=== PATIENT | female | born 1975 | race African-American/Black ===

== ENCOUNTER 2018-12-22 09:44 | Inpatient (IN) | payer OTHER ==
[2018-12-22 11:31] VITALS: BMI 26.6
--- NOTE | 2018-12-22 14:05 | HP ---
COWS - Scale Resting Pulse: 0= [place] 80 or Below Sweatin= Chills/Flushing Restless Observation: 3= Extraneous Movement Pupil Size: 1= Pupils >than Normal Bone or Joint Aches: 2= Severe Diffuse Aches Runny Nose/ Eye Tearin= Nasal Congestion GI Upset > 30mins: 3= Vomiting/Diarrhea Tremor Observation: 2= Slight Tremor Visible Yawning Observation: 1= 1-2x During Session Anxiety or Irritability: 2=Irritable/Anxious Goose Flesh Skin: 0=Smooth Skin COWS Score: 16 CIWA Score - Admission Criteria OASAS Guidelines: Admission for Medically Managed Detox: Requires at least one of the followin. CIWA greater than 12 2. Seizures within the past 24 hours 3. Delirium tremens within the past 24 hours 4. Hallucinations within the past 24 hours 5. Acute intervention needed for co occurring medical disorder 6. Acute intervention needed for co occurring psychiatric disorder 7. Severe withdrawal that cannot be handled at a lower level of care (continued vomiting, continued diarrhea, abnormal vital signs) requiring intravenous medication and/or fluids 8. Admission ROS [facility] Chief Complaint: i nee help to stop using heroin,cocaine,marijuana Allergies/Adverse Reactions: Allergies Allergy/AdvReac Type Severity Reaction Status Date / Time sulfur dioxide Allergy Verified 12/22/18 11:16 History of Present Illness: this 43 years old female with heroin,cocaine,marijuana dependence seeking detox, withdrawal symptom, seen at [facility] yesterday,refer for detox multiple admissions in detox and rehab last [facility] but relapsing for 2 weeks hepatitis c irritable bowel syndrome and colitis nicotine dependence 3 cigarette schizoaffective disorder no significant period of sobriety Exam Limitations: No Limitations - Ebola screening Have you traveled outside of the country in the last 21 days: No (N) Have you had contact with anyone from an Ebola affected area: No Do you have a fever: No - Review of Systems Constitutional: Chills, Loss of Appetite, Malaise, Night Sweats, Changes in sleep, Weakness, Unintentional Wgt. Loss EENT: reports: Tearing, Nose Congestion Respiratory: reports: No Symptoms reported Cardiac: reports: No Symptoms Reported GI: reports: Diarrhea, Nausea, Vomiting, Abdominal cramping : reports: No Symptoms Reported Musculoskeletal: reports: Back Pain, Muscle Pain Integumentary: reports: Dryness Neuro: reports: Headache, Tremors Endocrine: reports: No Symptoms Reported Hematology: reports: No Symptoms Reported Psychiatric: reports: No Sypmtoms Reported, Judgement Intact, Mood/Affect Appropiate, Orientated x3, other (schizoaffective disorder) Other Systems: Reviewed and Negative Patient History - Patient Medical History Hx Asthma: Yes (ALBUTEROL INHALER) Hx Chronic Obstructive Pulmonary Disease (COPD): No Hx Cancer: No Hx Cardiac Disorders: No Hx Congestive Heart Failure: No Hx Hypertension: No Hx Hypercholesterolemia: No Hx Pacemaker: No HX Cerebrovascular Accident: No Hx Seizures: No Hx Dementia: No Hx Diabetes: No Hx Gastrointestinal Disorders: Yes (irritable bowel syndrome and colitis) Hx Liver Disease: Yes Hx Genitourinary Disorders: No Hx Sexually Transmitted Disorders: No Hx Renal Disease (ESRD): No Hx Thyroid Disease: No Hx Human Immunodeficiency Virus (HIV): No (last 11/12 negative) Hx Hepatitis C: Yes (no treatment) Hx Depression: Yes Hx Suicide Attempt: No Hx Schizophrenia: Yes (SCHIZOAFFECTIVE) Other Medical History: no sucidal,no homicidal - Patient Surgical History Past Surgical History: No Hx Neurologic Surgery: No Hx Cataract Extraction: No Hx Cardiac Surgery: No Hx Lung Surgery: No Hx Breast Surgery: No Hx Breast Biopsy: No Hx Abdominal Surgery: No Hx Appendectomy: No Hx Cholecystectomy: No Hx Genitourinary Surgery: No Hx Section: No Hx Orthopedic Surgery: No Anesthesia Reaction: No - PPD History Previous Implant?: Yes Documented Results: Negative w/o proof Implanted On Prior [facility] Admission?: No PPD to be Administered?: Yes - Reproductive History Patient is a Female of Child Bearing Age (11 -55 yrs old): Yes Last Menstrual Period: 10/25/14 Patient : No - Smoking Cessation Smoking history: Current every day smoker Have you smoked in the past 12 months: Yes Aproximately how many cigarettes per day: 3 Hx Chewing Tobacco Use: No Initiated information on smoking cessation: Yes 'Breaking Loose' booklet given: 12/22/18 - Substance & Tx. History Hx Alcohol Use: No Hx Substance Use: Yes Substance Use Type: Cocaine, Heroin, Marijuana Hx Substance Use Treatment: Yes ([facility] 07/[facility]) - Substances abused Heroin Substance route: Injection Frequency: Daily Amount used: 5 BAGS Age of first use: 40 Date of last use: 12/21/18 Cocaine Substance route: Injection Frequency: 1-2 times per week Amount used: 20$ Age of first use: 25 Date of last use: 12/20/18 Marijuana/Hashish Substance route: Smoking Frequency: 1-3 times last 30 days Amount used: 10$ Age of first use: 14 Date of last use: 12/05/18 Family Disease History - Family Disease History Family History: Denies Admission Physical Exam [facility] - Vital Signs Vital Signs: Vital Signs - 24 hr 12/22/18 12/22/18 11:27 11:42 Temperature 97.3 F L 97.3 F L Pulse Rate 54 L 54 L Respiratory 20 20 Rate Blood Pressure 108/68 108/68 - Physical General Appearance: Yes: Moderate Distress, Tremorous, Irritable, Sweating, Anxious HEENTM: Yes: Normal ENT Inspection, TANI, Pharynx Normal Respiratory: Yes: Within Normal Limits, Lungs Clear, Normal Breath Sounds Neck: Yes: Within Normal Limits, Supple, Trachea in good position Breast: Yes: Breast Exam Deferred Cardiology: Yes: Within Normal Limits, Regular Rhythm, Regular Rate, S1, S2 Abdominal: Yes: Within Normal Limits, Normal Bowel Sounds, Non Tender, Flat, Soft Genitourinary: Yes: Within Normal Limits Back: Yes: Muscle Spasm Musculoskeletal: Yes: full range of Motion, Back pain, Muscle Pain Extremities: Yes: Tremors, Swelling (abscess of left leg spontaneous drainage yesterday) Neurological: Yes: Alert, Motor Strength 5/5, Normal Mood/Affect Integumentary: Yes: Dry Lymphatic: Yes: Within Normal Limits - Diagnostic (1) Opioid dependence with withdrawal Current Visit: Yes Status: Acute (2) Cocaine dependence Current Visit: Yes Status: Acute (3) Marijuana dependence Current Visit: Yes Status: Acute (4) Weight loss Current Visit: Yes Status: Acute (5) Nicotine dependence Current Visit: Yes Status: Acute (6) Schizoaffective disorder Current Visit: Yes Status: Acute (7) Abscess of left leg Current Visit: Yes Status: Acute (8) Irritable bowel syndrome Current Visit: Yes Status: Acute (9) Colitis Current Visit: Yes Status: Acute Cleared for Admission [facility] - Detox or Rehab [facility] Level of Care: Medically Managed Detox Regimen/Protocol: Methadone Breathalyzer - Breathalyzer Breathalyzer: 0 POC Urine test - Test device test lot number: [id number] Expiration date: 05/26/20 - Control test control: Yes - Result Urine Test Results: Negative - NO line present Urine Drug Screen - Test Device Lot number: [id number] Expiration date: 07/26/20 - Control Is test valid?: Yes - Results Drug screen NEGATIVE: No Urine drug screen results: THC-Marijuana, COLT-Cocaine, FEN-Fentanyl, MOP-Opiates , MTD-Methadone, BZO-Benzodiazepines, BUP-Suboxone Inpatient Rehab Admission - Rehab Decision to Admit Inpatient rehab admission?: No
[2018-12-22] MEDS ORDERED: MAGNESIUM CITRATE 300 ML BOTTLE PO PRN (14:22)
[2018-12-22] MEDS ORDERED: MAG HYDROX/AL HYDROX/SIMETH 30 ML UNIT-DOSE CUP PO PRN (14:22)
[2018-12-22] MEDS ORDERED: MAGNESIUM HYDROX 2400MG/30ML ORAL SUSPENSION 30 ML CUP PO PRN (14:22)
[2018-12-22] MEDS ORDERED: chlordiazePOXIDE HCL 25 MG CAPSULE PO PRN (14:22)
[2018-12-22] MEDS ORDERED: IBUPROFEN 400 MG TABLET (FP) PO PRN (14:22)
[2018-12-22] MEDS ORDERED: BISMUTH SUBSALICYLATE 524 MG/30 ML UD PO PRN (14:22)
[2018-12-22] MEDS ORDERED: MENTHOL/PHENOL 1 EACH UD MM PRN (14:22)
[2018-12-22] MEDS ORDERED: ACETAMINOPHEN 325 MG TABLET (FP) PO PRN ×2 (14:22)
--- NOTE | 2018-12-22 14:22 | HP ---
COWS - Scale Resting Pulse: 0= [place] 80 or Below Sweatin= Chills/Flushing Restless Observation: 3= Extraneous Movement Pupil Size: 1= Pupils >than Normal Bone or Joint Aches: 2= Severe Diffuse Aches Runny Nose/ Eye Tearin= Nasal Congestion GI Upset > 30mins: 3= Vomiting/Diarrhea Tremor Observation: 2= Slight Tremor Visible Yawning Observation: 1= 1-2x During Session Anxiety or Irritability: 2=Irritable/Anxious Goose Flesh Skin: 0=Smooth Skin COWS Score: 16 CIWA Score - Admission Criteria OASAS Guidelines: Admission for Medically Managed Detox: Requires at least one of the followin. CIWA greater than 12 2. Seizures within the past 24 hours 3. Delirium tremens within the past 24 hours 4. Hallucinations within the past 24 hours 5. Acute intervention needed for co occurring medical disorder 6. Acute intervention needed for co occurring psychiatric disorder 7. Severe withdrawal that cannot be handled at a lower level of care (continued vomiting, continued diarrhea, abnormal vital signs) requiring intravenous medication and/or fluids 8. Admission ROS [facility] Allergies/Adverse Reactions: Allergies Allergy/AdvReac Type Severity Reaction Status Date / Time sulfur dioxide Allergy Verified 12/22/18 11:16 - Ebola screening Have you traveled outside of the country in the last 21 days: No (N) Have you had contact with anyone from an Ebola affected area: No Do you have a fever: No Patient History - Patient Medical History Hx Asthma: Yes (ALBUTEROL INHALER) Hx Chronic Obstructive Pulmonary Disease (COPD): No Hx Cancer: No Hx Cardiac Disorders: No Hx Congestive Heart Failure: No Hx Hypertension: No Hx Hypercholesterolemia: No Hx Pacemaker: No HX Cerebrovascular Accident: No Hx Seizures: No Hx Dementia: No Hx Diabetes: No Hx Gastrointestinal Disorders: Yes (irritable bowel syndrome and colitis) Hx Liver Disease: Yes Hx Genitourinary Disorders: No Hx Sexually Transmitted Disorders: No Hx Renal Disease (ESRD): No Hx Thyroid Disease: No Hx Human Immunodeficiency Virus (HIV): No (last 11/12 negative) Hx Hepatitis C: Yes (no treatment) Hx Depression: Yes Hx Suicide Attempt: No Hx Schizophrenia: Yes (SCHIZOAFFECTIVE) Other Medical History: no sucidal,no homicidal - Patient Surgical History Past Surgical History: No Hx Neurologic Surgery: No Hx Cataract Extraction: No Hx Cardiac Surgery: No Hx Lung Surgery: No Hx Breast Surgery: No Hx Breast Biopsy: No Hx Abdominal Surgery: No Hx Appendectomy: No Hx Cholecystectomy: No Hx Genitourinary Surgery: No Hx Section: No Hx Orthopedic Surgery: No Anesthesia Reaction: No - PPD History Previous Implant?: Yes Documented Results: Negative w/o proof Implanted On Prior [facility] Admission?: No - Reproductive History Last Menstrual Period: 10/25/14 Patient : No - Smoking Cessation Smoking history: Current every day smoker Have you smoked in the past 12 months: Yes Aproximately how many cigarettes per day: 3 Hx Chewing Tobacco Use: No Initiated information on smoking cessation: Yes - Substance & Tx. History Hx Alcohol Use: No Hx Substance Use: Yes Substance Use Type: Cocaine, Heroin, Marijuana Hx Substance Use Treatment: Yes ([facility] 07/14) - Substances abused Heroin Substance route: Injection Frequency: Daily Amount used: 5 BAGS Age of first use: 40 Date of last use: 12/21/18 Cocaine Substance route: Injection Frequency: 1-2 times per week Amount used: 20$ Age of first use: 25 Date of last use: 12/20/18 Marijuana/Hashish Substance route: Smoking Frequency: 1-3 times last 30 days Amount used: 10$ Age of first use: 14 Date of last use: 12/05/18 Family Disease History - Family Disease History Family History: Denies Admission Physical Exam S - Vital Signs Vital Signs: Vital Signs - 24 hr 12/22/18 12/22/18 11:27 11:42 Temperature 97.3 F L 97.3 F L Pulse Rate 54 L 54 L Respiratory 20 20 Rate Blood Pressure 108/68 108/68 - Physical General Appearance: Yes: Moderate Distress, Tremorous, Irritable, Sweating, Anxious HEENTM: Yes: Normal ENT Inspection, TANI, Pharynx Normal Respiratory: Yes: Lungs Clear, Normal Breath Sounds, No Respiratory Distress Neck: Yes: Within Normal Limits, Supple, Trachea in good position Breast: Yes: Breast Exam Deferred Cardiology: Yes: Within Normal Limits, Regular Rhythm, Regular Rate, S1, S2 Abdominal: Yes: Within Normal Limits, Normal Bowel Sounds, Flat, Soft, Increased Bowel Sounds Genitourinary: Yes: Within Normal Limits Back: Yes: Muscle Spasm Musculoskeletal: Yes: Back pain, Muscle Pain Extremities: Yes: Swelling (abscess of left leg), Inflammation Neurological: Yes: harp repairer II-XII NML intact, Fully Oriented, Alert, Motor Strength 5/5 Integumentary: Yes: Dry, Track Dawson Lymphatic: Yes: Within Normal Limits - Diagnostic (1) Opioid dependence with withdrawal Current Visit: Yes Status: Acute (2) Cocaine dependence Current Visit: Yes Status: Acute (3) Marijuana dependence Current Visit: Yes Status: Acute (4) Weight loss Current Visit: Yes Status: Acute (5) Nicotine dependence Current Visit: Yes Status: Acute (6) Schizoaffective disorder Current Visit: Yes Status: Acute (7) Abscess of left leg Current Visit: Yes Status: Acute (8) Irritable bowel syndrome Current Visit: Yes Status: Acute (9) Colitis Current Visit: Yes Status: Acute (10) Dehydration Current Visit: Yes Status: Acute (11) IVDU (intravenous drug user) Current Visit: Yes Status: Acute Cleared for Admission S - Detox or Rehab [facility] Level of Care: Medically Managed Detox Regimen/Protocol: Methadone Breathalyzer - Breathalyzer Breathalyzer: 0 POC Urine test - Test device test lot number: [id number] Expiration date: 05/26/20 - Control test control: Yes - Result Urine Test Results: Negative - NO line present Urine Drug Screen - Test Device Lot number: [id number] Expiration date: 07/26/20 - Control Is test valid?: Yes - Results Drug screen NEGATIVE: No Urine drug screen results: THC-Marijuana, COLT-Cocaine, FEN-Fentanyl, MOP-Opiates , MTD-Methadone, BZO-Benzodiazepines, BUP-Suboxone
[2018-12-22] MEDS ORDERED: METHADONE HCL 10 MG TABLET (FOR DETOX USE ONLY) PO ONE ×2 (14:30→23:00)
[2018-12-22] MEDS ORDERED: SENNOSIDES 8.6MG TABLET (FP) PO PRN (14:34)
[2018-12-22] MEDS: diazePAM 5 MG TABLET PO PRN ×2 (15:28→19:57)
[2018-12-22] MEDS: METHOCARBAMOL 500 MG TABLET PO PRN (15:29)
[2018-12-22] MEDS ORDERED: chlordiazePOXIDE HCL 25 MG CAPSULE PO SCH (17:00)
[2018-12-22] MEDS: cloNIDine HCL 0.1 MG TABLET PO PRN (17:23)
[2018-12-22] MEDS: CEPHALEXIN MONOHYDRATE 500 MG CAPSULE (UD) PO SCH ×2 (17:23→23:02)
[2018-12-22] MEDS ORDERED: DOCUSATE SODIUM 100 MG CAPSULE (FP) PO PRN (22:00)
[2018-12-22] MEDS: THIAMINE HCL 100 MG TABLET (FP) PO SCH (22:16)
[2018-12-22] MEDS: BACITRACIN 0.9 GM PACKET TP SCH (22:16)
[2018-12-22] MEDS: MELATONIN 5 MG TABLETS PO PRN (23:03)
[2018-12-23] MEDS: diazePAM 5 MG TABLET PO PRN ×3 (01:52→11:46)
[2018-12-23] MEDS: METHOCARBAMOL 500 MG TABLET PO PRN (01:53)
[2018-12-23] MEDS: cloNIDine HCL 0.1 MG TABLET PO PRN (05:10)
[2018-12-23] MEDS: CEPHALEXIN MONOHYDRATE 500 MG CAPSULE (UD) PO SCH ×4 (05:11→23:37)
[2018-12-23] MEDS: BACITRACIN 0.9 GM PACKET TP SCH ×3 (09:07→23:38)
[2018-12-23] MEDS: PRENATAL VITAMINS W/ FOLIC ACID TABLET (FP) PO SCH (09:07)
[2018-12-23] MEDS ORDERED: METHADONE HCL 10 MG TABLET (FOR DETOX USE ONLY) PO ONE (10:00)
[2018-12-23 10:10] LABS: ALBUMIN 3.2 g/dl (3.4-5.0); ALK PHOS 73 U/L (45-117); ANION GAP 7 MMOL/L (8-16); BILIRUBIN,TOTAL 0.6 mg/dL (0.2-1); BLOOD UREA NITROGEN 14 mg/dL (7-18); CALCIUM 8.9 mg/dL (8.5-10.1); CHLORIDE 100 mmol/L (98-107); CO2 31 mmol/L (21-32); CREATININE 0.7 mg/dL (0.55-1.3); GLUCOSE,RANDOM 117 mg/dL (74-106); POTASSIUM 3.4 mmol/L (3.5-5.1); SGOT/AST 26 U/L (15-37); SGPT/ALT 54 U/L (13-61); SODIUM 137 mmol/L (136-145); TOT PROT 6.9 g/dl (6.4-8.2)
[2018-12-23 10:21] LABS: HEMATOCRIT 38.9 % (32.4-45.2); HEMOGLOBIN 13.4 GM/dL (10.7-15.3); MCHC 34.3 g/dl (32.0-36.0); MEAN CELL VOLUME 90.2 fl (80-96); PLATELET COUNT 220 K/MM3 (134-434); RBC 4.31 M/mm3 (3.60-5.2); RDW 13.3 % (11.6-15.6); WHITE BLOOD COUNT 6.5 K/mm3 (4.0-10.0)
--- NOTE | 2018-12-23 11:02 | EKG ---
Test Reason : Blood Pressure : / mmHG Vent. Rate : 055 BPM Atrial Rate : 055 BPM P-R Int : 142 ms QRS Dur : 074 ms QT Int : 440 ms P-R-T Axes : 090 067 056 degrees QTc Int : [address] ELEVATION, CONSIDER EARLY REPOLARIZATION, PERICARDITIS, OR INJURY NONSPECIFIC ST AND T WAVE ABNORMALITY ABNORMAL ECG NO PREVIOUS ECGS AVAILABLE Confirmed by RAJINDER COONEY MD ([id number]) on 12/23/2018 11:01:42 AM Referred By: Confirmed By:RAJINDER COONEY MD
[2018-12-23] MEDS ORDERED: hydrOXYzine PAMOATE 50 MG CAPSULE (FP) PO ONE (12:15)
[2018-12-23] MEDS ORDERED: ONDANSETRON *ODT* 4 MG TABLET SL ONE (12:15)
--- NOTE | 2018-12-23 13:08 | PN ---
S COWS - Scale Resting Pulse: 0= [place] 80 or Below Sweatin= Chills/Flushing Restless Observation: 1= Difficult to Sit Still Pupil Size: 1= Pupils >than Normal Bone or Joint Aches: 1= Mild Discomfort Runny Nose/ Eye Tearin= Nasal Congestion GI Upset > 30mins: 2= Nausea/Diarrhea Tremor Observation of Outstretched Hands: 2= Slight Tremor Visible Yawning Observation: 0= None Anxiety or Irritability: 1=Feels Anxious/Irritable Goose Flesh Skin: 3=Piloerection COWS Score: 13 BHS Progress Note (SOAP) Subjective: body aches restlessness anxiousness long history of anxiety treated with wellbutrin and remoron Objective: 12/23/18 13:08 Vital Signs Temperature 97.1 F L 12/23/18 09:11 Pulse Rate 53 L 12/23/18 09:11 Respiratory Rate 18 12/23/18 09:11 Blood Pressure 84/61 L 12/23/18 09:11 O2 Sat by Pulse Oximetry (%) Laboratory Last Values WBC 6.5 K/mm3 (4.0-10.0) 12/23/18 07:00 RBC 4.31 M/mm3 (3.60-5.2) 12/23/18 07:00 Hgb 13.4 GM/dL (10.7-15.3) 12/23/18 07:00 Hct 38.9 % (32.4-45.2) 12/23/18 07:00 MCV 90.2 fl (80-96) 12/23/18 07:00 MCH 31.0 pg (25.7-33.7) 12/23/18 07:00 MCHC 34.3 g/dl (32.0-36.0) 12/23/18 07:00 RDW 13.3 % (11.6-15.6) 12/23/18 07:00 Plt Count 220 K/MM3 (134-434) 12/23/18 07:00 MPV 9.0 fl (7.5-11.1) 12/23/18 07:00 Sodium 137 mmol/L (136-145) 12/23/18 07:00 Potassium 3.4 mmol/L (3.5-5.1) L 12/23/18 07:00 Chloride 100 mmol/L (98-107) 12/23/18 07:00 Carbon Dioxide 31 mmol/L (21-32) 12/23/18 07:00 Anion Gap 7 MMOL/L (8-16) L 12/23/18 07:00 BUN 14 mg/dL (7-18) 12/23/18 07:00 Creatinine 0.7 mg/dL (0.55-1.3) 12/23/18 07:00 Creat Clearance w eGFR 91.33 (>60) 12/23/18 07:00 Random Glucose 117 mg/dL (74-106) H 12/23/18 07:00 Calcium 8.9 mg/dL (8.5-10.1) 12/23/18 07:00 Total Bilirubin 0.6 mg/dL (0.2-1) 12/23/18 07:00 AST 26 U/L (15-37) 12/23/18 07:00 ALT 54 U/L (13-61) 12/23/18 07:00 Alkaline Phosphatase 73 U/L (45-117) 12/23/18 07:00 Total Protein 6.9 g/dl (6.4-8.2) 12/23/18 07:00 Albumin 3.2 g/dl (3.4-5.0) L 12/23/18 07:00 RPR Titer Nonreactive (NONREACTIVE) 12/23/18 07:00 HIV 1&2 Antibody Screen Negative 12/23/18 07:00 HIV P24 Antigen Negative 12/23/18 07:00 lab noted K+ low K+ supplement Assessment: 12/23/18 13:11 opiate withdrawal sx abscess IV heroin treated with antibiotic and warm compress low K+ Plan: continue detox repeat K+
--- NOTE | 2018-12-23 14:13 | CONSULT ---
[facility] Psychiatric Consult - Data Date of interview: 12/23/18 Admission source: [facility] Identifying data: First admission to [facility] for this 43 y/o AA female self- referred for detoxification treatment (cannabis, cocaine, heroin). Examined at [address] [place] [address]. Patient is single, no children, homeless, unemployed and supported on [facility] benefits. Substance Abuse History: Confirmed by the patient in this interview. Details in current [facility] report : Smoking history: Current every day smoker. Have you smoked in the past 12 months: Yes. Aproximately how many cigarettes per day: 3. Hx Chewing Tobacco Use: No. Initiated information on smoking cessation: Yes. 'Breaking Loose' booklet given: 12/22/18. - Substance & Tx. History. Hx Alcohol Use: No. Hx Substance Use: Yes. Substance Use Type: Cocaine, Heroin, Marijuana. Hx Substance Use Treatment: Yes ([facility] 07/14). - Substances abused. Heroin. Substance route: Injection. Frequency: Daily. Amount used: 5 BAGS. Age of first use: 40. Date of last use: 12/21/18. Cocaine. Substance route: Injection. Frequency: 1-2 times per week. Amount used: 20$. Age of first use: 25. Date of last use: 12/20/18. Marijuana/ Hashish. Substance route: Smoking. Frequency: 1-3 times last 30 days. Amount used: 10$. Age of first use: 14. Date of last use: 12/05/18 Medical History: Remarkable for colitis, irritable bowel syndrome, hepatitis C and bronchial asthma. Psychiatric History: Patient denies history of psychiatric hospitalizations. She has been diagnosed with Schizoaffective Disorder. Ms Jackson is known to the [facility] [employer] program in the [place]. She sees a psychiatrist for medication management at the [facility] clinic in [facility]. Medicated with a combination of elavil + remeron + wellbutrin. Patient denies history of suicide attempts. Physical/Sexual Abuse/Trauma History: Patient denies. Additional Comment: Urine drug screen results: THC-Marijuana, COLT-Cocaine, FEN- Fentanyl, MOP-Opiates, MTD-Methadone, BZO-Benzodiazepines, BUP-Suboxone. Noted. Mental Status Exam - Mental Status Exam Alert and Oriented to: Time, Place, Person Cognitive Function: Good Patient Appearance: Well Groomed Mood: Nervous, Withdrawn, Anxious Affect: Mood Congruent Patient Behavior: Appropriate (well-mannered), Cooperative Speech Pattern: Clear, Appropriate (articulate) Voice Loudness: Normal Thought Process: Goal Oriented Thought Disorder: Not Present Hallucinations: Denies Suicidal Ideation: Denies Homicidal Ideation: Denies Insight/Judgement: Poor Sleep: Poorly, Difficulty falling asleep Appetite: Good Muscle strength/Tone: Normal Gait/Station: Normal Psychiatric Findings - Problem List ([place] 1, 2,3) (1) Opioid dependence with withdrawal Current Visit: Yes Status: Acute (2) Cocaine dependence Current Visit: Yes Status: Chronic (3) Marijuana dependence Current Visit: Yes Status: Chronic (4) Nicotine dependence Current Visit: Yes Status: Chronic (5) Substance induced mood disorder Current Visit: Yes Status: Chronic (6) Schizoaffective disorder Current Visit: Yes Status: Chronic (7) Insomnia Current Visit: Yes Status: Chronic - Initial Treatment Plan Initial Treatment Plan: Psychoeducation. Sleep hygiene. Support. Detoxification. NA meetings. Medications revisited. Contact made with pharmacist at [facility] ([phone]) : no mirtazapine or wellbutrin on file ; refills for risperdal 4 mg/hs + buspar 10 mg/bid were picked up on 11/08/17 ; most recent contact with that pharmacy was ONE YEAR ago. Will resume : wellbutrin XL 150 mg po daily + remeron 15 mg po hs (patient's specific request). Side effects/benefits of both drugs are discussed with the patient. Consent (verbal) granted to MD. Nieto.
[2018-12-23] MEDS: POTASSIUM CHLORIDE ORAL LIQUID 20 MEQ/15 ML PO SCH ×2 (15:16→20:16)
[2018-12-23] MEDS ORDERED: chlordiazePOXIDE HCL 25 MG CAPSULE PO SCH (17:00)
[2018-12-23] MEDS: LORazepam 0.5 MG TABLET PO PRN (19:07)
--- NOTE | 2018-12-23 19:12 | PN ---
B[facility] Progress Note Note: Met w/ patient to review current c/o withdrawal and anxiety. Abd: S/NT/BS Hyperactive. HR: RR @ 60 Pupils = 3 mm Lungs: CTA Skin: Increased facial moisture Vital Signs 12/23/18 12/23/18 12/23/18 13:12 15:02 17:53 Temperature 97.4 F L 97.8 F Pulse Rate 55 L 59 L Respiratory 18 17 Rate Blood Pressure 99/63 99/54 L 84/50 L 12/23/18 18:24 Temperature Pulse Rate 62 Respiratory 18 Rate Blood Pressure 85/56 L Plan: Encouraged increased water intake. Okay to give Ativan.
[2018-12-23] MEDS ORDERED: risperiDONE 0.5 MG TABLET (FP) PO SCH (22:00)
[2018-12-23] MEDS: AMITRIPTYLINE HCL 25 MG TABLET (FP) PO SCH (22:20)
[2018-12-23] MEDS: MIRTAZAPINE 15 MG TABLET (FP) PO SCH (22:20)
[2018-12-23] MEDS: THIAMINE HCL 100 MG TABLET (FP) PO SCH (22:21)
[2018-12-23] MEDS: MELATONIN 5 MG TABLETS PO PRN (22:27)
[2018-12-24] MEDS: CEPHALEXIN MONOHYDRATE 500 MG CAPSULE (UD) PO SCH ×4 (08:13→23:29)
[2018-12-24] MEDS: LORazepam 0.5 MG TABLET PO PRN ×3 (08:39→16:56)
[2018-12-24] MEDS ORDERED: METHADONE HCL 10 MG TABLET (FOR DETOX USE ONLY) PO ONE (10:00)
[2018-12-24] MEDS: BACITRACIN 0.9 GM PACKET TP SCH ×2 (10:45→23:27)
[2018-12-24] MEDS: hydrOXYzine PAMOATE 25 MG CAPSULE (FP) PO PRN ×2 (10:45→16:56)
[2018-12-24] MEDS: PRENATAL VITAMINS W/ FOLIC ACID TABLET (FP) PO SCH (10:45)
--- NOTE | 2018-12-24 16:17 | PN ---
[facility] COWS - Scale Resting Pulse: 1= NC 81-100 Sweatin= Chills/Flushing Restless Observation: 1= Difficult to Sit Still Pupil Size: 0= Normal to Room Light Bone or Joint Aches: 1= Mild Discomfort Runny Nose/ Eye Tearin= Nasal Congestion GI Upset > 30mins: 1= Stomach Cramp Tremor Observation of Outstretched Hands: 1= Tremor [place], Not Seen Yawning Observation: 1= 1-2x During Session Anxiety or Irritability: 1=Feels Anxious/Irritable Goose Flesh Skin: 0=Smooth Skin COWS Score: 9 BHS Progress Note (SOAP) Subjective: patient has withdrawal sx extend ativan prn to 12/25/18 Objective: 12/24/18 16:13 Vital Signs Temperature 98.1 F 12/24/18 13:23 Pulse Rate 84 12/24/18 13:23 Respiratory Rate 18 12/24/18 13:23 Blood Pressure 93/61 12/24/18 13:23 O2 Sat by Pulse Oximetry (%) Laboratory Last Values WBC 6.5 K/mm3 (4.0-10.0) 12/23/18 07:00 RBC 4.31 M/mm3 (3.60-5.2) 12/23/18 07:00 Hgb 13.4 GM/dL (10.7-15.3) 12/23/18 07:00 Hct 38.9 % (32.4-45.2) 12/23/18 07:00 MCV 90.2 fl (80-96) 12/23/18 07:00 MCH 31.0 pg (25.7-33.7) 12/23/18 07:00 MCHC 34.3 g/dl (32.0-36.0) 12/23/18 07:00 RDW 13.3 % (11.6-15.6) 12/23/18 07:00 Plt Count 220 K/MM3 (134-434) 12/23/18 07:00 MPV 9.0 fl (7.5-11.1) 12/23/18 07:00 Sodium 137 mmol/L (136-145) 12/23/18 07:00 Potassium 3.4 mmol/L (3.5-5.1) L 12/24/18 07:00 Chloride 100 mmol/L (98-107) 12/23/18 07:00 Carbon Dioxide 31 mmol/L (21-32) 12/23/18 07:00 Anion Gap 7 MMOL/L (8-16) L 12/23/18 07:00 BUN 14 mg/dL (7-18) 12/23/18 07:00 Creatinine 0.7 mg/dL (0.55-1.3) 12/23/18 07:00 Creat Clearance w eGFR 91.33 (>60) 12/23/18 07:00 Random Glucose 117 mg/dL (74-106) H 12/23/18 07:00 Calcium 8.9 mg/dL (8.5-10.1) 12/23/18 07:00 Total Bilirubin 0.6 mg/dL (0.2-1) 12/23/18 07:00 AST 26 U/L (15-37) 12/23/18 07:00 ALT 54 U/L (13-61) 12/23/18 07:00 Alkaline Phosphatase 73 U/L (45-117) 12/23/18 07:00 Total Protein 6.9 g/dl (6.4-8.2) 12/23/18 07:00 Albumin 3.2 g/dl (3.4-5.0) L 12/23/18 07:00 RPR Titer Nonreactive (NONREACTIVE) 12/23/18 07:00 HIV 1&2 Antibody Screen Negative 12/23/18 07:00 HIV P24 Antigen Negative 12/23/18 07:00 lab noted K+ low K+ supplement 12/24/18 16:27 Assessment: 12/24/18 16:27 Vital Signs Temperature 98.1 F 12/24/18 13:23 Pulse Rate 84 12/24/18 13:23 Respiratory Rate 18 12/24/18 13:23 Blood Pressure 93/61 12/24/18 13:23 O2 Sat by Pulse Oximetry (%) Laboratory Last Values WBC 6.5 K/mm3 (4.0-10.0) 12/23/18 07:00 RBC 4.31 M/mm3 (3.60-5.2) 12/23/18 07:00 Hgb 13.4 GM/dL (10.7-15.3) 12/23/18 07:00 Hct 38.9 % (32.4-45.2) 12/23/18 07:00 MCV 90.2 fl (80-96) 12/23/18 07:00 MCH 31.0 pg (25.7-33.7) 12/23/18 07:00 MCHC 34.3 g/dl (32.0-36.0) 12/23/18 07:00 RDW 13.3 % (11.6-15.6) 12/23/18 07:00 Plt Count 220 K/MM3 (134-434) 12/23/18 07:00 MPV 9.0 fl (7.5-11.1) 12/23/18 07:00 Sodium 137 mmol/L (136-145) 12/23/18 07:00 Potassium 3.4 mmol/L (3.5-5.1) L 12/24/18 07:00 Chloride 100 mmol/L (98-107) 12/23/18 07:00 Carbon Dioxide 31 mmol/L (21-32) 12/23/18 07:00 Anion Gap 7 MMOL/L (8-16) L 12/23/18 07:00 BUN 14 mg/dL (7-18) 12/23/18 07:00 Creatinine 0.7 mg/dL (0.55-1.3) 12/23/18 07:00 Creat Clearance w eGFR 91.33 (>60) 12/23/18 07:00 Random Glucose 117 mg/dL (74-106) H 12/23/18 07:00 Calcium 8.9 mg/dL (8.5-10.1) 12/23/18 07:00 Total Bilirubin 0.6 mg/dL (0.2-1) 12/23/18 07:00 AST 26 U/L (15-37) 12/23/18 07:00 ALT 54 U/L (13-61) 12/23/18 07:00 Alkaline Phosphatase 73 U/L (45-117) 12/23/18 07:00 Total Protein 6.9 g/dl (6.4-8.2) 12/23/18 07:00 Albumin 3.2 g/dl (3.4-5.0) L 12/23/18 07:00 RPR Titer Nonreactive (NONREACTIVE) 12/23/18 07:00 HIV 1&2 Antibody Screen Negative 12/23/18 07:00 HIV P24 Antigen Negative 12/23/18 07:00 alcohol withdrawal sx 12/24/18 16:27 Plan: continue detox
[2018-12-24] MEDS ORDERED: chlordiazePOXIDE HCL 10 MG CAPSULE PO SCH (17:00)
[2018-12-24] MEDS ORDERED: chlordiazePOXIDE HCL 10 MG CAPSULE PO PRN (17:00)
[2018-12-24] MEDS ORDERED: ONDANSETRON *ODT* 4 MG TABLET SL ONE (17:25)
--- NOTE | 2018-12-24 17:26 | PN ---
S Progress Note Note: Vital Signs Temperature 98.1 F 12/24/18 13:23 Pulse Rate 84 12/24/18 13:23 Respiratory Rate 18 12/24/18 13:23 Blood Pressure 93/61 12/24/18 13:23 O2 Sat by Pulse Oximetry (%) c/o of nausea and vomiting one time order zofran fluids as tolerated continue to monitor
[2018-12-24] MEDS: POTASSIUM CHLORIDE ORAL LIQUID 20 MEQ/15 ML PO SCH ×2 (17:33→23:27)
[2018-12-24 17:42] VITALS: BP 100/63; PULSE 88; TEMP 98.3
[2018-12-24] MEDS: METHOCARBAMOL 500 MG TABLET PO PRN (17:55)
--- NOTE | 2018-12-24 18:24 | PN ---
[facility] Progress Note Note: Patient c/o of abdominal pain on RLQ which makes it difficulty to stand erect, reports has been experiencing nausea and vomiting through the day and increase anxiety, reports hx of Colitis. Denies hematuria or melana. Aox3, no acute distress, restless, anxious EENT WNL s1 s2, no JVD lungs clear + abdominal pain, + RLQ tenderness on deep palpations Full ROM, ambulatory + lesion on upper extremities RLQ abdominal pain Patient sent to [facility] for further evaluation via [facility], endorse to Dr. Parish.
[2018-12-24] MEDS: AMITRIPTYLINE HCL 25 MG TABLET (FP) PO SCH (23:27)
[2018-12-24] MEDS: MIRTAZAPINE 15 MG TABLET (FP) PO SCH (23:28)
[2018-12-24] MEDS: THIAMINE HCL 100 MG TABLET (FP) PO SCH (23:28)
[2018-12-25] MEDS ORDERED: LORazepam 0.5 MG TABLET PO PRN (00:01)
[2018-12-25] MEDS ORDERED: METHADONE (DETOX) 10 MG, METHADONE (DETOX) 5 MG PO ONE (10:00)
[2018-12-25] MEDS ORDERED: METHADONE HCL 10 MG TABLET (FOR DETOX USE ONLY) PO ONE (10:00)
[2018-12-25] MEDS ORDERED: CLINDAMYCIN HCL 150 MG CAPSULE (FP) PO SCH (14:00)
[2018-12-25] MEDS ORDERED: chlordiazePOXIDE HCL 10 MG CAPSULE PO SCH (17:00)
[2018-12-26] MEDS ORDERED: METHADONE HCL 5 MG TABLET (FOR DETOX USE ONLY) PO ONE (06:00)
[2018-12-26] MEDS ORDERED: METHADONE HCL 10 MG TABLET (FOR DETOX USE ONLY) PO ONE (10:00)
[2018-12-27] MEDS ORDERED: METHADONE HCL 5 MG TABLET (FOR DETOX USE ONLY) PO ONE (06:00)
== END 2018-12-24 23:55 | disposition short-term general hospital (02) | DRG 897 ==
LOC: YASAS 09:44 → Y3N 13:57
PROVIDERS: ADMIT Surgery; ATTEND Surgery
PROC: HZ2ZZZZ Detoxification Services for Substance Abuse Treatment (ICD-10-PCS; principal; 2018-12-22)
DX: F11.23 Opioid dependence with withdrawal (principal); F14.20 Cocaine dependence, uncomplicated; L02.416 Cutaneous abscess of left lower limb; F12.20 Cannabis dependence, uncomplicated; F19.24 Other psychoactive substance dependence with psychoactive substance-induced mood disorder; F25.9 Schizoaffective disorder, unspecified; F41.9 Anxiety disorder, unspecified; G47.00 Insomnia, unspecified; N18.2 Chronic kidney disease, stage 2 (mild); K58.9 Irritable bowel syndrome, unspecified; J45.909 Unspecified asthma, uncomplicated; R10.31 Right lower quadrant pain; R11.2 Nausea with vomiting, unspecified; Z88.2 Allergy status to sulfonamides
CPT/HCPCS: 36415; 80053; 84132; 85027; 86593; 87389; 93005; 93010; J0735; Q0162

== ENCOUNTER 2018-12-24 19:32 | Inpatient (IN) | payer OTHER ==
[2018-12-24] MEDS ORDERED: ACETAMINOPHEN 1000 MG/100 ML VIAL (NON FORMULARY) IVPB ONE (20:21)
[2018-12-24] MEDS ORDERED: METOCLOPRAMIDE HCL INJECTION 10 MG/2 ML VIAL IVPB ONE (20:22)
[2018-12-24] MEDS ORDERED: METOCLOPRAMIDE HCL INJECTION 10 MG/2 ML VIAL ONE (20:44)
[2018-12-24] MEDS ORDERED: ACETAMINOPHEN INJECTION 100 ML IVPB ONE (20:44)
--- NOTE | 2018-12-24 20:56 | PDOC ---
History of Present Illness - General Chief Complaint: Pain, Acute Stated Complaint: ABDOMINAL PAIN Time Seen by Provider: 12/24/18 20:12 History Source: Patient Exam Limitations: No Limitations - History of Present Illness Initial Comments: 12/24/18 20:50 43F with a PMH of polysubstance abuse (heroine, cocaine, marijuana, hep C, colitis, who presents to the ER with complaints of diffuse abdominal pain that started today. The patient describes 06/05 diffuse, constant, nonradiating abdominal pain without dysuria, fever, chills. Pt has been passing gas but admits to nausea, vomiting, and constipation which she states "can happen for up to 6 weeks at a time". She denies any other complaints. Past History - Past Medical History Allergies/Adverse Reactions: Allergies Allergy/AdvReac Type Severity Reaction Status Date / Time sulfur dioxide Allergy Verified 12/24/18 20:10 risperidone AdvReac Severe Verified 12/24/18 20:10 Home Medications: Ambulatory Orders Amitriptyline HCl [Elavil -] 50 mg PO HS 12/22/18 Bupropion HCl [Wellbutrin Xl -] 150 mg PO BID 12/22/18 Docusate Sodium 200 mg PO HS PRN 12/22/18 Mirtazapine 45 mg PO HS 12/22/18 Sennosides [Senna -] 2 tab PO DAILY PRN 12/22/18 Wellbutrin - 150 mg PO BID 12/22/18 Asthma: Yes (ALBUTEROL INHALER) Cancer: No Cardiac Disorders: No CVA: No COPD: No CHF: No Dementia: No Diabetes: No GI Disorders: Yes (irritable bowel syndrome and colitis) Disorders: No HTN: No Hypercholesterolemia: No Kidney Stones: No Liver Disease: Yes Seizures: No Thyroid Disease: No - Surgical History Abdominal Surgery: No Appendectomy: No Cardiac Surgery: No Cholecystectomy: No Lung Surgery: No Neurologic Surgery: No Orthopedic Surgery: No - Reproductive History PID: No (LAST ONE 4YRS AGO) - Suicide/Smoking/Psychosocial Hx Smoking History: Current some day smoker Have you smoked in the past 12 months: No Number of Cigarettes Smoked Daily: 3 Information on smoking cessation initiated: No 'Breaking Loose' booklet given: 12/22/18 Hx Alcohol Use: Yes Drug/Substance Use Hx: Yes (Heroin) Substance Use Type: Cocaine, Heroin, Marijuana Hx Substance Use Treatment: Yes ([facility] 07/14) Review of Systems - Review of Systems Able to Perform ROS?: Yes Comments:: 12/24/18 21:50 GENERAL/CONSTITUTIONAL: No fever or chills. No weakness. HEAD, EYES, EARS, NOSE AND THROAT: No change in vision. No ear pain or discharge. No sore throat. CARDIOVASCULAR: No chest pain, palpitations, or lightheadedness. RESPIRATORY: No cough, wheezing, shortness of breath, or hemoptysis. GASTROINTESTINAL: + for nausea, vomiting, constipation, and abdominal pain. GENITOURINARY: No dysuria, frequency, hematuria, or change in urination. MUSCULOSKELETAL: No joint or muscle swelling or pain. No neck or back pain. SKIN: No rash or lesions. NEUROLOGIC: No headache, numbness, tingling, focal weakness, loss of consciousness, or change in strength/sensation. Is the patient limited [place] proficient: No *Physical Exam - Vital Signs Last Vital Signs Temp Pulse Resp BP Pulse Ox 98.1 F 84 20 130/74 100 12/24/18 19:32 12/24/18 19:32 12/24/18 19:32 12/24/18 19:32 12/24/18 19:32 - Physical Exam Comments: 12/24/18 21:50 GENERAL: Well developed, well nourished. Awake and alert. No acute distress. HEENT: Normocephalic, atraumatic. Hearing grossly normal. Moist mucous membranes. PERRLA, EOMI. No conjunctival pallor. Sclera are non-icteric. NECK: Supple. Full ROM. No JVD. CARDIOVASCULAR: Regular rate and rhythm. No murmurs, rubs, or gallops. PULMONARY: No evidence of respiratory distress. Lungs clear to auscultation bilaterally. No wheezing, rales or rhonchi. ABDOMINAL: Soft. Diffusely tender with voluntary guarding. Distended. MUSCULOSKELETAL: Normal range of motion at all joints. No bony deformities or tenderness. EXTREMITIES: No cyanosis. No clubbing. No edema. No calf tenderness or swelling. SKIN: Warm and dry. Normal capillary refill. No rashes. No jaundice. NEUROLOGICAL: Alert, awake, appropriate. Cranial nerves 2-12 grossly intact. Normal speech. Gait is normal without ataxia. PSYCHIATRIC: Cooperative. Good eye contact. Appropriate mood and affect. ED Treatment Course - LABORATORY CBC & Chemistry Diagram: 12/25/18 05:20 12/25/18 05:20 - RADIOLOGY Radiology Studies Ordered: Category Date Time Status ABDOMEN & PELVIS CT WITH CONTR [CT] Stat CT Scan 12/24/18 20:22 Ordered Medical Decision Making - Medical Decision Making 12/24/18 21:51 43F with hx of colitis and polysubstance abuse presents to the ED with complaints of diffuse abdominal pain. Treating pain and nausea with reglan and will CT abdomen to evaluate for pathology. 12/24/18 22:25 Pt signed out to Dr. Conroy for further care. *DC/Admit/Observation/Transfer Diagnosis at time of Disposition: Appendicitis Qualifiers: Appendicitis type: acute appendicitis Acute appendicitis type: with localized peritonitis Appendicitis gangrene presence: without gangrene Appendicitis perforation presence: without perforation Appendicitis abscess presence: without abscess Qualified Code(s): K35.30 - Acute appendicitis with localized peritonitis, without perforation or gangrene - Discharge Dispostion Condition at time of disposition: Fair - Referrals - Patient Instructions - Post Discharge Activity
[2018-12-24 21:03] LABS: BASO % 0.4 % (0-2.0); EOS % 1.8 % (0-4.5); HEMATOCRIT 39.5 % (32.4-45.2); HEMOGLOBIN 13.2 GM/dL (10.7-15.3); LYMPH % 25.2 % (8-40); MCH 30.1 pg (25.7-33.7); MCHC 33.4 g/dl (32.0-36.0); MEAN CELL VOLUME 90.2 fl (80-96); MEAN PLT VOLUME 8.8 fl (7.5-11.1); MONO % 5.2 % (3.8-10.2); NEUT % 67.4 % (42.8-82.8); PLATELET COUNT 216 K/MM3 (134-434); RBC 4.38 M/mm3 (3.60-5.2); RDW 13.5 % (11.6-15.6); WHITE BLOOD COUNT 11.3 K/mm3 (4.0-10.0)
[2018-12-24 21:17] LABS: INR 0.98 (0.83-1.09); PROTHROMBIN TIME (PATIENT) 11.6 SEC (9.7-13.0)
[2018-12-24 21:23] LABS: ALBUMIN 3.7 g/dl (3.4-5.0); ALK PHOS 81 U/L (45-117); ANION GAP 9 MMOL/L (8-16); BILIRUBIN,TOTAL 0.2 mg/dL (0.2-1); BLOOD UREA NITROGEN 15 mg/dL (7-18); CALCIUM 8.8 mg/dL (8.5-10.1); CHLORIDE 103 mmol/L (98-107); CO2 28 mmol/L (21-32); CREATININE 0.8 mg/dL (0.55-1.3); GLUCOSE,RANDOM 91 mg/dL (74-106); LIPASE 158 U/L (73-393); POTASSIUM 3.9 mmol/L (3.5-5.1); SGOT/AST 21 U/L (15-37); SGPT/ALT 48 U/L (13-61); SODIUM 140 mmol/L (136-145); TOT PROT 7.5 g/dl (6.4-8.2)
--- NOTE | 2018-12-24 22:23 | PDOC ---
History of Present Illness - General Chief Complaint: Pain, Acute Stated Complaint: ABDOMINAL PAIN Time Seen by Provider: 12/24/18 20:12 Past History - Past Medical History Allergies/Adverse Reactions: Allergies Allergy/AdvReac Type Severity Reaction Status Date / Time sulfur dioxide Allergy Verified 12/24/18 20:10 risperidone AdvReac Severe Verified 12/24/18 20:10 Home Medications: Ambulatory Orders Amitriptyline HCl [Elavil -] 50 mg PO HS 12/22/18 Bupropion HCl [Wellbutrin Xl -] 150 mg PO BID 12/22/18 Docusate Sodium 200 mg PO HS PRN 12/22/18 Mirtazapine 45 mg PO HS 12/22/18 Sennosides [Senna -] 2 tab PO DAILY PRN 12/22/18 Wellbutrin - 150 mg PO BID 12/22/18 Asthma: Yes (ALBUTEROL INHALER) Cancer: No Cardiac Disorders: No CVA: No COPD: No CHF: No Dementia: No Diabetes: No GI Disorders: Yes (irritable bowel syndrome and colitis) Disorders: No HTN: No Hypercholesterolemia: No Kidney Stones: No Liver Disease: Yes Seizures: No Thyroid Disease: No - Surgical History Abdominal Surgery: No Appendectomy: No Cardiac Surgery: No Cholecystectomy: No Lung Surgery: No Neurologic Surgery: No Orthopedic Surgery: No - Reproductive History PID: No (LAST ONE 4YRS AGO) - Suicide/Smoking/Psychosocial Hx Smoking History: Current some day smoker Have you smoked in the past 12 months: No Number of Cigarettes Smoked Daily: 3 Information on smoking cessation initiated: No 'Breaking Loose' booklet given: 12/22/18 Hx Alcohol Use: Yes Drug/Substance Use Hx: Yes (Heroin) Substance Use Type: Cocaine, Heroin, Marijuana Hx Substance Use Treatment: Yes ([facility] 07/14) Review of Systems - Review of Systems Is the patient limited [place] proficient: No *Physical Exam - Vital Signs Last Vital Signs Temp Pulse Resp BP Pulse Ox 98.1 F 84 20 130/74 100 12/24/18 19:32 12/24/18 19:32 12/24/18 19:32 12/24/18 19:32 12/24/18 19:32 ED Treatment Course - LABORATORY CBC & Chemistry Diagram: 12/24/18 20:40 12/24/18 20:40 - ADDITIONAL ORDERS Additional order review: Laboratory Results 12/24/18 12/24/18 20:40 20:40 PT with INR 11.60 INR 0.98 Sodium 140 Potassium 3.9 Chloride 103 Carbon Dioxide 28 Anion Gap 9 BUN 15 Creatinine 0.8 Creat Clearance w eGFR 78.29 Random Glucose 91 Calcium 8.8 Total Bilirubin 0.2 AST 21 ALT 48 Alkaline Phosphatase 81 Total Protein 7.5 Albumin 3.7 Lipase 158 12/24/18 20:40 RBC 4.38 MCV 90.2 MCHC 33.4 RDW 13.5 MPV 8.8 Neutrophils % 67.4 Lymphocytes % 25.2 Monocytes % 5.2 Eosinophils % 1.8 Basophils % 0.4 - Medications Given in the ED: ED Medications Discontinued Medications Generic Name Dose Route Start Last Admin Trade Name Jamq PRN Reason Stop Dose Admin Acetaminophen 1,000 mg 12/24/18 20:21 12/24/18 20:53 Ofirmev Injection - IVPB 12/24/18 20:22 1,000 mg ONCE ONE Administration Metoclopramide HCl 10 mg 12/24/18 20:22 12/24/18 20:53 Reglan Injection - IVPB 12/24/18 20:23 10 mg ONCE ONE Administration Medical Decision Making - Medical Decision Making 12/24/18 22:22 N/V Abdominal diffuse TTP CTAP -- Colitis 12/24/18 23:38 Patient wandering halls, c/o pain, requesting sleep medication to relieve her pain *DC/Admit/Observation/Transfer - Discharge Dispostion Condition at time of disposition: Fair - Referrals - Patient Instructions - Post Discharge Activity
--- NOTE | 2018-12-25 00:03 | PDOC ---
*Physical Exam - Vital Signs Last Vital Signs Temp Pulse Resp BP Pulse Ox 98.1 F 84 20 130/74 100 12/24/18 19:32 12/24/18 19:32 12/24/18 19:32 12/24/18 19:32 12/24/18 19:32 - Physical Exam General Appearance: Yes: Disheveled HEENT: positive: Normal Voice, Hearing Grossly Normal ED Treatment Course - LABORATORY CBC & Chemistry Diagram: 12/25/18 05:20 12/25/18 05:20 - ADDITIONAL ORDERS Additional order review: Laboratory Results 12/24/18 12/24/18 12/24/18 20:40 20:40 20:40 PT with INR 11.60 INR 0.98 Sodium 140 Potassium 3.9 Chloride 103 Carbon Dioxide 28 Anion Gap 9 BUN 15 Creatinine 0.8 Creat Clearance w eGFR 78.29 Random Glucose 91 Calcium 8.8 Total Bilirubin 0.2 AST 21 ALT 48 Alkaline Phosphatase 81 Total Protein 7.5 Albumin 3.7 Lipase 158 Blood Type A POSITIVE Antibody Screen Negative 12/24/18 20:40 RBC 4.38 MCV 90.2 MCHC 33.4 RDW 13.5 MPV 8.8 Neutrophils % 67.4 Lymphocytes % 25.2 Monocytes % 5.2 Eosinophils % 1.8 Basophils % 0.4 - RADIOLOGY Radiology Studies Ordered: Category Date Time Status ABDOMEN & PELVIS CT W/O CONTR [CT] Stat CT Scan 12/24/18 22:30 Completed - Medications Given in the ED: ED Medications Discontinued Medications Generic Name Dose Route Start Last Admin Trade Name Freq PRN Reason Stop Dose Admin Acetaminophen 1,000 mg 12/24/18 20:21 12/24/18 20:53 Ofirmev Injection - IVPB 12/24/18 20:22 1,000 mg ONCE ONE Administration Metoclopramide HCl 10 mg 12/24/18 20:22 12/24/18 20:53 Reglan Injection - IVPB 12/24/18 20:23 10 mg ONCE ONE Administration Medical Decision Making - Medical Decision Making 12/24/18 22:22 Patient signed out by Dr. José (Resident) 43 year old female with a PMH of heroin abuse presents from detoxification/ rehab for acute onset of nausea/vomiting. Diffuse TTP w/o peritoneal signs on PE. CTAP pending to r/o colitis, acute abdomen (including cholecystitis, appendicitis, SBO, perforation) 12/24/18 23:38 Patient half dressed, ambulatory around ED, yelling @ staff, c/o pain, requesting sleep medication to relieve her pain 12/25/18 00:06 CT equivocal for appendicitis 12/25/18 00:09 Leukocytosis 11.3, Case d/w Dr. Graf - will take patient to OR in the a.m. Patient admitted to inpatient medicine service. *DC/Admit/Observation/Transfer Diagnosis at time of Disposition: Appendicitis - Discharge Dispostion Condition at time of disposition: Fair Decision to Admit order: Yes - Referrals - Patient Instructions - Post Discharge Activity
[2018-12-25] MEDS ORDERED: SODIUM CHLORIDE 0.9% 500 ML INFUS.BAG IV ONE (00:04)
--- NOTE | 2018-12-25 00:11 | PN ---
Teaching Attending Note Name of Resident: Thanh José ATTENDING PHYSICIAN STATEMENT I saw and evaluated the patient. I reviewed the resident's note and discussed the case with the resident. I agree with the resident's findings and plan as documented. SUBJECTIVE: Seen and examined; please refer to resident note for further historical details. Briefly, patient presents for abdominal pain, nausea, and vomiting form [facility]. She has a history of polysubstance abuse, Hep C, and colitis. Abdominal pain has been present for several days, nothing makes it better or worse. She is afebrile and hemodynamically stable. No recent surgeries. Mild leukocytosis. Vomiting is NBNB. Recent abx for greenberg abscess. 10 sys ROS done and negative aside from HPI PMH, PSH, FH, SH reviewed Home Medications Medication Instructions Recorded Amitriptyline HCl [Elavil -] 50 mg PO HS 12/22/18 Bupropion HCl [Wellbutrin Xl -] 150 mg PO BID 12/22/18 Docusate Sodium 200 mg PO HS PRN 12/22/18 Mirtazapine 45 mg PO HS 12/22/18 Sennosides [Senna -] 2 tab PO DAILY PRN 12/22/18 Wellbutrin - 150 mg PO BID 12/22/18 OBJECTIVE: VS, labs, imaging reviewed NAD, AAO, resting comfortably in bed NC AT EOMI PERRLA RRR s1/2 no mgr Lungs CTAB, w/ sym exp Tender R-abdomen with ND +BS CN2-12 wnl, no fnd Normal mood, appropriate behavior CT shows tip of appendix with slight prominence which could be normal varient vs. subtle tip appendicitis. There is somewhat increased fluid in the ascending colon which could represent diarrheal illness. Nonspecific R-hepatic lobe hyposdense lesion possible hemangioma vs. other pathology. Recommended nonurgent sonography unless chronic liver disease or extrahepatic malignancy ASSESSMENT AND PLAN: Patient presents with abdominal pain, nausea, vomiting and is found to have possible appendicitis. Placing on the medicine service with surgical consult. 1) Possible Appendicitis -Place NPO on med surg, 100cc LR/hr. Zofran for nausea control. -Given cefoxitin in the ER; will continue. Discussed with sgy. Can give conservative pain and nausea control. Avoid bowel regimine given fluid in ascending colon. -Further diagnostics and treatment per sgy; appreciate expert opinion. 2) Polysubstance Abuse -Was at [facility] for detox from heroin; monitor for s/s WD here. PRN clonidine at low doses should be offered provided she doesn't appear septic. 3) Fluid in ascending colon -No indication to treat; consider s/s heroin withdrawal. 4) Hepatic hypodense lesion -5.3x5cm in the R-hepatic lobe. ?hemangioma vs. other pathology. Noted history of polysubstance abuse. -Checking U/S. Will try to obtain other studies for comparison. Given history of hep C will check CEA 5) Hx Hep C -Checking CEA given #4 6) Depression/Psych -Medication list reviwed; per psych note: "Refills for risperdal 4 mg/hs + buspar 10 mg/bid were picked up on 11/08/17 ; most recent contact with that pharmacy was ONE YEAR ago. Will resume : wellbutrin XL 150 mg po daily + remeron 15 mg po hs (patient's specific request). Side effects/benefits of both drugs are discussed with the patient." -Continue the wellbutrin and remeron when clinically appropriate 7) Greenberg abscess -Covered by empiric abx Full Code
[2018-12-25] MEDS ORDERED: morphine SULFATE 4 MG/ML VIAL ONE ×4 (00:39→13:31)
--- NOTE | 2018-12-25 00:39 | PDOC ---
Documentation entered by Cristy Razo SCRIBE, acting as scribe for Idalia Lemon DO. Idalia Lemon DO: This documentation has been prepared by the Danni clemons Daisy, SCRIBE, under my direction and personally reviewed by me in its entirety. I confirm that the documentation accurately reflects all work , treatment, procedures, and medical decision making performed by me. Attending Attestation - Resident Resident Name: Justin José - ED Attending Attestation I have performed the following: I have examined & evaluated the patient, The case was reviewed & discussed with the resident, I agree w/resident's findings & plan - HPI HPI: 12/24/18 20:26 The patient is a 43 YOF with a PMH of heroine abuse currently at [facility] for heroine detox who presents for evaluation of multiple episodes of NB, NB vomit. Patient also admits to constipation. Allergies: sulfur dioxide, risperidone Social Hx: No reported cigarette or alcohol use. Surgeries: None reported. - Physicial Exam PE: 12/24/18 20:26 Agree with resident's exam. - Medical Decision Making 12/25/18 00:38 43-year-old female with abdominal pain, history of opiate abuse and colitis CT scan shows possible early appendicitis Surgery recommending medical admission with clearance for OR in the morning
[2018-12-25] MEDS ORDERED: morphine SULFATE 4 MG/ML VIAL IVPUSH ONE (01:23)
[2018-12-25] MEDS ORDERED: ACETAMINOPHEN 325 MG TABLET (FP) PO PRN (01:48)
--- NOTE | 2018-12-25 01:53 | HP ---
<Thanh José - Last Filed: 12/25/18 20:06> CHIEF COMPLAINT: Abdominal pain PCP: [facility] HISTORY OF PRESENT ILLNESS: Pt is a 43 y/o F significant past medical history of polysubstance abuse, schizoaffective d/o, Hepatitis C (diagnosed 1 month ago-untreated), colitis, and asthma who presented to [facility] from [facility] due to severe abdominal pain. Pain is described as a 10/10 in severity, nonradiating, located in lower abdomen , and associated with nausea and vomiting. Pt endorses she vomited 15 times since yesterday am. Pt is a unreliable historian. Pt endorses that her current symptoms are very similar to her symptoms when she had a colitis flare. Presently writhing in pain during interview, further history difficult to obtain as pt noncompliant. ER course was notable for: (1) CTAP--> Possible equivocal subtle tip appendicitis. Hepatic lobe hypodense lesion. Multi-phase contrast mri recommended in light of hep c history. Please see report for further details. (2) WBC 11.3 (3) Morphine 4 mg x2 Family History: Allergies sulfur dioxide Allergy (Verified 12/24/18 20:10) risperidone Adverse Reaction (Severe, Verified 12/24/18 20:10) Locked jaw HOME MEDICATIONS: Medications as per nurse from [facility]: Keflex 500 mg PO q6h for 5 days starting 12/23 Methadone taper: 15 mg PO on 12/25, 10 mg PO on 12/26, 5 mg PO on 12/27 Ativan 0.5 mg PO q4h prn anxiety until 12/25 0:00 vitamin PO once daily Bacitracin applied daily to LLE wound Wellbutrin 150 mg PO once daily Elavil 50 mg PO qhs Remeron 15 mg PO qhs Thiamine 100 mg PO qhs throat lozenge PO q4h prn sore throat citroma q48h PO prn constipation colace 200 mg PO qhs prn constipation milk of magnesia 30 mL PO q24h prn constipation senna 2 tabs PO once daily prn constipation myl[place] 30 mL PO q6H prn pepto bismol 30 mL PO q1h prn diarrhea robaxin 500 mg PO q6h prn muscle spasms vistaril 25 mg PO q6h prn itching motrin 400 mg PO q6h prn pain tylenol 650 mg q6h prn pain level 4-6 Home Medications Medication Instructions Recorded Amitriptyline HCl [Elavil -] 50 mg PO HS 12/22/18 Bupropion HCl [Wellbutrin Xl -] 150 mg PO BID 12/22/18 Docusate Sodium 200 mg PO HS PRN 12/22/18 Mirtazapine 45 mg PO HS 12/22/18 Sennosides [Senna -] 2 tab PO DAILY PRN 12/22/18 Wellbutrin - 150 mg PO BID 12/22/18 REVIEW OF SYSTEMS ROS limited due to pt uncooperative GASTROINTESTINAL: PRESENT abdominal pain, nausea, vomiting, diarrhea PHYSICAL EXAMINATION Vital Signs - 24 hr 12/24/18 19:32 Temperature 98.1 F Pulse Rate 84 Respiratory 20 Rate Blood Pressure 130/74 O2 Sat by Pulse 100 Oximetry (%) GENERAL: Acute distress. HEAD: Normal with no signs of trauma. EYES: EOMI Sclera Clear EARS, NOSE, THROAT: MMM NECK: Normal range of motion, supple without lymphadenopathy, JVD, or masses. LUNGS: CTAB HEART: RRR Nl S1S2. No murmurs appreciated upon ausculation ABDOMEN:No guarding or rigidity. Diffuse tenderness to light touch. McBurney's sign negative, Rovsing's negative. LOWER EXTREMITIES: Left lower greenberg wound, nonoozing. NEUROLOGICAL: Pressured speech Normal gait. PSYCHIATRIC: Anxious SKIN: Wound left greenberg. Track hernandez b/l arms Laboratory Results - last 24 hr 12/24/18 12/24/18 12/24/18 20:23 20:40 20:40 WBC 11.3 H RBC 4.38 Hgb 13.2 Hct 39.5 MCV 90.2 MCH 30.1 MCHC 33.4 RDW 13.5 Plt Count 216 MPV 8.8 Absolute Neuts (auto) 7.6 Neutrophils % 67.4 Lymphocytes % 25.2 Monocytes % 5.2 Eosinophils % 1.8 Basophils % 0.4 Nucleated RBC % 0 PT with INR 11.60 INR 0.98 Sodium Potassium Chloride Carbon Dioxide Anion Gap BUN Creatinine Creat Clearance w eGFR Random Glucose Calcium Total Bilirubin AST ALT Alkaline Phosphatase Total Protein Albumin Lipase Serum , Qual Negative Blood Type Antibody Screen 12/24/18 12/24/18 20:40 20:40 WBC RBC Hgb Hct MCV MCH MCHC RDW Plt Count MPV Absolute Neuts (auto) Neutrophils % Lymphocytes % Monocytes % Eosinophils % Basophils % Nucleated RBC % PT with INR INR Sodium 140 Potassium 3.9 Chloride 103 Carbon Dioxide 28 Anion Gap 9 BUN 15 Creatinine 0.8 Creat Clearance w eGFR 78.29 Random Glucose 91 Calcium 8.8 Total Bilirubin 0.2 AST 21 ALT 48 Alkaline Phosphatase 81 Total Protein 7.5 Albumin 3.7 Lipase 158 Serum , Qual Blood Type A POSITIVE Antibody Screen Negative ASSESSMENT/PLAN: Pt is a 43 y/o F significant past medical history of polysubstance abuse, hepatitis c, colitis, and asthma who presented to [facility] from [facility] due to severe abdominal pain. #Abdominal pain 2/2 possible appendicitis. CTAP--> Possible equivocal subtle tip appendicitis. Hepatic lobe hypodense lesion. Multi-phase contrast mri recommended in light of hep c history. Please see report for further details. -Dr Graf on board. Pt for O.R in am. NPO, PT/INR, PTT, type and screen. -Morphine 4 Q6H PRN for pain 7-10. I.V Tylenol pain 6-10. -Tigan For Nausea -Cefoxatin 2 gm Daily. -Blood Cultures -LR@100cc/hr #Liver Lesion -Checking [place]. -Will try to obtain other studies for comparison. -History of hep C--> will check CEA #Polysubstance abuse -Resume methadone taper in am as pt was currently on in [facility] -Thiamine, vitamin #Schizoaffective disorder -Resume medications from [facility]; Mirtazapine 15 hs, Wellbutrin 150 po daily. -Will hold Amytriptyline as known effect of QT prolongation and pt already on Methadone and Zofran PRN. -[id number] #FEN LR@100cc/hr Monitor electrolytes NPO #DVT ppx: SCDs #Dispo: Med-Surg Visit type - Emergency Visit Emergency Visit: Yes ED Registration Date: 12/25/18 Care time: The patient presented to the Emergency Department on the above date and was hospitalized for further evaluation of their emergent condition. - New Patient This patient is new to me today: Yes Date on this admission: 12/25/18 - Critical Care Critical Care patient: No <Wesley Camara - Last Filed: 01/24/19 12:05> Seen and examined; agree with above aside from as documented in my own note. Present for all essential parts of exam and verified all historical info.
[2018-12-25] MEDS ORDERED: CEFOXITIN SODIUM 2 GM in DEXTROSE 5%-WATER - 100 ML IVPB SCH (02:00)
[2018-12-25] MEDS ORDERED: TRIMETHOBENZAMIDE HCL 200MG/2ML INJ IM PRN (02:02)
[2018-12-25] MEDS: CEFOXITIN SODIUM 2 GM in DEXTROSE 5%-WATER 100 ML IVPB SCH ×2 (02:03→11:14)
[2018-12-25] MEDS ORDERED: cloNIDine HCL 0.1 MG TABLET PO PRN (02:03)
[2018-12-25] MEDS ORDERED: LACTATED RINGERS SOLUTION 1,000 ML/1,000 ML INFUS.BAG IV SCH (02:15)
[2018-12-25] MEDS ORDERED: ACETAMINOPHEN 1000 MG/100 ML VIAL (NON FORMULARY) IVPB PRN (06:00)
[2018-12-25] MEDS ORDERED: morphine SULFATE 4 MG/ML VIAL IVPUSH PRN (07:00)
[2018-12-25 07:01] LABS: ALBUMIN 3.9 g/dl (3.4-5.0); ALK PHOS 92 U/L (45-117); ANION GAP 7 MMOL/L (8-16); BILIRUBIN,TOTAL 0.4 mg/dL (0.2-1); BLOOD UREA NITROGEN 8 mg/dL (7-18); CALCIUM 9.2 mg/dL (8.5-10.1); CHLORIDE 98 mmol/L (98-107); CO2 27 mmol/L (21-32); CREATININE 0.7 mg/dL (0.55-1.3); GLUCOSE,RANDOM 102 mg/dL (74-106); INR 1.03 (0.83-1.09); MAGNESIUM 1.8 mg/dL (1.8-2.4); PHOSPHOROUS 2.2 mg/dL (2.5-4.9); POTASSIUM 3.9 mmol/L (3.5-5.1); PROTHROMBIN TIME (PATIENT) 12.2 SEC (9.7-13.0); SGOT/AST 20 U/L (15-37); SGPT/ALT 49 U/L (13-61); SODIUM 132 mmol/L (136-145); TOT PROT 8.3 g/dl (6.4-8.2)
[2018-12-25 07:02] LABS: ACTIVATED PTT 36.4 SECONDS (25.2-36.5)
[2018-12-25 08:41] LABS: BASO % 0.3 % (0-2.0); EOS % 0.4 % (0-4.5); HEMATOCRIT 44.2 % (32.4-45.2); HEMOGLOBIN 14.6 GM/dL (10.7-15.3); LYMPH % 17.8 % (8-40); MCH 29.9 pg (25.7-33.7); MCHC 33.2 g/dl (32.0-36.0); MEAN CELL VOLUME 90.1 fl (80-96); MEAN PLT VOLUME 9.8 fl (7.5-11.1); MONO % 2.6 % (3.8-10.2); NEUT % 78.9 % (42.8-82.8); PLATELET COUNT 156 K/MM3 (134-434); RDW 13.3 % (11.6-15.6); WHITE BLOOD COUNT 11.6 K/mm3 (4.0-10.0)
[2018-12-25] MEDS ORDERED: BACITRACIN 15 GM TUBE TOPICAL OINTMENT TP SCH (10:00)
[2018-12-25] MEDS ORDERED: PRENATAL VITAMINS W/ FOLIC ACID TABLET (FP) PO SCH (10:00)
[2018-12-25] MEDS ORDERED: METHADONE (DETOX) 10 MG, METHADONE (DETOX) 5 MG PO ONE ×2 (10:00)
--- NOTE | 2018-12-25 10:32 | EKG ---
Test Reason : Blood Pressure : / mmHG Vent. Rate : 084 BPM Atrial Rate : 084 BPM P-R Int : 134 ms QRS Dur : 082 ms QT Int : 366 ms P-R-T Axes : 078 075 066 degrees QTc Int : 432 ms NORMAL SINUS RHYTHM WITH SINUS ARRHYTHMIA POSSIBLE LEFT ATRIAL ENLARGEMENT BORDERLINE ECG WHEN COMPARED WITH ECG OF 22-DEC-2018 14:01, VENT. RATE HAS INCREASED BY [address] NO LONGER ELEVATED IN INFERIOR LEADS ST NO LONGER ELEVATED IN LATERAL LEADS Confirmed by MARKUS RODRIGUEZ, DELROY ([id number]) on 12/25/2018 10:32:10 AM Referred By: Confirmed By:DELROY APARICIO MD
[2018-12-25] MEDS ORDERED: ACETAMINOPHEN INJECTION 100 ML IVPB ONE (13:56)
--- NOTE | 2018-12-25 14:05 | PN ---
Physical Exam: SUBJECTIVE: Patient seen and examined this AM. Explains she had Nausea + Vomiting after eating steak at [facility]. Describes her RLQ pain as 10/10 throbbing that is similar to her colitis. No longer experiecing vomiting or diarrhea but complains of pain and nausea. OBJECTIVE: Vital Signs Period Temp Pulse Resp BP Sys/Delgado Pulse Ox Last 24 Hr 98.1 F-99.0 F 77-91 17-20 112-135/56-74 96-100 GENERAL: A&Ox3 HEAD: NCAT EYES: PERRL, EOMI ENT: moist mucous membranes. NECK: Supple LUNGS: Diminished breath sounds at the bases, No wheezes, no crackles HEART: Regular rate and rhythm, S1, S2 without murmur ABDOMEN: Soft, Mild diffuse tenderness over the right abdomen, nondistended, + bowel sounds, Involuntary guarding, negative rovsings and mcburneys EXTREMITIES: Track hernandez over the b/l upper extremities. LLE Anterior greenberg wound without active drainage or surrounding erythema, Nontender to palpation. No edema. NEUROLOGICAL: Cranial nerves II through XII grossly intact. SKIN: Warm, dry Laboratory Results - last 24 hr 12/24/18 12/24/18 12/24/18 08:35 20:23 20:40 WBC 11.3 H RBC 4.38 Hgb 13.2 Hct 39.5 MCV 90.2 MCH 30.1 MCHC 33.4 RDW 13.5 Plt Count 216 MPV 8.8 Absolute Neuts (auto) 7.6 Neutrophils % 67.4 Lymphocytes % 25.2 Monocytes % 5.2 Eosinophils % 1.8 Basophils % 0.4 Nucleated RBC % 0 PT with INR INR PTT (Actin FS) Sodium Potassium Chloride Carbon Dioxide Anion Gap BUN Creatinine Creat Clearance w eGFR Random Glucose Calcium Phosphorus Magnesium Total Bilirubin AST ALT Alkaline Phosphatase Total Protein Albumin Lipase Serum , Qual Negative Blood Type Cancelled Antibody Screen 12/24/18 12/24/18 12/24/18 20:40 20:40 20:40 WBC RBC Hgb Hct MCV MCH MCHC RDW Plt Count MPV Absolute Neuts (auto) Neutrophils % Lymphocytes % Monocytes % Eosinophils % Basophils % Nucleated RBC % PT with INR 11.60 INR 0.98 PTT (Actin FS) Sodium 140 Potassium 3.9 Chloride 103 Carbon Dioxide 28 Anion Gap 9 BUN 15 Creatinine 0.8 Creat Clearance w eGFR 78.29 Random Glucose 91 Calcium 8.8 Phosphorus Magnesium Total Bilirubin 0.2 AST 21 ALT 48 Alkaline Phosphatase 81 Total Protein 7.5 Albumin 3.7 Lipase 158 Serum , Qual Blood Type A POSITIVE Antibody Screen Negative 12/25/18 12/25/18 12/25/18 05:20 05:20 05:20 WBC 11.6 H RBC 4.90 Hgb 14.6 Hct 44.2 MCV 90.1 MCH 29.9 MCHC 33.2 RDW 13.3 Plt Count 156 D MPV 9.8 D Absolute Neuts (auto) 9.1 H Neutrophils % 78.9 Lymphocytes % 17.8 D Monocytes % 2.6 L Eosinophils % 0.4 Basophils % 0.3 Nucleated RBC % 0 PT with INR 12.20 INR 1.03 PTT (Actin FS) 36.4 Sodium 132 L Potassium 3.9 Chloride 98 Carbon Dioxide 27 Anion Gap 7 L BUN 8 Creatinine 0.7 Creat Clearance w eGFR 91.33 Random Glucose 102 Calcium 9.2 Phosphorus 2.2 L Magnesium 1.8 Total Bilirubin 0.4 AST 20 ALT 49 Alkaline Phosphatase 92 Total Protein 8.3 H Albumin 3.9 Lipase Serum , Qual Blood Type Antibody Screen 12/25/18 08:35 WBC RBC Hgb Hct MCV MCH MCHC RDW Plt Count MPV Absolute Neuts (auto) Neutrophils % Lymphocytes % Monocytes % Eosinophils % Basophils % Nucleated RBC % PT with INR INR PTT (Actin FS) Sodium Potassium Chloride Carbon Dioxide Anion Gap BUN Creatinine Creat Clearance w eGFR Random Glucose Calcium Phosphorus Magnesium Total Bilirubin AST ALT Alkaline Phosphatase Total Protein Albumin Lipase Serum , Qual Blood Type A POSITIVE Antibody Screen Negative Active Medications Acetaminophen (Ofirmev Injection -) 1,000 mg IVPB Q6H PRN PRN Reason: PAIN LEVEL 6-10 Bacitracin (Bacitracin -) 1 applic TP DAILY [facility] Last Admin: 12/25/18 11:15 Dose: Not Given Bupropion HCl (Wellbutrin Xl -) 150 mg PO DAILY [facility] Last Admin: 12/25/18 11:15 Dose: Not Given Clonidine (Catapres -) 0.1 mg PO Q6H PRN PRN Reason: Withdrawal Symptoms Stop: 12/27/18 23:59 Dexamethasone Sodium Phosphate (Decadron Injection -) 4 mg IVPUSH ONCE PRN PRN Reason: NAUSEA AND/OR VOMITING Diphenhydramine HCl (Benadryl Injection -) 12.5 mg IVPUSH ONCE PRN PRN Reason: FOR ITCHING Fentanyl (Sublimaze Injection -) 50 mcg IVPUSH [id number] PRN PRN Reason: PAIN-PACU ORDER X 4 DOSES ONLY Hydromorphone HCl (Dilaudid Pharm Tech -) 0 mg DANDY OPERATOR DANDY OPERATOR DONNELL; Protocol Stop: 01/01/19 15:32 Piperacillin Sod/Tazobactam (Sod 3.375 gm/ Dextrose) 50 mls @ 100 mls/hr IVPB Q8H-IV DONNELL; Protocol Lactated Ringer's (Lactated Ringers Solution) 1,000 mls @ 125 mls/hr IV ASDIR DONNELL Vancomycin HCl 1,250 mg/ (Dextrose) 250 mls @ 250 mls/2 hr IVPB Q24H DONNELL; Protocol Methadone HCl (Dolophine -) 10 mg PO ONCE ONE Stop: 12/26/18 10:01 Methadone HCl (Dolophine -) 5 mg PO ONCE ONE Stop: 12/27/18 10:01 Mirtazapine (Remeron -) 15 mg PO HS [facility] Ondansetron HCl (Zofran Injection) 4 mg IVPUSH Q6H PRN PRN Reason: NAUSEA AND/OR VOMITING Ondansetron HCl (Zofran Injection) 4 mg IVPUSH Q4H PRN PRN Reason: NAUSEA AND/OR VOMITING Multivit/Folic Acid/Iron ( Vitamins (Sjr) -) 1 tab PO DAILY [facility] Last Admin: 12/25/18 11:15 Dose: Not Given Promethazine HCl (Phenergan Injection -) 12.5 mg IVPB Q6H PRN PRN Reason: NAUSEA-FOR RESCUE AFTER 15 MIN Promethazine HCl (Phenergan Injection -) 12.5 mg IVPB Q6H PRN PRN Reason: NAUSEA AND/OR VOMITING Thiamine HCl (Vitamin B1 -) 100 mg PO HS [facility] Trimethobenzamide HCl (Tigan Injection -) 200 mg IM Q12H PRN PRN Reason: NAUSEA IMAGING: -CT A/P w/o contrast: The tip of the appendix appears to demonstrate slight prominence in comparison to the remainder of the appendix - ? normal variant versus equivocal subtle tip appendicitis. Correlate with symptomatology. Additional evaluation utilizing contrast enhanced CT may be considered. There appears to be somewhat increased fluid within the ascending colon - ? current diarrheal illness. A nonspecific approximately 5.3 x 5 cm right hepatic lobe hypodense lesion is seen - ? possible hemangioma (versus other pathology). Comparison with previous imaging studies would be quite helpful if available from a different facility. If prior studies are not available evaluation utilizing nonemergent sonography is suggested (unless there is a history of chronic liver disease or extrahepatic malignancy in which case correlation with multiphase contrast-enhanced MRI or CT is suggested). -Abdominal US: Slightly hyperechoic lesion in the right hepatic lobe measuring 5.4 cm in maximum dimension that statistically may represent a cavernous hemangioma. It was seen on prior noncontrast CT scan of the abdomen dated 2018. Correlation with contrast-enhanced CT scan or MRI of the liver utilizing hemangioma protocol would be the study of choice for further evaluation and to serve as a baseline for future follow-up. -EKG: NSR with sinus arrhythmia, Possible LAE, VR 84, QTc 432 ASSESSMENT/PLAN: 43 y/o F with PMHx polysubstance abuse (Heroin last used 3 days ago, EtOh), Untreated Hep c, Colitis, Asthma who presented from [facility] due to abdominal pain #Abdominal pain -Possibly due to appendicitis vs Heroin withdrawal -General surgery (Dr. Graf) Consulted, Appreciate rec's, For OR Today -Continue IV LR @ 100 mls/hr -Pain control via IV Acetaminophen Q6H PRN -Trimethobenzamide 200mg IM Q12H PRN -NPO -Start IV Piperacillin/Tazobactam 3.375gm Q8H, Vancomycin 1g Q12H (ABx course started on 12/24) -Follow cultures and Sensitivities #LLE Abscess -Patient says she previously had an abscess there after injecting at the site; Staff at [facility] unable to provide more information on ABx tx at the facility -Given Risk of MRSA, IV ABx changed (noted above) -ID (Dr. Carrizales) Consulted -Simple I&D to be done as per surgery; Likely daily wound care to follow #Liver Lesion -In the setting of Hep C--Possible HCC? -Abdominal US Noted above; CEA pending -Will give her Outpatient GI follow up information to further manage -MRI to r/o abscess #Polysubstance abuse -Completed Librium protocol at [facility] -Methadone taper 15 mg PO on 12/25, 10 mg PO on 12/26, 5 mg PO on 12/27 -Clonidine 0.1mg PO Q6H PRN -Thiamine, vitamin -Detox consulted #Schizoaffective disorder -Bupropion 150mg PO Daily, Mirtazapine 15mg PO HS #FEN -LR @ 100 mls/hr -Lytes WNL -NPO pending surgical eval #PPx -DVT: SCDs Visit type - Emergency Visit Emergency Visit: Yes ED Registration Date: 12/25/18 Care time: The patient presented to the Emergency Department on the above date and was hospitalized for further evaluation of their emergent condition. - New Patient This patient is new to me today: Yes Date on this admission: 12/25/18 - Critical Care Critical Care patient: No - Discharge Referral Referred to [facility] No
--- NOTE | 2018-12-25 14:34 | CON.ID ---
Consult Consult Specialty:: infectious diseases Referred by:: hospitalist Reason for Consultation:: ac appendicitis,abd pain,wound - History of Present Illness Chief Complaint: abd pain History of Present Illness: 43 y/o F significant past medical history of polysubstance abuse, schizoaffective d/o, Hepatitis C (diagnosed 1 month ago-untreated), colitis, and asthma who presented to [facility] from [facility] due to severe abdominal pain. Pain is described as a 10/10 in severity, nonradiating, located in lower abdomen , and associated with nausea and vomiting. Pt endorses she vomited 15 times since yesterday am. Pt is a unreliable historian. Pt endorses that her current symptoms are very similar to her symptoms when she had a colitis flare. - History Source History Provided By: Patient Limitations to Obtaining History: Poor Historian - Past Medical History ...LMP: 10/25/14 - Alcohol/Substance Use Hx Alcohol Use: Yes - Smoking History Smoking history: Current some day smoker Have you smoked in the past 12 months: No Aproximately how many cigarettes per day: 3 Home Medications - Allergies Allergies/Adverse Reactions: Allergies Allergy/AdvReac Type Severity Reaction Status Date / Time sulfur dioxide Allergy Verified 12/31/18 09:04 risperidone AdvReac Severe Verified 12/31/18 09:04 - Home Medications Home Medications: Ambulatory Orders Amitriptyline HCl [Elavil -] 50 mg PO HS 12/22/18 Bupropion HCl [Wellbutrin Xl -] 150 mg PO BID 12/22/18 Docusate Sodium 200 mg PO HS PRN 12/22/18 Mirtazapine 45 mg PO HS 12/22/18 Sennosides [Senna -] 2 tab PO DAILY PRN 12/22/18 Review of Systems - Review of Systems Constitutional: reports: No Symptoms Eyes: reports: No Symptoms HENT: reports: No Symptoms Neck: reports: No Symptoms Cardiovascular: reports: No Symptoms Respiratory: reports: No Symptoms Gastrointestinal: reports: Abdominal Pain Genitourinary: reports: No Symptoms Musculoskeletal: reports: No Symptoms Physical Exam Vital Signs: Vital Signs Temperature 99.0 F 12/25/18 12:00 Pulse Rate 84 12/25/18 12:00 Respiratory Rate 17 12/25/18 08:05 Blood Pressure 122/69 12/25/18 12:00 O2 Sat by Pulse Oximetry (%) 97 12/25/18 08:05 Constitutional: Yes: Calm, Mild Distress Cardiovascular: Yes: Regular Rate and Rhythm Respiratory: Yes: Regular, CTA Bilaterally Gastrointestinal: Yes: Normal Bowel Sounds, Soft Musculoskeletal: Yes: WNL Extremities: Yes: Other (abscess of the lef leg) Neurological: Yes: Alert, Oriented Psychiatric: Yes: Alert, Oriented Labs: CBC, BMP 12/25/18 05:20 12/25/18 05:20 Imaging - Results Chest X-ray: Report Reviewed, Image Reviewed Cat Scan: Report Reviewed, Image Reviewed Assessment/Plan Problem List - Problems (1) Appendicitis Code(s): K37 - UNSPECIFIED APPENDICITIS Qualifiers: Appendicitis type: acute appendicitis Acute appendicitis type: with localized peritonitis Appendicitis gangrene presence: without gangrene Appendicitis perforation presence: without perforation Appendicitis abscess presence: without abscess Qualified Code(s): K35.30 - Acute appendicitis with localized peritonitis, without perforation or gangrene (2) Umbilical hernia without mention of obstruction or gangrene Code(s): K42.9 - UMBILICAL HERNIA WITHOUT OBSTRUCTION OR GANGRENE Qualifiers: Obstruction and gangrene presence: without obstruction or gangrene Qualified Code(s): K42.9 - Umbilical hernia without obstruction or gangrene (3) Abscess of left leg Code(s): L02.416 - CUTANEOUS ABSCESS OF LEFT LOWER LIMB (4) Irritable bowel syndrome Code(s): K58.9 - IRRITABLE BOWEL SYNDROME WITHOUT DIARRHEA Qualifiers: Irritable bowel syndrome type: with constipation Qualified Code(s): K58.1 - Irritable bowel syndrome with constipation (5) Cocaine dependence Code(s): F14.20 - COCAINE DEPENDENCE, UNCOMPLICATED Qualifiers: Substance use status: uncomplicated Qualified Code(s): F14.20 - Cocaine dependence, uncomplicated (6) Marijuana dependence Code(s): F12.20 - CANNABIS DEPENDENCE, UNCOMPLICATED (7) Nicotine dependence Code(s): F17.200 - NICOTINE DEPENDENCE, UNSPECIFIED, UNCOMPLICATED Qualifiers: Nicotine product type: cigarettes Substance use status: uncomplicated Qualified Code(s): F17.210 - Nicotine dependence, cigarettes, uncomplicated (8) Opioid dependence, uncomplicated Code(s): F11.20 - OPIOID DEPENDENCE, UNCOMPLICATED (9) Schizoaffective disorder Code(s): F25.9 - SCHIZOAFFECTIVE DISORDER, UNSPECIFIED Qualifiers: Schizoaffective disorder type: unspecified Qualified Code(s): F25.9 - Schizoaffective disorder, unspecified (10) IVDU (intravenous drug user) Code(s): F19.90 - OTHER PSYCHOACTIVE SUBSTANCE USE, UNSPECIFIED, UNCOMPLICATED patient seen by surgery plan is for appendectomy also d/w surgery to drain the superficial abscess will start on broad spectrum abx as this could also be mrsa
[2018-12-25] MEDS ORDERED: DEXAMETHASONE SOD PHOSPHATE 4 MG/1 ML VIAL ONE (14:37)
[2018-12-25] MEDS ORDERED: LIDOCAINE HCL/PF 2% SDV 5ML VIAL ONE (14:37)
[2018-12-25] MEDS ORDERED: KETOROLAC TROMETHAMINE 30 MG/1 ML VIAL ONE (14:37)
[2018-12-25] MEDS ORDERED: PROPOFOL 20 ML ONE (14:39)
[2018-12-25] MEDS ORDERED: MIDAZOLAM HCL 2 MG/2 ML SINGLE DOSE VIAL ONE (14:39)
[2018-12-25] MEDS ORDERED: ROCURONIUM BROMIDE 50 MG/5 ML VIAL ONE (14:39)
[2018-12-25] MEDS ORDERED: PROMETHAZINE HCL 25 MG/1 ML VIAL IVPB PRN ×2 (14:40→15:31)
[2018-12-25] MEDS ORDERED: ONDANSETRON 4 MG/2 ML VIAL IVPUSH PRN ×3 (14:40→18:57)
[2018-12-25] MEDS ORDERED: DESFLURANE GAS 240 ML BOTTLE IH ONE (14:43)
[2018-12-25] MEDS ORDERED: DEXMEDETOMIDINE HCL 200 MCG/2 ML IVPB ONE (14:43)
[2018-12-25] MEDS ORDERED: BUPIVACAINE HCL/PF 0.5% (5MG/ML) 10 ML VIAL ONE (14:44)
[2018-12-25] MEDS ORDERED: BENZOIN TINCTURE SWABSTICK TP ONE (14:44)
[2018-12-25] MEDS ORDERED: PIPERACILLIN/TAZOB 3.375 GM 3.375 GM in DEXTROSE 5%-WATER - 50 ML IVPB SCH (14:45)
[2018-12-25] MEDS ORDERED: LACTATED RINGERS SOLUTION 1,000 ML IV SCH ×3 (14:45→18:57)
[2018-12-25] MEDS ORDERED: VANCOMYCIN HCL 1,250 MG in DEXTROSE 5%-WATER - 250 ML IVPB SCH ×2 (14:45→15:30)
--- NOTE | 2018-12-25 14:50 | CONSULT ---
Consult Consult Specialty:: General Surgery Referred by:: Bhumika Camara Reason for Consultation:: possible tip appendicitis - History of Present Illness Chief Complaint: RLQ pain, n/v, diarrhea History of Present Illness: 43yo F polysubstance abuser, IVDU, with schizoaffective disorder and "colitis" with intermittent bloody stools, was in rehab at [facility] until about 3 weeks ago. She did use substances after leaving, had trouble finding a methadone program she was eligible for, and presented 12/22 to [facility] for detox. Yesterday, she began having bad RLQ pain, associated with uncontrollable diarrhea (nonbloody), n/v, and chills, and was sent to ER for evaluation. Her wbc day before had been 6.5, yesterday was 11.3. CT showed possible tip appendicitis and she was reportedly in a lot of pain and also tender. She was admitted observation status to medicine late last night and started on IVF and antibiotics and kept NPO. Surgery was asked to assess. This morning, she was out at US for liver US when I first attempted to see her. She is seen and examined in ER holding, awaiting a bed. She reports feeling a little better, with no pain but still some tenderness. No further vomiting or diarrhea since last night. She gave the above history, reports she never had chills before with similar symptoms. She has had intermittent crampy RLQ pain for years, but yesterday it got bad and was associated with the other symptoms noted. She ate lunch yesterday, and sx started shortly after. Usually, she just doesn't eat much if the pain comes, but at first she thought it was her colitis. Last colonoscopy was about 4 years ago, she thinks she's due when out of rehab for another. Her only IV access is a small one in her right foot, which is painful with IV tylenol infusion now. Also noted incidentally is a small abscess at a week-old injection site on her anterior left greenberg, which she states had drained some previously. She is seen and discussed with Dr. Carrizales. Discussed earlier today with Dr. Cotton and team. - History Source History Provided By: Patient Limitations to Obtaining History: No Limitations - Past Medical History Pulmonary: Yes: Bronchitis (several years ago) Gastrointestinal: Yes: Constipation, Irritable Bowel Disease (w/constipation?), Other ("colitis" - takes laxatives and stool softeners) ...: No Psych: Yes: Addictions (cocaine, heroin), Other (schizoaffective disorder) Musculoskeletal: Yes: Osteoarthritis - Past Surgical History Additional Surgical History: breast implants, liposuction - Alcohol/Substance Use Hx Alcohol Use: Yes (rarely - stopped in 2009) History of Substance Use: reports: Cocaine (injection use), Heroin (injection use), Marijuana (smokes sometimes) Date of Last Use: 12/21/18 - Smoking History Smoking history: Current every day smoker Have you smoked in the past 12 months: Yes Aproximately how many cigarettes per day: 3 - Social History Usual Living Arrangement: Other (had been in [facility] till , checked into [facility] for detox 12/22) ADL: Independent Occupation: on disability Home Medications - Allergies Allergies/Adverse Reactions: Allergies Allergy/AdvReac Type Severity Reaction Status Date / Time sulfur dioxide Allergy Verified 12/24/18 20:10 risperidone AdvReac Severe Verified 12/24/18 20:10 - Home Medications Home Medications: Ambulatory Orders Amitriptyline HCl [Elavil -] 50 mg PO HS 12/22/18 Bupropion HCl [Wellbutrin Xl -] 150 mg PO BID 12/22/18 Docusate Sodium 200 mg PO HS PRN 12/22/18 Mirtazapine 45 mg PO HS 12/22/18 Sennosides [Senna -] 2 tab PO DAILY PRN 12/22/18 Wellbutrin - 150 mg PO BID 12/22/18 Family Disease History - Family Disease History Family History: Denies (pt adopted, does not know full family hx) Review of Systems - Review of Systems Constitutional: reports: Chills. denies: Fever Eyes: denies: Blurred Vision, Recent Change in Vision HENT: denies: Difficult Swallowing, Nasal Congestion, Throat Pain Neck: denies: Swollen Glands, Tenderness Cardiovascular: denies: Chest Pain, Palpitations Respiratory: denies: Cough, SOB Gastrointestinal: reports: Abdominal Pain (with hpi), Constipation (chronic), Diarrhea (nonbloody since yesterday, stopped now), Nausea (with hpi), Rectal Bleeding (intermittently with her colitis - not recently), Vomiting (with hpi) Genitourinary: denies: Burning, Dysuria Breasts: reports: Breast Implants Musculoskeletal: reports: Back Pain, Joint Pain (left knee "bone on bone") Integumentary: reports: Wound (left anterior greenberg - infected injection site from a week ago, was draining previously). denies: Change in Color, Rash Neurological: denies: Dizziness, Headache Psychiatric: denies: Anxiety, Depression Physical Exam Vital Signs: Vital Signs Temperature 99.0 F 12/25/18 12:00 Pulse Rate 84 12/25/18 12:00 Respiratory Rate 17 12/25/18 08:05 Blood Pressure 122/69 12/25/18 12:00 O2 Sat by Pulse Oximetry (%) 97 12/25/18 08:05 Vital Signs Period Temp Pulse Resp BP Sys/Delgado Pulse Ox Last 24 Hr 98.1 F-99.0 F 77-91 17-20 112-135/56-74 96-100 Constitutional: Yes: Well Nourished, No Distress, Calm Eyes: Yes: Conjunctiva Clear, EOM Intact HENT: Yes: Atraumatic, Normocephalic Neck: Yes: Supple, Trachea Midline Cardiovascular: Yes: Regular Rate and Rhythm Respiratory: Yes: Regular, CTA Bilaterally Gastrointestinal: Yes: Normal Bowel Sounds, Soft, Hernia (small reducible umbilical), Tenderness (RLQ focal, minimal elsewhere, but she reports more pain with removal of palpation than on palpation directly in most quadrants). No: Distention, Vomiting (yesterday in ER, not now) ...Rectal Exam: Yes: Deferred Renal/: No: CVA Tenderness - Left, CVA Tenderness - Right Breast(s): Yes: Breast Implants Musculoskeletal: No: Joint Stiffness, Joint Swelling Extremities: Yes: Other (right foot peripheral IV). No: Cool, Cyanosis Edema: No Peripheral Pulses WNL: Yes Integumentary: Yes: Erythema (at left anterior greenberg), Tattoos. No: Jaundice, Rash Wound/Incision: Yes: Open to air, Reddened (left anterior greenberg - warm, reddened , tender area, slightly raised/full, with central necrotic skin spots). No: Draining Neurological: Yes: Alert, Oriented Psychiatric: Yes: Alert, Oriented Labs: CBC, BMP 12/25/18 05:20 12/25/18 05:20 CMP Sodium 132 mmol/L (136-145) L 12/25/18 05:20 Potassium 3.9 mmol/L (3.5-5.1) 12/25/18 05:20 Chloride 98 mmol/L (98-107) 12/25/18 05:20 Carbon Dioxide 27 mmol/L (21-32) 12/25/18 05:20 Anion Gap 7 MMOL/L (8-16) L 12/25/18 05:20 BUN 8 mg/dL (7-18) 12/25/18 05:20 Creatinine 0.7 mg/dL (0.55-1.3) 12/25/18 05:20 Creat Clearance w eGFR 91.33 (>60) 12/25/18 05:20 Random Glucose 102 mg/dL (74-106) 12/25/18 05:20 Calcium 9.2 mg/dL (8.5-10.1) 12/25/18 05:20 Phosphorus 2.2 mg/dL (2.5-4.9) L 12/25/18 05:20 Magnesium 1.8 mg/dL (1.8-2.4) 12/25/18 05:20 Total Bilirubin 0.4 mg/dL (0.2-1) 12/25/18 05:20 AST 20 U/L (15-37) 12/25/18 05:20 ALT 49 U/L (13-61) 12/25/18 05:20 Alkaline Phosphatase 92 U/L (45-117) 12/25/18 05:20 Total Protein 8.3 g/dl (6.4-8.2) H 12/25/18 05:20 Albumin 3.9 g/dl (3.4-5.0) 12/25/18 05:20 Lipase 158 U/L (73-393) 12/24/18 20:40 Serum , Qual Negative 12/24/18 20:23 INR, PTT INR 1.03 (0.83-1.09) 12/25/18 05:20 wbc was 6.5 on 12/23 at [facility] - 11.3 yesterday in ER Imaging - Results Cat Scan: Report Reviewed, Image Reviewed (images reviewed - appendix with mildly prominent tip, possible subtly inflamed at tip, no free fluid or obstruction) Ultrasound: Report Reviewed (liver US shows possible cavernous hemangioma) Problem List - Problems (1) Appendicitis Assessment/Plan: admitted observation to medicine last night started Cefoxitin last night NPO/IVF pain meds prn Discussed with patient risks, benefits and alternatives of laparoscopic possible open appendectomy with possible umbilical hernia repair, possible incision and drainage of left lower leg abscess, including but not limited to bleeding, infection, injury to adjacent structures, intestinal leak or injury, intraabdominal abscess, incisional or recurrent hernia, need for further procedures, ; alternatives include antibiotics, delayed or no surgery - risks of this include failure of nonoperative therapy, perforation, sepsis, recurrence, . Patient desires to proceed with operation - will take to OR for above. Informed consent signed for same. anticipate resumption of po postop discussed with ID - change abx to Vanco, Zosyn given LLE abscess at injection site in drug user Code(s): K37 - UNSPECIFIED APPENDICITIS Qualifiers: Appendicitis type: acute appendicitis Acute appendicitis type: with localized peritonitis Appendicitis gangrene presence: without gangrene Appendicitis perforation presence: without perforation Appendicitis abscess presence: without abscess Qualified Code(s): K35.30 - Acute appendicitis with localized peritonitis, without perforation or gangrene (2) Umbilical hernia without mention of obstruction or gangrene Assessment/Plan: likely use for camera port and repair with suture on way out Code(s): K42.9 - UMBILICAL HERNIA WITHOUT OBSTRUCTION OR GANGRENE Qualifiers: Obstruction and gangrene presence: without obstruction or gangrene Qualified Code(s): K42.9 - Umbilical hernia without obstruction or gangrene (3) Abscess of left leg Assessment/Plan: will do simple I&D at time of OR anticipate will need daily wound care with packing changes, dressings on discharge Code(s): L02.416 - CUTANEOUS ABSCESS OF LEFT LOWER LIMB (4) Irritable bowel syndrome Code(s): K58.9 - IRRITABLE BOWEL SYNDROME WITHOUT DIARRHEA Qualifiers: Irritable bowel syndrome type: with constipation Qualified Code(s): K58.1 - Irritable bowel syndrome with constipation (5) Cocaine dependence Code(s): F14.20 - COCAINE DEPENDENCE, UNCOMPLICATED Qualifiers: Substance use status: uncomplicated Qualified Code(s): F14.20 - Cocaine dependence, uncomplicated (6) Marijuana dependence Code(s): F12.20 - CANNABIS DEPENDENCE, UNCOMPLICATED (7) Nicotine dependence Code(s): F17.200 - NICOTINE DEPENDENCE, UNSPECIFIED, UNCOMPLICATED Qualifiers: Nicotine product type: cigarettes Substance use status: uncomplicated Qualified Code(s): F17.210 - Nicotine dependence, cigarettes, uncomplicated (8) Opioid dependence, uncomplicated Code(s): F11.20 - OPIOID DEPENDENCE, UNCOMPLICATED (9) Schizoaffective disorder Code(s): F25.9 - SCHIZOAFFECTIVE DISORDER, UNSPECIFIED Qualifiers: Schizoaffective disorder type: unspecified Qualified Code(s): F25.9 - Schizoaffective disorder, unspecified (10) IVDU (intravenous drug user) Code(s): F19.90 - OTHER PSYCHOACTIVE SUBSTANCE USE, UNSPECIFIED, UNCOMPLICATED Assessment/Plan Pt notes she has a court date on December 30. May need SW to see to help her address outside concerns.
--- NOTE | 2018-12-25 15:23 | PN ---
Teaching Attending Note Name of Resident: Nayla Valdez ATTENDING PHYSICIAN STATEMENT I saw and evaluated the patient. I reviewed the resident's note and discussed the case with the resident. I agree with the resident's findings and plan as documented. SUBJECTIVE: no fever or chills. No IRVIN, no edema. has abd pain. reports vomiting many times yesterday, and reports watery diarrhea. has nausea today. reports injecting in her anterior greenberg. reported being treated with Abx at [facility]( this was not confirmed) ,. denies alcohol use. OBJECTIVE: NAD. MMM CV: RRR, no MRG Lungs: CTAB Abd: soft, TTP in RLQ, and RUYQ. no rebound tendernes. neg rofsing, Neg Psoas and Obterator signs. nl BS. Ext : L greenberg erythema , increased warmth, and tenderness with a raised area with few openings. no discharge . no edema or erythema on R leg ASSESSMENT AND PLAN: 43 y/o lady with Heroin and other substance abuse, colitis, IBS , Hep C ( recently diagnosed, not treated ) , asthma, schizoaffective Do, who was in [facility] fro detox when she developed N/V/D and was sent here. 1- N/V/d : CT scan with thickening of top of appnedix. not clear of etiology. leukocytosis might be due to the L leg abscess. also N/V . sx could be due to withdrawal from heroin - d/w ID. vanco and zosyn - appendectomy by sx today - drainage of L greenberg abscess - NPO . IVF - dc morphine and add IV tylenol for pain - if diarrhea , will obtain stool cx 2- L greenberg abscess at injection site. risk fro MRSa - vanco and zosyn - send blood cx - for drainage in OR today 3- Heroin abuse: per [facility] records, she received 20, 30, 20 mg of methadone. - cont taper with 15 mg today - detox consult - received librium x 3 days . 50, 25, 10 . finished yesterday 4- Hepatic lesion: US to identify. coencer for HCC given HEp C. also could be hemangioma. - check AFP - US reviewed. - will get MRI to further identify given drug use. r/o abscess. 5- Hep C: refer for treatment as out pt. dispo : [facility]
[2018-12-25] MEDS ORDERED: DEXAMETHASONE SOD PHOSPHATE 4 MG/1 ML VIAL IVPUSH PRN (15:31)
[2018-12-25] MEDS ORDERED: KETAMINE HCL 200 MG/20 ML VIAL ONE (15:36)
[2018-12-25] MEDS ORDERED: PIPERACILLIN/TAZOBACTAM 3.375 GM VIAL IVPB ONE (15:45)
[2018-12-25] MEDS ORDERED: HYDROmorphone *PCA* 10MG/50ML DISP.SYRIN PCA SCH (15:45)
[2018-12-25] MEDS ORDERED: VANCOMYCIN HCL IVPB ONE (16:05)
[2018-12-25] MEDS ORDERED: BUPIVACAINE HCL/PF (5 MG/ML) 30 ML VIAL IJ ONE (16:28)
[2018-12-25] MEDS ORDERED: NEOSTIGMINE METHYLSULFATE 0.5 MG/ML - 10 ML MDV ONE (17:23)
[2018-12-25] MEDS ORDERED: GLYCOPYRROLATE 0.2 MG/1 ML VIAL ONE (17:23)
--- NOTE | 2018-12-25 17:47 | OP ---
Operative Note - Note: Operative Date: 12/25/18 Pre-Operative Diagnosis: acute appendicitis, umbilical hernia, left lower leg abscess Operation: laparoscopic appendectomy, primary umbilical hernia repair, incision and drainage of left lower leg abscess Findings: subtly enlarged/inflamed appendiceal tip, long appendix; umbilical hernia with some fatty content - amputated and sent as sac, used for Jose port, closed on way out; left anterior greenberg abscess - separate betadine prep, local infiltrated , necrotic patch of skin excised with no purulence encountered inside, culture swab taken, cauterized for hemostasis, packed with 1/4" iodoform - measures 1.6 x 0.7 x 1.2 cm deep final wound Post-Operative Diagnosis: Same as Pre-op Surgeon: Americo Graf Anesthesiologist/PASTORAL WORKER: aMnuel Fishman (w/Laine + Kristi) Anesthesia: General, Local (25ml 0.5% marcaine) Specimens Removed: umbilical hernia sac and appendix to pathology; LLE wound culture to micro Estimated Blood Loss (mls): 10 Drains & Tubes with Location: López out at case end Drains, Volume Out (mls): 200 (UOP) Fluid Volume Replaced (mls): 850 (crystalloid) Operative Report Dictated: Yes
[2018-12-25] MEDS ORDERED: IBUPROFEN 800 MG/8 ML IJ IVPB ONE (17:48)
[2018-12-25] MEDS ORDERED: oxyCODONE HCL 5 MG TABLET PO PRN (17:51)
[2018-12-25] MEDS ORDERED: DOCUSATE SODIUM 100 MG CAPSULE (FP) PO PRN ×2 (17:53→18:57)
[2018-12-25] MEDS ORDERED: SENNOSIDES 8.6MG TABLET (FP) PO PRN ×2 (17:53→18:57)
[2018-12-25] MEDS ORDERED: PROMETHAZINE HCL 25 MG/1 ML VIAL ONE (17:58)
[2018-12-25] MEDS ORDERED: CEFOXITIN SODIUM 2 GM in DEXTROSE 5%-WATER 100 ML IVPB SCH (18:00)
[2018-12-25] MEDS ORDERED: HYDROmorphone HCl 2 MG/ML VIAL ONE (18:05)
[2018-12-25] MEDS ORDERED: HYDROmorphone HCL CARPU-JECT 2 MG/1 ML DISP.SYRIN IVPB PRN (18:11)
[2018-12-25] MEDS: HYDROmorphone HCl 2 MG/ML VIAL IVPUSH PRN ×2 (18:15→18:45)
[2018-12-25] MEDS: ACETAMINOPHEN 325 MG TABLET (FP) PO SCH (20:50)
[2018-12-25] MEDS: oxyCODONE HCL 5 MG TABLET PO PRN (20:51)
[2018-12-25] MEDS ORDERED: ACETAMINOPHEN 325 MG TABLET (FP) PO SCH (21:00)
[2018-12-25] MEDS: AMITRIPTYLINE HCL 25 MG TABLET (FP) PO SCH (21:56)
[2018-12-25] MEDS: THIAMINE HCL 100 MG TABLET (FP) PO SCH (21:57)
[2018-12-25] MEDS: MIRTAZAPINE 15 MG TABLET (FP) PO SCH (21:57)
[2018-12-25] MEDS ORDERED: MIRTAZAPINE 15 MG TABLET (FP) PO SCH ×2 (22:00)
[2018-12-25] MEDS ORDERED: THIAMINE HCL 100 MG TABLET (FP) PO SCH (22:00)
[2018-12-25] MEDS ORDERED: AMITRIPTYLINE HCL 50 MG TABLET PO SCH ×2 (22:00)
[2018-12-26] MEDS ORDERED: IBUPROFEN 600 MG TABLET (FP) PO SCH
[2018-12-26 00:06] VITALS: BMI 26.9
[2018-12-26] MEDS: IBUPROFEN 600 MG TABLET (FP) PO SCH ×6 (00:14→23:36)
[2018-12-26] MEDS ORDERED: DEXTROSE 5%-WATER - 50 ML IVPB ONE ×3 (02:30→18:55)
[2018-12-26] MEDS ORDERED: PIPERACILLIN/TAZOBACTAM 3.375 GM VIAL IVPB ONE ×3 (02:30→18:55)
[2018-12-26] MEDS: PIPERACILLIN/TAZOB 3.375 GM 3.375 GM in DEXTROSE 5%-WATER - 50 ML IVPB SCH ×3 (02:37→19:02)
[2018-12-26] MEDS: ACETAMINOPHEN 325 MG TABLET (FP) PO SCH ×4 (03:00→20:10)
[2018-12-26] MEDS: oxyCODONE HCL 5 MG TABLET PO PRN ×3 (06:21→19:02)
[2018-12-26 07:18] LABS: BASO % 0.1 % (0-2.0); MCH 29.8 pg (25.7-33.7); MCHC 33.4 g/dl (32.0-36.0); MEAN CELL VOLUME 89.2 fl (80-96); MEAN PLT VOLUME 8.7 fl (7.5-11.1); MONO % 4.1 % (3.8-10.2); NEUT % 81.8 % (42.8-82.8); PLATELET COUNT 248 K/MM3 (134-434); RBC 4.37 M/mm3 (3.60-5.2); RDW 13.8 % (11.6-15.6); WHITE BLOOD COUNT 10.6 K/mm3 (4.0-10.0)
[2018-12-26 07:52] LABS: ALBUMIN 3.4 g/dl (3.4-5.0); ALK PHOS 76 U/L (45-117); ANION GAP 6 MMOL/L (8-16); BILIRUBIN,TOTAL 0.5 mg/dL (0.2-1); BLOOD UREA NITROGEN 11 mg/dL (7-18); CALCIUM 9.5 mg/dL (8.5-10.1); CHLORIDE 104 mmol/L (98-107); CO2 28 mmol/L (21-32); CREATININE 0.8 mg/dL (0.55-1.3); GLUCOSE,RANDOM 121 mg/dL (74-106); MAGNESIUM 2.5 mg/dL (1.8-2.4); PHOSPHOROUS 3.1 mg/dL (2.5-4.9); POTASSIUM 4.6 mmol/L (3.5-5.1); SGOT/AST 21 U/L (15-37); SGPT/ALT 38 U/L (13-61); SODIUM 138 mmol/L (136-145); TOT PROT 7.2 g/dl (6.4-8.2)
[2018-12-26] MEDS: PRENATAL VITAMINS W/ FOLIC ACID TABLET (FP) PO SCH (09:21)
[2018-12-26] MEDS ORDERED: METHADONE HCL 10 MG TABLET (FOR DETOX USE ONLY) PO ONE (10:00)
[2018-12-26] MEDS ORDERED: METHADONE HCL 10 MG TABLET PO ONE (10:00)
--- NOTE | 2018-12-26 13:06 | PN ---
Progress Note, Physician History of Present Illness: post op c/o of pain - Current Medication List Current Medications: Active Medications Acetaminophen (Tylenol -) 650 mg PO Q6H [facility] Last Admin: 12/26/18 09:18 Dose: Not Given Amitriptyline HCl (Elavil -) 50 mg PO HS [facility] Last Admin: 12/25/18 21:56 Dose: 50 mg Bupropion HCl (Wellbutrin Xl -) 150 mg PO BID [facility] Last Admin: 12/26/18 09:18 Dose: 150 mg Clonidine (Catapres -) 0.1 mg PO Q6H PRN PRN Reason: Withdrawal Symptoms Stop: 12/27/18 23:59 Docusate Sodium (Colace -) 200 mg PO HS PRN PRN Reason: CONSTIPATION Hydromorphone HCl (Dilaudid Vial -) 2 mg IVPB Q6H PRN PRN Reason: Pain Level 8 - 10 BRKTHRU ONLY Lactated Ringer's (Lactated Ringers Solution) 1,000 mls @ 100 mls/hr IV ASDIR DONNELL Vancomycin HCl 1,250 mg/ (Dextrose) 250 mls @ 250 mls/2 hr IVPB Q24H DONNELL; Protocol Piperacillin Sod/Tazobactam (Sod 3.375 gm/ Dextrose) 50 mls @ 100 mls/hr IVPB Q8H-IV DONNELL; Protocol Last Admin: 12/26/18 09:21 Dose: 100 mls/hr Ibuprofen (Motrin -) 600 mg PO Q6H DON[facility] Last Admin: 12/26/18 12:07 Dose: Not Given Methadone HCl (Dolophine -) 5 mg PO ONCE ONE Stop: 12/27/18 10:01 Mirtazapine (Remeron -) 45 mg PO HS [facility] Last Admin: 12/25/18 21:57 Dose: 45 mg Ondansetron HCl (Zofran Injection) 4 mg IVPUSH Q4H PRN PRN Reason: NAUSEA AND/OR VOMITING Oxycodone HCl (Roxicodone -) 10 mg PO Q6H PRN PRN Reason: Pain Level 7 - 10 BREAKTHROUGH Last Admin: 12/26/18 12:09 Dose: 10 mg Multivit/Folic Acid/Iron ( Vitamins (Sjr) -) 1 tab PO DAILY [facility] Last Admin: 12/26/18 09:21 Dose: Not Given Senna (Senna -) 2 tab PO DAILY PRN PRN Reason: CONSTIPATION Thiamine HCl (Vitamin B1 -) 100 mg PO HS [facility] Last Admin: 12/25/18 21:57 Dose: 100 mg - Objective Vital Signs: Vital Signs Temperature 98.6 F 12/26/18 09:00 Pulse Rate 72 12/26/18 09:00 Respiratory Rate 20 12/26/18 09:00 Blood Pressure 115/54 L 12/26/18 09:00 O2 Sat by Pulse Oximetry (%) 98 12/26/18 09:00 Constitutional: Yes: Mild Distress Cardiovascular: Yes: Regular Rate and Rhythm Respiratory: Yes: Regular, CTA Bilaterally Gastrointestinal: Yes: Soft, Tenderness Musculoskeletal: Yes: WNL Extremities: Yes: Other (dressing present) Wound/Incision: Yes: Dressing Dry and Intact Neurological: Yes: Alert, Oriented Psychiatric: Yes: Alert, Oriented Labs: CBC, BMP 12/26/18 06:00 12/26/18 06:00 INR, PTT INR 1.03 (0.83-1.09) 12/25/18 05:20 Assessment/Plan Problem List - Problems (1) Appendicitis Code(s): K37 - UNSPECIFIED APPENDICITIS Qualifiers: Appendicitis type: acute appendicitis Acute appendicitis type: with localized peritonitis Appendicitis gangrene presence: without gangrene Appendicitis perforation presence: without perforation Appendicitis abscess presence: without abscess Qualified Code(s): K35.30 - Acute appendicitis with localized peritonitis, without perforation or gangrene (2) Umbilical hernia without mention of obstruction or gangrene Code(s): K42.9 - UMBILICAL HERNIA WITHOUT OBSTRUCTION OR GANGRENE Qualifiers: Obstruction and gangrene presence: without obstruction or gangrene Qualified Code(s): K42.9 - Umbilical hernia without obstruction or gangrene (3) Abscess of left leg Code(s): L02.416 - CUTANEOUS ABSCESS OF LEFT LOWER LIMB (4) Irritable bowel syndrome Code(s): K58.9 - IRRITABLE BOWEL SYNDROME WITHOUT DIARRHEA Qualifiers: Irritable bowel syndrome type: with constipation Qualified Code(s): K58.1 - Irritable bowel syndrome with constipation (5) Cocaine dependence Code(s): F14.20 - COCAINE DEPENDENCE, UNCOMPLICATED Qualifiers: Substance use status: uncomplicated Qualified Code(s): F14.20 - Cocaine dependence, uncomplicated (6) Marijuana dependence Code(s): F12.20 - CANNABIS DEPENDENCE, UNCOMPLICATED (7) Nicotine dependence Code(s): F17.200 - NICOTINE DEPENDENCE, UNSPECIFIED, UNCOMPLICATED Qualifiers: Nicotine product type: cigarettes Substance use status: uncomplicated Qualified Code(s): F17.210 - Nicotine dependence, cigarettes, uncomplicated (8) Opioid dependence, uncomplicated Code(s): F11.20 - OPIOID DEPENDENCE, UNCOMPLICATED (9) Schizoaffective disorder Code(s): F25.9 - SCHIZOAFFECTIVE DISORDER, UNSPECIFIED Qualifiers: Schizoaffective disorder type: unspecified Qualified Code(s): F25.9 - Schizoaffective disorder, unspecified (10) IVDU (intravenous drug user) Code(s): F19.90 - OTHER PSYCHOACTIVE SUBSTANCE USE, UNSPECIFIED, UNCOMPLICATED continue current mgmt continue abx await for cx reports rest as per the team
[2018-12-26] MEDS ORDERED: PT OWN MED DRAWER 7, Y5N ONE (16:00)
[2018-12-26] MEDS: VANCOMYCIN HCL 1,250 MG in DEXTROSE 5%-WATER - 250 ML IVPB SCH (16:05)
--- NOTE | 2018-12-26 16:20 | PN ---
Physical Exam: SUBJECTIVE: Patient seen and examined this AM. Continues to request Pain medications however seen ambulating in the hallway. No acute overnight events. OBJECTIVE: Vital Signs Period Temp Pulse Resp BP Sys/Delgado Pulse Ox Last 24 Hr 97.9 F-99 F 62-86 11-20 101-153/54-94 98-100 GENERAL: A&Ox3 HEAD: NCAT EYES: PERRL, EOMI ENT: moist mucous membranes NECK: Supple LUNGS: Diminished breath sounds at the bases, No wheezes, no crackles HEART: Regular rate and rhythm, S1, S2 without murmur ABDOMEN: Soft, 2 midline wounds--No blood on overlying dressing, Mild tenderness to palpation, nondistended, + bowel sounds EXTREMITIES: Track hernandez over the b/l upper extremities. LLE Anterior greenberg wound --Bandage without overlying blood, no surrounding erythema, No edema NEUROLOGICAL: Cranial nerves II through XII grossly intact. SKIN: Warm, dry Laboratory Results - last 24 hr 12/25/18 12/25/18 12/26/18 08:35 08:35 06:00 WBC 10.6 H RBC 4.37 Hgb 13.0 Hct 39.0 MCV 89.2 MCH 29.8 MCHC 33.4 RDW 13.8 Plt Count 248 D MPV 8.7 D Absolute Neuts (auto) 8.7 H Neutrophils % 81.8 Lymphocytes % 14.0 D Monocytes % 4.1 Eosinophils % 0.0 D Basophils % 0.1 Nucleated RBC % 0 Sodium Potassium Chloride Carbon Dioxide Anion Gap BUN Creatinine Creat Clearance w eGFR Random Glucose Calcium Phosphorus Magnesium Total Bilirubin AST ALT Alkaline Phosphatase Total Protein Albumin Tumor Marker AFP 4.1 Carcinoembryonic Ag 0.9 12/26/18 06:00 WBC RBC Hgb Hct MCV MCH MCHC RDW Plt Count MPV Absolute Neuts (auto) Neutrophils % Lymphocytes % Monocytes % Eosinophils % Basophils % Nucleated RBC % Sodium 138 Potassium 4.6 Chloride 104 Carbon Dioxide 28 Anion Gap 6 L BUN 11 Creatinine 0.8 Creat Clearance w eGFR 78.29 Random Glucose 121 H Calcium 9.5 Phosphorus 3.1 Magnesium 2.5 H Total Bilirubin 0.5 AST 21 ALT 38 Alkaline Phosphatase 76 Total Protein 7.2 Albumin 3.4 Tumor Marker AFP Carcinoembryonic Ag Active Medications Acetaminophen (Tylenol -) 650 mg PO Q6H [facility] Last Admin: 12/26/18 09:18 Dose: Not Given Amitriptyline HCl (Elavil -) 50 mg PO HS [facility] Last Admin: 12/25/18 21:56 Dose: 50 mg Bupropion HCl (Wellbutrin Xl -) 150 mg PO BID [facility] Last Admin: 12/26/18 09:18 Dose: 150 mg Clonidine (Catapres -) 0.1 mg PO Q6H PRN PRN Reason: Withdrawal Symptoms Stop: 12/27/18 23:59 Docusate Sodium (Colace -) 200 mg PO HS PRN PRN Reason: CONSTIPATION Hydromorphone HCl (Dilaudid Vial -) 2 mg IVPB Q6H PRN PRN Reason: Pain Level 8 - 10 BRKTHRU ONLY Lactated Ringer's (Lactated Ringers Solution) 1,000 mls @ 100 mls/hr IV ASDIR DONNELL Vancomycin HCl 1,250 mg/ (Dextrose) 250 mls @ 250 mls/2 hr IVPB Q24H [facility]; Protocol Piperacillin Sod/Tazobactam (Sod 3.375 gm/ Dextrose) 50 mls @ 100 mls/hr IVPB Q8H-IV [facility]; Protocol Last Admin: 12/26/18 09:21 Dose: 100 mls/hr Ibuprofen (Motrin -) 600 mg PO Q6H [facility] Last Admin: 12/26/18 12:07 Dose: Not Given Methadone HCl (Dolophine -) 5 mg PO ONCE ONE Stop: 12/27/18 10:01 Mirtazapine (Remeron -) 45 mg PO [facility] Last Admin: 12/25/18 21:57 Dose: 45 mg Ondansetron HCl (Zofran Injection) 4 mg IVPUSH Q4H PRN PRN Reason: NAUSEA AND/OR VOMITING Oxycodone HCl (Roxicodone -) 10 mg PO Q6H PRN PRN Reason: Pain Level 7 - 10 BREAKTHROUGH Last Admin: 12/26/18 12:09 Dose: 10 mg Multivit/Folic Acid/Iron ( Vitamins (Sjr) -) 1 tab PO DAILY [facility] Last Admin: 12/26/18 09:21 Dose: Not Given Senna (Senna -) 2 tab PO DAILY PRN PRN Reason: CONSTIPATION Thiamine HCl (Vitamin B1 -) 100 mg PO [facility] Last Admin: 12/25/18 21:57 Dose: 100 mg IMAGING: -CT A/P w/o contrast: The tip of the appendix appears to demonstrate slight prominence in comparison to the remainder of the appendix - ? normal variant versus equivocal subtle tip appendicitis. Correlate with symptomatology. Additional evaluation utilizing contrast enhanced CT may be considered. There appears to be somewhat increased fluid within the ascending colon - ? current diarrheal illness. A nonspecific approximately 5.3 x 5 cm right hepatic lobe hypodense lesion is seen - ? possible hemangioma (versus other pathology). Comparison with previous imaging studies would be quite helpful if available from a different facility. If prior studies are not available evaluation utilizing nonemergent sonography is suggested (unless there is a history of chronic liver disease or extrahepatic malignancy in which case correlation with multiphase contrast-enhanced MRI or CT is suggested). -Abdominal US: Slightly hyperechoic lesion in the right hepatic lobe measuring 5.4 cm in maximum dimension that statistically may represent a cavernous hemangioma. It was seen on prior noncontrast CT scan of the abdomen dated 2018. Correlation with contrast-enhanced CT scan or MRI of the liver utilizing hemangioma protocol would be the study of choice for further evaluation and to serve as a baseline for future follow-up. -EKG: NSR with sinus arrhythmia, Possible LAE, VR 84, QTc 432 ASSESSMENT/PLAN: 43 y/o F with PMHx polysubstance abuse (Heroin last used 3 days ago, EtOh), Untreated Hep c, Colitis, Asthma who presented from [facility] due to abdominal pain #Abdominal pain -Possibly due to appendicitis vs Heroin withdrawal--Now S/P Appendectomy POD#1 -General surgery (Dr. Graf) Consulted, Appreciate rec's -Continue IV LR @ 100 mls/hr -Pain control as per surgery rec's--Acetaminophen, Ibuprofen, Hydromorphone -Ondansetron -IV Piperacillin/Tazobactam 3.375gm Q8H, Vancomycin 1g Q12H (ABx course started on 12/24) -Follow cultures and Sensitivities -ID (Dr. Carrizales) Consulted #LLE Abscess s/p I&D POD#1 -IV ABx (noted above) -Daily wound care as per surgery rec's #Liver Lesion -In the setting of Hep C--Possible HCC? -Abdominal US and CEA Noted; MRI to r/o abscess pending -Will give her Outpatient GI follow up information to further manage #Polysubstance abuse -Completed Librium protocol; Continue Methadone taper -Clonidine 0.1mg PO Q6H PRN -Thiamine, vitamin -Detox consulted, multiple attempts made, will try to reach her again #Schizoaffective disorder -Bupropion 150mg PO Daily, Mirtazapine 15mg PO HS #FEN -LR @ 100 mls/hr -Lytes WNL -NPO pending surgical eval #PPx -DVT: SCDs Visit type - Emergency Visit Emergency Visit: Yes ED Registration Date: 12/25/18 Care time: The patient presented to the Emergency Department on the above date and was hospitalized for further evaluation of their emergent condition. - New Patient This patient is new to me today: No - Critical Care Critical Care patient: No - Discharge Referral Referred to [facility] Med P.C.: No
[2018-12-26] MEDS: HYDROmorphone HCl 2 MG/ML VIAL IVPB PRN ×2 (17:24→23:36)
--- NOTE | 2018-12-26 17:37 | PN ---
Progress Note, Physician History of Present Illness: Patient s/p lap appy with umbilical hernia repair yesterday, along with I&D of LLE abscess. Culture is pending, but there was no pus, suspicious for MRSA. She is on antibiotics per ID. She has refused multiple doses of tylenol and ibuprofen today, but did take ibuprofen early this morning, and had oxycodone this morning and again at noon. She will get dilaudid now in anticipation of leg dressing change. She has tolerated diet, ambulating, voiding, states she still has pain, but is most anxious about getting back to [facility] for rehab to avoid a court date on Sunday and penitentiary time. She is seen and discussed with Dr. Bernstein of medicine. - Current Medication List Current Medications: Active Medications Acetaminophen (Tylenol -) 650 mg PO Q6H [facility] Last Admin: 12/26/18 16:05 Dose: Not Given Amitriptyline HCl (Elavil -) 50 mg PO HS [facility] Last Admin: 12/25/18 21:56 Dose: 50 mg Bupropion HCl (Wellbutrin Xl -) 150 mg PO BID [facility] Last Admin: 12/26/18 09:18 Dose: 150 mg Clonidine (Catapres -) 0.1 mg PO Q6H PRN PRN Reason: Withdrawal Symptoms Stop: 12/27/18 23:59 Docusate Sodium (Colace -) 200 mg PO HS PRN PRN Reason: CONSTIPATION Hydromorphone HCl (Dilaudid Vial -) 2 mg IVPB Q6H PRN PRN Reason: Pain Level 8 - 10 BRKTHRU ONLY Last Admin: 12/26/18 17:24 Dose: 2 mg Lactated Ringer's (Lactated Ringers Solution) 1,000 mls @ 100 mls/hr IV ASDIR DONNELL Vancomycin HCl 1,250 mg/ (Dextrose) 250 mls @ 250 mls/2 hr IVPB Q24H [facility]; Protocol Last Admin: 12/26/18 16:05 Dose: 250 mls/2 hr Piperacillin Sod/Tazobactam (Sod 3.375 gm/ Dextrose) 50 mls @ 100 mls/hr IVPB Q8H-IV [facility]; Protocol Last Admin: 12/26/18 09:21 Dose: 100 mls/hr Ibuprofen (Motrin -) 600 mg PO Q6H [facility] Last Admin: 12/26/18 17:23 Dose: 600 mg Methadone HCl (Dolophine -) 5 mg PO ONCE ONE Stop: 12/27/18 10:01 Mirtazapine (Remeron -) 45 mg PO [facility] Last Admin: 12/25/18 21:57 Dose: 45 mg Ondansetron HCl (Zofran Injection) 4 mg IVPUSH Q4H PRN PRN Reason: NAUSEA AND/OR VOMITING Oxycodone HCl (Roxicodone -) 10 mg PO Q6H PRN PRN Reason: Pain Level 7 - 10 BREAKTHROUGH Last Admin: 12/26/18 12:09 Dose: 10 mg Multivit/Folic Acid/Iron ( Vitamins (Sjr) -) 1 tab PO DAILY [facility] Last Admin: 12/26/18 09:21 Dose: Not Given Senna (Senna -) 2 tab PO DAILY PRN PRN Reason: CONSTIPATION Thiamine HCl (Vitamin B1 -) 100 mg PO [facility] Last Admin: 12/25/18 21:57 Dose: 100 mg - Objective Vital Signs: Vital Signs Temperature 98.6 F 12/26/18 09:00 Pulse Rate 72 12/26/18 09:00 Respiratory Rate 20 12/26/18 09:00 Blood Pressure 115/54 L 12/26/18 09:00 O2 Sat by Pulse Oximetry (%) 98 12/26/18 09:00 Constitutional: Yes: Well Nourished, No Distress, Anxious Eyes: Yes: Conjunctiva Clear, EOM Intact HENT: Yes: Atraumatic, Normocephalic Gastrointestinal: Yes: Soft, Tenderness (mild RLQ and umbilical incisional). No : Distention Extremities: Yes: Other (LLE wound). No: Cool, Cyanosis Integumentary: Yes: Incision (abd x3 dressed; LLE partly dressed). No: Jaundice , Rash Wound/Incision: Yes: Dressing Removed (on LLE only - saline-dampened corner of 2x2 gauze tucked into wound, rest piled on top, covered with folded 2x2 and taped in place), Unapproximated (small blood clot in wound, but looks clean - no pus, small wound). No: Dressing Dry and Intact (abdomen yes; LLE with serosang drainage, had been opened by pt and packing removed), Reddened ( surrounding erythema essentially resolved) Neurological: Yes: Alert, Oriented. No: Unsteady Gait Labs: CBC, BMP 12/26/18 06:00 12/26/18 06:00 Microbiology 12/25/18 18:00 Gram Stain - Final Leg - Left Lower few GPC, mod PMNs Problem List - Problems (1) Appendicitis Assessment/Plan: POD1 s/p laparoscopic possible open appendectomy with umbilical hernia repair, and incision and drainage of left lower leg abscess doing well pain actually appears fairly well controlled pt also got 10mg methadone this morning wound dressing done easily with almost no pain - pt had already removed packing abd incisions with dressings c/d/i - need to remove outer dressings tomorrow appropriate postop incisional tenderness to f/u with surgery in 2 wks postop instructions in d/c plan Code(s): K37 - UNSPECIFIED APPENDICITIS Qualifiers: Appendicitis type: acute appendicitis Acute appendicitis type: with localized peritonitis Appendicitis gangrene presence: without gangrene Appendicitis perforation presence: without perforation Appendicitis abscess presence: without abscess Qualified Code(s): K35.30 - Acute appendicitis with localized peritonitis, without perforation or gangrene (2) Umbilical hernia without mention of obstruction or gangrene Code(s): K42.9 - UMBILICAL HERNIA WITHOUT OBSTRUCTION OR GANGRENE Qualifiers: Obstruction and gangrene presence: without obstruction or gangrene Qualified Code(s): K42.9 - Umbilical hernia without obstruction or gangrene (3) Abscess of left leg Assessment/Plan: ok for d/c back to [facility], as long as they can continue to do simple packing of the wound on daily basis as it heals antibiotics per ID, suspect PO would be ok at this point, with MRSA and GP/GN coverage (doxycycline? clinda + other?) pt to f/u with me in 2 wks instructions in d/c plan spoke to NICOLE/FABY Butcher Code(s): L02.416 - CUTANEOUS ABSCESS OF LEFT LOWER LIMB (4) Irritable bowel syndrome Code(s): K58.9 - IRRITABLE BOWEL SYNDROME WITHOUT DIARRHEA Qualifiers: Irritable bowel syndrome type: with constipation Qualified Code(s): K58.1 - Irritable bowel syndrome with constipation (5) Cocaine dependence Code(s): F14.20 - COCAINE DEPENDENCE, UNCOMPLICATED Qualifiers: Substance use status: uncomplicated Qualified Code(s): F14.20 - Cocaine dependence, uncomplicated (6) Marijuana dependence Code(s): F12.20 - CANNABIS DEPENDENCE, UNCOMPLICATED (7) Nicotine dependence Code(s): F17.200 - NICOTINE DEPENDENCE, UNSPECIFIED, UNCOMPLICATED Qualifiers: Nicotine product type: cigarettes Substance use status: uncomplicated Qualified Code(s): F17.210 - Nicotine dependence, cigarettes, uncomplicated (8) Opioid dependence, uncomplicated Code(s): F11.20 - OPIOID DEPENDENCE, UNCOMPLICATED (9) Schizoaffective disorder Code(s): F25.9 - SCHIZOAFFECTIVE DISORDER, UNSPECIFIED Qualifiers: Schizoaffective disorder type: unspecified Qualified Code(s): F25.9 - Schizoaffective disorder, unspecified (10) IVDU (intravenous drug user) Code(s): F19.90 - OTHER PSYCHOACTIVE SUBSTANCE USE, UNSPECIFIED, UNCOMPLICATED
--- NOTE | 2018-12-26 19:57 | PN ---
Teaching Attending Note Name of Resident: Nayla Valdez ATTENDING PHYSICIAN STATEMENT I saw and evaluated the patient. I reviewed the resident's note and discussed the case with the resident. I agree with the resident's findings and plan as documented. SUBJECTIVE: Seen and examined at bedside earlier this morning. patient is threatening to leave AMA, upset that the surgeon has not seen her in the AM and she wants more pain medications. Patient states that her pain is everywhere. OBJECTIVE: Vital Signs Period Temp Pulse Resp BP Sys/Delgado Pulse Ox Last 24 Hr 97.9 F-98.6 F 62-86 20-20 101-117/54-67 98-98 Current Medications Generic Name Dose Route Start Last Admin Trade Name Freq PRN Reason Stop Dose Admin Acetaminophen 650 mg 12/25/18 21:00 12/26/18 16:05 Tylenol - PO Not Given Q6H [facility] Amitriptyline HCl 50 mg 12/25/18 22:00 12/25/18 21:56 Elavil - PO 50 mg HS [facility] Administration Bupropion HCl 150 mg 12/25/18 22:00 12/26/18 09:18 Wellbutrin Xl - PO 150 mg BID [facility] Administration Clonidine 0.1 mg 12/25/18 18:57 Catapres - PO 12/27/18 23:59 Q6H PRN Withdrawal Symptoms Docusate Sodium 200 mg 12/25/18 18:57 Colace - PO HS PRN CONSTIPATION Hydromorphone HCl 2 mg 12/25/18 18:57 12/26/18 17:24 Dilaudid Vial - IVPB 2 mg Q6H PRN Administration Pain Level 8 - 10 BRKTHRU ONLY Lactated Ringer's 1,000 mls @ 100 mls/hr 12/25/18 18:57 Lactated Ringers Solution IV ASDIR DONNELL Vancomycin HCl 1,250 mg/ 250 mls @ 250 mls/2 hr 12/26/18 15:30 12/26/18 16:05 Dextrose IVPB 250 mls/2 hr Q24H [facility] Administration Protocol Piperacillin Sod/Tazobactam 50 mls @ 100 mls/hr 12/26/18 02:00 12/26/18 19:02 Sod 3.375 gm/ Dextrose IVPB 100 mls/hr Q8H-IV [facility] Administration Protocol Ibuprofen 600 mg 12/26/18 00:00 12/26/18 17:23 Motrin - PO 600 mg Q6H [facility] Administration Methadone HCl 5 mg 12/27/18 10:00 Dolophine - PO 12/27/18 10:01 ONCE ONE Mirtazapine 45 mg 12/25/18 22:00 12/25/18 21:57 Remeron - PO 45 mg HS [facility] Administration Ondansetron HCl 4 mg 12/25/18 18:57 Zofran Injection IVPUSH Q4H PRN NAUSEA AND/OR VOMITING Oxycodone HCl 10 mg 12/25/18 18:57 12/26/18 19:02 Roxicodone - PO 10 mg Q6H PRN Administration Pain Level 7 - 10 BREAKTHROUGH Multivit/Folic Acid/Iron 1 tab 12/26/18 10:00 12/26/18 09:21 Vitamins (Sjr) - PO Not Given DAILY [facility] Senna 2 tab 12/25/18 18:57 Senna - PO DAILY PRN CONSTIPATION Thiamine HCl 100 mg 12/25/18 22:00 12/25/18 21:57 Vitamin B1 - PO 100 mg HS [facility] Administration Microbiology 12/25/18 18:00 Gram Stain - Final Leg - Left Lower Laboratory Last Values WBC 10.6 K/mm3 (4.0-10.0) H 12/26/18 06:00 RBC 4.37 M/mm3 (3.60-5.2) 12/26/18 06:00 Hgb 13.0 GM/dL (10.7-15.3) 12/26/18 06:00 Hct 39.0 % (32.4-45.2) 12/26/18 06:00 MCV 89.2 fl (80-96) 12/26/18 06:00 MCH 29.8 pg (25.7-33.7) 12/26/18 06:00 MCHC 33.4 g/dl (32.0-36.0) 12/26/18 06:00 RDW 13.8 % (11.6-15.6) 12/26/18 06:00 Plt Count 248 K/MM3 (134-434) D 12/26/18 06:00 MPV 8.7 fl (7.5-11.1) D 12/26/18 06:00 Absolute Neuts (auto) 8.7 K/mm3 (1.5-8.0) H 12/26/18 06:00 Neutrophils % 81.8 % (42.8-82.8) 12/26/18 06:00 Lymphocytes % 14.0 % (8-40) D 12/26/18 06:00 Monocytes % 4.1 % (3.8-10.2) 12/26/18 06:00 Eosinophils % 0.0 % (0-4.5) D 12/26/18 06:00 Basophils % 0.1 % (0-2.0) 12/26/18 06:00 Nucleated RBC % 0 % (0-0) 12/26/18 06:00 PT with INR 12.20 SEC (9.7-13.0) 12/25/18 05:20 INR 1.03 (0.83-1.09) 12/25/18 05:20 PTT (Actin FS) 36.4 SECONDS (25.2-36.5) 12/25/18 05:20 Sodium 138 mmol/L (136-145) 12/26/18 06:00 Potassium 4.6 mmol/L (3.5-5.1) 12/26/18 06:00 Chloride 104 mmol/L (98-107) 12/26/18 06:00 Carbon Dioxide 28 mmol/L (21-32) 12/26/18 06:00 Anion Gap 6 MMOL/L (8-16) L 12/26/18 06:00 BUN 11 mg/dL (7-18) 12/26/18 06:00 Creatinine 0.8 mg/dL (0.55-1.3) 12/26/18 06:00 Creat Clearance w eGFR 78.29 (>60) 12/26/18 06:00 Random Glucose 121 mg/dL (74-106) H 12/26/18 06:00 Calcium 9.5 mg/dL (8.5-10.1) 12/26/18 06:00 Phosphorus 3.1 mg/dL (2.5-4.9) 12/26/18 06:00 Magnesium 2.5 mg/dL (1.8-2.4) H 12/26/18 06:00 Total Bilirubin 0.5 mg/dL (0.2-1) 12/26/18 06:00 AST 21 U/L (15-37) 12/26/18 06:00 ALT 38 U/L (13-61) 12/26/18 06:00 Alkaline Phosphatase 76 U/L (45-117) 12/26/18 06:00 Total Protein 7.2 g/dl (6.4-8.2) 12/26/18 06:00 Albumin 3.4 g/dl (3.4-5.0) 12/26/18 06:00 Lipase 158 U/L (73-393) 12/24/18 20:40 Tumor Marker AFP 4.1 ng/ml (0.0-8.3) 12/25/18 08:35 Carcinoembryonic Ag 0.9 ng/mL (0.0-4.7) 12/25/18 08:35 Serum , Qual Negative 12/24/18 20:23 Blood Type A POSITIVE 12/25/18 08:35 Antibody Screen Negative 12/25/18 08:35 ALL IMAGING REPORTS REVIEWED PHYSICAL EXAM: GENERAL: NAD, WALKING AROUND ROOM CVS: S1S2, RRR, NO M/R/G LUNGS: CTA BL, UNLABORED, NO W/R/R ABDOMEN: SOFT, INCISION SITE TENDER TO DEEP PALPATION, ND, NABS EXT: LLE DRESSING C/D/I ASSESSMENT AND PLAN: 43 F with PMHx IVDA, IBS, Hep C untreated presents with n/v/d. -post op day #1 lap appendectomy, umbilical hernia repair and left leg wound I & D -patient is threatening to leave AMA, wants more pain meds -explained to patient in detail, she will need to be transferred to [facility] and we are awaiting a bed. It would not be advised to leave AMA, she understands -c/w current abx and transition to doxy in AM -wound care instructions, see Dr. Graf note -needs surgery followup -pain meds ordered, avoid overuse of opioids -detox consult is STILL pending, multiple calls made with no return -received librium x 3 days -hepatic lesion-MRI report reviewed needs repeat contrast study can be done outpatient -check AFP -hep C: refer for treatment as out pt.
[2018-12-26] MEDS: THIAMINE HCL 100 MG TABLET (FP) PO SCH (21:06)
[2018-12-26] MEDS: AMITRIPTYLINE HCL 25 MG TABLET (FP) PO SCH (21:06)
[2018-12-26] MEDS: MIRTAZAPINE 15 MG TABLET (FP) PO SCH (22:16)
[2018-12-26] MEDS: cloNIDine HCL 0.1 MG TABLET PO PRN (23:35)
[2018-12-27] MEDS ORDERED: DEXTROSE 5%-WATER - 50 ML IVPB ONE ×2 (01:14→10:30)
[2018-12-27] MEDS ORDERED: PIPERACILLIN/TAZOBACTAM 3.375 GM VIAL IVPB ONE ×2 (01:14→10:30)
[2018-12-27] MEDS: oxyCODONE HCL 5 MG TABLET PO PRN ×3 (01:20→16:16)
[2018-12-27] MEDS: PIPERACILLIN/TAZOB 3.375 GM 3.375 GM in DEXTROSE 5%-WATER - 50 ML IVPB SCH ×2 (01:21→10:15)
[2018-12-27] MEDS: ACETAMINOPHEN 325 MG TABLET (FP) PO SCH ×3 (03:00→15:32)
[2018-12-27] MEDS: IBUPROFEN 600 MG TABLET (FP) PO SCH ×2 (06:45→13:24)
[2018-12-27] MEDS ORDERED: METHADONE HCL 5 MG TABLET PO ONE (10:00)
[2018-12-27] MEDS ORDERED: METHADONE HCL 5 MG TABLET (FOR DETOX USE ONLY) PO ONE (10:00)
--- NOTE | 2018-12-27 10:18 | PN ---
Progress Note, Physician History of Present Illness: patient c/o of severe pain at the operated site no other events post op - Current Medication List Current Medications: Active Medications Acetaminophen (Tylenol -) 650 mg PO Q6H [facility] Last Admin: 12/27/18 03:00 Dose: Not Given Amitriptyline HCl (Elavil -) 50 mg PO HS [facility] Last Admin: 12/26/18 21:06 Dose: 50 mg Bupropion HCl (Wellbutrin Xl -) 150 mg PO BID [facility] Last Admin: 12/26/18 21:06 Dose: 150 mg Clonidine (Catapres -) 0.1 mg PO Q6H PRN PRN Reason: Withdrawal Symptoms Stop: 12/27/18 23:59 Last Admin: 12/26/18 23:35 Dose: 0.1 mg Docusate Sodium (Colace -) 200 mg PO HS PRN PRN Reason: CONSTIPATION Hydromorphone HCl (Dilaudid Vial -) 2 mg IVPB Q6H PRN PRN Reason: Pain Level 8 - 10 BRKTHRU ONLY Last Admin: 12/26/18 23:36 Dose: 2 mg Lactated Ringer's (Lactated Ringers Solution) 1,000 mls @ 100 mls/hr IV ASDIR DONNELL Vancomycin HCl 1,250 mg/ (Dextrose) 250 mls @ 250 mls/2 hr IVPB Q24H [facility]; Protocol Last Admin: 12/26/18 16:05 Dose: 250 mls/2 hr Piperacillin Sod/Tazobactam (Sod 3.375 gm/ Dextrose) 50 mls @ 100 mls/hr IVPB Q8H-IV [facility]; Protocol Last Admin: 12/27/18 01:21 Dose: 100 mls/hr Ibuprofen (Motrin -) 600 mg PO Q6H [facility] Last Admin: 12/27/18 06:45 Dose: Not Given Mirtazapine (Remeron -) 45 mg PO HS [facility] Last Admin: 12/26/18 22:16 Dose: 45 mg Ondansetron HCl (Zofran Injection) 4 mg IVPUSH Q4H PRN PRN Reason: NAUSEA AND/OR VOMITING Oxycodone HCl (Roxicodone -) 10 mg PO Q6H PRN PRN Reason: Pain Level 7 - 10 BREAKTHROUGH Last Admin: 12/27/18 08:53 Dose: 10 mg Multivit/Folic Acid/Iron ( Vitamins (Sjr) -) 1 tab PO DAILY [facility] Last Admin: 12/26/18 09:21 Dose: Not Given Senna (Senna -) 2 tab PO DAILY PRN PRN Reason: CONSTIPATION Thiamine HCl (Vitamin B1 -) 100 mg PO [facility] Last Admin: 12/26/18 21:06 Dose: 100 mg - Objective Vital Signs: Vital Signs Temperature -97 F L 12/27/18 06:13 Pulse Rate 65 12/27/18 06:13 Respiratory Rate 20 12/27/18 06:13 Blood Pressure 118/76 12/27/18 06:13 O2 Sat by Pulse Oximetry (%) 98 12/26/18 21:00 Constitutional: Yes: Calm, Mild Distress Cardiovascular: Yes: Regular Rate and Rhythm Respiratory: Yes: Regular, CTA Bilaterally Gastrointestinal: Yes: Normal Bowel Sounds, Soft Musculoskeletal: Yes: WNL Extremities: Yes: WNL Wound/Incision: Yes: Dressing Dry and Intact Neurological: Yes: Alert, Oriented Psychiatric: Yes: Alert, Oriented Labs: CBC, BMP 12/26/18 06:00 12/26/18 06:00 INR, PTT INR 1.03 (0.83-1.09) 12/25/18 05:20 Assessment/Plan Problem List - Problems (1) Appendicitis Code(s): K37 - UNSPECIFIED APPENDICITIS Qualifiers: Appendicitis type: acute appendicitis Acute appendicitis type: with localized peritonitis Appendicitis gangrene presence: without gangrene Appendicitis perforation presence: without perforation Appendicitis abscess presence: without abscess Qualified Code(s): K35.30 - Acute appendicitis with localized peritonitis, without perforation or gangrene (2) Umbilical hernia without mention of obstruction or gangrene Code(s): K42.9 - UMBILICAL HERNIA WITHOUT OBSTRUCTION OR GANGRENE Qualifiers: Obstruction and gangrene presence: without obstruction or gangrene Qualified Code(s): K42.9 - Umbilical hernia without obstruction or gangrene (3) Abscess of left leg Code(s): L02.416 - CUTANEOUS ABSCESS OF LEFT LOWER LIMB (4) Irritable bowel syndrome Code(s): K58.9 - IRRITABLE BOWEL SYNDROME WITHOUT DIARRHEA Qualifiers: Irritable bowel syndrome type: with constipation Qualified Code(s): K58.1 - Irritable bowel syndrome with constipation (5) Cocaine dependence Code(s): F14.20 - COCAINE DEPENDENCE, UNCOMPLICATED Qualifiers: Substance use status: uncomplicated Qualified Code(s): F14.20 - Cocaine dependence, uncomplicated (6) Marijuana dependence Code(s): F12.20 - CANNABIS DEPENDENCE, UNCOMPLICATED (7) Nicotine dependence Code(s): F17.200 - NICOTINE DEPENDENCE, UNSPECIFIED, UNCOMPLICATED Qualifiers: Nicotine product type: cigarettes Substance use status: uncomplicated Qualified Code(s): F17.210 - Nicotine dependence, cigarettes, uncomplicated (8) Opioid dependence, uncomplicated Code(s): F11.20 - OPIOID DEPENDENCE, UNCOMPLICATED (9) Schizoaffective disorder Code(s): F25.9 - SCHIZOAFFECTIVE DISORDER, UNSPECIFIED Qualifiers: Schizoaffective disorder type: unspecified Qualified Code(s): F25.9 - Schizoaffective disorder, unspecified (10) IVDU (intravenous drug user) Code(s): F19.90 - OTHER PSYCHOACTIVE SUBSTANCE USE, UNSPECIFIED, UNCOMPLICATED plan awaiting for identification of the organism wound care rest as per the team
[2018-12-27] MEDS ORDERED: PT OWN MED DRAWER 7, Y5N ONE ×2 (10:30→16:05)
[2018-12-27] MEDS: PRENATAL VITAMINS W/ FOLIC ACID TABLET (FP) PO SCH (10:46)
[2018-12-27] MEDS: cloNIDine HCL 0.1 MG TABLET PO PRN (10:46)
[2018-12-27] MEDS ORDERED: oxyCODONE HCL 5 MG TABLET PO ONE (11:49)
--- NOTE | 2018-12-27 12:53 | PN ---
Progress Note, Physician History of Present Illness: Patient s/p lap appy with umbilical hernia repair, along with I&D of LLE abscess. Culture is growing presumptive MSSA. She is on antibiotics per ID. She has tolerated diet, ambulating, voiding, still with abdominal pain, but is most anxious about getting back to [facility] for rehab to avoid a court date on Sunday and fci time. LLE wound dressing being changed with small gauze packing daily. Not as painful. Passing gas but no BM yet. Anticipate will take a few days for bowel function to normalize. - Current Medication List Current Medications: Active Medications Acetaminophen (Tylenol -) 650 mg PO Q6H DONNELL Last Admin: 12/27/18 10:47 Dose: 650 mg Amitriptyline HCl (Elavil -) 50 mg PO HS DONNELL Last Admin: 12/26/18 21:06 Dose: 50 mg Bupropion HCl (Wellbutrin Xl -) 150 mg PO BID DONNELL Last Admin: 12/27/18 10:46 Dose: 150 mg Clonidine (Catapres -) 0.1 mg PO Q6H PRN PRN Reason: Withdrawal Symptoms Stop: 12/27/18 23:59 Last Admin: 12/27/18 10:46 Dose: 0.1 mg Docusate Sodium (Colace -) 200 mg PO HS PRN PRN Reason: CONSTIPATION Hydromorphone HCl (Dilaudid Vial -) 2 mg IVPB Q6H PRN PRN Reason: Pain Level 8 - 10 BRKTHRU ONLY Last Admin: 12/26/18 23:36 Dose: 2 mg Lactated Ringer's (Lactated Ringers Solution) 1,000 mls @ 100 mls/hr IV ASDIR DONNELL Vancomycin HCl 1,250 mg/ (Dextrose) 250 mls @ 250 mls/2 hr IVPB Q24H DONNELL; Protocol Last Admin: 12/26/18 16:05 Dose: 250 mls/2 hr Piperacillin Sod/Tazobactam (Sod 3.375 gm/ Dextrose) 50 mls @ 100 mls/hr IVPB Q8H-IV DONNELL; Protocol Last Admin: 12/27/18 01:21 Dose: 100 mls/hr Ibuprofen (Motrin -) 600 mg PO Q6H DONNELL Last Admin: 12/27/18 06:45 Dose: Not Given Mirtazapine (Remeron -) 45 mg PO HS [facility] Last Admin: 12/26/18 22:16 Dose: 45 mg Ondansetron HCl (Zofran Injection) 4 mg IVPUSH Q4H PRN PRN Reason: NAUSEA AND/OR VOMITING Oxycodone HCl (Roxicodone -) 10 mg PO Q6H PRN PRN Reason: Pain Level 7 - 10 BREAKTHROUGH Last Admin: 12/27/18 08:53 Dose: 10 mg Multivit/Folic Acid/Iron ( Vitamins (Sjr) -) 1 tab PO DAILY [facility] Last Admin: 12/27/18 10:46 Dose: 1 tab Senna (Senna -) 2 tab PO DAILY PRN PRN Reason: CONSTIPATION Thiamine HCl (Vitamin B1 -) 100 mg PO [facility] Last Admin: 12/26/18 21:06 Dose: 100 mg - Objective Vital Signs: Vital Signs Temperature -97 F L 12/27/18 06:13 Pulse Rate 65 12/27/18 06:13 Respiratory Rate 20 12/27/18 06:13 Blood Pressure 118/76 12/27/18 06:13 O2 Sat by Pulse Oximetry (%) 98 12/26/18 21:00 Constitutional: Yes: Well Nourished, No Distress, Anxious Eyes: Yes: Conjunctiva Clear, EOM Intact HENT: Yes: Atraumatic, Normocephalic Gastrointestinal: Yes: Soft, Distention (mild), Tenderness (RLQ > RUQ, also incisional, not so much on left side, no mary kate/guard) Extremities: Yes: Other (foot IV). No: Cool, Cyanosis Integumentary: Yes: Incision (abd x3 dressed; LLE anterior greenberg, dressed). No: Jaundice, Rash Wound/Incision: Yes: Steri Strips (under abd dressings), Dressing Dry and Intact (abd x 3; LLE intact without strikethrough), Dressing Removed (abdominal dressings removed; LLE dressing changed - saline-dampened corner of 2x2 gauze tucked into wound, rest on top, covered w/folded 2x2 gauze and tape to hold). No: Reddened Neurological: Yes: Alert, Oriented Labs: Microbiology 12/25/18 18:00 Gram Stain - Final Leg - Left Lower Wound Culture - Preliminary Presumptive Mssa (Pbp2a Neg) Problem List - Problems (1) Appendicitis Assessment/Plan: POD2 s/p laparoscopic possible open appendectomy with umbilical hernia repair, and incision and drainage of left lower leg abscess doing well pain meds - tyl/ibu alternating po, oxycodone po then dilaudid iv for breakthrough pt also got 5mg methadone this morning tolerated wound dressing well abd incisions c/d/i - steristrips will fall off by themselves appropriate postop incisional tenderness ok for d/c [facility] f/u with surgery in 2 wks postop instructions in d/c plan discussed with Dr. Cotton Code(s): K37 - UNSPECIFIED APPENDICITIS Qualifiers: Appendicitis type: acute appendicitis Acute appendicitis type: with localized peritonitis Appendicitis gangrene presence: without gangrene Appendicitis perforation presence: without perforation Appendicitis abscess presence: without abscess Qualified Code(s): K35.30 - Acute appendicitis with localized peritonitis, without perforation or gangrene (2) Umbilical hernia without mention of obstruction or gangrene Assessment/Plan: repaired primarily during surgery Code(s): K42.9 - UMBILICAL HERNIA WITHOUT OBSTRUCTION OR GANGRENE Qualifiers: Obstruction and gangrene presence: without obstruction or gangrene Qualified Code(s): K42.9 - Umbilical hernia without obstruction or gangrene (3) Abscess of left leg Assessment/Plan: cx with MSSA presumptive ok for d/c back to [facility], with simple packing of the wound on daily basis as it heals doxycycline ok per ID for po antibiotics pt to f/u with me in 2 wks instructions in d/c plan Code(s): L02.416 - CUTANEOUS ABSCESS OF LEFT LOWER LIMB (4) Irritable bowel syndrome Code(s): K58.9 - IRRITABLE BOWEL SYNDROME WITHOUT DIARRHEA Qualifiers: Irritable bowel syndrome type: with constipation Qualified Code(s): K58.1 - Irritable bowel syndrome with constipation (5) Cocaine dependence Code(s): F14.20 - COCAINE DEPENDENCE, UNCOMPLICATED Qualifiers: Substance use status: uncomplicated Qualified Code(s): F14.20 - Cocaine dependence, uncomplicated (6) Marijuana dependence Code(s): F12.20 - CANNABIS DEPENDENCE, UNCOMPLICATED (7) Nicotine dependence Code(s): F17.200 - NICOTINE DEPENDENCE, UNSPECIFIED, UNCOMPLICATED Qualifiers: Nicotine product type: cigarettes Substance use status: uncomplicated Qualified Code(s): F17.210 - Nicotine dependence, cigarettes, uncomplicated (8) Opioid dependence, uncomplicated Code(s): F11.20 - OPIOID DEPENDENCE, UNCOMPLICATED (9) Schizoaffective disorder Code(s): F25.9 - SCHIZOAFFECTIVE DISORDER, UNSPECIFIED Qualifiers: Schizoaffective disorder type: unspecified Qualified Code(s): F25.9 - Schizoaffective disorder, unspecified (10) IVDU (intravenous drug user) Code(s): F19.90 - OTHER PSYCHOACTIVE SUBSTANCE USE, UNSPECIFIED, UNCOMPLICATED
[2018-12-27] MEDS: HYDROmorphone HCl 2 MG/ML VIAL IVPB PRN (13:06)
--- NOTE | 2018-12-27 15:42 | PN ---
Teaching Attending Note Name of Resident: Nayla Valdez ATTENDING PHYSICIAN STATEMENT I saw and evaluated the patient. I reviewed the resident's note and discussed the case with the resident. I agree with the resident's findings and plan as documented. SUBJECTIVE: no fever or chills. pain in abd is better compared to admission. No N/V. tolerated diet . no diarrhea OBJECTIVE: NAD. MMM CV: RRR, no MRG Lungs: CTAB Abd: soft, TTP in RLQ, nl BS. celan dressings over wounds Ext : L greenberg hyperpigmentation and packed wound. minimal tenderness to palpation ASSESSMENT AND PLAN: 43 y/o lady with Heroin and other substance abuse, colitis, IBS , Hep C ( recently diagnosed, not treated ) , asthma, schizoaffective Do, who was in [facility] for detox when she developed N/V/D and was sent here. 1- RLQ pain, s/p appendectomy. path is still pending improved . cont with oxy. dc dilaudid . pain is better and has drug abus ehx Unable to reach [facility] MD for advise on her narcotics 2- L leg abscess, s/p I&D. cx with MSSA d/w Id , will switch to augmentin at dc daily packing sx f/u 3- liver lesion ( 5 cm ) , refused blood c x. she interrupted MRI during exam. unable to determine etiology. doubt abscess as pt will be much sicker. this was d/w Dr. Carrizales, and nick and they both agree. Cant' perform CT with contrast as IV access in foot is not sufficient and can't pplace a bigger one. many people tried. 4- Heroin abuse: last day of methadone 5- Hep C: refer for treatment as out pt. dispo : Pt can be discharged to [facility]. packing can be done at [facility]. Unable to reach any MD at [facility] to accept patient
--- NOTE | 2018-12-27 16:12 | DS ---
Physical Exam: SUBJECTIVE: Patient seen and examined this AM. Abdominal pain improving, Tolerating diet, passing flatus, urinating without difficulty. No acute overnight events. No new complaints. OBJECTIVE: Vital Signs Period Temp Pulse Resp BP Sys/Delgado Pulse Ox Last 24 Hr -97 F-98.5 F 59-82 20-20 113-126/69-80 98 PHYSICAL EXAM GENERAL: A&Ox3 HEAD: NCAT EYES: PERRL, EOMI ENT: moist mucous membranes NECK: Supple LUNGS: Diminished breath sounds at the bases, No wheezes, no crackles HEART: Regular rate and rhythm, S1, S2 without murmur ABDOMEN: Soft, 2 midline wounds--No blood on overlying dressing, Mild tenderness to palpation, nondistended, + bowel sounds EXTREMITIES: Track hernandez over the b/l upper extremities. LLE Anterior greenberg wound --Bandage without overlying blood, no surrounding erythema, No edema, Mild tenderness to palpation NEUROLOGICAL: Cranial nerves II through XII grossly intact. SKIN: Warm, dry LABS Laboratory Last Values WBC 10.6 K/mm3 (4.0-10.0) H 12/26/18 06:00 RBC 4.37 M/mm3 (3.60-5.2) 12/26/18 06:00 Hgb 13.0 GM/dL (10.7-15.3) 12/26/18 06:00 Hct 39.0 % (32.4-45.2) 12/26/18 06:00 MCV 89.2 fl (80-96) 12/26/18 06:00 MCH 29.8 pg (25.7-33.7) 12/26/18 06:00 MCHC 33.4 g/dl (32.0-36.0) 12/26/18 06:00 RDW 13.8 % (11.6-15.6) 12/26/18 06:00 Plt Count 248 K/MM3 (134-434) D 12/26/18 06:00 MPV 8.7 fl (7.5-11.1) D 12/26/18 06:00 Absolute Neuts (auto) 8.7 K/mm3 (1.5-8.0) H 12/26/18 06:00 Neutrophils % 81.8 % (42.8-82.8) 12/26/18 06:00 Lymphocytes % 14.0 % (8-40) D 12/26/18 06:00 Monocytes % 4.1 % (3.8-10.2) 12/26/18 06:00 Eosinophils % 0.0 % (0-4.5) D 12/26/18 06:00 Basophils % 0.1 % (0-2.0) 12/26/18 06:00 Nucleated RBC % 0 % (0-0) 12/26/18 06:00 PT with INR 12.20 SEC (9.7-13.0) 12/25/18 05:20 INR 1.03 (0.83-1.09) 12/25/18 05:20 PTT (Actin FS) 36.4 SECONDS (25.2-36.5) 12/25/18 05:20 Sodium 138 mmol/L (136-145) 12/26/18 06:00 Potassium 4.6 mmol/L (3.5-5.1) 12/26/18 06:00 Chloride 104 mmol/L (98-107) 12/26/18 06:00 Carbon Dioxide 28 mmol/L (21-32) 12/26/18 06:00 Anion Gap 6 MMOL/L (8-16) L 12/26/18 06:00 BUN 11 mg/dL (7-18) 12/26/18 06:00 Creatinine 0.8 mg/dL (0.55-1.3) 12/26/18 06:00 Creat Clearance w eGFR 78.29 (>60) 12/26/18 06:00 Random Glucose 121 mg/dL (74-106) H 12/26/18 06:00 Calcium 9.5 mg/dL (8.5-10.1) 12/26/18 06:00 Phosphorus 3.1 mg/dL (2.5-4.9) 12/26/18 06:00 Magnesium 2.5 mg/dL (1.8-2.4) H 12/26/18 06:00 Total Bilirubin 0.5 mg/dL (0.2-1) 12/26/18 06:00 AST 21 U/L (15-37) 12/26/18 06:00 ALT 38 U/L (13-61) 12/26/18 06:00 Alkaline Phosphatase 76 U/L (45-117) 12/26/18 06:00 Total Protein 7.2 g/dl (6.4-8.2) 12/26/18 06:00 Albumin 3.4 g/dl (3.4-5.0) 12/26/18 06:00 Lipase 158 U/L (73-393) 12/24/18 20:40 Tumor Marker AFP 4.1 ng/ml (0.0-8.3) 12/25/18 08:35 Carcinoembryonic Ag 0.9 ng/mL (0.0-4.7) 12/25/18 08:35 Serum , Qual Negative 12/24/18 20:23 Blood Type A POSITIVE 12/25/18 08:35 Antibody Screen Negative 12/25/18 08:35 Microbiology 12/25/18 18:00 Leg - Left Lower Gram Stain - Final 12/25/18 18:00 Leg - Left Lower Wound Culture - Preliminary Presumptive Mssa (Pbp2a Neg) IMAGING: -CT A/P w/o contrast: The tip of the appendix appears to demonstrate slight prominence in comparison to the remainder of the appendix - ? normal variant versus equivocal subtle tip appendicitis. Correlate with symptomatology. Additional evaluation utilizing contrast enhanced CT may be considered. There appears to be somewhat increased fluid within the ascending colon - ? current diarrheal illness. A nonspecific approximately 5.3 x 5 cm right hepatic lobe hypodense lesion is seen - ? possible hemangioma (versus other pathology). Comparison with previous imaging studies would be quite helpful if available from a different facility. If prior studies are not available evaluation utilizing nonemergent sonography is suggested (unless there is a history of chronic liver disease or extrahepatic malignancy in which case correlation with multiphase contrast-enhanced MRI or CT is suggested). -Abdominal US: Slightly hyperechoic lesion in the right hepatic lobe measuring 5.4 cm in maximum dimension that statistically may represent a cavernous hemangioma. It was seen on prior noncontrast CT scan of the abdomen dated 2018. Correlation with contrast-enhanced CT scan or MRI of the liver utilizing hemangioma protocol would be the study of choice for further evaluation and to serve as a baseline for future follow-up. -EKG: NSR with sinus arrhythmia, Possible LAE, VR 84, QTc 432 HOSPITAL COURSE: Date of Admission:12/25/18 Date of Discharge: 12/27/18 43 y/o F with PMHx polysubstance abuse (Heroin last used 3 days ago prior to admission, EtOh), Untreated Hep c, Colitis, Asthma who presented from [facility] due to abdominal pain and was admitted for Appendicitis. Recent labwork, Micro and Imaging noted above. General surgery, Infectious disease and Addiction medication were consulted. Patient underwent a laparoscopic appendectomy, umbilical hernia repair and I&D of left lower leg abscess. Following surgery, patients pain remained controlled. Her diet was advanced and she was able to tolerate without nausea or vomiting. She was able to ambulate, pass flatus and urinate without difficulty. Patient was given instructions for wound care. She completed a course of IV ABx and was transitioned to PO Augmentin to complete a 14 day course total. Imaging (Noted Above) was suggestive of a possible hemangioma--Patient refused blood cx and did not tolerate MRI; Unable to perform CT with IV Contrast given multiple attempts for IV Access were unsuccessful. She completed her methadone taper during her hospital course. Patient was discharged back to [facility] with strict instructions for wound care , medication compliance, physician follow up and illicit drug cessation. She was given GI Referral for to further manage the hemangioma and her untreated Hep C. Minutes to complete discharge: 36 Discharge Summary Reason For Visit: ABDOMINAL PAIN Current Active Problems Abscess of left leg (Acute) Appendicitis (Acute) Umbilical hernia without mention of obstruction or gangrene (Acute) IVDU (intravenous drug user) (Chronic) Opioid dependence, uncomplicated (Chronic) Condition: Improved - Instructions Diet, Activity, Other Instructions: Postoperative instructions: You had a laparoscopic appendectomy with umbilical hernia repair and incision and drainage of left lower leg abscess on 12/25/[address] Americo Graf of [facility]. Activity: Resume your usual activities gradually, but no heavy exertion or lifting more than 10-15 pounds for at least 4 weeks. Remove dressings 48 hours after surgery; sticky tapes underneath will fall off by themselves. You may shower daily starting then, just pat the incision areas dry. No bath or swimming until skin incisions have healed. Eat lightly at first, but advance to your usual diet as tolerated. Wound care: Your left lower leg wound will need daily dressing changes until it heals from the inside out. Tuck a corner of a 2x2 gauze moistened with saline solution (moisten the corner only, not the whole gauze) into the wound to fit inside and touch all the tissue, pile the rest of the gauze on top. This should be covered with a small/folded gauze and tape to hold in place. You may shower when the dressing is OFF and packing OUT - you can remove the dressing IN the shower if you want, and soap and water are OK to use on the wound, as long as it is repacked shortly after. Do NOT use alcohol, peroxide or anything but soap and water on the wound. Pain: For pain, you may use and alternate Tylenol (acetaminophen) 1-2 pills and/ or ibuprofen 200 mg (1-3 pills) every 6 hours each as needed; this means that you can take one OR the other at 3-hour intervals. Do not take more than 4000mg of acetaminophen in a day. Take medications as prescribed or indicated on the labeling. Follow-up: Call Dr. Graf's office at [phone] to make your postop appointment (Sunday in approximately 2 weeks after surgery). Clinic is held in the Diagnostic Center on the first floor of [facility]. Call the office if you have: * increasing pain not responsive to pain medication * fever of 101F or higher * vomiting * unusual or increasing bleeding or drainage from wounds * increasing redness or swelling at wound sites Also, see your primary medical doctor within 1-2 weeks. Please continue Augmentin 875 Twice a day for 11 more days. Your liver showed a mass that is concerning. Please follow up with your PCP and you need to have further imaging of the mass--THIS MASS MAY BE CANCEROUS we will also refer you to GI ( dr. Small) , for that liver lesion and to get treatment for hepatitis C Continue to avoid using Heroin and other drugs. Referrals: Americo Graf MD [Staff Physician] - 2 Weeks (need to CALL for appointment) Yamile Small DO [Staff Physician] - 2 Weeks Disposition: TRANSFER ACUTE CARE/OTHER HOSP - Home Medications Comprehensive Discharge Medication List: Ambulatory Orders Amitriptyline HCl [Elavil -] 50 mg PO HS 12/22/18 Bupropion HCl [Wellbutrin Xl -] 150 mg PO BID 12/22/18 Docusate Sodium 200 mg PO HS PRN 12/22/18 Mirtazapine 45 mg PO HS 12/22/18 Sennosides [Senna -] 2 tab PO DAILY PRN 12/22/18 Acetaminophen [Tylenol] 650 mg PO Q6H PRN #30 tablet 12/27/18 Amox-Tr/K Cl [Augmentin - 875Mg Tablet] 1 tab PO BID #22 tablet 12/27/18 Ibuprofen [Ibu] 400 mg PO Q6H PRN #30 tablet 12/27/18 This patient is new to me today: No Emergency Visit: Yes ED Registration Date: 12/25/18 Care time: The patient presented to the Emergency Department on the above date and was hospitalized for further evaluation of their emergent condition. Critical Care patient: No - Discharge Referral Referred to [facility] Med P.C.: No
[2018-12-27] MEDS: VANCOMYCIN HCL 1,250 MG in DEXTROSE 5%-WATER - 250 ML IVPB SCH (16:13)
--- NOTE | 2018-12-27 17:10 | PATH ---
Surgical Pathology Report Patient Name: SATNAM HUSTON [facility]. Rec. #: [id number] /Age/Gender: 1975 (Age: 43) / F Account: [id number] Location: [address] [place] [address] Taken: 12/25/2018 Received: 12/26/2018 Reported: 12/27/2018 Physicians: Americo Graf M.D. PHYSICIAN EMERGENCY DEPT Specimen(s) Received A: UMBILICAL HERNIA SAC B: APPENDIX Clinical History Acute appendicitis, left lower extremity abscess, nonobstructed umbilical hernia Final Diagnosis A. UMBILICAL HERNIA SAC, EXCISION: FIBROADIPOSE TISSUE CONSISTENT WITH HERNIA SAC. B. APPENDIX, APPENDECTOMY: APPENDIX WITH ACUTE APPENDICITIS. Electronically Signed Pamela Regan M.D. Gross Description A. Received in formalin labeled "umbilical hernia sac," is a 2.5 x 1.5 x 1.2 cm bustos-yellow portion of yellow, lobulated adipose tissue surrounded by bustos-pink fibromembranous tissue. No discrete areas of hemorrhage or necrosis are identified. Licensed Practical Vocational Nurse sections are submitted in one cassette. B. Received in formalin, labeled "appendix," is a 9 cm. in length vermiform appendix with a stapled margin of resection and moderate attached fat. The serosa is bustos-hercules and smooth. Sectioning reveals a dilated lumen containing yellow-brown pus. The wall of the appendix averages 0.1 cm. in thickness. Licensed Practical Vocational Nurse sections are submitted in one cassette. /12/26/2018 saudi/12/26/2018
[2018-12-27 20:45] VITALS: BP 120/76; PULSE 69; TEMP 98.8
--- NOTE | 2019-02-03 17:24 | OP ---
DATE OF OPERATION: 12/25/2018 PREOPERATIVE DIAGNOSES: Acute appendicitis, umbilical hernia, and left lower leg abscess. POSTOPERATIVE DIAGNOSES: Acute appendicitis, umbilical hernia, and left lower leg abscess. PROCEDURES: Laparoscopic appendectomy, primary umbilical hernia repair, and incision and drainage of left lower leg abscess. SURGEON: Americo Graf MD ANESTHESIA: General endotracheal and local 25 mL of 0.5% Marcaine. ESTIMATED BLOOD LOSS: 10 mL. FLUIDS: 850 mL of crystalloid. URINE OUTPUT: 200 mL. DRAINS: López was taken out at the end of the case. SPECIMEN: Umbilical hernia sac and appendix to pathology, left lower extremity wound culture to microbiology. FINDINGS: Subtly enlarged, inflamed appendiceal tip, long appendix. Umbilical hernia with some fatty content, which was amputated and sent as hernia sac for pathology, using the Jose port, and closed on the way out. Left anterior greenberg abscess was prepped separately with Betadine. A necrotic patch of skin excised, with no purulence encountered inside. Culture swab was taken. It was packed with 1/4- inch iodoform, with final wound measurements of 1.6 x 0.7 x 1.2 cm deep. DISPOSITION: Stable and extubated to PACU. INDICATIONS FOR PROCEDURE: The patient is a 43-year-old female, polysubstance abuser with schizoaffective disorder and a history of some type of colitis with intermittent bloody stools, who had been in rehab until about 3 weeks prior. She did use some substances after leaving, and presented to [facility] for detox a couple of days prior to presentation at the emergency room. Yesterday she began having bad right lower quadrant pain associated with nonbloody uncontrollable diarrhea, nausea, vomiting, and chills, and was sent to the emergency room from [facility] for evaluation. Her white count 2 days ago had been 6.5, and yesterday was 11.3. CT showed possible appendicitis of the tip of the appendix, and she was initially admitted to observation status on Medicine, started on IV fluids and antibiotics and kept n.p.o. When she was examined by Surgery first this morning, she had less pain but still some tenderness, and was indeed tender focally in the right lower quadrant. She also now was noted to have a small reducible umbilical hernia, and a small abscess at a week-old injection site on her anterior left greenberg, which had apparently previously drained a small amount of fluid but was not currently draining. A discussion was had with the patient regarding risks, benefits, and alternatives of laparoscopic, possible open appendectomy with possible umbilical hernia repair as well as possible incision and drainage of the left lower leg abscess, including but not limited to bleeding, infection, injury to adjacent structures, intestinal leak or injury, intraabdominal abscess, incisional or recurrent hernia, need for further procedures, and . Alternatives include antibiotics and delayed or no surgery, with risks of failure of nonoperative therapy, perforation of the appendix, sepsis, recurrence , and . The patient was agreeable to proceed with the operation and signed informed consent for the same, and is now brought to the OR for this procedure. OPERATIVE TECHNIQUE: The patient was brought to the operating room and laid supine in the operating table. Sequential compression devices were not used because we were going to be operating on the left leg, and the case was expected to be quite short. After induction and intubation by Anesthesia, a López catheter was placed in the patient's bladder, which was removed at the end of the case, and her lower abdomen from just above the umbilicus to the pubis was prepped and draped in sterile fashion. As the patient had a known reducible umbilical hernia, a small incision was made in the midline directly over the umbilicus with a scalpel and carried into the subcutaneous tissues with electrocautery, until the hernia sac was identified. It was carefully dissected from the surrounding tissue and the dermal layers, both bluntly and with electrocautery, until the sac itself and the fat it contained was identified entirely. The sac was opened, and fat content only was identified inside it. This was amputated at the level of the fascia circumferentially, so that the hernia sac with some fat content was sent to Pathology. Kochers were placed on the edges of the fascia, and a fingertip used to bluntly sweep the underside of the fascia, to ensure there were no immediately underlying adhesions that would be a problem for insertion of the Jose trocar, and indeed complete entry into the abdominal cavity was confirmed. Hemostasis was achieved with electrocautery where necessary, and a stay suture in the fascia, of 0 Vicryl in [id number] fashion, was placed for closure of the hernia on the way out. The Jose trocar was then introduced directly into the abdominal cavity and secured in place with the balloon. The abdomen was insufflated with carbon dioxide. The patient was placed in Trendelenburg position, and the laparoscope inserted to inspect the abdominal cavity. Two additional 5-mm ports were placed in the suprapubic and left lower quadrant areas under direct vision , and the camera was switched to the left lower quadrant port. Two graspers were used to gently manipulate the small bowel away from the right lower quadrant and out of the pelvis. There was no purulence or fluid noted in the pelvis, but the appendix was identified at the base of the cecum and was noted to be quite elongated. As it was lifted up and grasped, the tip was noted to be possibly enlarged and subtly inflamed. The appendix was grasped toward the base and elevated, and a [place] dissector used to create a window in the mesentery at the cecal junction, such that a 45 purple load of the Endo MADHAV stapler could be used to transect the appendix where it joined the cecum. The remainder of the appendix was then held up, and white load of the Endo MADHAV stapler used to transect the mesoappendix until it was completely . The appendix was set down momentarily, and the operative site inspected for hemostasis. The staple lines were noted to be dry and not bleeding. The appendix was then placed in an EndoCatch bag and drawn up into the Jose port at the umbilicus. The suprapubic port was then removed under direct vision, and the Jose with appendix in the bag also removed en bloc under direct vision, at which point the left lower quadrant port with the camera was also withdrawn. The abdomen was exsufflated of carbon dioxide. The patient was returned to neutral position. The appendix was passed off for a pathology specimen, and the fascia at the umbilical hernia was closed by tying the stay suture that had been placed there. No additional sutures were necessary to complete the hernia repair. Hemostasis was achieved in the port sites with electrocautery where needed. Local anesthetic was infiltrated into all 3 sites, and skin was closed with 4-0 Vicryl subcuticular sutures, including a running at the umbilicus. Benzoin and Steri-Strips were applied over each incision, and dressings of gauze and Tegaderm placed over these. Prior to removing the López catheter, drapes for the initial procedure were removed and attention was then turned to the left lower extremity abscess site on the anterior left lower leg. Gloves were changed. This area was re-prepped with Betadine, squared off with sterile towels, and some local anesthetic infiltrated around the wound itself. There was a very small patch of necrotic skin on the surface, and that skin and subcutaneous tissue were excised with a scalpel, with no purulence encountered immediately underneath. There was a culture swab taken for microbiology, although some bloody drainage was all that was encountered deep in the wound. Electrocautery was used for hemostasis of the entire wound. Measurements were noted above and, once it was cleaned, it was packed with 1/4-inch iodoform, and covered with gauze and tape for a dressing. The López catheter was then removed from the patient's bladder. Counts were correct at the end of the procedures. She was then awakened and extubated by Anesthesia , moved back to a stretcher and taken to the recovery room in stable condition, having tolerated both procedures well. Americo Garf M.D. [id number] MTDD
== END 2018-12-27 20:46 | disposition short-term general hospital (02) | DRG 342 ==
LOC: JER 19:32 → JERBED 12-25 00:42 → OBSVTOIN 12-25 01:19 → J6S 12-25 20:16
PROVIDERS: ADMIT Internal Medicine; ATTEND Internal Medicine
PROC: 0JBP0ZZ Excision of Left Lower Leg Subcutaneous Tissue and Fascia, Open Approach (ICD-10-PCS; 2018-12-25)
PROC: 0DTJ4ZZ Resection of Appendix, Percutaneous Endoscopic Approach (ICD-10-PCS; principal; 2018-12-25 15:00)
PROC: 0WQF4ZZ Repair Abdominal Wall, Percutaneous Endoscopic Approach (ICD-10-PCS; 2018-12-25 15:00)
DX: K35.80 Unspecified acute appendicitis (principal); L02.416 Cutaneous abscess of left lower limb; F14.20 Cocaine dependence, uncomplicated; F11.20 Opioid dependence, uncomplicated; B19.20 Unspecified viral hepatitis C without hepatic coma; F32.9 Major depressive disorder, single episode, unspecified; F25.9 Schizoaffective disorder, unspecified; K76.9 Liver disease, unspecified; J45.909 Unspecified asthma, uncomplicated; K42.9 Umbilical hernia without obstruction or gangrene; F12.20 Cannabis dependence, uncomplicated; F17.200 Nicotine dependence, unspecified, uncomplicated; K58.9 Irritable bowel syndrome, unspecified
CPT/HCPCS: 36415; 74176-TC; 74181-TC; 76700-TC; 80053; 82105; 82378; 83690; 83735; 84100; 84703; 85025; 85610; 85730; 86850; 86900; 86901; 87070; 87077; 87186; 87205; 88302-TC; 88304-TC; 93005; 93010; 94760; 99283-25; G0378; J0131; J0735

== ENCOUNTER 2018-12-27 22:09 | Inpatient (IN) | payer OTHER ==
--- NOTE | 2018-12-27 22:06 | HP ---
COWS - Scale Resting Pulse: 1= AR 81-100 Sweatin=Flushed/Facial Moisture Restless Observation: 1= Difficult to Sit Still Pupil Size: 2= Moderately Dilated Bone or Joint Aches: 1= Mild Discomfort Runny Nose/ Eye Tearin= Nasal Congestion GI Upset > 30mins: 0= None Tremor Observation: 2= Slight Tremor Visible Yawning Observation: 0= None Anxiety or Irritability: 1=Feels Anxious/Irritable Goose Flesh Skin: 0=Smooth Skin COWS Score: 11 CIWA Score - Admission Criteria OASAS Guidelines: Admission for Medically Managed Detox: Requires at least one of the followin. CIWA greater than 12 2. Seizures within the past 24 hours 3. Delirium tremens within the past 24 hours 4. Hallucinations within the past 24 hours 5. Acute intervention needed for co occurring medical disorder 6. Acute intervention needed for co occurring psychiatric disorder 7. Severe withdrawal that cannot be handled at a lower level of care (continued vomiting, continued diarrhea, abnormal vital signs) requiring intravenous medication and/or fluids 8. Admission ROS [facility] Chief Complaint: Opioid withdrawal. Allergies/Adverse Reactions: Allergies Allergy/AdvReac Type Severity Reaction Status Date / Time sulfur dioxide Allergy Verified 12/27/18 22:27 risperidone AdvReac Severe Verified 12/27/18 22:27 History of Present Illness: Patient returns from [facility] after undergoing an appendectomy. Was given opioid pain medications and returns to detox for next 3 days to complete new opioid detox regimine. Was admitted to detox on 12/22/18 hx of heroin,cocaine,marijuana dependence. Was on detox for 2 days before being transferred to [facility]. See H & P from [facility]. Exam Limitations: No Limitations - Ebola screening Have you traveled outside of the country in the last 21 days: No Patient History - Patient Medical History Hx Asthma: Yes (ALBUTEROL INHALER) Hx Chronic Obstructive Pulmonary Disease (COPD): No Hx Cancer: No Hx Cardiac Disorders: No Hx Congestive Heart Failure: No Hx Hypertension: No Hx Hypercholesterolemia: No Hx Pacemaker: No HX Cerebrovascular Accident: No Hx Seizures: No Hx Dementia: No Hx Diabetes: No Hx Gastrointestinal Disorders: Yes (irritable bowel syndrome and colitis) Hx Liver Disease: Yes Hx Genitourinary Disorders: No Hx Sexually Transmitted Disorders: No Hx Renal Disease (ESRD): No Hx Thyroid Disease: No Hx Human Immunodeficiency Virus (HIV): No (last 11/12 negative) Hx Hepatitis C: Yes (no treatment) Hx Depression: Yes Hx Suicide Attempt: No Hx Schizophrenia: Yes (SCHIZOAFFECTIVE) - Patient Surgical History Past Surgical History: No Hx Neurologic Surgery: No Hx Cataract Extraction: No Hx Cardiac Surgery: No Hx Lung Surgery: No Hx Breast Surgery: No Hx Breast Biopsy: No Hx Abdominal Surgery: No Hx Appendectomy: No Hx Cholecystectomy: No Hx Genitourinary Surgery: No Hx Section: No Hx Orthopedic Surgery: No Anesthesia Reaction: No - PPD History Date: 12/24/18 - Reproductive History Last Menstrual Period: 10/25/14 - Smoking Cessation Smoking history: Current some day smoker Have you smoked in the past 12 months: No Aproximately how many cigarettes per day: 3 Hx Chewing Tobacco Use: No - Substances abused Heroin Substance route: Injection Frequency: Daily Amount used: 5 BAGS Age of first use: 40 Date of last use: 12/21/18 Cocaine Substance route: Injection Frequency: 1-2 times per week Amount used: 20$ Age of first use: 25 Date of last use: 12/20/18 Marijuana/Hashish Substance route: Smoking Frequency: 1-3 times last 30 days Amount used: 10$ Age of first use: 14 Date of last use: 12/05/18 Admission Physical Exam [facility] - Physical General Appearance: Yes: Nourished, Moderate Distress, Sweating, Anxious HEENTM: Yes: EOMI, Hearing grossly Normal, TANI (PUPILS = 4 MM) Cleared for Admission [facility] - Detox or Rehab [facility] Level of Care: Medically Managed Detox Regimen/Protocol: Methadone Claeared for Rehab Admission: No Breathalyzer - Breathalyzer Breathalyzer: 0 POC Urine test - Test device test lot number: [id number] Expiration date: 05/26/20 - Control test control: Yes Urine Drug Screen - Test Device Lot number: [id number] Expiration date: 07/26/20 - Control Is test valid?: Yes - Results Drug screen NEGATIVE: No Urine drug screen results: THC-Marijuana, COLT-Cocaine, FEN-Fentanyl, MOP-Opiates , MTD-Methadone, BZO-Benzodiazepines, BUP-Suboxone Inpatient Rehab Admission - Rehab Decision to Admit Inpatient rehab admission?: No
[~2018-12-27 22:09] MED LIST: MELATONIN 5 MG TABLETS PO PRN
[2018-12-27] MEDS ORDERED: PROCHLORPERAZINE MALEATE 5 MG TABLET PO PRN (22:21)
[2018-12-27] MEDS ORDERED: IBUPROFEN 400 MG TABLET (FP) PO PRN ×2 (22:21→22:43)
[2018-12-27] MEDS ORDERED: MELATONIN 5 MG TABLETS PO PRN (22:21)
[2018-12-27] MEDS ORDERED: BISMUTH SUBSALICYLATE 524 MG/30 ML UD PO PRN (22:21)
[2018-12-27] MEDS ORDERED: MAG HYDROX/AL HYDROX/SIMETH 30 ML UNIT-DOSE CUP PO PRN (22:21)
[2018-12-27] MEDS ORDERED: MAGNESIUM HYDROX 2400MG/30ML ORAL SUSPENSION 30 ML CUP PO PRN (22:21)
[2018-12-27] MEDS ORDERED: MAGNESIUM CITRATE 300 ML BOTTLE PO PRN (22:21)
[2018-12-27] MEDS ORDERED: MENTHOL/PHENOL 1 EACH UD MM PRN ×2 (22:21→22:43)
[2018-12-27] MEDS ORDERED: METHOCARBAMOL 500 MG TABLET PO PRN (22:21)
[2018-12-27] MEDS ORDERED: ACETAMINOPHEN 325 MG TABLET (FP) PO PRN ×2 (22:21)
[2018-12-27 22:23] VITALS: BMI 26.6
--- NOTE | 2018-12-27 22:38 | HP ---
TANJA RODRIGUEZ Rehab Assess/Revision - Admission History Admitted to Rehab from: Medical/Surgical Date of Admission to Rehab: 12/27/2018 - Vital signs Vital Signs: Vital Signs Period Temp Pulse Resp BP Sys/Delgado Pulse Ox Last 24 Hr 98.5 F 89 18 118/78 - Findings Detox History & Physical reviewed: Yes (Reviewd detox and medical/surgical history. ) Concur with findings: Yes Comments/Additional Findings: Was admitted to detox on 12/22/18 hx of heroin, cocaine,marijuana dependence. Was on detox for 2 days before being transferred to [facility]. Transferred back to [facility] from [facility], post appendectomy and I& D of (L) leg abscess. Patient's methadone was tapered while in-patient. Patient w/ 3 laporsocopy incisions which are dry and intact. Abd tender to touch upon palpation. No guarding. BS+/Soft /Non-distended. (L) leg wound w/ gauze packing insitu. Sero-sanguinous fluid. Increased erythema and warmth around wound. Patient completed detox while inpatient. Inpatient Rehab Admission - Rehab Decision to Admit Inpatient rehab admission?: Yes - Initial Determination Are CD services needed?: Yes Free of communicable disease: Yes Not in need of hospitalization: Yes - Rehab Admission Criteria Previous failed treatment: Yes Poor recovery environment: Yes Comorbidities: Yes Lacks judgement: No Patient is meeting Inpatient Rehab admission criteria:: Yes
[2018-12-27] MEDS ORDERED: LOPERAMIDE HCL 2 MG CAPSULE PO PRN (22:43)
[2018-12-27] MEDS ORDERED: P-EPHED 60MG/TRIPROLIDI 2.5MG TABLET PO PRN (22:43)
[2018-12-27] MEDS ORDERED: NICOTINE POLACRILEX 2 MG GUM BUC PRN (22:43)
[2018-12-27] MEDS ORDERED: guaiFENesin 200 MG/10 ML 10 ML UNIT-DOSE CUPS PO PRN (22:43)
[2018-12-27] MEDS ORDERED: DOCUSATE SODIUM 100 MG CAPSULE (FP) PO PRN (22:45)
[2018-12-27] MEDS ORDERED: SENNOSIDES 8.6MG TABLET (FP) PO PRN (22:47)
[2018-12-27] MEDS ORDERED: AMITRIPTYLINE HCL 50 MG TABLET PO ONE (22:49)
[2018-12-27] MEDS ORDERED: METHADONE HCL 10 MG TABLET (FOR DETOX USE ONLY) PO ONE (23:00)
[2018-12-27] MEDS ORDERED: AMITRIPTYLINE HCL 25 MG TABLET (FP) PO ONE (23:15)
[2018-12-27] MEDS: AMOX TR/POT CLAV 875MG/125MG TABLETS (FP) PO SCH (23:25)
[2018-12-27] MEDS: hydrOXYzine PAMOATE 50 MG CAPSULE (FP) PO PRN (23:26)
[2018-12-27] MEDS: ACETAMINOPHEN 325 MG TABLET (FP) PO PRN (23:31)
[2018-12-28] MEDS ORDERED: PRENATAL VITAMINS W/ FOLIC ACID TABLET (FP) PO SCH (10:00)
[2018-12-28] MEDS ORDERED: METHADONE HCL 5 MG TABLET (FOR DETOX USE ONLY) PO ONE (10:00)
[2018-12-28] MEDS: PRENATAL VITAMINS W/ FOLIC ACID TABLET (FP) PO SCH (10:13)
[2018-12-28] MEDS: AMOX TR/POT CLAV 875MG/125MG TABLETS (FP) PO SCH ×2 (10:13→21:02)
[2018-12-28] MEDS: ACETAMINOPHEN 325 MG TABLET (FP) PO PRN ×2 (10:14→21:03)
--- NOTE | 2018-12-28 13:08 | CONSULT ---
[facility] Psychiatric Consult - Data Date of interview: 12/28/18 Admission source: Transfer from [facility]. Identifying data: Readmission to [facility] for this 43 y/o AA female, who started detoxification (cannabis, cocaine, heroin) at [address] [place] [address] (12/23/18), got transferred to [facility] on 12/24/18 for complaints of acute abdominal pain and underwent laparoscopic appendectomy + umbilical herniorraphy. Discharged from [facility] on 12/27/18 and sent directly to [address] for rehabilitative care. Patient is single, no children, homeless, unemployed and supported on [facility] benefits. Substance Abuse History: Discussed with patient. Ms Jackson confirms an extensive history of opioid, cocaine and cannabis abuse. See details in current [facility] report (drawn on admission) : Smoking history: Current every day smoker. Have you smoked in the past 12 months: Yes. Aproximately how many cigarettes per day : 3. Hx Chewing Tobacco Use: No. Initiated information on smoking cessation: Yes. 'Breaking Loose' booklet given: 12/22/18. - Substance & Tx. History. Hx Alcohol Use: No. Hx Substance Use: Yes. Substance Use Type: Cocaine, Heroin, Marijuana. Hx Substance Use Treatment: Yes ([facility] 07/14). - Substances abused. Heroin. Substance route: Injection. Frequency: Daily. Amount used: 5 BAGS. Age of first use: 40. Date of last use: 12/21/18. Cocaine. Substance route: Injection. Frequency: 1-2 times per week. Amount used: 20$. Age of first use: 25. Date of last use: 12/20/18. Marijuana/ Hashish. Substance route: Smoking. Frequency: 1-3 times last 30 days. Amount used: 10$. Age of first use: 14. Date of last use: 12/05/18 Medical History: Remarkable for s/p laparoscopic appendectomy, umbilical herniorraphy, hepatic mass (suspicion of hemangioma), colitis, irritable bowel syndrome, hepatitis C and bronchial asthma. Psychiatric History: Patient denies history of psychiatric hospitalizations. She has been diagnosed with Schizoaffective Disorder. Ms Jackson is known to the [facility] program in the [place]. She sees a psychiatrist for medication management at the [facility] in [facility]. Medicated with a combination of elavil + remeron + wellbutrin. Patient denies history of suicide attempts. Physical/Sexual Abuse/Trauma History: Patient denies. Additional Comment: Urine drug screen results: THC-Marijuana, COLT-Cocaine, FEN- Fentanyl, MOP-Opiates, MTD-Methadone, BZO-Benzodiazepines, BUP-Suboxone. Noted on admission (12/23/18). Mental Status Exam - Mental Status Exam Alert and Oriented to: Time, Place, Person Cognitive Function: Good Patient Appearance: Well Groomed Mood: Anxious, Apprehensive, Hopeful Affect: Mood Congruent, Constricted Patient Behavior: Fatigued, Appropriate, Cooperative Speech Pattern: Clear, Appropriate Voice Loudness: Normal Thought Process: Goal Oriented Thought Disorder: Not Present Hallucinations: Denies Suicidal Ideation: Denies Homicidal Ideation: Denies Insight/Judgement: Fair Sleep: Poorly, Difficulty falling asleep Appetite: Good Muscle strength/Tone: Normal Gait/Station: Normal Psychiatric Findings - Problem List ([place] 1, 2,3) (1) Opioid dependence, uncomplicated Current Visit: Yes Status: Chronic (2) Cocaine dependence Current Visit: Yes Status: Chronic Qualifiers: Substance use status: uncomplicated Qualified Code(s): F14.20 - Cocaine dependence, uncomplicated (3) Marijuana dependence Current Visit: Yes Status: Chronic (4) Nicotine dependence Current Visit: Yes Status: Chronic Qualifiers: Nicotine product type: cigarettes Substance use status: uncomplicated Qualified Code(s): F17.210 - Nicotine dependence, cigarettes, uncomplicated (5) Schizoaffective disorder Current Visit: Yes Status: Chronic Qualifiers: Schizoaffective disorder type: unspecified Qualified Code(s): F25.9 - Schizoaffective disorder, unspecified (6) Substance induced mood disorder Current Visit: Yes Status: Chronic (7) Insomnia Current Visit: Yes Status: Chronic - Initial Treatment Plan Initial Treatment Plan: Psychoeducation. Sleep hygiene. Support. Groups. NA meetings. Resumed : wellbutrin XL 150 mg po daily + remeron 15 mg po hs. Side effects/benefits discussed with patient. She declines to get back on risperdal. Alternate atypicals offered : patient declines. Made aware of potential of a psychiatric decompensation (rehana). Observation.
[2018-12-28] MEDS: hydrOXYzine PAMOATE 50 MG CAPSULE (FP) PO PRN (15:22)
[2018-12-28] MEDS ORDERED: THIAMINE HCL 100 MG TABLET (FP) PO SCH ×2 (22:00)
[2018-12-28] MEDS ORDERED: MIRTAZAPINE 15 MG TABLET (FP) PO SCH (22:00)
[2018-12-29 07:10] VITALS: BP 103/71; PULSE 78; TEMP 97.7
[2018-12-29] MEDS ORDERED: METHADONE HCL 10 MG TABLET (FOR DETOX USE ONLY) PO ONE (10:00)
[2018-12-29] MEDS: AMOX TR/POT CLAV 875MG/125MG TABLETS (FP) PO SCH (10:38)
[2018-12-29] MEDS: PRENATAL VITAMINS W/ FOLIC ACID TABLET (FP) PO SCH (10:38)
[2018-12-29] MEDS: ACETAMINOPHEN 325 MG TABLET (FP) PO PRN (10:39)
[2018-12-29] MEDS ORDERED: buPROPion HCL 100 MG TABLET PO ONE (14:37)
--- NOTE | 2018-12-29 14:48 | PN ---
[facility] Progress Note Note: Patient requesting to have Wellbutrin 150 mg twice daily instead on once daily as ordered yesterday by Dr Paniagua. She reports that prior to her current admission she was taking it twice a day. She claims that she has been hearing voices for a long time and Wellbutrin helps her with that. She said that theses voices talk mostly between themselves and ask her to leave this program. Told scenario writer that she will leave if her wellbutrin is not ordered the way she usually takes it. Wellbutrin order changed to 150 mg po BID
--- NOTE | 2018-12-29 15:07 | PN ---
S Progress Note Note: Pt complaining of pain due to appendectomy x a wk ago. She states tylenol is not helping the pain and motrin makes her nauseous. Explained to pt that in view of her opiate abuse hx, she will get Percocet x 1 dose and Tylenol Q4-6h x 3 days to help with break through pain. Pt verbalized understanding and agreement with plan, ANKIT Herrera made aware.
[2018-12-29] MEDS ORDERED: ACETAMINOPHEN 325 MG TABLET (FP) PO SCH ×2 (15:15→20:00)
[2018-12-29] MEDS ORDERED: oxyCODONE HCL 5 MG TABLET PO ONE (15:48)
[2018-12-29] MEDS ORDERED: buPROPion HCL 75 MG TABLET PO SCH (17:00)
[2018-12-29] MEDS ORDERED: traMADol HCL 50 MG TABLET PO ONE (17:09)
--- NOTE | 2018-12-29 17:11 | PN ---
[facility] Progress Note Note: Oxycodone changed to tramadol because oxycodone not available at this time.
--- NOTE | 2018-12-29 18:17 | DS ---
[facility] Detox Discharge Summary Admission Date: 12/27/18 Discharge Date: 12/29/18 - History Present History: Cocaine Dependence, Opioid Dependence Pertinent Past History: Labs noted. - Physical Exam Results Vital Signs: Vital Signs Temperature 97.7 F 12/29/18 07:09 Pulse Rate 78 12/29/18 07:09 Respiratory Rate 18 12/29/18 07:09 Blood Pressure 103/71 12/29/18 07:09 O2 Sat by Pulse Oximetry (%) - Medication Discharge Medications: Ambulatory Orders Amitriptyline HCl [Elavil -] 50 mg PO HS 12/22/18 Bupropion HCl [Wellbutrin Xl -] 150 mg PO BID 12/22/18 Docusate Sodium 200 mg PO HS PRN 12/22/18 Mirtazapine 45 mg PO HS 12/22/18 Sennosides [Senna -] 2 tab PO DAILY PRN 12/22/18 Acetaminophen [Tylenol] 650 mg PO Q6H PRN #30 tablet 12/27/18 Amox-Tr/K Cl [Augmentin - 875Mg Tablet] 1 tab PO BID #22 tablet 12/27/18 Ibuprofen [Ibu] 400 mg PO Q6H PRN #30 tablet 12/27/18 - Diagnosis (1) Cocaine dependence Current Visit: Yes Status: Chronic Qualifiers: Substance use status: uncomplicated Qualified Code(s): F14.20 - Cocaine dependence, uncomplicated (2) Marijuana dependence Current Visit: Yes Status: Chronic (3) Nicotine dependence Current Visit: Yes Status: Chronic Qualifiers: Nicotine product type: cigarettes Substance use status: uncomplicated Qualified Code(s): F17.210 - Nicotine dependence, cigarettes, uncomplicated (4) Opioid dependence, uncomplicated Current Visit: Yes Status: Chronic (5) Abscess of left leg Current Visit: No Status: Acute (6) Weight loss Current Visit: No Status: Acute (7) Irritable bowel syndrome Current Visit: No Status: Chronic Qualifiers: Irritable bowel syndrome type: with constipation Qualified Code(s): K58.1 - Irritable bowel syndrome with constipation - AMA Did Patient Leave Against Medical Advice: No (Pt. stated no med. refill needed. )
[2018-12-30] MEDS ORDERED: METHADONE HCL 5 MG TABLET (FOR DETOX USE ONLY) PO ONE (06:00)
[2018-12-30] MEDS ORDERED: buPROPion HCL 75 MG TABLET PO SCH (10:00)
== END 2018-12-29 16:55 | disposition left against medical advice (07) | DRG 894 ==
LOC: YASAS 22:09 → Y6N 22:11 → Y3E 22:37
PROVIDERS: ADMIT Neuromusculoskeletal Medicine & OMM; ATTEND Neuromusculoskeletal Medicine & OMM
PROC: HZ2ZZZZ Detoxification Services for Substance Abuse Treatment (ICD-10-PCS; principal; 2018-12-27)
DX: F11.20 Opioid dependence, uncomplicated (principal); F14.20 Cocaine dependence, uncomplicated; L03.116 Cellulitis of left lower limb; F12.20 Cannabis dependence, uncomplicated; F17.210 Nicotine dependence, cigarettes, uncomplicated; K58.1 Irritable bowel syndrome with constipation; R63.4 Abnormal weight loss; Z68.26 Body mass index [BMI] 26.0-26.9, adult

== ENCOUNTER 2018-12-31 03:44 | Inpatient (IN) | payer OTHER ==
--- NOTE | 2018-12-31 04:33 | HP ---
COWS - Scale Resting Pulse: 0= [place] 80 or Below Sweatin= No chills or Flushing Restless Observation: 0= Sits Still Pupil Size: 0= Normal to Room Light Bone or Joint Aches: 1= Mild Discomfort Runny Nose/ Eye Tearin= None GI Upset > 30mins: 0= None Tremor Observation: 0= None Yawning Observation: 0= None Anxiety or Irritability: 0= None Goose Flesh Skin: 0=Smooth Skin COWS Score: 1 CIWA Score - Admission Criteria OASAS Guidelines: Admission for Medically Managed Detox: Requires at least one of the followin. CIWA greater than 12 2. Seizures within the past 24 hours 3. Delirium tremens within the past 24 hours 4. Hallucinations within the past 24 hours 5. Acute intervention needed for co occurring medical disorder 6. Acute intervention needed for co occurring psychiatric disorder 7. Severe withdrawal that cannot be handled at a lower level of care (continued vomiting, continued diarrhea, abnormal vital signs) requiring intravenous medication and/or fluids 8. Admission ROS [facility] - HPI Allergies/Adverse Reactions: Allergies Allergy/AdvReac Type Severity Reaction Status Date / Time sulfur dioxide Allergy Verified 12/27/18 22:27 risperidone AdvReac Severe Verified 12/27/18 22:27 Exam Limitations: No Limitations - Ebola screening Have you traveled outside of the country in the last 21 days: No Have you had contact with anyone from an Ebola affected area: No Have you been sick,other than usual withdrawal symptoms: No Do you have a fever: No - Review of Systems Constitutional: No Symptoms Reported EENT: reports: No Symptoms Reported Respiratory: reports: No Symptoms reported Cardiac: reports: No Symptoms Reported GI: reports: No Symptoms Reported : reports: No Symptoms Reported Musculoskeletal: reports: No Symptoms Reported Integumentary: reports: No Symptoms Reported Neuro: reports: No Symptoms reported Endocrine: reports: No Symptoms Reported Hematology: reports: No Symptoms Reported Psychiatric: reports: Mood/Affect Appropiate, Orientated x3 Other Systems: Reviewed and Negative Patient History - Patient Medical History Hx Asthma: Yes (ALBUTEROL INHALER) Hx Chronic Obstructive Pulmonary Disease (COPD): No Hx Cancer: No Hx Cardiac Disorders: No Hx Congestive Heart Failure: No Hx Hypertension: No Hx Hypercholesterolemia: No Hx Pacemaker: No HX Cerebrovascular Accident: No Hx Seizures: No Hx Dementia: No Hx Diabetes: No Hx Gastrointestinal Disorders: Yes (irritable bowel syndrome and colitis) Hx Liver Disease: Yes Hx Genitourinary Disorders: No Hx Sexually Transmitted Disorders: No Hx Renal Disease (ESRD): No Hx Thyroid Disease: No Hx Human Immunodeficiency Virus (HIV): No (last 11/12 negative) Hx Hepatitis C: Yes (no treatment) Hx Depression: Yes Hx Suicide Attempt: No Hx Schizophrenia: Yes (SCHIZOAFFECTIVE) - Patient Surgical History Past Surgical History: No Hx Neurologic Surgery: No Hx Cataract Extraction: No Hx Cardiac Surgery: No Hx Lung Surgery: No Hx Breast Surgery: No Hx Breast Biopsy: No Hx Abdominal Surgery: No Hx Appendectomy: No Hx Cholecystectomy: No Hx Genitourinary Surgery: No Hx Section: No Hx Orthopedic Surgery: No Anesthesia Reaction: No - PPD History Date: 12/24/18 - Reproductive History Last Menstrual Period: 10/25/14 - Smoking Cessation Smoking history: Current some day smoker Have you smoked in the past 12 months: No Aproximately how many cigarettes per day: 3 Hx Chewing Tobacco Use: No - Substances abused Heroin Substance route: Injection Frequency: Daily Amount used: 5 BAGS Age of first use: 40 Date of last use: 12/21/18 Cocaine Substance route: Injection Frequency: 1-2 times per week Amount used: 20$ Age of first use: 25 Date of last use: 12/21/18 Marijuana/Hashish Substance route: Smoking Frequency: 1-3 times last 30 days Amount used: 10$ Age of first use: 14 Date of last use: 12/21/18 Screened but not Admitted - Documentation of Visit Screened but not Admitted: Yes Left Prior to Completion of Assessment: No Insurance Authorization Denied: No Patient Does Not Meet Criteria for Admission: Yes Alternative Treatment/Alf Info Provided: Yes Breathalyzer - Breathalyzer Breathalyzer: 0 Vital Signs - Vital Signs Vital signs refused: No Temperature: 97.8 F Pulse Rate: 92 Respiratory Rate: 16 Blood Pressure: 100/85 BP Location: Right Arm Blood Pressure position: Sitting - Height Height: 5 ft 7 in - Weight Weight: 170 lb - BMI Body Mass Index (BMI): 26.6 - Bowel Function Bowel Movement: Yes POC Urine test - Test device test lot number: [id number] Expiration date: 05/26/20 - Control test control: Yes - Result Urine Test Results: Negative - NO line present Urine Drug Screen - Test Device Lot number: [id number] Expiration date: 07/26/20 - Control Is test valid?: Yes - Results Drug screen NEGATIVE: No Urine drug screen results: THC-Marijuana, MOP-Opiates, OXY-Oxycodone, MTD- Methadone, BZO-Benzodiazepines, BUP-Suboxone
--- NOTE | 2018-12-31 04:58 | HP ---
COWS - Scale Resting Pulse: 0= [place] 80 or Below Sweatin= No chills or Flushing Restless Observation: 0= Sits Still Pupil Size: 0= Normal to Room Light Bone or Joint Aches: 1= Mild Discomfort Runny Nose/ Eye Tearin= None GI Upset > 30mins: 0= None Tremor Observation: 0= None Yawning Observation: 0= None Anxiety or Irritability: 0= None Goose Flesh Skin: 0=Smooth Skin COWS Score: 1 CIWA Score - Admission Criteria OASAS Guidelines: Admission for Medically Managed Detox: Requires at least one of the followin. CIWA greater than 12 2. Seizures within the past 24 hours 3. Delirium tremens within the past 24 hours 4. Hallucinations within the past 24 hours 5. Acute intervention needed for co occurring medical disorder 6. Acute intervention needed for co occurring psychiatric disorder 7. Severe withdrawal that cannot be handled at a lower level of care (continued vomiting, continued diarrhea, abnormal vital signs) requiring intravenous medication and/or fluids 8. Admission ROS [facility] Chief Complaint: Seeking admission to detox Allergies/Adverse Reactions: Allergies Allergy/AdvReac Type Severity Reaction Status Date / Time sulfur dioxide Allergy Verified 12/27/18 22:27 risperidone AdvReac Severe Verified 12/27/18 22:27 History of Present Illness: Patient is seeking admission to detox. She was in detox on from 2018 - 12/24/2018. She was transferred to [facility] on 12/24/18 for complaints of acute abdominal pain and underwent laparoscopic appendectomy and umbilical hernia repair. Patient was discharged from [facility] on 12/27/18 and admitted to [address] for rehabilitative care. As per patient, she signed out to go to court. Patient is alert and oriented to person, place and time, not actively withdrawing at this time and does not meet criteria to be admitted to detox. Exam Limitations: No Limitations - Ebola screening Have you traveled outside of the country in the last 21 days: No Have you had contact with anyone from an Ebola affected area: No Have you been sick,other than usual withdrawal symptoms: No Do you have a fever: No - Review of Systems Constitutional: No Symptoms Reported EENT: reports: No Symptoms Reported Respiratory: reports: No Symptoms reported Cardiac: reports: No Symptoms Reported GI: reports: No Symptoms Reported : reports: No Symptoms Reported Musculoskeletal: reports: No Symptoms Reported Integumentary: reports: No Symptoms Reported Neuro: reports: No Symptoms reported Endocrine: reports: No Symptoms Reported Hematology: reports: No Symptoms Reported Psychiatric: reports: Mood/Affect Appropiate, Orientated x3 Other Systems: Reviewed and Negative Patient History - Patient Medical History Hx Asthma: Yes (ALBUTEROL INHALER) Hx Chronic Obstructive Pulmonary Disease (COPD): No Hx Cancer: No Hx Cardiac Disorders: No Hx Congestive Heart Failure: No Hx Hypertension: No Hx Hypercholesterolemia: No Hx Pacemaker: No HX Cerebrovascular Accident: No Hx Seizures: No Hx Dementia: No Hx Diabetes: No Hx Gastrointestinal Disorders: Yes (irritable bowel syndrome and colitis) Hx Liver Disease: Yes Hx Genitourinary Disorders: No Hx Sexually Transmitted Disorders: No Hx Renal Disease (ESRD): No Hx Thyroid Disease: No Hx Human Immunodeficiency Virus (HIV): No (last 11/12 negative) Hx Hepatitis C: Yes (no treatment) Hx Depression: Yes Hx Suicide Attempt: No Hx Schizophrenia: Yes (SCHIZOAFFECTIVE) - Patient Surgical History Past Surgical History: No Hx Neurologic Surgery: No Hx Cataract Extraction: No Hx Cardiac Surgery: No Hx Lung Surgery: No Hx Breast Surgery: No Hx Breast Biopsy: No Hx Abdominal Surgery: No Hx Appendectomy: No Hx Cholecystectomy: No Hx Genitourinary Surgery: No Hx Section: No Hx Orthopedic Surgery: No Anesthesia Reaction: No - PPD History Date: 12/24/18 - Reproductive History Last Menstrual Period: 10/25/14 - Smoking Cessation Smoking history: Current some day smoker Have you smoked in the past 12 months: No Aproximately how many cigarettes per day: 3 Hx Chewing Tobacco Use: No Initiated information on smoking cessation: Yes 'Breaking Loose' booklet given: 12/31/18 - Substances abused Heroin Substance route: Injection Frequency: Daily Amount used: 5 BAGS Age of first use: 40 Date of last use: 12/21/18 Cocaine Substance route: Injection Frequency: 1-2 times per week Amount used: 20$ Age of first use: 25 Date of last use: 12/21/18 Marijuana/Hashish Substance route: Smoking Frequency: 1-3 times last 30 days Amount used: 10$ Age of first use: 14 Date of last use: 12/21/18 Admission Physical Exam [facility] - Vital Signs Vital Signs: Vital Signs - 24 hr 12/31/18 04:56 Temperature 97.8 F Pulse Rate 92 H Respiratory 16 Rate Blood Pressure 100/85 - Physical General Appearance: Yes: Within Normal Limits HEENTM: Yes: Within Normal Limits Respiratory: Yes: Lungs Clear, Normal Breath Sounds, No Respiratory Distress Neck: Yes: Supple Breast: Yes: Breast Exam Deferred Cardiology: Yes: Tachycardia Abdominal: Yes: Normal Bowel Sounds, Soft Genitourinary: Yes: Within Normal Limits Back: Yes: Normal Inspection Musculoskeletal: Yes: Within Normal Limits Extremities: Yes: Coldness Neurological: Yes: Alert, Normal Mood/Affect Integumentary: Yes: Warm Lymphatic: Yes: Within Normal Limits Screened but not Admitted - Documentation of Visit Screened but not Admitted: Yes Left Prior to Completion of Assessment: No Insurance Authorization Denied: No Patient Does Not Meet Criteria for Admission: Yes Level of Care Recommended at this Time: Other Alternative Treatment/Usp Info Provided: Yes Additional Information/Explanation: She was in detox from [address] from 2018 - 12/24/2018. She was transferred to [facility] on 12/24/18 for complaints of acute abdominal pain and underwent laparoscopic appendectomy and umbilical hernia repair. Patient was discharged from [facility] on 12/27/18 and admitted to [address] for rehabilitative care. As per patient, she signed out to go to court. Patient is alert and oriented to person, place and time and is not actively withdrawing at this time. She does not meet criteria to be admitted to detox. Breathalyzer - Breathalyzer Breathalyzer: 0 Vital Signs - Vital Signs Vital signs refused: No Temperature: 98.5 F Temperature source: Oral Pulse Rate: 96 Respiratory Rate: 16 Blood Pressure: 100/85 BP Location: Right Arm Blood Pressure position: Sitting - Height Height: 5 ft 7 in - Weight Weight: 170 lb Weight measurement method: Standing scale - BMI Body Mass Index (BMI): 26.6 - Bowel Function Bowel Movement: Yes POC Urine test - Test device test lot number: [id number] Expiration date: 05/26/20 - Control test control: Yes - Result Urine Test Results: Negative - NO line present Urine Drug Screen - Test Device Lot number: [id number] Expiration date: 07/26/20 - Control Is test valid?: Yes - Results Drug screen NEGATIVE: No Urine drug screen results: THC-Marijuana, MET-Methamphetamine, MTD-Methadone, BZO-Benzodiazepines, BUP-Suboxone Inpatient Rehab Admission - Rehab Decision to Admit Inpatient rehab admission?: No
[2018-12-31 09:19] VITALS: BMI 27.3
--- NOTE | 2018-12-31 09:53 | HP ---
"COWS - Scale Resting Pulse: 1= [place] 81-100 Sweatin=Flushed/Facial Moisture Restless Observation: 0= Sits Still Pupil Size: 0= Normal to Room Light Bone or Joint Aches: 2= Severe Diffuse Aches Runny Nose/ Eye Tearin= Runny Nose/Eyes GI Upset > 30mins: 1= Stomach Cramp Tremor Observation: 0= None Yawning Observation: 0= None Anxiety or Irritability: 2=Irritable/Anxious Goose Flesh Skin: 0=Smooth Skin COWS Score: 10 CIWA Score - Admission Criteria OASAS Guidelines: Admission for Medically Managed Detox: Requires at least one of the followin. CIWA greater than 12 2. Seizures within the past 24 hours 3. Delirium tremens within the past 24 hours 4. Hallucinations within the past 24 hours 5. Acute intervention needed for co occurring medical disorder 6. Acute intervention needed for co occurring psychiatric disorder 7. Severe withdrawal that cannot be handled at a lower level of care (continued vomiting, continued diarrhea, abnormal vital signs) requiring intravenous medication and/or fluids 8. Admission ROS [facility] Allergies/Adverse Reactions: Allergies Allergy/AdvReac Type Severity Reaction Status Date / Time sulfur dioxide Allergy Verified 12/31/18 09:04 risperidone AdvReac Severe Verified 12/31/18 09:04 History of Present Illness: pt here requesting detox from opiate use , reports 1 bag heroin yesterday after d/c from rehab on Sunday12/29/18 , went to court yesterday , told to return to rehab , has another court date pending . Current symptoms as above . Admits to SUboxone use prior to admission at this facility 12/20/18 @ [facility] PMHX : s/p lap appy & umbilical hernia repair 12/25/18 @ [facility] , d/c , came to rehab 12/27-12/29/18 , colitis lmp age 40 has 25 yr old son A & W Search Terms: hilda chang, 1975 Search Date: 12/31/2018 09:47:42 AM The Drug Utilization Report below displays all of the controlled substance prescriptions, if any, that your patient has filled in the last twelve months. The information displayed on this report is compiled from pharmacy submissions to the Department, and accurately reflects the information as submitted by the pharmacies. This report was requested by: Michelle Jones | Reference #: [id number] There are no results for the search terms that you entered Exam Limitations: No Limitations - Ebola screening Have you traveled outside of the country in the last 21 days: No Have you had contact with anyone from an Ebola affected area: No Have you been sick,other than usual withdrawal symptoms: No Do you have a fever: No - Review of Systems Constitutional: No Symptoms Reported EENT: reports: See HPI Respiratory: reports: No Symptoms reported Cardiac: reports: No Symptoms Reported GI: reports: See HPI : reports: No Symptoms Reported Musculoskeletal: reports: No Symptoms Reported Integumentary: reports: See HPI Neuro: reports: No Symptoms reported Endocrine: reports: No Symptoms Reported Psychiatric: reports: Orientated x3, Anxious, other (SAD) Patient History - Patient Medical History Hx Asthma: Yes (ALBUTEROL INHALER) Hx Chronic Obstructive Pulmonary Disease (COPD): No Hx Cancer: No Hx Cardiac Disorders: No Hx Congestive Heart Failure: No Hx Hypertension: No Hx Hypercholesterolemia: No Hx Pacemaker: No HX Cerebrovascular Accident: No Hx Seizures: No Hx Dementia: No Hx Diabetes: No Hx Gastrointestinal Disorders: Yes (irritable bowel syndrome and colitis) Hx Liver Disease: Yes Hx Genitourinary Disorders: No Hx Sexually Transmitted Disorders: No Hx Renal Disease (ESRD): No Hx Thyroid Disease: No Hx Human Immunodeficiency Virus (HIV): No (last 11/12 negative) Hx Hepatitis C: Yes (no treatment) Hx Depression: Yes Hx Suicide Attempt: No Hx Schizophrenia: Yes (SCHIZOAFFECTIVE) - Patient Surgical History Past Surgical History: No Hx Neurologic Surgery: No Hx Cataract Extraction: No Hx Cardiac Surgery: No Hx Lung Surgery: No Hx Breast Surgery: No Hx Breast Biopsy: No Hx Abdominal Surgery: No Hx Appendectomy: No Hx Cholecystectomy: No Hx Genitourinary Surgery: No Hx Section: No Hx Orthopedic Surgery: No Anesthesia Reaction: No - PPD History Date: 12/24/18 - Reproductive History Last Menstrual Period: 10/25/14 - Smoking Cessation Smoking history: Current some day smoker Have you smoked in the past 12 months: No Aproximately how many cigarettes per day: 3 Hx Chewing Tobacco Use: No Initiated information on smoking cessation: No - Substances abused Heroin Substance route: Injection Frequency: Daily Amount used: 5 BAGS Age of first use: 40 Date of last use: 12/21/18 Cocaine Substance route: Injection Frequency: 1-2 times per week Amount used: 20$ Age of first use: 25 Date of last use: 12/21/18 Marijuana/Hashish Substance route: Smoking Frequency: 1-3 times last 30 days Amount used: 10$ Age of first use: 14 Date of last use: 12/21/18 Family Disease History - Family Disease History Other Family History: adopted, states does not know about bio parents Admission Physical Exam S - Vital Signs Vital Signs: Vital Signs - 24 hr 12/31/18 12/31/18 05:19 09:03 Temperature 98.5 F 97.2 F L Pulse Rate 96 H 84 Respiratory 16 18 Rate Blood Pressure 100/85 110/70 - Physical General Appearance: Yes: Mild Distress, Anxious HEENTM: Yes: EOMI, Hearing grossly Normal, Normocephalic, Normal Voice Respiratory: Yes: Chest Non-Tender, Lungs Clear, Normal Breath Sounds Neck: Yes: No masses,lesions,Nodules, Trachea in good position Cardiology: Yes: Regular Rhythm, Regular Rate, S1, S2 Abdominal: Yes: Normal Bowel Sounds, Non Tender, Soft, Guarding, Surgical Scar ( umbilical w/ serosanguinolent fluid discharge, steri-strips 2 other surgical sites LLQ w/ mild d/c and midline infra - umbilical c/d/i) Musculoskeletal: Yes: full range of Motion, Gait Steady Extremities: Yes: Normal Range of Motion, Non-Tender Neurological: Yes: Fully Oriented, Alert, Motor Strength 5/5 Integumentary: Yes: Warm, Track [place], Other (extensive UE scarring from substance use) - Diagnostic (1) Opioid dependence with withdrawal Current Visit: Yes Status: Acute (2) Cocaine dependence Current Visit: Yes Status: Chronic Qualifiers: Substance use status: uncomplicated Qualified Code(s): F14.20 - Cocaine dependence, uncomplicated (3) IVDU (intravenous drug user) Current Visit: No Status: Chronic (4) Marijuana dependence Current Visit: Yes Status: Chronic (5) Nicotine dependence Current Visit: Yes Status: Chronic Qualifiers: Nicotine product type: cigarettes Substance use status: uncomplicated Qualified Code(s): F17.210 - Nicotine dependence, cigarettes, uncomplicated Breathalyzer - Breathalyzer Breathalyzer: 0 POC Urine test - Test device test lot number: [id number] Expiration date: 05/26/20 - Control test control: Yes - Result Urine Test Results: Negative - NO line present Urine Drug Screen - Test Device Lot number: [id number] Expiration date: 07/26/20 - Control Is test valid?: Yes - Results Drug screen NEGATIVE: No Urine drug screen results: THC-Marijuana, COLT-Cocaine, FEN-Fentanyl, MOP-Opiates , OXY-Oxycodone, MTD-Methadone, BZO-Benzodiazepines, BUP-Suboxone Inpatient Rehab Admission - Rehab Decision to Admit Inpatient rehab admission?: No"
[2018-12-31] MEDS ORDERED: MAG HYDROX/AL HYDROX/SIMETH 30 ML UNIT-DOSE CUP PO PRN (10:04)
[2018-12-31] MEDS ORDERED: ACETAMINOPHEN 325 MG TABLET (FP) PO PRN ×2 (10:04)
[2018-12-31] MEDS ORDERED: hydrOXYzine PAMOATE 25 MG CAPSULE (FP) PO PRN (10:04)
[2018-12-31] MEDS ORDERED: MELATONIN 5 MG TABLETS PO PRN (10:04)
[2018-12-31] MEDS ORDERED: IBUPROFEN 400 MG TABLET (FP) PO PRN (10:04)
[2018-12-31] MEDS ORDERED: MAGNESIUM HYDROX 2400MG/30ML ORAL SUSPENSION 30 ML CUP PO PRN (10:04)
[2018-12-31] MEDS ORDERED: MAGNESIUM CITRATE 300 ML BOTTLE PO PRN (10:04)
[2018-12-31] MEDS ORDERED: NICOTINE POLACRILEX 2 MG GUM BUC PRN (10:04)
[2018-12-31] MEDS ORDERED: SENNOSIDES 8.6MG TABLET (FP) PO PRN (10:10)
[2018-12-31] MEDS ORDERED: DOCUSATE SODIUM 100 MG CAPSULE (FP) PO PRN (10:10)
[2018-12-31] MEDS ORDERED: METHADONE HCL 5 MG TABLET (FOR DETOX USE ONLY) PO ONE (10:35)
[2018-12-31] MEDS: AMOX TR/POT CLAV 875MG/125MG TABLETS (FP) PO SCH ×2 (10:53→22:29)
[2018-12-31] MEDS: AMITRIPTYLINE HCL 25 MG TABLET (FP) PO SCH (22:29)
[2018-12-31] MEDS: THIAMINE HCL 100 MG TABLET (FP) PO SCH (22:29)
[2018-12-31] MEDS: MIRTAZAPINE 15 MG TABLET (FP) PO SCH (22:29)
[2019-01-01] MEDS ORDERED: METHADONE HCL 10 MG TABLET (FOR DETOX USE ONLY) PO ONE (10:00)
--- NOTE | 2019-01-01 10:47 | PN ---
BHS COWS - Scale Resting Pulse: 0= [place] 80 or Below Sweatin=Flushed/Facial Moisture Restless Observation: 1= Difficult to Sit Still Pupil Size: 0= Normal to Room Light Bone or Joint Aches: 2= Severe Diffuse Aches Runny Nose/ Eye Tearin= Nasal Congestion GI Upset > 30mins: 0= None Tremor Observation of Outstretched Hands: 2= Slight Tremor Visible Yawning Observation: 1= 1-2x During Session Anxiety or Irritability: 2=Irritable/Anxious Goose Flesh Skin: 0=Smooth Skin COWS Score: 11 BHS Progress Note (SOAP) Subjective: anxiety body aches chills sweats irritable Objective: 01/01/19 10:47 Vital Signs Temperature 98.2 F 01/01/19 10:22 Pulse Rate 80 01/01/19 10:22 Respiratory Rate 18 01/01/19 10:22 Blood Pressure 116/63 01/01/19 10:22 O2 Sat by Pulse Oximetry (%) recent labs were drawn at [facility] [place] [place] our main hospital; results verified and WNL. no further testing required aaox3 ambulating no acute distress Assessment: 01/01/19 10:50 withdrawal sx Plan: continue detox will increase methadone for 15mg today, 10mg tomorrow and 5mg for sunday.pt in agreement with revised dosage.
[2019-01-01] MEDS ORDERED: METHADONE HCL 5 MG TABLET (FOR DETOX USE ONLY) PO ONE (11:17)
[2019-01-01] MEDS: METHOCARBAMOL 500 MG TABLET PO PRN ×2 (11:24→18:15)
[2019-01-01] MEDS: PRENATAL VITAMINS W/ FOLIC ACID TABLET (FP) PO SCH (11:24)
[2019-01-01] MEDS: AMOX TR/POT CLAV 875MG/125MG TABLETS (FP) PO SCH ×2 (11:24→22:44)
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
[2019-01-01] MEDS: cloNIDine HCL 0.1 MG TABLET PO PRN (18:17)
[2019-01-01] MEDS: MIRTAZAPINE 15 MG TABLET (FP) PO SCH (22:45)
[2019-01-01] MEDS: AMITRIPTYLINE HCL 25 MG TABLET (FP) PO SCH (22:45)
[2019-01-01] MEDS: THIAMINE HCL 100 MG TABLET (FP) PO SCH (22:45)
[2019-01-02] MEDS ORDERED: METHADONE HCL 10 MG TABLET (FOR DETOX USE ONLY) PO ONE (10:00)
[2019-01-02] MEDS ORDERED: METHADONE HCL 5 MG TABLET (FOR DETOX USE ONLY) PO ONE (10:00)
[2019-01-02] MEDS: AMOX TR/POT CLAV 875MG/125MG TABLETS (FP) PO SCH ×2 (10:29→22:46)
[2019-01-02] MEDS: PRENATAL VITAMINS W/ FOLIC ACID TABLET (FP) PO SCH (10:29)
[2019-01-02] MEDS: cloNIDine HCL 0.1 MG TABLET PO PRN ×2 (10:32→19:31)
[2019-01-02] MEDS ORDERED: diazePAM 5 MG TABLET PO ONE (10:38)
[2019-01-02] MEDS ORDERED: diazePAM 5 MG TABLET PO PRN (10:38)
--- NOTE | 2019-01-02 12:18 | PN ---
BHS COWS - Scale Resting Pulse: 0= [place] 80 or Below Sweatin=Flushed/Facial Moisture Restless Observation: 1= Difficult to Sit Still Pupil Size: 0= Normal to Room Light Bone or Joint Aches: 1= Mild Discomfort Runny Nose/ Eye Tearin= Nasal Congestion GI Upset > 30mins: 0= None Tremor Observation of Outstretched Hands: 1= Tremor [place], Not Seen Yawning Observation: 1= 1-2x During Session Anxiety or Irritability: 2=Irritable/Anxious Goose Flesh Skin: 0=Smooth Skin COWS Score: 9 BHS Progress Note (SOAP) Subjective: sweats chills anxiety Objective: 01/02/19 12:16 Vital Signs Temperature 97.7 F 01/02/19 09:27 Pulse Rate 77 01/02/19 09:27 Respiratory Rate 18 01/02/19 09:27 Blood Pressure 114/61 01/02/19 09:27 O2 Sat by Pulse Oximetry (%) Laboratory Tests 12/31/18 09:45 POC Urine HCG, Qual Negative aaox3 ambulating no acute distress Assessment: 01/02/19 12:16 mild withdrawals steri strips to abdominal area assessed, intact no purulent drainage noted, no dehiscence of incision site noted. pt denies of any pain/discomfort to the area. Plan: continue detox valium prn ordered until tomorrow at discharge d/c in am
[2019-01-02] MEDS: METHOCARBAMOL 500 MG TABLET PO PRN (19:31)
[2019-01-02] MEDS: AMITRIPTYLINE HCL 25 MG TABLET (FP) PO SCH (22:46)
[2019-01-02] MEDS: MIRTAZAPINE 15 MG TABLET (FP) PO SCH (22:46)
[2019-01-02] MEDS: THIAMINE HCL 100 MG TABLET (FP) PO SCH (22:46)
[2019-01-02] MEDS: hydrOXYzine PAMOATE 50 MG CAPSULE (FP) PO PRN (22:50)
[2019-01-03] MEDS ORDERED: METHADONE HCL 5 MG TABLET (FOR DETOX USE ONLY) PO ONE (06:00)
--- NOTE | 2019-01-03 09:10 | DS ---
[facility] Detox Discharge Summary Admission Date: 12/31/18 Discharge Date: 01/03/19 - History Present History: Alcohol Dependence, Cannabis Dependence, Cocaine Dependence, Opioid Dependence - Physical Exam Results Vital Signs: Vital Signs Temperature 97.7 F 01/03/19 06:27 Pulse Rate 78 01/03/19 06:27 Respiratory Rate 18 01/03/19 06:27 Blood Pressure 92/64 01/03/19 06:27 O2 Sat by Pulse Oximetry (%) - Treatment Hospital Course: Detox Protocol Followed, Detoxed Safely, Responded well, Discharged Condition Good, Rehab Referral Accepted - Medication Discharge Medications: Ambulatory Orders Amitriptyline HCl [Elavil -] 50 mg PO HS 12/22/18 Bupropion HCl [Wellbutrin Xl -] 150 mg PO BID 12/22/18 Docusate Sodium 200 mg PO HS PRN 12/22/18 Mirtazapine 45 mg PO HS 12/22/18 Sennosides [Senna -] 2 tab PO DAILY PRN 12/22/18 Amox-Tr/K Cl [Augmentin - 875Mg Tablet] 1 tab PO BID #22 tablet 12/27/18 - Diagnosis (1) Cannabis dependence Current Visit: Yes Status: Chronic (2) Cocaine dependence Current Visit: Yes Status: Chronic Qualifiers: Substance use status: uncomplicated Qualified Code(s): F14.20 - Cocaine dependence, uncomplicated (3) Opioid dependence with withdrawal Current Visit: Yes Status: Chronic (4) Substance induced mood disorder Current Visit: Yes Status: Acute (5) Substance-induced sleep disorder Current Visit: Yes Status: Acute (6) Asthma Current Visit: Yes Status: Chronic Qualifiers: Asthma severity: mild Asthma persistence: unspecified Asthma complication type: unspecified Qualified Code(s): J45.909 - Unspecified asthma , uncomplicated (7) Hepatitis C Current Visit: Yes Status: Chronic Qualifiers: Viral hepatitis chronicity: chronic Hepatic coma status: without hepatic coma Qualified Code(s): B18.2 - Chronic viral hepatitis C (8) Marijuana dependence Current Visit: Yes Status: Chronic (9) Nicotine dependence Current Visit: Yes Status: Chronic Qualifiers: Nicotine product type: cigarettes Substance use status: uncomplicated Qualified Code(s): F17.210 - Nicotine dependence, cigarettes, uncomplicated (10) IVDU (intravenous drug user) Current Visit: No Status: Chronic (11) Insomnia Current Visit: No Status: Chronic (12) Irritable bowel syndrome Current Visit: Yes Status: Chronic Qualifiers: Irritable bowel syndrome type: with constipation Qualified Code(s): K58.1 - Irritable bowel syndrome with constipation (13) Opioid dependence, uncomplicated Current Visit: Yes Status: Chronic (14) Schizoaffective disorder Current Visit: No Status: Chronic Qualifiers: Schizoaffective disorder type: unspecified Qualified Code(s): F25.9 - Schizoaffective disorder, unspecified (15) Substance induced mood disorder Current Visit: No Status: Chronic (16) Appendicitis Current Visit: No Status: Resolved Qualifiers: Appendicitis type: acute appendicitis Acute appendicitis type: with localized peritonitis Appendicitis gangrene presence: without gangrene Appendicitis perforation presence: without perforation Appendicitis abscess presence: without abscess Qualified Code(s): K35.30 - Acute appendicitis with localized peritonitis, without perforation or gangrene - AMA Did Patient Leave Against Medical Advice: No ([facility])
[2019-01-03] MEDS ORDERED: SODIUM PHOSPHATE/NA BIPHOS 133 ML ENEMA PR ONE (09:20)
[2019-01-03] MEDS: PRENATAL VITAMINS W/ FOLIC ACID TABLET (FP) PO SCH (10:39)
[2019-01-03] MEDS: AMOX TR/POT CLAV 875MG/125MG TABLETS (FP) PO SCH ×2 (10:39→21:26)
--- NOTE | 2019-01-03 15:09 | PN ---
S Progress Note Note: NEW PT TO [facility] S/P LAPAROSCOPIC SX OF ABDOMEN- DRESSING OVER UMBILICAL AREA. DRESSING ON LEFT SHAW-REPORTS HX OF ABSCESS UMBILICAL SURGICAL SITE DRY, NO DRAINAGE LEFT SHAW DRY DARK LESION, NO DRAINAGE. PLAN:BACITRACIN OINTMENT TO LEFT LEG, COVER WITH DSD. CONTINUE UMBILICAL AREA DRESSING DIRECTED ON ADMISSION BY DR. TRIPP.
[2019-01-03] MEDS: AMITRIPTYLINE HCL 25 MG TABLET (FP) PO SCH (21:26)
[2019-01-03] MEDS: MIRTAZAPINE 15 MG TABLET (FP) PO SCH (21:27)
[2019-01-03] MEDS: THIAMINE HCL 100 MG TABLET (FP) PO SCH (21:27)
[2019-01-04] MEDS: AMOX TR/POT CLAV 875MG/125MG TABLETS (FP) PO SCH ×2 (10:41→21:02)
[2019-01-04] MEDS: BACITRACIN 0.9 GM PACKET TP SCH (10:41)
[2019-01-04] MEDS: PRENATAL VITAMINS W/ FOLIC ACID TABLET (FP) PO SCH (10:41)
[2019-01-04] MEDS ORDERED: TRIMETHOBENZAMIDE HCL 200MG/2ML INJ IM ONE (20:09)
--- NOTE | 2019-01-04 20:34 | PN ---
S Progress Note Note: Psychiatry Attending's note (coverage) : Called to enter orders for bupropion + remeron. Chart reviewed. Dr Sotelo's note of 12/31/18 : appreciated. Wellbutrin XL 150 mg po daily. Ordered.
[2019-01-04] MEDS: hydrOXYzine PAMOATE 50 MG CAPSULE (FP) PO PRN (21:02)
[2019-01-04] MEDS: MIRTAZAPINE 15 MG TABLET (FP) PO SCH (21:02)
[2019-01-04] MEDS: METHOCARBAMOL 500 MG TABLET PO PRN (21:02)
[2019-01-04] MEDS: THIAMINE HCL 100 MG TABLET (FP) PO SCH (21:02)
[2019-01-04] MEDS ORDERED: LIDOCAINE PATCH REMOVAL MC SCH ×2 (22:00→23:14)
--- NOTE | 2019-01-04 23:07 | PN ---
BHS Progress Note (SOAP) Subjective: c/o opiate withdrawal symptoms and requesting methadone. States vomiting x 24 hours. Objective: Alert and oriented. Abd soft. Tender upon palpation. BS(+). Pupils = 4 mm. Vital Signs 01/04/19 01/05/19 20:35 01:15 Temperature 98.5 F 97.4 F L Pulse Rate 96 H 108 H Respiratory 18 18 Rate Blood Pressure 149/95 110/73 Laboratory Last Values POC Urine HCG, Qual Negative 12/31/18 09:45 Assessment: S/p appendectomy 12/25/18. Vomiting. Possible protracted withdrawal symptoms. Abscess (L) leg. Plan: Tigan and zofran for vomiting. Continue evaluation. Encourage oral fluids.
[2019-01-04] MEDS ORDERED: LIDOCAINE 5% TOPICAL PATCH TP PRN ×2 (23:12→23:20)
[2019-01-04] MEDS ORDERED: diazePAM 5 MG TABLET PO ONE (23:30)
[2019-01-04] MEDS ORDERED: PT OWN MED DRAWER 7, Y5N ONE (23:33)
[2019-01-05] MEDS ORDERED: ONDANSETRON 4 MG TABLET PO ONE (01:15)
[2019-01-05] MEDS ORDERED: cloNIDine HCL 0.1 MG TABLET PO ONE (01:15)
[2019-01-05] MEDS ORDERED: TRIMETHOBENZAMIDE HCL 200MG/2ML INJ IM ONE (03:41)
[2019-01-05 03:47] VITALS: BP 110/73; PULSE 108; TEMP 97.4
--- NOTE | 2019-01-05 04:40 | PN ---
[facility]AN[facility] Progress Note Note: Patient continues to complain of vomiting despite antiemetic medications. Patient requesting to go to ER. Report given to Dr Conte @ [facility]. Patient being transported by ambulance.
[2019-01-05] MEDS ORDERED: DOCUSATE SODIUM 100 MG CAPSULE (FP) PO SCH (10:00)
[2019-01-05] MEDS: PRENATAL VITAMINS W/ FOLIC ACID TABLET (FP) PO SCH (11:00)
[2019-01-05] MEDS: BACITRACIN 0.9 GM PACKET TP SCH (11:00)
[2019-01-05] MEDS: AMOX TR/POT CLAV 875MG/125MG TABLETS (FP) PO SCH (11:00)
== END 2019-01-05 15:14 | disposition short-term general hospital (02) | DRG 895 ==
LOC: YASAS 03:44 → Y6N 10:30 → Y3E 01-03 12:07
PROVIDERS: ADMIT Surgery; ATTEND Neuromusculoskeletal Medicine & OMM
PROC: HZ2ZZZZ Detoxification Services for Substance Abuse Treatment (ICD-10-PCS; principal; 2018-12-31)
PROC: HZ42ZZZ Group Counseling for Substance Abuse Treatment, Cognitive-Behavioral (ICD-10-PCS; 2019-01-03)
DX: F10.230 Alcohol dependence with withdrawal, uncomplicated (principal); E11.10 Type 2 diabetes mellitus with ketoacidosis without coma; F14.20 Cocaine dependence, uncomplicated; F19.282 Other psychoactive substance dependence with psychoactive substance-induced sleep disorder; L02.416 Cutaneous abscess of left lower limb; F12.20 Cannabis dependence, uncomplicated; F17.210 Nicotine dependence, cigarettes, uncomplicated; F19.24 Other psychoactive substance dependence with psychoactive substance-induced mood disorder; F25.9 Schizoaffective disorder, unspecified; J45.909 Unspecified asthma, uncomplicated; B18.2 Chronic viral hepatitis C; G47.00 Insomnia, unspecified; K58.1 Irritable bowel syndrome with constipation; R11.10 Vomiting, unspecified; Z90.89 Acquired absence of other organs; Z88.2 Allergy status to sulfonamides
CPT/HCPCS: 81025; J0735

== ENCOUNTER 2019-01-05 04:53 | Inpatient (IN) | payer OTHER ==
--- NOTE | 2019-01-05 05:04 | PDOC ---
Attending Attestation - Resident Resident Name: Alex Salas - ED Attending Attestation I have performed the following: I have examined & evaluated the patient, The case was reviewed & discussed with the resident, I agree w/resident's findings & plan - HPI HPI: 01/05/19 05:20 Pt comes with vomiting all day. Abdominal tenderness and some blood in her stool. She has a hx of IBS and has had bloody stool in the past. She also had an appendectomy on 12/25/18. Today is her last day of augmentin. Pt has a low grade temp 100.4 rectal on arrival. She is asking repeatedly for pain meds. We will initially treat with ofirmev, as pt is curretly in detox for opiates. - Physicial Exam PE: 01/05/19 07:01 Pt has rectal temp od 100.4 Pt is staining her abd, but she is distractable and abd is soft. Diffusely tender, No flank pain No rebound, rectal exam normal; guaiac negative. Agree with resident exam - Medical Decision Making 01/05/19 07:03 Labs show high WBC and lactic acid. Chem normal. Elevated LFTs likely due to hep C hx. Utox positive fol cocaine, opiates, pot, etc. Pt will be sent for CT abd/pelvis with IV contrast, as her chem came back normal. Surgery will be called once CT scan results are back. 01/05/19 07:04 Pt signed out to the day team.
[2019-01-05] MEDS ORDERED: ACETAMINOPHEN 1000 MG/100 ML VIAL (NON FORMULARY) IVPB ONE (05:17)
[2019-01-05] MEDS ORDERED: SODIUM CHLORIDE 0.9% 500 ML INFUS.BAG IV ONE (05:18)
[2019-01-05] MEDS ORDERED: morphine CARPU-JECT 4 MG/1 ML DISP.SYRIN IVPUSH ONE ×3 (05:34→07:45)
[2019-01-05] MEDS ORDERED: ACETAMINOPHEN INJECTION 100 ML IVPB ONE (05:40)
[2019-01-05] MEDS ORDERED: morphine SULFATE 4 MG/ML VIAL ONE ×3 (05:40→07:50)
--- NOTE | 2019-01-05 05:42 | PDOC ---
History of Present Illness - General History Source: Patient - History of Present Illness Initial Comments: 01/05/19 05:42 Patient is a 43F with history of lap appendectomy and L greenberg abscess debridement on 12/25 (Dr Graf), heroin abuse, HCV, IBS and schizoaffective disorder here today complaining of abdominal pain, nausea, and vomiting. She was discharged to [facility] on 12/27. Patient states that her pain continued while in rehab. She was sent for evaluation of her pain and vomiting today. Patient endorses fevers, chills, nausea and nbnb vomiting. She is a limited historian, asking for pain meds repeatedly and stating that her pain worsens with movement. Patient reports a bloody bowel movement yesterday with bright red blood. <Alex Salas - Last Filed: 01/05/19 06:47> <Ann-Marie Oliver - Last Filed: 01/05/19 19:42> - General Chief Complaint: Nausea/Vomiting Stated Complaint: ABD PAIN Time Seen by Provider: 01/05/19 05:01 Past History - Past Medical History Asthma: Yes (ALBUTEROL INHALER) Cancer: No Cardiac Disorders: No CVA: No COPD: No CHF: No Dementia: No Diabetes: No GI Disorders: Yes (irritable bowel syndrome and colitis) Disorders: No HTN: No Hypercholesterolemia: No Kidney Stones: No Liver Disease: Yes Seizures: No Thyroid Disease: No - Surgical History Abdominal Surgery: No (hernia repair 12/26/2018) Appendectomy: Yes (12/26/2018) Cardiac Surgery: No Cholecystectomy: No Lung Surgery: No Neurologic Surgery: No Orthopedic Surgery: No - Reproductive History PID: No - Immunization History Td Vaccination: Yes TDAP Vaccination: Yes Immunization Up to Date: Yes - Suicide/Smoking/Psychosocial Hx Smoking History: Current every day smoker Have you smoked in the past 12 months: Yes Number of Cigarettes Smoked Daily: 3 Information on smoking cessation initiated: Yes 'Breaking Loose' booklet given: 12/31/18 Hx Alcohol Use: Yes Drug/Substance Use Hx: Yes (cocaine) Substance Use Type: Cocaine, Heroin, Marijuana Hx Substance Use Treatment: Yes <Alex Salas - Last Filed: 01/05/19 06:47> <Ann-Marie Oliver - Last Filed: 01/05/19 19:42> - Past Medical History Allergies/Adverse Reactions: Allergies Allergy/AdvReac Type Severity Reaction Status Date / Time sulfur dioxide Allergy Verified 12/31/18 09:04 risperidone AdvReac Severe Verified 12/31/18 09:04 Home Medications: Ambulatory Orders Amitriptyline HCl [Elavil -] 50 mg PO HS 12/22/18 Bupropion HCl [Wellbutrin Xl -] 150 mg PO BID 12/22/18 Docusate Sodium 200 mg PO HS PRN 12/22/18 Mirtazapine 45 mg PO HS 12/22/18 Sennosides [Senna -] 2 tab PO DAILY PRN 12/22/18 Review of Systems - Review of Systems Able to Perform ROS?: Yes Comments:: 01/05/19 06:03 GENERAL/CONSTITUTIONAL: +fever +chills. No weakness. HEAD, EYES, EARS, NOSE AND THROAT: No change in vision. No sore throat. CARDIOVASCULAR: No chest pain or shortness of breath RESPIRATORY: No cough, wheezing, or hemoptysis. GASTROINTESTINAL: +nausea, +vomiting, no diarrhea or constipation. GENITOURINARY: No dysuria, frequency, or change in urination. MUSCULOSKELETAL: No joint or muscle swelling or pain. No neck or back pain. SKIN: No rash NEUROLOGIC: No headache, vertigo, loss of consciousness, or change in strength/ sensation. HEMATOLOGIC/LYMPHATIC: No anemia, easy bleeding, or history of blood clots. ALLERGIC/IMMUNOLOGIC: No hives or skin allergy. <Alex Salas - Last Filed: 01/05/19 06:47> *Physical Exam - Vital Signs Last Vital Signs Temp Pulse Resp BP Pulse Ox 100.4 F H 114 H 18 125/81 97 01/05/19 05:18 01/05/19 05:18 01/05/19 05:18 01/05/19 05:18 01/05/19 05:18 - Physical Exam Comments: 01/05/19 06:04 GENERAL: Awake, alert, and fully oriented, diaphoretic HEAD: No signs of trauma, normocephalic, atraumatic EYES: PERRLA, EOMI, sclera anicteric, conjunctiva clear ENT: Auricles normal inspection, hearing grossly normal, nares patent, oropharynx clear without exudates. Moist mucosa NECK: Normal ROM, supple, no lymphadenopathy, JVD, or masses LUNGS: No distress, speaks full sentences, clear to auscultation bilaterally HEART: Tachycardic normal S1 and S2, no murmurs, rubs or gallops, peripheral pulses normal and equal bilaterally. ABDOMEN: Diffusely tender with guarding. EXTREMITIES: Normal inspection, Normal range of motion, no edema. No clubbing or cyanosis. NEUROLOGICAL: Cranial nerves II through XII grossly intact. Normal speech, no focal sensorimotor deficits SKIN: Warm, Dry, normal turgor, no rashes or lesions noted. <Alex Salas - Last Filed: 01/05/19 06:47> - Vital Signs Last Vital Signs Temp Pulse Resp BP Pulse Ox 98.4 F 101 H 20 108/71 100 01/05/19 17:05 01/05/19 17:05 01/05/19 17:05 01/05/19 17:05 01/05/19 11:08 <Ann-Marie Oliver - Last Filed: 01/05/19 19:42> ED Treatment Course - LABORATORY CBC & Chemistry Diagram: 01/05/19 05:30 01/05/19 05:30 - RADIOLOGY Radiology Studies Ordered: Category Date Time Status ABDOMEN & PELVIS CT WITH CONTR [CT] Stat CT Scan 01/05/19 05:36 Ordered <Alex Salas - Last Filed: 01/05/19 06:47> - LABORATORY CBC & Chemistry Diagram: 01/05/19 11:30 01/05/19 11:30 - ADDITIONAL ORDERS Additional order review: Laboratory Results 01/05/19 01/05/19 01/05/19 11:30 11:30 11:30 Sodium 137 Potassium 4.0 Chloride 103 Carbon Dioxide 25 Anion Gap 9 BUN 10 Creatinine 0.7 Est GFR (CKD-EPI)AfAm 122.99 Est GFR (CKD-EPI)NonAf 106.12 Random Glucose 96 Lactic Acid 2.6 H* Calcium 9.4 Total Bilirubin 0.3 AST 45 H ALT 75 H Alkaline Phosphatase 104 C-Reactive Protein 0.4 H Total Protein 8.5 H Albumin 4.0 Urine Color Urine Appearance Urine pH Ur Specific [place] Urine Protein Urine Glucose (UA) Urine Ketones Urine Blood Urine Nitrite Urine Bilirubin Urine Urobilinogen Ur Leukocyte Esterase Urine WBC (Auto) Urine RBC (Auto) Urine Casts (Auto) U Epithel Cells (Auto) Urine Bacteria (Auto) Blood Type A POSITIVE Antibody Screen Negative 01/05/19 05:37 Sodium Potassium Chloride Carbon Dioxide Anion Gap BUN Creatinine Est GFR (CKD-EPI)AfAm Est GFR (CKD-EPI)NonAf Random Glucose Lactic Acid Calcium Total Bilirubin AST ALT Alkaline Phosphatase C-Reactive Protein Total Protein Albumin Urine Color Yellow Urine Appearance Clear Urine pH >= 9.0 H Ur Specific [place] 1.028 Urine Protein 1+ H Urine Glucose (UA) Negative Urine Ketones Negative Urine Blood Negative Urine Nitrite Negative Urine Bilirubin Negative Urine Urobilinogen 1.0 Ur Leukocyte Esterase Trace Urine WBC (Auto) 2 Urine RBC (Auto) 17.8 Urine Casts (Auto) 6 U Epithel Cells (Auto) 5.3 Urine Bacteria (Auto) 6.1 Blood Type Antibody Screen 01/05/19 01/05/19 11:30 05:30 RBC 4.73 4.99 MCV 91.5 89.0 MCHC 32.5 33.5 RDW 13.8 13.5 MPV 8.7 8.2 Neutrophils % 75.8 88.3 H Lymphocytes % 20.1 D 9.6 D Monocytes % 3.8 D 1.7 L Eosinophils % 0.0 D 0.1 D Basophils % 0.3 0.3 - Medications Given in the ED: ED Medications Discontinued Medications Generic Name Dose Route Start Last Admin Trade Name Freq PRN Reason Stop Dose Admin Acetaminophen 1,000 mg 01/05/19 05:17 01/05/19 06:00 Ofirmev Injection - IVPB 01/05/19 05:18 1,000 mg ONCE ONE Administration Lactated Ringer's 1,000 mls @ 100 mls/hr 01/05/19 12:15 01/05/19 12:40 Lactated Ringers Solution IV 100 mls/hr ASDIR DONNELL Administration Piperacillin Sod/Tazobactam 100 mls @ 200 mls/hr 01/05/19 12:45 01/05/19 13: 05 Sod 4.5 gm/ Dextrose IVPB 200 mls/hr Q6H-IV DONNELL Administration Protocol Lactated Ringer's 1,000 ml in 1,000 mls @ 1,000 mls/hr 01/05/19 13:03 19:39 Lactated Ringers Solution IV 01/05/19 14:02 Not Given ONCE STA Lactated Ringer's 1,000 ml 01/05/19 07:08 05/12/19 07:48 Lactated Ringers Solution IV 01/05/19 07:09 1,000 ml ONCE ONE Administration Mineral Oil 133 ml 01/05/19 17:50 01/05/19 19:08 Fleet Mineral Oil Rectal Enema - MI 01/05/19 17:51 Not Given NOW ONE Morphine Sulfate 4 mg 01/05/19 05:34 01/05/19 06:00 Morphine Injection - IVPUSH 01/05/19 05:35 4 mg ONCE ONE Administration Morphine Sulfate 4 mg 01/05/19 06:00 01/05/19 06:10 Morphine Injection - IVPUSH 01/05/19 06:01 4 mg ONCE ONE Administration Morphine Sulfate 4 mg 01/05/19 07:45 01/05/19 07:54 Morphine Injection - IVPUSH 01/05/19 07:46 4 mg ONCE ONE Administration Ondansetron HCl 4 mg 01/05/19 08:09 01/05/19 08:18 Zofran Injection IVPUSH 01/05/19 08:10 4 mg ONCE ONE Administration Sodium Chloride 1,000 ml 01/05/19 05:18 01/05/19 06:00 Normal Saline - IV 01/05/19 05:19 1,000 ml ONCE ONE Administration <Ann-Marie Oliver - Last Filed: 01/05/19 19:42> Medical Decision Making - Medical Decision Making 01/05/19 06:04 Patient is a 43F with history of lap appendectomy and L greenberg abscess debridement on 5 (Dr Graf), heroin abuse, HCV, IBS and schizoaffective disorder here today with abdominal pain on POD 11. Vitals notable for fever, tachycardia. Exam has guarding with taunt abdominal muscles concerning for possible peritonitis, but also possible patient is drug-seeking. Considering diaphoresis, tachycardia and fever, have chosen to treat pain with morphine, given 4mg x2. Will also give tylenol and fluid resuscitate. DDx includes, but is not limited to: post op infection, abscess, drug-seeking, withdrawal. Septic workup initiated, will do CT a/p. Likely signout to day team. 01/05/19 06:[address] Ulrich <Alex Salas - Last Filed: 01/05/19 06:47> *DC/Admit/Observation/Transfer <Alex Salas - Last Filed: 01/05/19 06:47> <Ann-Marie Oliver - Last Filed: 01/05/19 19:42> Diagnosis at time of Disposition: Abdominal pain, Postoperative fever - Discharge Dispostion Condition at time of disposition: Stable
[2019-01-05 05:48] LABS: BASO % 0.3 % (0-2.0); EOS % 0.1 % (0-4.5); HEMATOCRIT 44.4 % (32.4-45.2); HEMOGLOBIN 14.9 GM/dL (10.7-15.3); LYMPH % 9.6 % (8-40); MCH 29.8 pg (25.7-33.7); MCHC 33.5 g/dl (32.0-36.0); MEAN PLT VOLUME 8.2 fl (7.5-11.1); MONO % 1.7 % (3.8-10.2); NEUT % 88.3 % (42.8-82.8); PLATELET COUNT 343 K/MM3 (134-434); RBC 4.99 M/mm3 (3.60-5.2); RDW 13.5 % (11.6-15.6); WHITE BLOOD COUNT 12.4 K/mm3 (4.0-10.0)
[2019-01-05 06:02] LABS: INR 1.01 (0.83-1.09); PROTHROMBIN TIME (PATIENT) 11.9 SEC (9.7-13.0)
[2019-01-05 06:48] LABS: ALBUMIN 4.2 g/dl (3.4-5.0); BILIRUBIN,TOTAL 0.2 mg/dL (0.2-1); CALCIUM 10.4 mg/dL (8.5-10.1); CREATININE 0.9 mg/dL (0.55-1.3); POTASSIUM 4.5 mmol/L (3.5-5.1); TOT PROT 9.1 g/dl (6.4-8.2)
[2019-01-05 06:49] LABS: METHADONE, UR NEGATIVE ng/ml (CUTOFF=300); PHENCYCLIDINE,URINE NEGATIVE ng/ml (CUTOFF=25); URINE AMPHETAMINES NEGATIVE ng/ml (CUTOFF=500); URINE BARBITURATES NEGATIVE ng/ml (CUTOFF=200)
[2019-01-05 06:53] LABS: COCAINE, UR POSITIVE ng/ml (CUTOFF=300); OPIATES, URI POSITIVE ng/ml (CUTOFF=300); URINE BENZODIAZEPINES POSITIVE ng/ml (CUTOFF=200)
--- NOTE | 2019-01-05 06:57 | PDOC ---
*Physical Exam - Vital Signs Last Vital Signs Temp Pulse Resp BP Pulse Ox 100.4 F H 114 H 18 125/81 97 01/05/19 05:18 01/05/19 05:18 01/05/19 05:18 01/05/19 05:18 01/05/19 05:18 ED Treatment Course - LABORATORY CBC & Chemistry Diagram: 01/05/19 05:30 01/05/19 05:30 - ADDITIONAL ORDERS Additional order review: Laboratory Results 01/05/19 01/05/19 01/05/19 05:37 05:30 05:30 PT with INR INR Sodium Potassium Chloride Carbon Dioxide Anion Gap BUN Creatinine Est GFR (CKD-EPI)AfAm Est GFR (CKD-EPI)NonAf Random Glucose Lactic Acid 2.7 H* Calcium Total Bilirubin AST ALT Alkaline Phosphatase Total Protein Albumin Lipase Serum , Qual Negative Stool Occult Blood Opiates Screen Positive A* Methadone Screen Negative Barbiturate Screen Negative Phencyclidine Screen Negative Ur Amphetamines Screen Negative MDMA (Ecstasy) Screen Negative Benzodiazepines Screen Positive A* Cocaine Screen Positive A* U Marijuana (THC) Screen Positive A* 01/05/19 01/05/19 01/05/19 05:30 05:30 05:30 PT with INR 11.90 INR 1.01 Sodium Potassium Chloride Carbon Dioxide Anion Gap BUN Creatinine Est GFR (CKD-EPI)AfAm Est GFR (CKD-EPI)NonAf Random Glucose Lactic Acid Calcium Total Bilirubin AST ALT Alkaline Phosphatase Total Protein Albumin Lipase Cancelled Serum , Qual Stool Occult Blood Negative Opiates Screen Methadone Screen Barbiturate Screen Phencyclidine Screen Ur Amphetamines Screen MDMA (Ecstasy) Screen Benzodiazepines Screen Cocaine Screen U Marijuana (THC) Screen 01/05/19 05:30 PT with INR INR Sodium 135 L Potassium 4.5 Chloride 100 Carbon Dioxide 30 Anion Gap 6 L BUN 15 Creatinine 0.9 Est GFR (CKD-EPI)AfAm 90.76 Est GFR (CKD-EPI)NonAf 78.31 Random Glucose 135 H Lactic Acid Calcium 10.4 H Total Bilirubin 0.2 AST 54 H ALT 89 H Alkaline Phosphatase 108 Total Protein 9.1 H Albumin 4.2 Lipase 69 L Serum , Qual Stool Occult Blood Opiates Screen Methadone Screen Barbiturate Screen Phencyclidine Screen Ur Amphetamines Screen MDMA (Ecstasy) Screen Benzodiazepines Screen Cocaine Screen U Marijuana (THC) Screen 01/05/19 05:30 RBC 4.99 MCV 89.0 MCHC 33.5 RDW 13.5 MPV 8.2 Neutrophils % 88.3 H Lymphocytes % 9.6 D Monocytes % 1.7 L Eosinophils % 0.1 D Basophils % 0.3 - Medications Given in the ED: ED Medications Discontinued Medications Generic Name Dose Route Start Last Admin Trade Name Randy PRN Reason Stop Dose Admin Acetaminophen 1,000 mg 01/05/19 05:17 01/05/19 06:00 Ofirmev Injection - IVPB 01/05/19 05:18 1,000 mg ONCE ONE Administration Morphine Sulfate 4 mg 01/05/19 05:34 01/05/19 06:00 Morphine Injection - IVPUSH 01/05/19 05:35 4 mg ONCE ONE Administration Morphine Sulfate 4 mg 01/05/19 06:00 01/05/19 06:10 Morphine Injection - IVPUSH 01/05/19 06:01 4 mg ONCE ONE Administration Sodium Chloride 1,000 ml 01/05/19 05:18 01/05/19 06:00 Normal Saline - IV 01/05/19 05: 1,000 ml ONCE ONE Administration Medical Decision Making - Medical Decision Making 01/05/19 06:57 Patient signed out by resident Dr. Salas. In short patient is a 43 year old woman [facility] with history of lap appendectomy and L greenberg abscess debridement on 12/25 (Dr Graf), heroin abuse, HCV , IBS and schizoaffective disorder here today complaining of abdominal pain, nausea, and vomiting. pending ct, cmp, blood cx. patient got morphine for pain control consider post op infection, abscess, withdrawal ED Course Abd CT with no acute pathology, however patient without relief of symptoms despite 12mg morphine utox: + cocaine, marijuana, benzos will order ua and repeat vitals 01/05/19 09:54 Dr. Graf surgery reached and discussed case. Based on workup and negative CT does not feel that surgical intervention is indicated at this time. Feels symptosm are more consistent with medical/drug use. Will evaluate the patient 01/05/19 09:58 Patient will require admission for post op fever and intractable abdomianl pain *DC/Admit/Observation/Transfer Diagnosis at time of Disposition: Abdominal pain, Postoperative fever - Discharge Dispostion Condition at time of disposition: Stable Decision to Admit order: Yes - Referrals - Patient Instructions - Post Discharge Activity
[2019-01-05] MEDS ORDERED: LACTATED RINGERS SOLUTION 1000 ML INFUS.BAG IV ONE (07:08)
[2019-01-05] MEDS ORDERED: ONDANSETRON 4 MG/2 ML VIAL IVPUSH ONE (08:09)
[2019-01-05] MEDS ORDERED: ONDANSETRON 4 MG/2 ML VIAL ONE (08:15)
[2019-01-05 09:01] LABS: EPI CELLS 5.3 /HPF (0-5/HPF); PH,URINE >= 9.0 (5.0-8.0); URINE APPEARANCE CLEAR; URINE BACTERIA 6.1 /hpf (NEGATIVE); URINE BILIRUBIN NEGATIVE (NEGATIVE); URINE CASTS 6 /lpf (0-8); URINE COLOR YELLOW; URINE GLUCOSE (UA) NEGATIVE (NEGATIVE); URINE KETONE NEGATIVE (NEGATIVE); URINE LEUK ESTERASE TRACE (NEGATIVE); URINE NITRITE NEGATIVE (NEGATIVE); URINE PROTEIN 1+ (NEGATIVE); URINE WBC 2 /hpf (0-5)
[2019-01-05 09:34] LABS: URINE RBC 17.8 /hpf (0-4)
--- NOTE | 2019-01-05 12:13 | HP ---
CHIEF COMPLAINT: Abdominal pain PCP: [facility] HISTORY OF PRESENT ILLNESS: 43F PMH lap appendectomy, umbilical hernia repair, and L greenberg abscess debridement on 12/25 (Dr Graf) s/p course of augmentin; heroin abuse, HCV, IBS and schizoaffective disorder here today complaining of abdominal pain, n/v. She was discharged to [facility] on 12/27 and has remained there except for a few days in the interim where she had to attend a court date and admits using cocaine via IV on 12/31/18. Patient states that her pain continued while in rehab. She was sent for evaluation of her pain and vomiting today. Patient endorses fevers , chills, nausea and nbnb vomiting. She is asking for pain meds repeatedly and stating that her pain worsens with movement. Patient reports a bloody bowel movement yesterday with bright red blood. ER course was notable for: (1) 2L IVF, 12mg morphine, tylenol, zofran (2)EKG qtc 448 (3)lactic 2.7, leukocytosis, febrile 100.4, FOBT neg, Utox positive for cocaine , opiates, marijuana, benzos, CTA/P no acute path Recent Travel: PAST MEDICAL HISTORY: per hpi follows at [facility] for her colitis care also has been to [facility] PAST SURGICAL HISTORY: per hpi Social History: Smoking: Alcohol: Drugs: Family History: Allergies sulfur dioxide Allergy (Verified 12/31/18 09:04) risperidone Adverse Reaction (Severe, Verified 12/31/18 09:04) Locked jaw HOME MEDICATIONS: Home Medications Medication Instructions Recorded Amitriptyline HCl [Elavil -] 50 mg PO HS 12/22/18 Bupropion HCl [Wellbutrin Xl -] 150 mg PO BID 12/22/18 Docusate Sodium 200 mg PO HS PRN 12/22/18 Mirtazapine 45 mg PO HS 12/22/18 Sennosides [Senna -] 2 tab PO DAILY PRN 12/22/18 REVIEW OF SYSTEMS per hpi PHYSICAL EXAMINATION Vital Signs - 24 hr 01/05/19 01/05/19 01/05/19 05:18 07:01 07:07 Temperature 100.4 F H 99.9 F H Pulse Rate 114 H Pulse Rate [ 116 H Apical] Respiratory 18 20 20 Rate Blood Pressure 125/81 Blood Pressure 140/98 [Left Arm] O2 Sat by Pulse 97 100 100 Oximetry (%) 01/05/19 01/05/19 11:08 12:00 Temperature 98.8 F Pulse Rate Pulse Rate [ 103 H Apical] Respiratory 19 Rate Blood Pressure Blood Pressure 130/59 L [Left Arm] O2 Sat by Pulse 100 Oximetry (%) GENERAL: Awake, alert, and fully oriented, in no acute distress. HEAD: Normal with no signs of trauma. EYES: extraocular movements intact, sclera anicteric, conjunctiva clear. No lid lag. EARS, NOSE, THROAT: nares patent, oropharynx clear without exudates. Moist mucous membranes. NECK: Normal range of motion, supple without lymphadenopathy, JVD, or masses. LUNGS: CTAB HEART: RRR, normal S1 and S2 without murmur, rub or gallop. ABDOMEN: Soft, NTND, normoactive bowel sounds, no guarding, no rebound, no masses. No hepatomegaly or splenomegaly. old surgical bandages, +surgical umbilical scar from lap appy MUSCULOSKELETAL: Normal range of motion at all joints. No bony deformities or tenderness. No CVA tenderness. UPPER EXTREMITIES: 2+ pulses, warm, well-perfused. No cyanosis. No clubbing. No peripheral edema. Track hernandez over the b/l upper extremities LOWER EXTREMITIES: 2+ pulses, warm, well-perfused. No calf tenderness. No peripheral edema. LLE Anterior greenberg wound w/ ulceration s/p old abscess I/D, wound is nontender, mildly warm, w/ some mild fluctuation, not indurated. no surrounding erythema NEUROLOGICAL: Cranial nerves II-XII intact. Normal speech. Normal gait. PSYCHIATRIC: Cooperative. Good eye contact. Appropriate mood and affect. SKIN: Warm, dry, normal turgor, no rashes, normal capillary refill. Laboratory Results - last 24 hr 01/05/19 01/05/19 01/05/19 05:30 05:30 05:30 WBC 12.4 H RBC 4.99 Hgb 14.9 Hct 44.4 MCV 89.0 MCH 29.8 MCHC 33.5 RDW 13.5 Plt Count 343 D MPV 8.2 Absolute Neuts (auto) 11.0 H Neutrophils % 88.3 H Lymphocytes % 9.6 D Monocytes % 1.7 L Eosinophils % 0.1 D Basophils % 0.3 Nucleated RBC % 0 PT with INR 11.90 INR 1.01 Sodium 135 L Potassium 4.5 Chloride 100 Carbon Dioxide 30 Anion Gap 6 L BUN 15 Creatinine 0.9 Est GFR (CKD-EPI)AfAm 90.76 Est GFR (CKD-EPI)NonAf 78.31 Random Glucose 135 H Lactic Acid Calcium 10.4 H Total Bilirubin 0.2 AST 54 H ALT 89 H Alkaline Phosphatase 108 Total Protein 9.1 H Albumin 4.2 Lipase 69 L Serum , Qual Urine Color Urine Appearance Urine pH Ur Specific [place] Urine Protein Urine Glucose (UA) Urine Ketones Urine Blood Urine Nitrite Urine Bilirubin Urine Urobilinogen Ur Leukocyte Esterase Urine WBC (Auto) Urine RBC (Auto) Urine Casts (Auto) U Epithel Cells (Auto) Urine Bacteria (Auto) Stool Occult Blood Opiates Screen Methadone Screen Barbiturate Screen Phencyclidine Screen Ur Amphetamines Screen MDMA (Ecstasy) Screen Benzodiazepines Screen Cocaine Screen U Marijuana (THC) Screen 01/05/19 01/05/19 01/05/19 05:30 05:30 05:30 WBC RBC Hgb Hct MCV MCH MCHC RDW Plt Count MPV Absolute Neuts (auto) Neutrophils % Lymphocytes % Monocytes % Eosinophils % Basophils % Nucleated RBC % PT with INR INR Sodium Potassium Chloride Carbon Dioxide Anion Gap BUN Creatinine Est GFR (CKD-EPI)AfAm Est GFR (CKD-EPI)NonAf Random Glucose Lactic Acid 2.7 H* Calcium Total Bilirubin AST ALT Alkaline Phosphatase Total Protein Albumin Lipase Cancelled Serum , Qual Urine Color Urine Appearance Urine pH Ur Specific [place] Urine Protein Urine Glucose (UA) Urine Ketones Urine Blood Urine Nitrite Urine Bilirubin Urine Urobilinogen Ur Leukocyte Esterase Urine WBC (Auto) Urine RBC (Auto) Urine Casts (Auto) U Epithel Cells (Auto) Urine Bacteria (Auto) Stool Occult Blood Negative Opiates Screen Methadone Screen Barbiturate Screen Phencyclidine Screen Ur Amphetamines Screen MDMA (Ecstasy) Screen Benzodiazepines Screen Cocaine Screen U Marijuana (THC) Screen 01/05/19 01/05/19 01/05/19 05:30 05:37 05:37 WBC RBC Hgb Hct MCV MCH MCHC RDW Plt Count MPV Absolute Neuts (auto) Neutrophils % Lymphocytes % Monocytes % Eosinophils % Basophils % Nucleated RBC % PT with INR INR Sodium Potassium Chloride Carbon Dioxide Anion Gap BUN Creatinine Est GFR (CKD-EPI)AfAm Est GFR (CKD-EPI)NonAf Random Glucose Lactic Acid Calcium Total Bilirubin AST ALT Alkaline Phosphatase Total Protein Albumin Lipase Serum , Qual Negative Urine Color Yellow Urine Appearance Clear Urine pH >= 9.0 H Ur Specific [place] 1.028 Urine Protein 1+ H Urine Glucose (UA) Negative Urine Ketones Negative Urine Blood Negative Urine Nitrite Negative Urine Bilirubin Negative Urine Urobilinogen 1.0 Ur Leukocyte Esterase Trace Urine WBC (Auto) 2 Urine RBC (Auto) 17.8 Urine Casts (Auto) 6 U Epithel Cells (Auto) 5.3 Urine Bacteria (Auto) 6.1 Stool Occult Blood Opiates Screen Positive A* Methadone Screen Negative Barbiturate Screen Negative Phencyclidine Screen Negative Ur Amphetamines Screen Negative MDMA (Ecstasy) Screen Negative Benzodiazepines Screen Positive A* Cocaine Screen Positive A* U Marijuana (THC) Screen Positive A* [id number] CT/ABDOMEN & PELVIS CT WITH CONTR HISTORY PROVIDED: Abdominal pain and vomiting. Sequential axial images were obtained from the domes of the diaphragms through the symphysis pubis following the administration of intravenous contrast material. The lung bases are clear. Bilateral breast prostheses are noted. The liver is normal in size and texture with no intrahepatic masses present. There is an enhancing right lobe mass measuring approximately 4.1 cm. The mass most likely represents a hemangioma. Clinical correlation is advised. No additional intrahepatic masses are present. The spleen, pancreas, adrenal glands and kidneys demonstrate no significant abnormalities. The gallbladder is clear. There is no evidence of intra-abdominal or retroperitoneal lymphadenopathy or fluid collections. There is no evidence of pneumoperitoneum, bowel obstruction or intra-abdominal abscess. The appendix is been removed. There is no CT evidence of acute diverticulitis. Examination of the pelvis demonstrates no evidence of pelvic masses, fluid collections or lymphadenopathy. There is a large amount retained fecal material throughout the colon. There is no evidence of acute bony pathology. IMPRESSION: 1. Suspected right hepatic hemangioma. 2. Fecal retention, no acute pathology within the abdomen or pelvis. Please see above discussion. ASSESSMENT/PLAN: 43 y/o F with PMHx polysubstance abuse (Heroin, EtOh, cocaine last used 5d ago) , Untreated Hep c, Colitis, Asthma, schizoaffective Do, recent lap appendectomy , umbilical hernia repair, and L greenberg abscess debridement on 12/25 (Dr Graf) s/p course of augmentin, presents from [facility] due to abdominal pain, n/v, fever and blood in stools. Sepsis w/ abd pain- unclear etiology, possibly 2/2 infected LLE foot wound/ cellulitis vs reoccurrence of abcess vs osteo vs substance abuse withdrawal - febrile 100.4, leukocytosis 12.4, lactic acidosis 2.7. -unlikely colitis or intrabdominal infx as CT is neg for acute pathology. FOBT neg, no active bleeding -ID consult, bobde -surgery consult, Lesia -f/u ucx, bcx -UA neg -CXR no acute pathology -ESR/CRP -trend lactic -u/s soft tissue LLE -echo, chk for endocarditis in pt w/ fevers and IV drug use -monitor H/H -LR bolus stat - IV LR @ 100 mls/hr -Pain control: toradol 30 q6h (no evidence of KILEY), will try to avoid if possible opioids and Tylenol given pmh of untreated Hep C and subst abuse -IV zosyn 4.5 Q6H, Vancomycin 1g Qd -prior wound cx from 12/25 grew clinda and erythromycin resistant staph A, strep Viridans -RPR, HIV neg on 12/23/18 #Liver Lesion - noted at prior admission, and on CT today, Suspected right hepatic hemangioma. -In the setting of Hep C--Possible HCC? #Transaminitis likely 2/2 Hep C #Polysubstance abuse - Utox positive for cocaine, opiates, marijuana, benzos #Schizoaffective disorder -resume home meds from [facility]: Bupropion 150mg PO Daily, Mirtazapine 45mg PO HS, elavil 50mg PO HS -detox consult, Stroilia #FEN -LR @ 100 mls/hr -replete prn -regular diet #PPx -DVT: lovenox 40mg sq qd Dispo m/s Visit type - Emergency Visit Emergency Visit: Yes ED Registration Date: 01/05/19 Care time: The patient presented to the Emergency Department on the above date and was hospitalized for further evaluation of their emergent condition. - New Patient This patient is new to me today: Yes Date on this admission: 01/05/19 - Critical Care Critical Care patient: No
[2019-01-05] MEDS ORDERED: KETOROLAC TROMETHAMINE 15 MG/ML VIAL IVPUSH PRN (12:14)
[2019-01-05] MEDS ORDERED: LACTATED RINGERS SOLUTION 1,000 ML IV SCH (12:15)
[2019-01-05] MEDS ORDERED: VANCOMYCIN 1 GRAM (PRE-DOCKED) 1,000 MG/250 ML BAG IVPB ONE (12:39)
[2019-01-05] MEDS ORDERED: PIPERACILLIN/TAZOB 4.5 GM 4.5 GM in DEXTROSE 5%-WATER 100 ML IVPB SCH (12:45)
[2019-01-05] MEDS ORDERED: PIPERACILLIN/TAZOBACTAM 4.5 GM VIAL IVPB ONE (12:56)
[2019-01-05] MEDS ORDERED: DEXTROSE 5%-WATER 100 ML IVPB ONE (12:56)
[2019-01-05] MEDS ORDERED: PT OWN MED DRAWER 7, Y5N ONE ×3 (12:56→21:40)
[2019-01-05] MEDS ORDERED: LACTATED RINGERS SOLUTION 1,000 ML/1,000 ML INFUS.BAG IV STA (13:03)
[2019-01-05] MEDS: ENOXAPARIN NA (PORCINE) 40 MG/0.4 ML DISP.SYRIN SQ SCH (13:08)
[2019-01-05] MEDS ORDERED: SENNOSIDES 8.6MG TABLET (FP) PO PRN (13:13)
[2019-01-05] MEDS ORDERED: DOCUSATE SODIUM 100 MG CAPSULE (FP) PO PRN (13:13)
[2019-01-05 13:16] LABS: BASO % 0.3 % (0-2.0); BILIRUBIN,TOTAL 0.3 mg/dL (0.2-1); CALCIUM 9.4 mg/dL (8.5-10.1); CREATININE 0.7 mg/dL (0.55-1.3); HEMATOCRIT 43.3 % (32.4-45.2); LYMPH % 20.1 % (8-40); MCH 29.7 pg (25.7-33.7); MCHC 32.5 g/dl (32.0-36.0); MEAN CELL VOLUME 91.5 fl (80-96); MEAN PLT VOLUME 8.7 fl (7.5-11.1); MONO % 3.8 % (3.8-10.2); NEUT % 75.8 % (42.8-82.8); PLATELET COUNT 300 K/MM3 (134-434); RBC 4.73 M/mm3 (3.60-5.2); RDW 13.8 % (11.6-15.6); TOT PROT 8.5 g/dl (6.4-8.2); WHITE BLOOD COUNT 12.5 K/mm3 (4.0-10.0)
--- NOTE | 2019-01-05 13:44 | PN ---
Teaching Attending Note Name of Resident: Julio Trimble ATTENDING PHYSICIAN STATEMENT I saw and evaluated the patient. I reviewed the resident's note and discussed the case with the resident. I agree with the resident's findings and plan as documented. SUBJECTIVE: Patient is a 43yoF with PMHx of lap appendectomy(12/25/2018 by ), umbilical hernia repair, and L greenberg abscess debridement on 12/25 (Dr Graf) was discharged on oral Antibiotic Augmentin , polysubstace abuse( heroin abuse, cocaine), HCV untreated, IBS and schizoaffective disorder, was send from [facility] for fever, pain and vomiting today. She is constantly asking for pain meds. OBJECTIVE: Vital Signs Temperature 98.8 F 01/05/19 11:08 Pulse Rate 103 H 01/05/19 11:08 Respiratory Rate 19 01/05/19 11:08 Blood Pressure 130/59 L 01/05/19 12:00 O2 Sat by Pulse Oximetry (%) 100 01/05/19 11:08 Initial Vital Signs Temp Pulse Resp BP Pulse Ox 100.4 F H 114 H 18 125/81 97 01/05/19 05:18 01/05/19 05:18 01/05/19 05:18 01/05/19 05:18 01/05/19 05:18 GENERAL: The patient is awake, alert, and fully oriented, in no acute distress. HEAD: Normal with no signs of trauma. EYES: PERRL, extraocular movements intact, sclera anicteric, conjunctiva clear. ENT: Ears normal, oropharynx clear without exudates, moist mucous membranes. NECK: Trachea midline, full range of motion, supple. LUNGS: Breath sounds equal, clear to auscultation bilaterally, no wheezes, no crackles, no accessory muscle use. HEART: Regular rate and rhythm, S1, S2 without murmur, rub or gallop. ABDOMEN: Soft, NT, ND, positive BS , no guarding, no rebound, no hepatosplenomegaly, no masses. lap appendectomy incision sites are clean(no discharge). EXTREMITIES: 2+ pulses, warm, well-perfused, no edema. Left greenberg positive for open dried up wound with mild swelling around it, mildly warm to touch. NEUROLOGICAL: Cranial nerves II through XII grossly intact. Normal speech, gait is stable . PSYCH: Normal mood, normal affect. SKIN: Warm, dry, normal turgor, no rashes or lesions noted CBCD WBC 12.5 K/mm3 (4.0-10.0) H 01/05/19 11:30 RBC 4.73 M/mm3 (3.60-5.2) 01/05/19 11:30 Hgb 14.0 GM/dL (10.7-15.3) 01/05/19 11:30 Hct 43.3 % (32.4-45.2) 01/05/19 11:30 MCV 91.5 fl (80-96) 01/05/19 11:30 MCHC 32.5 g/dl (32.0-36.0) 01/05/19 11:30 RDW 13.8 % (11.6-15.6) 01/05/19 11:30 Plt Count 300 K/MM3 (134-434) 01/05/19 11:30 MPV 8.7 fl (7.5-11.1) 01/05/19 11:30 CMP Sodium 137 mmol/L (136-145) 01/05/19 11:30 Potassium 4.0 mmol/L (3.5-5.1) 01/05/19 11:30 Chloride 103 mmol/L (98-107) 01/05/19 11:30 Carbon Dioxide 25 mmol/L (21-32) 01/05/19 11:30 Anion Gap 9 MMOL/L (8-16) 01/05/19 11:30 BUN 10 mg/dL (7-18) 01/05/19 11:30 Creatinine 0.7 mg/dL (0.55-1.3) 01/05/19 11:30 Random Glucose 96 mg/dL (74-106) 01/05/19 11:30 Calcium 9.4 mg/dL (8.5-10.1) 01/05/19 11:30 Total Bilirubin 0.3 mg/dL (0.2-1) 01/05/19 11:30 AST 45 U/L (15-37) H 01/05/19 11:30 ALT 75 U/L (13-61) H 01/05/19 11:30 Alkaline Phosphatase 104 U/L (45-117) 01/05/19 11:30 Total Protein 8.5 g/dl (6.4-8.2) H 01/05/19 11:30 Albumin 4.0 g/dl (3.4-5.0) 01/05/19 11:30 Current Medications Generic Name Dose Route Start Last Admin Trade Name Freq PRN Reason Stop Dose Admin Amitriptyline HCl 50 mg 01/05/19 22:00 Elavil - PO HS DONNELL Bupropion HCl 150 mg 01/05/19 22:00 Wellbutrin Xl - PO BID DONNELL Docusate Sodium 200 mg 01/05/19 13:13 Colace - PO HS PRN CONSTIPATION Enoxaparin Sodium 40 mg 01/05/19 12:30 01/05/19 13:08 Lovenox - SQ 40 mg DAILY DONNELL Administration Lactated Ringer's 1,000 mls @ 100 mls/hr 01/05/19 12:15 01/05/19 12:40 Lactated Ringers Solution IV 100 mls/hr ASDIR DONNELL Administration Vancomycin HCl 1,000 mg in 250 mls @ 166.667 mls/hr 01/05/19 12:39 Vancomycin (Pre-Docked) IVPB 01/05/19 14:08 ONCE ONE Protocol Piperacillin Sod/Tazobactam 100 mls @ 200 mls/hr 01/05/19 12:45 01/05/19 13: 05 Sod 4.5 gm/ Dextrose IVPB 200 mls/hr Q6H-IV DONNELL Administration Protocol Lactated Ringer's 1,000 ml in 1,000 mls @ 1,000 mls/hr 01/05/19 13:03 Lactated Ringers Solution IV 01/05/19 14:02 ONCE STA Ketorolac Tromethamine 30 mg 01/05/19 12:14 01/05/19 12:58 Toradol Injection - IVPUSH 01/10/19 12:13 30 mg Q6H PRN Administration PAIN LEVEL 6-10 Mirtazapine 45 mg 01/05/19 22:00 Remeron - PO HS DONNELL Senna 2 tab 01/05/19 13:13 Senna - PO DAILY PRN CONSTIPATION Home Medications Medication Instructions Recorded Amitriptyline HCl [Elavil -] 50 mg PO HS 12/22/18 Bupropion HCl [Wellbutrin Xl -] 150 mg PO BID 12/22/18 Docusate Sodium 200 mg PO HS PRN 12/22/18 Mirtazapine 45 mg PO HS 12/22/18 Sennosides [Senna -] 2 tab PO DAILY PRN 12/22/18 Microbiology 12/25/18 18:00 Leg - Left Lower Gram Stain - Final 12/25/18 18:00 Leg - Left Lower Wound Culture - Final Staphylococcus Aureus Streptococcus Viridans 01/05/2019; CT/ABDOMEN & PELVIS CT WITH CONTR: The lung bases are clear. Bilateral breast prostheses are noted. The liver is normal in size and texture with no intrahepatic masses present. There is an enhancing right lobe mass measuring approximately 4.1 cm. The mass most likely represents a hemangioma. Clinical correlation is advised. No additional intrahepatic masses are present. The spleen, pancreas, adrenal glands and kidneys demonstrate no significant abnormalities.The gallbladder is clear. There is no evidence of intra-abdominal or retroperitoneal lymphadenopathy or fluid collections.There is no evidence of pneumoperitoneum, bowel obstruction or intra-abdominal abscess. The appendix is been removed. There is no CT evidence of acute diverticulitis.Examination of the pelvis demonstrates no evidence of pelvic masses, fluid collections or lymphadenopathy. There is a large amount retained fecal material throughout the colon.There is no evidence of acute bony pathology. IMPRESSION: 1. Suspected right hepatic hemangioma. 2. Fecal retention, no acute pathology within the abdomen or pelvis. ASSESSMENT AND PLAN: Patient is a 43y/o F with PMHx polysubstance abuse (Heroin, EtOh, cocaine last used 5d ago), Untreated Hep c, Colitis, Asthma, schizoaffective Do, recent lap appendectomy (12/25/2018) with umbilical hernia repair, and L greenberg abscess debridement on 12/25 (Dr Graf) s/p course of augmentin, presents from [facility] for having abdominal pain, n/v, fever and blood in stools. # Sepsis : etiology is unclear. possibly due to infected LLE foot wound/ cellulitis vs reoccurrence of abcess vs osteo . Id consult Laxmi Delcid.zosyn IV ordered, no audible murmur, ECHo ordered , IVF LR at 150cc/hr. Pain control: toradol IV 30 q6h (no evidence of KILEY), avoid opioids and Tylenol given the pmhx of untreated Hep C and subst abuse # Possible substance abuse withdrawal with fever of 100.4, leukocytosis 12.4, lactic acidosis 2.7. # LLE with possible infected wound prior wound cx from 12/25 staph A, strep Viridans; sensitivity reviewed. RPR, HIV neg on 12/23/18 will get echo of the heart as well, since culture is positive to [facility] # Severe constipation: will place her on constipation regimen, Relistor can be given as per surgeon since patient has polysubstance hx will have severe withdrawel from the medication , at this time will avoid Relistor, SSE ENEMA , COLACE, MIRALX ORDERED. # Right hepatic hemangioma with untreated hep. C , will monitor with elevated transaminities will monitor #Polysubstance abuse - Utox positive for cocaine, opiates, marijuana, benzos, detox consult, discussed with dr merrill, clonidine prn 0.1mg q6h prn, Robaxin 750mg q6h prn as per #Schizoaffective disorder: resume home meds from [facility]: Bupropion 150mg PO Daily, Mirtazapine 45mg PO HS, elavil 50mg PO HS DVT PPx: lovenox 40mg sq qd Med surge admission
[2019-01-05 14:09] LABS: ERYTHROCYTE SEDIMENTATION RATE 23 mm/hr (0-20)
[2019-01-05 15:10] VITALS: BMI 27.1
--- NOTE | 2019-01-05 16:18 | CON.ID ---
Consult - History of Present Illness History of Present Illness: 43 y.o. female with PMH of IBS, schizoaffective d.o., hepatitis C, active IVDU/ cocaine (last injected heroin on 12/30/18), lap appendectomy and Lt greenberg abscess I +D on 12/25/18 presents with c/o abdominal pain (similar to contractions), nausea and multiple episodes of vomiting the night before presenting to the ER. Reports episodes of diarrhea/constipation with blood streaked BMs in general. In the ER pt states she vomited x 3, was noted to have fever 100.4F and mild leukocytosis. CT Scan without any acute findings. She denies SOB/cough, dysuria , IRVIN, rash or any other specific complaints. Currently she states she feels better, no abdominal pain. No recent episodes of vomiting. LLE wound site mild warmth but dry, without tenderness. HIV negative on 12/23/18. - History Source History Provided By: Patient, Medical Record - Past Medical History Pulmonary: Yes: Bronchitis (several years ago) Gastrointestinal: Yes: Constipation, Irritable Bowel Disease (w/constipation?), Other ("colitis" - takes laxatives and stool softeners) Hepatobiliary: Yes: Hepatitis C ...LMP: 10/25/14 Psych: Yes: Addictions (cocaine, heroin), Other (schizoaffective disorder) Musculoskeletal: Yes: Osteoarthritis - Past Surgical History Past Surgical History: Yes: Appendectomy - Alcohol/Substance Use Hx Alcohol Use: Yes History of Substance Use: reports: Cocaine (injection use), Heroin (injection use), Marijuana (smokes sometimes) Date of Last Use: 12/30/18 - Smoking History Smoking history: Current every day smoker Have you smoked in the past 12 months: Yes Aproximately how many cigarettes per day: 3 - Social History Usual Living Arrangement: Other (had been in [facility] rehab till , checked into [facility] for detox 12/22) ADL: Independent Occupation: on disability Home Medications - Allergies Allergies/Adverse Reactions: Allergies Allergy/AdvReac Type Severity Reaction Status Date / Time sulfur dioxide Allergy Verified 12/31/18 09:04 risperidone AdvReac Severe Verified 12/31/18 09:04 - Home Medications Home Medications: Ambulatory Orders Amitriptyline HCl [Elavil -] 50 mg PO HS 12/22/18 Bupropion HCl [Wellbutrin Xl -] 150 mg PO BID 12/22/18 Docusate Sodium 200 mg PO HS PRN 12/22/18 Mirtazapine 45 mg PO HS 12/22/18 Sennosides [Senna -] 2 tab PO DAILY PRN 12/22/18 Review of Systems - Review of Systems Constitutional: reports: No Symptoms Eyes: reports: No Symptoms HENT: reports: No Symptoms Neck: reports: No Symptoms Cardiovascular: reports: No Symptoms Respiratory: reports: No Symptoms Gastrointestinal: reports: Abdominal Pain (resolved), Vomiting (resolved) Genitourinary: reports: No Symptoms Musculoskeletal: reports: No Symptoms Integumentary: reports: Wound (LLE wound dry) Neurological: reports: No Symptoms Endocrine: reports: No Symptoms Hematology/Lymphatic: reports: No Symptoms Psychiatric: reports: No Symptoms Physical Exam Vital Signs: Vital Signs Temperature 98.8 F 01/05/19 14:57 Pulse Rate 95 H 01/05/19 14:57 Respiratory Rate 20 01/05/19 14:57 Blood Pressure 149/71 01/05/19 14:57 O2 Sat by Pulse Oximetry (%) 100 01/05/19 11:08 Constitutional: Yes: No Distress, Calm Eyes: Yes: Conjunctiva Clear Cardiovascular: Yes: Regular Rate and Rhythm Respiratory: Yes: CTA Bilaterally Gastrointestinal: Yes: Normal Bowel Sounds, Soft Musculoskeletal: Yes: WNL Extremities: Yes: WNL Integumentary: Yes: Other (RUE injection site without tenderness/erythema/warmth ) Wound/Incision: Yes: Clean/Dry, Other (LLE wound site dry , minimal warmth) Neurological: Yes: Alert, Oriented Labs: CBC, BMP 01/05/19 11:30 01/05/19 11:30 Imaging - Results Chest X-ray: Report Reviewed Cat Scan: Report Reviewed Problem List - Problems (1) Abdominal pain Code(s): R10.9 - UNSPECIFIED ABDOMINAL PAIN (2) Substance induced mood disorder Code(s): F19.94 - OTH PSYCHOACTIVE SUBSTANCE USE, UNSP W MOOD DISORDER (3) Cocaine dependence Code(s): F14.20 - COCAINE DEPENDENCE, UNCOMPLICATED Qualifiers: Substance use status: uncomplicated Qualified Code(s): F14.20 - Cocaine dependence, uncomplicated (4) IVDU (intravenous drug user) Code(s): F19.90 - OTHER PSYCHOACTIVE SUBSTANCE USE, UNSPECIFIED, UNCOMPLICATED (5) Irritable bowel syndrome Code(s): K58.9 - IRRITABLE BOWEL SYNDROME WITHOUT DIARRHEA Qualifiers: Irritable bowel syndrome type: with constipation Qualified Code(s): K58.1 - Irritable bowel syndrome with constipation (6) Nicotine dependence Code(s): F17.200 - NICOTINE DEPENDENCE, UNSPECIFIED, UNCOMPLICATED Qualifiers: Nicotine product type: cigarettes Substance use status: uncomplicated Qualified Code(s): F17.210 - Nicotine dependence, cigarettes, uncomplicated (7) Opioid dependence with withdrawal Code(s): F11.23 - OPIOID DEPENDENCE WITH WITHDRAWAL (8) Schizoaffective disorder Code(s): F25.9 - SCHIZOAFFECTIVE DISORDER, UNSPECIFIED Qualifiers: Schizoaffective disorder type: unspecified Qualified Code(s): F25.9 - Schizoaffective disorder, unspecified Assessment/Plan 43 y.o. female with PMH of IBS, schizoaffective d.o., hepatitis C, active IVDU/ cocaine (last injected heroin on 12/30/18), lap appendectomy and Lt greenberg abscess I +D on 12/25/18 presents with c/o abdominal pain (similar to contractions), nausea and multiple episodes of vomiting. Mild leukocytosis, temp of 100.4F in ER Fever Leukocytosis Abd pain Active IVDU Polysubstance abuse LLE abscess s/p drainage s/p Lap appendectomy Hep C IBS Constipation Schizoaffective d.o. -- CT scan reviewed, no acute findings , +fecal retention, no current abd pain/ vomiting -- started on Zosyn/ Vancomycin IV empirically -- f/u blood cultures, consider Echo -- u/a and CXR neg -- LLE wound site dry eschar, minimal surrounding warmth -- continue monitor wbc, temperature trend -- detox consult -- Hepatitis C viral load -- surgery evaluating case d/w Dr. Graf Will follow
[2019-01-05] MEDS: COLLAGENASE CLOSTRIDIUM HIST. 30 GRAMS TUBE TP SCH (16:45)
--- NOTE | 2019-01-05 16:50 | CONSULT ---
Consult Consult Specialty:: General Surgery Referred by:: Artem Ulrich Reason for Consultation:: s/p lap appy w/umbilical hernia repair and LLE abscess I&D with N/V, abd pain, hematochezia - History of Present Illness Chief Complaint: N/V, abd pain, hematochezia History of Present Illness: 43yo F polysubstance abuser with Hep C, schizoaffective disorder, known to me from previous admission, during which she had laparoscopic appendectomy with primary umbilical hernia repair, and I&D of left greenberg abscess (no pus encountered) from an injection site, of which culture grew MSSA and S. viridans , had been transferred back to [facility] for detox/rehab for cocain, heroin and marijuana abuse. She was out of [facility] for [address], during which time she used all three again, and then returned for detox and subsequent rehab this last week. She had 3 day methadone taper to 5mg on Sunday, and yesterday began having nausea and vomiting, crampy abdominal pain, and was transferred to ER for evaluation. She also had constipation-- had had some stool , then a little diarrhea but felt like she was still full, and reports having had an enema, after which she passed more "large pieces" of stool, with some blood on them. She has had this in the past, with IBS and what she calls "colitis," but does admit she may have experienced anal tearing with the large stool. She also experienced chills yesterday, and in the ER had low-grade temps. WBC was 12, lactate 2.7, UA concentrated but negative, mild transaminitis; CT abd/pelvis was done showing no acute process, s/p appy, known hepatic hemangioma , and lots of stool throughout colon. She received multiple doses of morphine in the ER, and was admitted to medicine. Surgery was asked to assess. She is seen and examined in bed, and appears relatively comfortable. She has lost IV access. Abdominal incisions are healing well, and are open to air. No dressings or packing had been continued to left leg wound, which is also open to air. She reports some continued nausea but no further vomiting, and intermittent crampy pain but not now. - History Source History Provided By: Patient, Medical Record ([facility] notes reviewed) Limitations to Obtaining History: No Limitations - Past Medical History Pulmonary: Yes: Bronchitis (several years ago) Gastrointestinal: Yes: Constipation, Irritable Bowel Disease (w/constipation), Other ("colitis" - takes laxatives and stool softeners) Hepatobiliary: Yes: Hepatitis C ...LMP: 10/25/14 Psych: Yes: Addictions (cocaine, heroin, also uses MJ), Other (schizoaffective disorder) Musculoskeletal: Yes: Osteoarthritis - Past Surgical History Past Surgical History: Yes: Appendectomy (laparoscopic with umbilical hernia repair 12/25/18), Hernia Repair (umbilical done with lap appy) Additional Surgical History: I&D LLE greenberg abscess 12/25/18 - Alcohol/Substance Use Hx Alcohol Use: Yes History of Substance Use: reports: Cocaine (injection use), Heroin (injection use), Marijuana (smokes sometimes) Date of Last Use: 12/30/18 - Smoking History Smoking history: Current every day smoker Have you smoked in the past 12 months: Yes Aproximately how many cigarettes per day: 3 - Social History Usual Living Arrangement: Other (had been in [facility] rehab till , [facility] for detox/rehab since 12/22 (out 12/29-)) ADL: Independent Occupation: on disability Home Medications - Allergies Allergies/Adverse Reactions: Allergies Allergy/AdvReac Type Severity Reaction Status Date / Time sulfur dioxide Allergy Verified 12/31/18 09:04 risperidone AdvReac Severe Verified 12/31/18 09:04 - Home Medications Home Medications: Ambulatory Orders Amitriptyline HCl [Elavil -] 50 mg PO HS 12/22/18 Bupropion HCl [Wellbutrin Xl -] 150 mg PO BID 12/22/18 Docusate Sodium 200 mg PO HS PRN 12/22/18 Mirtazapine 45 mg PO HS 12/22/18 Sennosides [Senna -] 2 tab PO DAILY PRN 12/22/18 Family Disease History - Family Disease History Family History: Unable to Obtain (pt adopted) Review of Systems - Review of Systems Constitutional: reports: Chills, Fever (low grade temps) Eyes: denies: Blurred Vision, Recent Change in Vision HENT: denies: Difficult Swallowing, Throat Pain Neck: denies: Swollen Glands, Tenderness Cardiovascular: denies: Chest Pain, Palpitations Respiratory: denies: Cough, SOB Gastrointestinal: reports: Abdominal Pain (with hpi), Constipation, Nausea ( with hpi), Rectal Bleeding (with hard stool yesterday after enema), Vomiting ( with hpi). denies: Diarrhea Genitourinary: denies: Burning, Dysuria Musculoskeletal: denies: Back Pain, Joint Pain, Muscle Pain Integumentary: reports: Wound (LLE wound from before). denies: Change in Color , Rash Neurological: denies: Dizziness, Headache Physical Exam Vital Signs: Vital Signs Temperature 98.8 F 01/05/19 14:57 Pulse Rate 95 H 01/05/19 14:57 Respiratory Rate 20 01/05/19 14:57 Blood Pressure 149/71 01/05/19 14:57 O2 Sat by Pulse Oximetry (%) 100 01/05/19 11:08 Constitutional: Yes: Well Nourished, No Distress, Calm Eyes: Yes: Conjunctiva Clear, EOM Intact HENT: Yes: Atraumatic, Normocephalic Neck: Yes: Supple, Trachea Midline Cardiovascular: Yes: Tachycardia (mild). No: Pulse Irregular Respiratory: Yes: Regular, CTA Bilaterally Gastrointestinal: Yes: Normal Bowel Sounds, Soft, Tenderness (minimal umbilical incisional only - neg x 4 quadrants). No: Distention, Hernia ...Rectal Exam: Yes: Deferred Renal/: No: CVA Tenderness - Left, CVA Tenderness - Right Breast(s): Yes: Breast Implants Musculoskeletal: No: Joint Stiffness, Joint Swelling Extremities: Yes: Other (L greenberg wound (see below)). No: Cool, Cyanosis Edema: No Peripheral Pulses WNL: Yes Integumentary: Yes: Tattoos, Other (small clean pink spot on upper right arm, injection site, no swelling/fluctuance/tenderness/induration). No: Jaundice, Rash Wound/Incision: Yes: Open to air, Unapproximated (1.8 x 1.2 x 0.4cm left greenberg wound with dried eschar coating pink base - had not been packed, so has not filled in). No: Draining, Reddened Neurological: Yes: Alert, Oriented Psychiatric: Yes: Alert, Oriented Labs: CBC, BMP 01/05/19 11:30 01/05/19 11:30 CMP Sodium 137 mmol/L (136-145) 01/05/19 11:30 Potassium 4.0 mmol/L (3.5-5.1) 01/05/19 11:30 Chloride 103 mmol/L (98-107) 01/05/19 11:30 Carbon Dioxide 25 mmol/L (21-32) 01/05/19 11:30 Anion Gap 9 MMOL/L (8-16) 01/05/19 11:30 BUN 10 mg/dL (7-18) 01/05/19 11:30 Creatinine 0.7 mg/dL (0.55-1.3) 01/05/19 11:30 Est GFR (CKD-EPI)AfAm 122.99 01/05/19 11:30 Est GFR (CKD-EPI)NonAf 106.12 01/05/19 11:30 Random Glucose 96 mg/dL (74-106) 01/05/19 11:30 Lactic Acid 2.6 mmol/L (0.4-2.0) H* 01/05/19 11:30 Calcium 9.4 mg/dL (8.5-10.1) 01/05/19 11:30 Total Bilirubin 0.3 mg/dL (0.2-1) 01/05/19 11:30 AST 45 U/L (15-37) H 01/05/19 11:30 ALT 75 U/L (13-61) H 01/05/19 11:30 Alkaline Phosphatase 104 U/L (45-117) 01/05/19 11:30 C-Reactive Protein 0.4 MG/DL (0.00-0.3) H 01/05/19 11:30 Total Protein 8.5 g/dl (6.4-8.2) H 01/05/19 11:30 Albumin 4.0 g/dl (3.4-5.0) 01/05/19 11:30 Lipase 69 U/L (73-393) L 01/05/19 05:30 Serum , Qual Negative 01/05/19 05:30 INR, PTT INR 1.01 (0.83-1.09) 01/05/19 05:30 Urine Test Results Urine Color Yellow 01/05/19 05:37 Urine Appearance Clear 01/05/19 05:37 Urine pH >= 9.0 (5.0-8.0) H 01/05/19 05:37 Ur Specific Premier 1.028 (1.010-1.035) 01/05/19 05:37 Urine Protein 1+ (NEGATIVE) H 01/05/19 05:37 Urine Glucose (UA) Negative (NEGATIVE) 01/05/19 05:37 Urine Ketones Negative (NEGATIVE) 01/05/19 05:37 Urine Blood Negative (NEGATIVE) 01/05/19 05:37 Urine Nitrite Negative (NEGATIVE) 01/05/19 05:37 Urine Bilirubin Negative (NEGATIVE) 01/05/19 05:37 Ur Leukocyte Esterase Trace (NEGATIVE) 01/05/19 05:37 Imaging - Results Cat Scan: Report Reviewed, Image Reviewed (images reviewed - abd/pelv CT - s/p appy, +++stool throughout colon, no obstruction, no free air or fluid, no colitis, no hernia, + hepatic hemangioma) Problem List - Problems (1) Opioid dependence with withdrawal Assessment/Plan: admitted to medicine abdominal pain, n/v symptoms most likely secondary to opiate withdrawal and constipation she got multiple doses of morphine in ER symptoms improved she would like to get on methadone maintenance to keep from using again detox consult ordered by primary team primary team checking echo given injection drug use antibiotics per ID - discussed with Dr. Hartley no wound infection Code(s): F11.23 - OPIOID DEPENDENCE WITH WITHDRAWAL (2) Generalized abdominal pain Assessment/Plan: intermittent - describes crampy pain not currently in pain Code(s): R10.84 - GENERALIZED ABDOMINAL PAIN (3) Nausea and vomiting Assessment/Plan: still with some nausea, but no further vomiting in hospital Code(s): R11.2 - NAUSEA WITH VOMITING, UNSPECIFIED Qualifiers: Vomiting type: unspecified Vomiting Intractability: non-intractable Qualified Code(s): R11.2 - Nausea with vomiting, unspecified (4) Drug-induced constipation Assessment/Plan: copious stool throughout colon may also be contributing to abdominal pain the blood in her stool with "large pieces" after an enema at [facility] may have been related to an anal tear or fissure senna may not be enough to help her empty out consider Relistor to counter opioid effect on bowels Code(s): K59.03 - DRUG INDUCED CONSTIPATION (5) S/P laparoscopic appendectomy Assessment/Plan: with umbilical hernia repair, POD11 incisions healing well no s/s infection no recurrent hernia minimal appropriate tenderness at umbilicus continue lifting restrictions another 2 weeks, then may gradually resume all usual activities no need for followup in surgical clinic will sign off - please re-call with questions Code(s): Z90.49 - ACQUIRED ABSENCE OF OTHER SPECIFIED PARTS OF DIGESTIVE TRACT (6) Unspecified open wound, left lower leg, subsequent encounter Assessment/Plan: left leg wound - healing stalled secondary to eschar no evidence of infection collagenase to wound daily with 2x2 gauze over nursing can do dressings daily local wound care should be continued daily on discharge to allow wound to fill in and heal fully Code(s): S81.802D - UNSPECIFIED OPEN WOUND, LEFT LOWER LEG, SUBSEQUENT ENCOUNTER (7) Cannabis dependence Code(s): F12.20 - CANNABIS DEPENDENCE, UNCOMPLICATED (8) Cocaine dependence Code(s): F14.20 - COCAINE DEPENDENCE, UNCOMPLICATED Qualifiers: Substance use status: uncomplicated Qualified Code(s): F14.20 - Cocaine dependence, uncomplicated (9) Hepatitis C Code(s): B19.20 - UNSPECIFIED VIRAL HEPATITIS C WITHOUT HEPATIC COMA Qualifiers: Viral hepatitis chronicity: chronic Hepatic coma status: without hepatic coma Qualified Code(s): B18.2 - Chronic viral hepatitis C (10) Marijuana dependence Code(s): F12.20 - CANNABIS DEPENDENCE, UNCOMPLICATED (11) Nicotine dependence Code(s): F17.200 - NICOTINE DEPENDENCE, UNSPECIFIED, UNCOMPLICATED Qualifiers: Nicotine product type: cigarettes Substance use status: uncomplicated Qualified Code(s): F17.210 - Nicotine dependence, cigarettes, uncomplicated (12) Schizoaffective disorder Code(s): F25.9 - SCHIZOAFFECTIVE DISORDER, UNSPECIFIED Qualifiers: Schizoaffective disorder type: unspecified Qualified Code(s): F25.9 - Schizoaffective disorder, unspecified
[2019-01-05] MEDS ORDERED: MINERAL OIL ENEMA 133 ML ENEMA PR ONE (17:50)
[2019-01-05] MEDS ORDERED: METHOCARBAMOL 500 MG TABLET PO PRN (18:33)
[2019-01-05] MEDS: GLYCERIN 1 RECTAL SUPPOSITORY, ADULT RC SCH (19:08)
[2019-01-05] MEDS: PIPERACILLIN/TAZOB 3.375 GM 3.375 GM in DEXTROSE 5%-WATER - 50 ML IVPB SCH (19:38)
[2019-01-05] MEDS: LACTATED RINGERS SOLUTION 1,000 ML IV SCH (19:38)
[2019-01-05] MEDS ORDERED: AMOX TR/POT CLAV 875MG/125MG TABLETS (FP) PO ONE (20:49)
[2019-01-05] MEDS: KETOROLAC TROMETHAMINE 30 MG/1 ML VIAL IM SCH (20:58)
[2019-01-05] MEDS: AMITRIPTYLINE HCL 25 MG TABLET (FP) PO SCH (21:42)
[2019-01-05] MEDS: MIRTAZAPINE 15 MG TABLET (FP) PO SCH (21:42)
[2019-01-05] MEDS: cloNIDine HCL 0.1 MG TABLET PO PRN (21:43)
[2019-01-05] MEDS: DOCUSATE SODIUM 100 MG CAPSULE (FP) PO SCH (21:44)
[2019-01-05] MEDS ORDERED: ONDANSETRON *ODT* 4 MG TABLET SL ONE ×2 (22:38→23:00)
[2019-01-06] MEDS: KETOROLAC TROMETHAMINE 30 MG/1 ML VIAL IM SCH ×3 (03:18→14:30)
[2019-01-06] MEDS: PIPERACILLIN/TAZOB 3.375 GM 3.375 GM in DEXTROSE 5%-WATER - 50 ML IVPB SCH ×3 (03:19→18:15)
[2019-01-06 08:08] LABS: BASO % 0.2 % (0-2.0); EOS % 0.2 % (0-4.5); HEMATOCRIT 39.9 % (32.4-45.2); HEMOGLOBIN 13.5 GM/dL (10.7-15.3); LYMPH % 23.4 % (8-40); MCH 29.9 pg (25.7-33.7); MCHC 33.9 g/dl (32.0-36.0); MEAN PLT VOLUME 8.1 fl (7.5-11.1); MONO % 5.6 % (3.8-10.2); NEUT % 70.6 % (42.8-82.8); PLATELET COUNT 294 K/MM3 (134-434); RBC 4.53 M/mm3 (3.60-5.2); RDW 13.7 % (11.6-15.6); WHITE BLOOD COUNT 9.3 K/mm3 (4.0-10.0)
[2019-01-06 08:26] LABS: ALBUMIN 3.8 g/dl (3.4-5.0); BILIRUBIN,TOTAL 0.5 mg/dL (0.2-1); CALCIUM 9.2 mg/dL (8.5-10.1); CREATININE 0.8 mg/dL (0.55-1.3); MAGNESIUM 2.1 mg/dL (1.8-2.4); PHOSPHOROUS 3.8 mg/dL (2.5-4.9)
[2019-01-06] MEDS: COLLAGENASE CLOSTRIDIUM HIST. 30 GRAMS TUBE TP SCH ×2 (08:39→12:03)
[2019-01-06] MEDS ORDERED: PT OWN MED DRAWER 7, Y5N ONE ×3 (09:21→12:58)
--- NOTE | 2019-01-06 09:43 | PN ---
Progress Note, Physician History of Present Illness: still not feeling well abd pain generalized issues - Current Medication List Current Medications: Active Medications Amitriptyline HCl (Elavil -) 50 mg PO [facility] Last Admin: 01/05/19 21:42 Dose: 50 mg Amoxicillin/Clavulanate Potassium (Augmentin - 875mg Tablet) 1 tab PO BID@0800, 1730 [facility] Bupropion HCl (Wellbutrin Xl -) 150 mg PO BID [facility] Last Admin: 01/05/19 21:43 Dose: Not Given Clonidine (Catapres -) 0.1 mg PO Q6H PRN PRN Reason: withdrawel Last Admin: 01/05/19 21:43 Dose: 0.1 mg Collagenase (Santyl -) 1 applic TP DAILY [facility]; Protocol Last Admin: 01/06/19 08:39 Dose: 1 applic Docusate Sodium (Colace -) 300 mg PO [facility] Last Admin: 01/05/19 21:44 Dose: 300 mg Enoxaparin Sodium (Lovenox -) 40 mg SQ DAILY [facility] Last Admin: 01/05/19 13:08 Dose: 40 mg Glycerin (Glycerin Suppository Adult -) 2 each RC DAILY [facility] Last Admin: 01/05/19 19:08 Dose: Not Given Lactated Ringer's (Lactated Ringers Solution) 1,000 mls @ 150 mls/hr IV ASDIR [facility] Last Admin: 01/05/19 19:38 Dose: Not Given Vancomycin HCl (Vancomycin (Pre-Docked)) 1,000 mg in 250 mls @ 166.667 mls/hr IVPB Q12H [facility]; Protocol Piperacillin Sod/Tazobactam (Sod 3.375 gm/ Dextrose) 50 mls @ 100 mls/hr IVPB Q8H-IV [facility]; Protocol Last Admin: 01/06/19 03:19 Dose: Not Given Ketorolac Tromethamine (Toradol Injection -) 30 mg IM Q6H [facility] Stop: 01/10/19 20:14 Last Admin: 01/06/19 08:33 Dose: 30 mg Methocarbamol (Robaxin -) 750 mg PO Q8H PRN PRN Reason: spasm Mirtazapine (Remeron -) 45 mg PO [facility] Last Admin: 01/05/19 21:42 Dose: 45 mg Polyethylene Glycol (Miralax (For Daily Use) -) 17 gm PO DAILY [facility] Senna (Senna -) 2 tab PO DAILY PRN PRN Reason: CONSTIPATION - Objective Vital Signs: Vital Signs Temperature 99 F 01/06/19 05:00 Pulse Rate 85 01/06/19 05:00 Respiratory Rate 20 01/06/19 05:00 Blood Pressure 138/87 01/06/19 05:00 O2 Sat by Pulse Oximetry (%) 99 01/05/19 21:00 Constitutional: Yes: Calm, Mild Distress Cardiovascular: Yes: Regular Rate and Rhythm Respiratory: Yes: Regular, CTA Bilaterally Gastrointestinal: Yes: Normal Bowel Sounds, Soft Musculoskeletal: Yes: WNL Extremities: Yes: WNL Neurological: Yes: Alert, Oriented Psychiatric: Yes: Alert, Oriented Labs: CBC, BMP 01/06/19 07:30 01/06/19 07:30 INR, PTT INR 1.01 (0.83-1.09) 01/05/19 05:30 Assessment/Plan Problem List - Problems (1) Abdominal pain Code(s): R10.9 - UNSPECIFIED ABDOMINAL PAIN (2) Substance induced mood disorder Code(s): F19.94 - OTH PSYCHOACTIVE SUBSTANCE USE, UNSP W MOOD DISORDER (3) Cocaine dependence Code(s): F14.20 - COCAINE DEPENDENCE, UNCOMPLICATED Qualifiers: Substance use status: uncomplicated Qualified Code(s): F14.20 - Cocaine dependence, uncomplicated (4) IVDU (intravenous drug user) Code(s): F19.90 - OTHER PSYCHOACTIVE SUBSTANCE USE, UNSPECIFIED, UNCOMPLICATED (5) Irritable bowel syndrome Code(s): K58.9 - IRRITABLE BOWEL SYNDROME WITHOUT DIARRHEA Qualifiers: Irritable bowel syndrome type: with constipation Qualified Code(s): K58.1 - Irritable bowel syndrome with constipation (6) Nicotine dependence Code(s): F17.200 - NICOTINE DEPENDENCE, UNSPECIFIED, UNCOMPLICATED Qualifiers: Nicotine product type: cigarettes Substance use status: uncomplicated Qualified Code(s): F17.210 - Nicotine dependence, cigarettes, uncomplicated (7) Opioid dependence with withdrawal Code(s): F11.23 - OPIOID DEPENDENCE WITH WITHDRAWAL (8) Schizoaffective disorder Code(s): F25.9 - SCHIZOAFFECTIVE DISORDER, UNSPECIFIED Qualifiers: Schizoaffective disorder type: unspecified Qualified Code(s): F25.9 - Schizoaffective disorder, unspecified Assessment/Plan 43 y.o. female with PMH of IBS, schizoaffective d.o., hepatitis C, active IVDU/ cocaine (last injected heroin on 12/30/18), lap appendectomy and Lt greenberg abscess I +D on 12/25/18 presents with c/o abdominal pain (similar to contractions), nausea and multiple episodes of vomiting. Mild leukocytosis, temp of 100.4F in ER Fever Leukocytosis Abd pain Active IVDU Polysubstance abuse LLE abscess s/p drainage s/p Lap appendectomy Hep C IBS Constipation Schizoaffective d.o. plan will stop vanco continue zosyn rest as per surgery and the team
--- NOTE | 2019-01-06 09:58 | EKG ---
Test Reason : Blood Pressure : / mmHG Vent. Rate : 103 BPM Atrial Rate : 103 BPM P-R Int : 136 ms QRS Dur : 072 ms QT Int : 342 ms P-R-T Axes : 081 079 057 degrees QTc Int : 448 ms SINUS TACHYCARDIA POSSIBLE LEFT ATRIAL ENLARGEMENT BORDERLINE ECG WHEN COMPARED WITH ECG OF 25-DEC-2018 02:22, NO SIGNIFICANT CHANGE WAS FOUND Confirmed by RAJINDER COONEY MD ([id number]) on 01/06/2019 9:58:15 AM Referred By: Confirmed By:RAJINDER COONEY MD
--- NOTE | 2019-01-06 10:31 | ECHO ---
Name: SATNAM HUSTON Exam:Adult Echocardiogram Study Date: 01/06/2019 07:41 AM Age: 43 yrs Reason For Study: sepsis Height: 67 in Weight: 170 lb BSA: 1.9 m2 MMode/2D Measurements & Calculations IVSd: 0.94 cm Ao root diam: 2.7 cm LVIDd: 4.0 cm LA dimension: 3.0 cm LVIDs: 2.7 cm LVPWd: 0.69 cm EDV(Teich): 71.9 ml LVOT diam: 2.0 cm ESV(Teich): 26.7 ml Doppler Measurements & Calculations MV E max luis: 59.2 cm/sec Ao V2 max: 126.2 cm/sec MV A max luis: 60.6 cm/sec Ao max P.4 mmHg MV E/A: 0.98 MV dec time: 0.12 sec SHAVONNE(V,D): 2.4 cm2 LV V1 max P.5 mmHg PA V2 max: 104.5 cm/sec LV V1 max: 93.1 cm/sec PA max P.4 mmHg Med Peak E' Luis: 10.1 cm/sec PI Vmax: 114.0 cm/sec Med E/e': 5.9 Lat Peak E' Luis: 11.7 cm/sec Lat E/e': 5.0 Tech Comments . PT. SAID STOP THE TEST. Procedure A complete two-dimensional transthoracic echocardiogram was performed (2D, M-mode, Doppler and color flow Doppler). Images were not obtained from all of the standard acoustic windows due to the limited scope of the study. Technically limited study. Left Ventricle The left ventricle is normal in size. Left ventricular systolic function is normal. Ejection Fraction = 60- 65%. No regional wall motion abnormalities noted. Right Ventricle The right ventricle is not well visualized. Atria The left atrial size is normal. Right atrium not well visualized. Mitral Valve The mitral valve is normal in structure and function. There is no mitral regurgitation noted. Tricuspid Valve The tricuspid valve is not well visualized. Aortic Valve The aortic valve is normal in structure and function. No aortic regurgitation is present. Pulmonic Valve The pulmonic valve is not well visualized. Trace pulmonic valvular regurgitation. Great Vessels The aortic root is normal size. Pericardium/Pleura Trivial pericardial effusion not hemodynamically significant. Interpretation Summary Technically limited study The left ventricle is normal in size. Left ventricular systolic function is normal. No regional wall motion abnormalities noted. Ejection Fraction = 60-65%. The right ventricle is not well visualized. Trace pulmonic valvular regurgitation. Trivial pericardial effusion not hemodynamically significant Naseem Bagley MD 01/06/2019 10:30 AM
[2019-01-06] MEDS: POLYETHYLENE GLYCOL 3350 119 GM BTL PO SCH (11:59)
[2019-01-06] MEDS: ENOXAPARIN NA (PORCINE) 40 MG/0.4 ML DISP.SYRIN SQ SCH (12:00)
[2019-01-06] MEDS: GLYCERIN 1 RECTAL SUPPOSITORY, ADULT RC SCH (12:34)
--- NOTE | 2019-01-06 14:33 | PN ---
Physical Exam: SUBJECTIVE: Patient seen and examined at bedside. multiple attempts by staff to get IV access but unsuccessful. pt c/o vomiting. abd pain improved but requesting more pain meds. denies blood in vomit or stool, fevers, chills, cp, sob. spoke w/ Dr Jones [phone] OBJECTIVE: Vital Signs Period Temp Pulse Resp BP Sys/Delgado Pulse Ox Last 24 Hr 98.3 F-99 F 85-101 18-20 108-149/64-87 99 GENERAL: Awake, alert, and fully oriented, in no acute distress. HEAD: Normal with no signs of trauma. EYES: extraocular movements intact, sclera anicteric, conjunctiva clear. No lid lag. EARS, NOSE, THROAT: nares patent, oropharynx clear without exudates. Moist mucous membranes. NECK: Normal range of motion, supple without lymphadenopathy, JVD, or masses. LUNGS: CTAB HEART: RRR, normal S1 and S2 without murmur, rub or gallop. ABDOMEN: Soft, NTND, normoactive bowel sounds, no guarding, no rebound, no masses. No hepatomegaly or splenomegaly. old surgical bandages, +surgical umbilical scar from lap appy MUSCULOSKELETAL: Normal range of motion at all joints. No bony deformities or tenderness. No CVA tenderness. UPPER EXTREMITIES: 2+ pulses, warm, well-perfused. No cyanosis. No clubbing. No peripheral edema. Track hernandez over the b/l upper extremities LOWER EXTREMITIES: 2+ pulses, warm, well-perfused. No calf tenderness. No peripheral edema. LLE Anterior greenberg wound w/ ulceration s/p old abscess I/D, wound is nontender, mildly warm, w/ some mild fluctuation, not indurated. no surrounding erythema NEUROLOGICAL: Cranial nerves II-XII intact. Normal speech. Normal gait. PSYCHIATRIC: Cooperative. Good eye contact. Appropriate mood and affect. SKIN: Warm, dry, normal turgor, no rashes, normal capillary refill. Laboratory Results - last 24 hr 01/05/19 01/05/19 01/06/19 11:30 17:15 07:30 WBC 9.3 RBC 4.53 Hgb 13.5 Hct 39.9 MCV 88.0 MCH 29.9 MCHC 33.9 RDW 13.7 Plt Count 294 MPV 8.1 Absolute Neuts (auto) 6.6 Neutrophils % 70.6 Lymphocytes % 23.4 Monocytes % 5.6 Eosinophils % 0.2 D Basophils % 0.2 Nucleated RBC % 0 ESR 23 H Sodium Potassium Chloride Carbon Dioxide Anion Gap BUN Creatinine Est GFR (CKD-EPI)AfAm Est GFR (CKD-EPI)NonAf Random Glucose Lactic Acid 1.1 Calcium Phosphorus Magnesium Total Bilirubin AST ALT Alkaline Phosphatase Total Protein Albumin 01/06/19 07:30 WBC RBC Hgb Hct MCV MCH MCHC RDW Plt Count MPV Absolute Neuts (auto) Neutrophils % Lymphocytes % Monocytes % Eosinophils % Basophils % Nucleated RBC % ESR Sodium 138 Potassium 4.0 Chloride 103 Carbon Dioxide 28 Anion Gap 6 L BUN 14 Creatinine 0.8 Est GFR (CKD-EPI)AfAm 104.65 Est GFR (CKD-EPI)NonAf 90.30 Random Glucose 111 H Lactic Acid Calcium 9.2 Phosphorus 3.8 Magnesium 2.1 Total Bilirubin 0.5 AST 52 H ALT 79 H Alkaline Phosphatase 94 Total Protein 8.0 Albumin 3.8 Active Medications Generic Name Dose Route Start Last Admin Trade Name Freq PRN Reason Stop Dose Admin Amitriptyline HCl 50 mg 01/05/19 22:00 01/05/19 21:42 Elavil - PO 50 mg HS DONNELL Administration Amoxicillin/Clavulanate Potassium 1 tab 01/06/19 17:30 Augmentin - 875mg Tablet PO BID@0800,1730 DONNELL Bupropion HCl 150 mg 01/05/19 22:00 01/06/19 11:59 Wellbutrin Xl - PO Not Given BID DONNELL Clonidine 0.1 mg 01/05/19 18:27 01/05/19 21:43 Catapres - PO 0.1 mg Q6H PRN Administration withdrawel Collagenase 1 applic 01/05/19 17:30 01/06/19 12:03 Santyl - TP Not Given DAILY [facility] Protocol Docusate Sodium 300 mg 01/05/19 22:00 01/05/19 21:44 Colace - PO 300 mg HS DONNELL Administration Enoxaparin Sodium 40 mg 01/05/19 12:30 01/06/19 12:00 Lovenox - SQ 40 mg DAILY DONNELL Administration Glycerin 2 each 01/05/19 18:00 01/06/19 12:34 Glycerin Suppository Adult - RC 2 each DAILY DONNELL Administration Lactated Ringer's 1,000 mls @ 150 mls/hr 01/05/19 15:07 01/05/19 19:38 Lactated Ringers Solution IV Not Given ASDIR DONNELL Piperacillin Sod/Tazobactam 50 mls @ 100 mls/hr 01/05/19 18:00 01/06/19 11:59 Sod 3.375 gm/ Dextrose IVPB Not Given Q8H-IV DONNELL Protocol Ketorolac Tromethamine 30 mg 01/05/19 20:15 01/06/19 08:33 Toradol Injection - IM 01/10/19 20:14 30 mg Q6H DONNELL Administration Methocarbamol 750 mg 01/05/19 18:33 Robaxin - PO Q8H PRN spasm Mirtazapine 45 mg 01/05/19 22:00 01/05/19 21:42 Remeron - PO 45 mg HS DONNELL Administration Polyethylene Glycol 17 gm 01/06/19 10:00 01/06/19 11:59 Miralax (For Daily Use) - PO Not Given DAILY DONNELL Senna 2 tab 01/05/19 13:13 Senna - PO DAILY PRN CONSTIPATION [id number] CT/ABDOMEN & PELVIS CT WITH CONTR HISTORY PROVIDED: Abdominal pain and vomiting. Sequential axial images were obtained from the domes of the diaphragms through the symphysis pubis following the administration of intravenous contrast material. The lung bases are clear. Bilateral breast prostheses are noted. The liver is normal in size and texture with no intrahepatic masses present. There is an enhancing right lobe mass measuring approximately 4.1 cm. The mass most likely represents a hemangioma. Clinical correlation is advised. No additional intrahepatic masses are present. The spleen, pancreas, adrenal glands and kidneys demonstrate no significant abnormalities. The gallbladder is clear. There is no evidence of intra-abdominal or retroperitoneal lymphadenopathy or fluid collections. There is no evidence of pneumoperitoneum, bowel obstruction or intra-abdominal abscess. The appendix is been removed. There is no CT evidence of acute diverticulitis. Examination of the pelvis demonstrates no evidence of pelvic masses, fluid collections or lymphadenopathy. There is a large amount retained fecal material throughout the colon. There is no evidence of acute bony pathology. IMPRESSION: 1. Suspected right hepatic hemangioma. 2. Fecal retention, no acute pathology within the abdomen or pelvis. Please see above discussion. ECHO Interpretation Summary Technically limited study The left ventricle is normal in size. Left ventricular systolic function is normal. No regional wall motion abnormalities noted. Ejection Fraction = 60-65%. The right ventricle is not well visualized. Trace pulmonic valvular regurgitation. Trivial pericardial effusion not hemodynamically significant Naseem Bagley MD 01/06/2019 10:30 AM ASSESSMENT/PLAN: 43 y/o F with PMHx polysubstance abuse (Heroin, EtOh, cocaine last used 5d ago) , Untreated Hep c, Colitis, Asthma, schizoaffective Do, recent lap appendectomy , umbilical hernia repair, and L greenberg abscess debridement on 12/25 (Dr Graf) s/p course of augmentin, presents from [facility] due to abdominal pain, n/v, fever and blood in stools. Sepsis w/ abd pain- unclear etiology, possibly 2/2 infected LLE foot wound/ cellulitis vs reoccurrence of abcess vs osteo. Appears to be resolving, remains afebrile, lactic acidosis and leukocytosis have resolved s/p IV abx and IVF -unlikely colitis or intrabdominal infx as CT is neg for acute pathology. FOBT neg, no active bleeding -ID consult, bobde -surgery consult, Lesia -bcx neg, UA neg -CXR no acute pathology -ESR/CRP mildly elevated but not impressive for infx source -u/s soft tissue LLE: pt refused -echo nl, reviewed above -monitor H/H -IV LR @ 100 mls/hr, no IV access despite multiple attempts, PO hydration for now -Pain control: toradol 30 IM q6h (no evidence of KILEY), will try to avoid if possible opioids and Tylenol given pmh of untreated Hep C and subst abuse -IV zosyn 4.5 Q6H, ID recs appreciated. no IV access despite multiple attempts, PO augmentin for now -prior wound cx from 12/25 grew clinda and erythromycin resistant staph A, strep Viridans -RPR, HIV neg on 12/23/18 #Liver Lesion - noted at prior admission, and on CT today, Suspected right hepatic hemangioma. -In the setting of Hep C--Possible HCC? #Transaminitis likely 2/2 Hep C #Polysubstance abuse - Utox positive for cocaine, opiates, marijuana, benzos #Schizoaffective disorder -resume home meds from [facility]: Bupropion 150mg PO Daily, Mirtazapine 45mg PO HS, elavil 50mg PO HS -detox consult, Karen -spoke w/ Dr Jones [phone], no need for any more methadone as pt completed detox and is not withdrawing. avoid IV opioids if possible, can give oxy PO if needed. #FEN -IV LR @ 100 mls/hr, no IV access despite multiple attempts, PO hydration for now -replete prn -regular diet #PPx -DVT: lovenox 40mg sq qd Dispo m/s Visit type - Emergency Visit Emergency Visit: Yes ED Registration Date: 01/05/19 Care time: The patient presented to the Emergency Department on the above date and was hospitalized for further evaluation of their emergent condition. - New Patient This patient is new to me today: Yes Date on this admission: 01/06/19 - Critical Care Critical Care patient: No
[2019-01-06] MEDS: LACTATED RINGERS SOLUTION 1,000 ML IV SCH (14:49)
[2019-01-06] MEDS ORDERED: METHOCARBAMOL 500 MG TABLET PO PRN (15:01)
--- NOTE | 2019-01-06 15:15 | PN ---
Teaching Attending Note Name of Resident: Julio Trimble ATTENDING PHYSICIAN STATEMENT I saw and evaluated the patient. I reviewed the resident's note and discussed the case with the resident. I agree with the resident's findings and plan as documented. SUBJECTIVE: Patient is c/o nausea and vomiting. and all she wants pain medication. Refusing all the constipation treatment so far. and any meds that are oral. No fever today. OBJECTIVE: Vital Signs Temperature 98.7 F 01/06/19 14:49 Pulse Rate 92 H 01/06/19 14:49 Respiratory Rate 18 01/06/19 14:49 Blood Pressure 119/76 01/06/19 14:49 O2 Sat by Pulse Oximetry (%) 99 01/05/19 21:00 GENERAL: The patient is awake, alert, and fully oriented, in no acute distress. HEAD: Normal with no signs of trauma. EYES: PERRL, extraocular movements intact, sclera anicteric, conjunctiva clear. ENT: Ears normal, oropharynx clear without exudates, moist mucous membranes. NECK: Trachea midline, full range of motion, supple. LUNGS: Breath sounds equal, clear to auscultation bilaterally, no wheezes, no crackles, no accessory muscle use. HEART: Regular rate and rhythm, S1, S2 without murmur, rub or gallop. ABDOMEN: Soft, NT, ND, positive BS , no guarding, no rebound, no hepatosplenomegaly, no masses. lap appendectomy incision sites are clean(no discharge). EXTREMITIES: 2+ pulses, warm, well-perfused, no edema. Left greenberg positive for open dried up wound with mild swelling around it, mildly warm to touch. NEUROLOGICAL: Cranial nerves II through XII grossly intact. Normal speech, gait is stable . PSYCH: Normal mood, normal affect. SKIN: Warm, dry, normal turgor, no rashes or lesions noted CBCD WBC 9.3 K/mm3 (4.0-10.0) 01/06/19 07:30 RBC 4.53 M/mm3 (3.60-5.2) 01/06/19 07:30 Hgb 13.5 GM/dL (10.7-15.3) 01/06/19 07:30 Hct 39.9 % (32.4-45.2) 01/06/19 07:30 MCV 88.0 fl (80-96) 01/06/19 07:30 MCHC 33.9 g/dl (32.0-36.0) 01/06/19 07:30 RDW 13.7 % (11.6-15.6) 01/06/19 07:30 Plt Count 294 K/MM3 (134-434) 01/06/19 07:30 MPV 8.1 fl (7.5-11.1) 01/06/19 07:30 CMP Sodium 138 mmol/L (136-145) 01/06/19 07:30 Potassium 4.0 mmol/L (3.5-5.1) 01/06/19 07:30 Chloride 103 mmol/L (98-107) 01/06/19 07:30 Carbon Dioxide 28 mmol/L (21-32) 01/06/19 07:30 Anion Gap 6 MMOL/L (8-16) L 01/06/19 07:30 BUN 14 mg/dL (7-18) 01/06/19 07:30 Creatinine 0.8 mg/dL (0.55-1.3) 01/06/19 07:30 Random Glucose 111 mg/dL (74-106) H 01/06/19 07:30 Calcium 9.2 mg/dL (8.5-10.1) 01/06/19 07:30 Total Bilirubin 0.5 mg/dL (0.2-1) 01/06/19 07:30 AST 52 U/L (15-37) H 01/06/19 07:30 ALT 79 U/L (13-61) H 01/06/19 07:30 Alkaline Phosphatase 94 U/L (45-117) 01/06/19 07:30 Total Protein 8.0 g/dl (6.4-8.2) 01/06/19 07:30 Albumin 3.8 g/dl (3.4-5.0) 01/06/19 07:30 Current Medications Generic Name Dose Route Start Last Admin Trade Name Freq PRN Reason Stop Dose Admin Amitriptyline HCl 50 mg 01/05/19 22:00 01/05/19 21:42 Elavil - PO 50 mg HS DONNELL Administration Amoxicillin/Clavulanate Potassium 1 tab 01/06/19 17:30 Augmentin - 875mg Tablet PO BID@0800,1730 DONNELL Bupropion HCl 150 mg 01/05/19 22:00 01/06/19 11:59 Wellbutrin Xl - PO Not Given BID DONNELL Clonidine 0.1 mg 01/05/19 18:27 01/05/19 21:43 Catapres - PO 0.1 mg Q6H PRN Administration withdrawel Collagenase 1 applic 01/05/19 17:30 01/06/19 12:03 Santyl - TP Not Given DAILY [facility] Protocol Docusate Sodium 300 mg 01/05/19 22:00 01/05/19 21:44 Colace - PO 300 mg HS DONNELL Administration Enoxaparin Sodium 40 mg 01/05/19 12:30 01/06/19 12:00 Lovenox - SQ 40 mg DAILY DONNELL Administration Glycerin 2 each 01/05/19 18:00 01/06/19 12:34 Glycerin Suppository Adult - RC 2 each DAILY DONNELL Administration Lactated Ringer's 1,000 mls @ 150 mls/hr 01/05/19 15:07 01/06/19 14:49 Lactated Ringers Solution IV 150 mls/hr ASDIR DONNELL Administration Piperacillin Sod/Tazobactam 50 mls @ 100 mls/hr 01/05/19 18:00 01/06/19 11:59 Sod 3.375 gm/ Dextrose IVPB Not Given Q8H-IV DONNELL Protocol Ketorolac Tromethamine 30 mg 01/05/19 20:15 01/06/19 14:30 Toradol Injection - IM 01/10/19 20:14 30 mg Q6H DONNELL Administration Methocarbamol 500 mg 01/06/19 15:01 Robaxin - PO Q8H PRN spasm Mirtazapine 45 mg 01/05/19 22:00 01/05/19 21:42 Remeron - PO 45 mg HS DONNELL Administration Ondansetron HCl 4 mg 01/06/19 15:00 Zofran Injection IVPB Q6H PRN NAUSEA AND/OR VOMITING Polyethylene Glycol 17 gm 01/06/19 10:00 01/06/19 11:59 Miralax (For Daily Use) - PO Not Given DAILY DONNELL Senna 2 tab 01/05/19 13:13 Senna - PO DAILY PRN CONSTIPATION Home Medications Medication Instructions Recorded Amitriptyline HCl [Elavil -] 50 mg PO HS 12/22/18 Bupropion HCl [Wellbutrin Xl -] 150 mg PO BID 12/22/18 Docusate Sodium 200 mg PO HS PRN 12/22/18 Mirtazapine 45 mg PO HS 12/22/18 Sennosides [Senna -] 2 tab PO DAILY PRN 12/22/18 01/05/2019; CT/ABDOMEN & PELVIS CT WITH CONTR: The lung bases are clear. Bilateral breast prostheses are noted. The liver is normal in size and texture with no intrahepatic masses present. There is an enhancing right lobe mass measuring approximately 4.1 cm. The mass most likely represents a hemangioma. Clinical correlation is advised. No additional intrahepatic masses are present. The spleen, pancreas, adrenal glands and kidneys demonstrate no significant abnormalities.The gallbladder is clear. There is no evidence of intra-abdominal or retroperitoneal lymphadenopathy or fluid collections.There is no evidence of pneumoperitoneum, bowel obstruction or intra-abdominal abscess. The appendix is been removed. There is no CT evidence of acute diverticulitis.Examination of the pelvis demonstrates no evidence of pelvic masses, fluid collections or lymphadenopathy. There is a large amount retained fecal material throughout the colon.There is no evidence of acute bony pathology. IMPRESSION: 1. Suspected right hepatic hemangioma. 2. Fecal retention, no acute pathology within the abdomen or pelvis. ASSESSMENT AND PLAN: Patient is a 43y/o F with PMHx polysubstance abuse (Heroin, EtOh, cocaine last used 5d ago), Untreated Hep c, Colitis, Asthma, schizoaffective Do, recent lap appendectomy (12/25/2018) with umbilical hernia repair, and L greenberg abscess debridement on 12/25 (Dr Graf) s/p course of augmentin, presents from [facility] for having abdominal pain, n/v, fever and blood in stools. # questionable sepsis : etiology is unclear. possibly due to infected LLE foot wound/cellulitis vs reoccurrence of abcess vs osteo . Id consult , s/p vancomycin, on zosyn IV ordered, no audible murmur, Echo no vegetation, IVF LR at 150cc/hr. Pain control: toradol IV 30 q6h (no evidence of KILEY), avoid opioids and Tylenol given the pmhx of untreated Hep C and subst abuse # Possible substance abuse withdrawal with fever of 100.4, no fever , leukocytosis 12.4-->improved, lactic acidosis 2.7 improved .No sign of fever, no fever or chills, no shortness of breath. on Robaxin, clonidine but patient is refusing the meds. # LLE with possible infected wound prior wound cx from 12/25 staph A, strep Viridans; sensitivity reviewed. RPR, HIV neg on 12/23/18 will get echo of the heart as well, since culture is positive to [facility] # Severe constipation: will place her on constipation regimen, Relistor can be given as per surgeon but since patient has polysubstance hx will have severe withdrawel from the medication , at this time will avoid Relistor, SSE ENEMA , COLACE, MIRALX ORDERED. # Right hepatic hemangioma with untreated hep. C , will monitor with elevated transaminities will monitor #Polysubstance abuse - Utox positive for cocaine, opiates, marijuana, benzos, detox consult, discussed with dr merrill, clonidine prn 0.1mg q6h prn, Robaxin 750mg q6h prn as per #Schizoaffective disorder: resume home meds from [facility]: Bupropion 150mg PO Daily, Mirtazapine 45mg PO HS, elavil 50mg PO HS DVT PPx: lovenox 40mg sq qd Med surge admission
[2019-01-06] MEDS ORDERED: VANCOMYCIN 1 GRAM (PRE-DOCKED) 1,000 MG/250 ML BAG IVPB SCH ×2 (16:00)
[2019-01-06] MEDS: ONDANSETRON 4 MG/2 ML VIAL IVPB PRN (16:42)
[2019-01-06] MEDS ORDERED: PIPERACILLIN/TAZOBACTAM 3.375 GM VIAL IVPB ONE ×2 (17:34→23:45)
[2019-01-06] MEDS ORDERED: DEXTROSE 5%-WATER - 50 ML IVPB ONE ×2 (17:35→23:45)
[2019-01-06] MEDS: AMOX TR/POT CLAV 875MG/125MG TABLETS (FP) PO SCH (18:08)
--- NOTE | 2019-01-06 19:54 | PN ---
S Progress Note (SOAP) Subjective: Active Medications 43 y.o. female patient referred for consultation , s/p transfer from rehab @ [facility] 2/2 abdominal pain , pt reports 7-8 /10 abdominal pain , minimal relief w current meds . Reports she is interested in outpt [facility] upon d/ c from hospital, would like to re-start rehab after being on Methadone maintenance . PMHX : s/p lap appy & umbilical hernia repair 12/25/18 @ [facility] Amitriptyline HCl (Elavil -) 50 mg PO HS [facility] Last Admin: 01/05/19 21:42 Dose: 50 mg Amoxicillin/Clavulanate Potassium (Augmentin - 875mg Tablet) 1 tab PO BID@0800, 1730 [facility] Last Admin: 01/06/19 18:08 Dose: Not Given Bupropion HCl (Wellbutrin Xl -) 150 mg PO BID [facility] Last Admin: 01/06/19 11:59 Dose: Not Given Clonidine (Catapres -) 0.1 mg PO Q6H PRN PRN Reason: withdrawel Last Admin: 01/05/19 21:43 Dose: 0.1 mg Collagenase (Santyl -) 1 applic TP DAILY [facility]; Protocol Last Admin: 01/06/19 12:03 Dose: Not Given Docusate Sodium (Colace -) 300 mg PO HS [facility] Last Admin: 01/05/19 21:44 Dose: 300 mg Enoxaparin Sodium (Lovenox -) 40 mg SQ DAILY [facility] Last Admin: 01/06/19 12:00 Dose: 40 mg Glycerin (Glycerin Suppository Adult -) 2 each RC DAILY [facility] Last Admin: 01/06/19 12:34 Dose: 2 each Lactated Ringer's (Lactated Ringers Solution) 1,000 mls @ 150 mls/hr IV ASDIR DONNELL Last Admin: 01/06/19 14:49 Dose: 150 mls/hr Piperacillin Sod/Tazobactam (Sod 3.375 gm/ Dextrose) 50 mls @ 100 mls/hr IVPB Q8H-IV DONNELL; Protocol Last Admin: 01/06/19 18:15 Dose: Not Given Ketorolac Tromethamine (Toradol Injection -) 30 mg IVPUSH Q6H DONNELL Stop: 01/11/19 19:59 Methocarbamol (Robaxin -) 500 mg PO Q8H PRN PRN Reason: spasm Mirtazapine (Remeron -) 45 mg PO HS [facility] Last Admin: 01/05/19 21:42 Dose: 45 mg Ondansetron HCl (Zofran Injection) 4 mg IVPB Q6H PRN PRN Reason: NAUSEA AND/OR VOMITING Last Admin: 01/06/19 16:42 Dose: 4 mg Polyethylene Glycol (Miralax (For Daily Use) -) 17 gm PO DAILY [facility] Last Admin: 01/06/19 11:59 Dose: Not Given Senna (Senna -) 2 tab PO DAILY PRN PRN Reason: CONSTIPATION Objective: wnwd , moderate distress , sitting at the edge of the bed resp : no distress noted ext :LE 2+ pulses, warm, well-perfused. No calf tenderness. No peripheral edema. LLE Anterior greenberg wound w/ ulceration s/p old abscess I/D, wound is nontender, mildly warm, w/ some mild fluctuation, not indurated. no surrounding erythema Neuro :AAO x 3 CBC, BMP 01/06/19 07:30 01/06/19 07:30 Vital Signs - 24 hr 01/05/19 01/06/19 01/06/19 21:00 01:00 05:00 Temperature 98.6 F 99 F 99 F Pulse Rate 90 93 H 85 Respiratory 20 20 20 Rate Blood Pressure 120/79 137/74 138/87 O2 Sat by Pulse 99 Oximetry (%) 01/06/19 01/06/19 08:25 14:49 Temperature 98.3 F 98.7 F Pulse Rate 95 H 92 H Respiratory 18 18 Rate Blood Pressure 134/64 119/76 O2 Sat by Pulse Oximetry (%) Assessment: opioid dependence acute abdominal pain Plan: may have Morphine IV 2 mg q 12 hrs prn for the management of acute pain x 24 hrs suggest Percocet 5/325 mg one tab p.o. q 4 hrs prn pain x 3 days d/w pt , agreeable w/ POC pt requesting referral to [facility] OT for Methadone maintenance prior to re -admission into rehab .
[2019-01-06] MEDS ORDERED: KETOROLAC TROMETHAMINE 30 MG/1 ML VIAL IVPUSH SCH (20:00)
--- NOTE | 2019-01-06 20:04 | HOSP ---
Subjective - Review of Symptoms Subjective: Spoke with Dr. Jones, changed pain medications to morphine 2mg q8h, and percocet per recommendations. After patients hospital course she can follow up with [facility] for continue treatment. Physical Examination Vital Signs: Vital Signs Temperature 98.7 F 01/06/19 14:49 Pulse Rate 92 H 01/06/19 14:49 Respiratory Rate 18 01/06/19 14:49 Blood Pressure 119/76 01/06/19 14:49 O2 Sat by Pulse Oximetry (%) 99 01/05/19 21:00 Labs: CBC, BMP 01/06/19 07:30 01/06/19 07:30 Visit type - Emergency Visit Emergency Visit: No - New Patient This patient is new to me today: No - Critical Care Critical Care patient: No
[2019-01-06] MEDS ORDERED: MORPHINE SULFATE 2 MG/ML VIAL ONE (20:05)
[2019-01-06] MEDS: morphine SULFATE 4 MG/ML VIAL IVPUSH PRN (20:10)
[2019-01-06] MEDS ORDERED: ACETAMINOPHEN 325 MG TABLET (FP) PO PRN (20:32)
[2019-01-06] MEDS ORDERED: oxyCODONE HCL 5 MG TABLET PO PRN (20:32)
[2019-01-06] MEDS ORDERED: METOCLOPRAMIDE HCL INJECTION 10 MG/2 ML VIAL IVPUSH ONE (21:41)
[2019-01-06] MEDS: MIRTAZAPINE 15 MG TABLET (FP) PO SCH (21:58)
[2019-01-06] MEDS: DOCUSATE SODIUM 100 MG CAPSULE (FP) PO SCH (21:58)
[2019-01-06] MEDS: AMITRIPTYLINE HCL 25 MG TABLET (FP) PO SCH (21:58)
[2019-01-07] MEDS: PIPERACILLIN/TAZOB 3.375 GM 3.375 GM in DEXTROSE 5%-WATER - 50 ML IVPB SCH (01:40)
[2019-01-07] MEDS: ONDANSETRON 4 MG/2 ML VIAL IVPB PRN ×2 (02:12→07:50)
[2019-01-07] MEDS: morphine SULFATE 4 MG/ML VIAL IVPUSH PRN (03:53)
[2019-01-07] MEDS ORDERED: MELATONIN 5 MG TABLETS PO ONE ×2 (04:38→22:37)
[2019-01-07 06:31] LABS: BASO % 0.4 % (0-2.0); HEMATOCRIT 40.1 % (32.4-45.2); HEMOGLOBIN 13.6 GM/dL (10.7-15.3); LYMPH % 24.8 % (8-40); MCH 30.2 pg (25.7-33.7); MEAN CELL VOLUME 88.9 fl (80-96); MEAN PLT VOLUME 8.2 fl (7.5-11.1); MONO % 6.5 % (3.8-10.2); NEUT % 68.3 % (42.8-82.8); PLATELET COUNT 274 K/MM3 (134-434); RBC 4.51 M/mm3 (3.60-5.2); RDW 13.6 % (11.6-15.6)
[2019-01-07 06:48] LABS: ALBUMIN 4.1 g/dl (3.4-5.0); BILIRUBIN,TOTAL 0.7 mg/dL (0.2-1); CALCIUM 8.9 mg/dL (8.5-10.1); CREATININE 0.9 mg/dL (0.55-1.3); MAGNESIUM 2.4 mg/dL (1.8-2.4); PHOSPHOROUS 3.4 mg/dL (2.5-4.9); POTASSIUM 3.7 mmol/L (3.5-5.1); TOT PROT 8.3 g/dl (6.4-8.2)
[2019-01-07] MEDS: cloNIDine HCL 0.1 MG TABLET PO PRN ×3 (08:52→20:37)
--- NOTE | 2019-01-07 08:55 | PN ---
Progress Note, Physician History of Present Illness: pain main complaints - Current Medication List Current Medications: Active Medications Acetaminophen (Tylenol -) 325 mg PO Q6H PRN PRN Reason: PAIN 1-6 Amitriptyline HCl (Elavil -) 50 mg PO [facility] Last Admin: 01/06/19 21:58 Dose: Not Given Amoxicillin/Clavulanate Potassium (Augmentin - 875mg Tablet) 1 tab PO BID@0800, 1730 [facility] Last Admin: 01/06/19 18:08 Dose: Not Given Bupropion HCl (Wellbutrin Xl -) 150 mg PO BID [facility] Last Admin: 01/06/19 21:59 Dose: Not Given Clonidine (Catapres -) 0.1 mg PO Q6H PRN PRN Reason: withdrawel Last Admin: 01/07/19 08:52 Dose: 0.1 mg Collagenase (Santyl -) 1 applic TP DAILY [facility]; Protocol Last Admin: 01/06/19 12:03 Dose: Not Given Docusate Sodium (Colace -) 300 mg PO [facility] Last Admin: 01/06/19 21:58 Dose: Not Given Enoxaparin Sodium (Lovenox -) 40 mg SQ DAILY [facility] Last Admin: 01/06/19 12:00 Dose: 40 mg Glycerin (Glycerin Suppository Adult -) 2 each RC DAILY [facility] Last Admin: 01/06/19 12:34 Dose: 2 each Lactated Ringer's (Lactated Ringers Solution) 1,000 mls @ 150 mls/hr IV ASDIR [facility] Last Admin: 01/06/19 14:49 Dose: 150 mls/hr Piperacillin Sod/Tazobactam (Sod 3.375 gm/ Dextrose) 50 mls @ 100 mls/hr IVPB Q8H-IV [facility]; Protocol Last Admin: 01/07/19 01:40 Dose: Not Given Methocarbamol (Robaxin -) 500 mg PO Q8H PRN PRN Reason: spasm Mirtazapine (Remeron -) 45 mg PO [facility] Last Admin: 01/06/19 21:58 Dose: Not Given Morphine Sulfate (Morphine Sulfate) 2 mg IVPUSH Q8H PRN PRN Reason: PAIN LEVEL 7 - 10 Last Admin: 01/07/19 03:53 Dose: 2 mg Ondansetron HCl (Zofran Injection) 4 mg IVPB Q6H PRN PRN Reason: NAUSEA AND/OR VOMITING Last Admin: 01/07/19 07:50 Dose: 4 mg Oxycodone HCl (Roxicodone -) 5 mg PO Q6H PRN PRN Reason: PAIN 1-6 Last Admin: 01/07/19 04:51 Dose: 5 mg Polyethylene Glycol (Miralax (For Daily Use) -) 17 gm PO DAILY [facility] Last Admin: 01/06/19 11:59 Dose: Not Given Senna (Senna -) 2 tab PO DAILY PRN PRN Reason: CONSTIPATION - Objective Vital Signs: Vital Signs Temperature 98.4 F 01/07/19 07:59 Pulse Rate 75 01/07/19 07:59 Respiratory Rate 18 01/07/19 07:59 Blood Pressure 141/91 01/07/19 07:59 O2 Sat by Pulse Oximetry (%) 99 01/06/19 21:00 Constitutional: Yes: Moderate Distress Cardiovascular: Yes: Regular Rate and Rhythm Respiratory: Yes: Regular, CTA Bilaterally Musculoskeletal: Yes: WNL Extremities: Yes: WNL Neurological: Yes: Alert, Oriented Psychiatric: Yes: Alert, Oriented Labs: CBC, BMP 01/07/19 05:20 01/07/19 05:20 INR, PTT INR 1.01 (0.83-1.09) 01/05/19 05:30 Assessment/Plan Problem List - Problems (1) Abdominal pain Code(s): R10.9 - UNSPECIFIED ABDOMINAL PAIN (2) Substance induced mood disorder Code(s): F19.94 - OTH PSYCHOACTIVE SUBSTANCE USE, UNSP W MOOD DISORDER (3) Cocaine dependence Code(s): F14.20 - COCAINE DEPENDENCE, UNCOMPLICATED Qualifiers: Substance use status: uncomplicated Qualified Code(s): F14.20 - Cocaine dependence, uncomplicated (4) IVDU (intravenous drug user) Code(s): F19.90 - OTHER PSYCHOACTIVE SUBSTANCE USE, UNSPECIFIED, UNCOMPLICATED (5) Irritable bowel syndrome Code(s): K58.9 - IRRITABLE BOWEL SYNDROME WITHOUT DIARRHEA Qualifiers: Irritable bowel syndrome type: with constipation Qualified Code(s): K58.1 - Irritable bowel syndrome with constipation (6) Nicotine dependence Code(s): F17.200 - NICOTINE DEPENDENCE, UNSPECIFIED, UNCOMPLICATED Qualifiers: Nicotine product type: cigarettes Substance use status: uncomplicated Qualified Code(s): F17.210 - Nicotine dependence, cigarettes, uncomplicated (7) Opioid dependence with withdrawal Code(s): F11.23 - OPIOID DEPENDENCE WITH WITHDRAWAL (8) Schizoaffective disorder Code(s): F25.9 - SCHIZOAFFECTIVE DISORDER, UNSPECIFIED Qualifiers: Schizoaffective disorder type: unspecified Qualified Code(s): F25.9 - Schizoaffective disorder, unspecified Assessment/Plan 43 y.o. female with PMH of IBS, schizoaffective d.o., hepatitis C, active IVDU/ cocaine (last injected heroin on 12/30/18), lap appendectomy and Lt greenberg abscess I +D on 12/25/18 presents with c/o abdominal pain (similar to contractions), nausea and multiple episodes of vomiting. Mild leukocytosis, temp of 100.4F in ER Fever Leukocytosis Abd pain Active IVDU Polysubstance abuse LLE abscess s/p drainage s/p Lap appendectomy Hep C IBS Constipation Schizoaffective d.o. plan continue current mgmt oral abx pain mgmt rest as per the team
[2019-01-07] MEDS: oxyCODONE HCL 5 MG TABLET PO PRN ×4 (09:33→21:30)
--- NOTE | 2019-01-07 11:39 | PN ---
Physical Exam: SUBJECTIVE: Patient seen and examined at bedside. staff was able to get IV access but pt pulled out IV overnight. pt refusing care by nursing staff and multiple meds including abx and constipation treatment. pt however accepting oxycodone and zofran as well as IV benadryl. pt having multiple episodes of vomiting and c/o pain and requesting more pain meds. denies blood in vomit or stool, fevers, chills, cp, sob. OBJECTIVE: Vital Signs Period Temp Pulse Resp BP Sys/Delgado Pulse Ox Last 24 Hr 98.4 F-99.5 F 75-92 18-21 119-148/76-95 99 GENERAL: AOX3 NAD HEAD: NCAT EYES: extraocular movements intact, sclera anicteric, conjunctiva clear. No lid lag. EARS, NOSE, THROAT: nares patent, oropharynx clear without exudates. Moist mucous membranes. NECK: Normal range of motion, supple without lymphadenopathy, JVD, or masses. LUNGS: CTAB HEART: RRR, normal S1 and S2 without murmur, rub or gallop. ABDOMEN: Soft, diffuse mild TTP, ND, normoactive bowel sounds, no guarding, no rebound, no masses. No hepatomegaly or splenomegaly. old surgical bandages, + surgical umbilical scar from lap appy MUSCULOSKELETAL: Normal range of motion at all joints. No bony deformities or tenderness. UPPER EXTREMITIES: 2+ pulses, warm, well-perfused. No cyanosis. No clubbing. No peripheral edema. Track hernandez over the b/l upper extremities LOWER EXTREMITIES: 2+ pulses, warm, well-perfused. No calf tenderness. No peripheral edema. LLE Anterior greenberg wound w/ ulceration s/p old abscess I/D, wound is nontender, mildly warm, w/ some mild fluctuation, not indurated. no surrounding erythema NEUROLOGICAL: Cranial nerves II-XII intact. Normal speech. Normal gait. PSYCHIATRIC: Cooperative. Good eye contact. Appropriate mood and affect. SKIN: Warm, dry, normal turgor, no rashes, normal capillary refill. Laboratory Results - last 24 hr 01/07/19 01/07/19 05:20 05:20 WBC 11.0 H RBC 4.51 Hgb 13.6 Hct 40.1 MCV 88.9 MCH 30.2 MCHC 34.0 RDW 13.6 Plt Count 274 MPV 8.2 Absolute Neuts (auto) 7.5 Neutrophils % 68.3 Lymphocytes % 24.8 Monocytes % 6.5 Eosinophils % 0.0 D Basophils % 0.4 Nucleated RBC % 0 Sodium 135 L Potassium 3.7 Chloride 100 Carbon Dioxide 27 Anion Gap 8 BUN 19 H Creatinine 0.9 Est GFR (CKD-EPI)AfAm 90.76 Est GFR (CKD-EPI)NonAf 78.31 Random Glucose 109 H Calcium 8.9 Phosphorus 3.4 Magnesium 2.4 Total Bilirubin 0.7 AST 45 H ALT 74 H Alkaline Phosphatase 92 Total Protein 8.3 H Albumin 4.1 Active Medications Generic Name Dose Route Start Last Admin Trade Name Freq PRN Reason Stop Dose Admin Acetaminophen 325 mg 01/06/19 20:32 Tylenol - PO Q6H PRN PAIN 1-6 Amitriptyline HCl 50 mg 01/05/19 22:00 01/06/19 21:58 Elavil - PO Not Given HS [facility] Amoxicillin/Clavulanate Potassium 1 tab 01/06/19 17:30 01/06/19 18:08 Augmentin - 875mg Tablet PO Not Given BID@0800,1730 [facility] Bupropion HCl 150 mg 01/05/19 22:00 01/06/19 21:59 Wellbutrin Xl - PO Not Given BID [facility] Clonidine 0.1 mg 01/05/19 18:27 01/07/19 08:52 Catapres - PO 0.1 mg Q6H PRN Administration withdrawel Collagenase 1 applic 01/05/19 17:30 01/06/19 12:03 Santyl - TP Not Given DAILY [facility] Protocol Docusate Sodium 300 mg 01/05/19 22:00 01/06/19 21:58 Colace - PO Not Given HS [facility] Enoxaparin Sodium 40 mg 01/05/19 12:30 01/06/19 12:00 Lovenox - SQ 40 mg DAILY [facility] Administration Glycerin 2 each 01/05/19 18:00 01/06/19 12:34 Glycerin Suppository Adult - RC 2 each DAILY [facility] Administration Lactated Ringer's 1,000 mls @ 150 mls/hr 01/05/19 15:07 01/06/19 14:49 Lactated Ringers Solution IV 150 mls/hr ASDIR [facility] Administration Methocarbamol 500 mg 01/06/19 15:01 Robaxin - PO Q8H PRN spasm Mirtazapine 45 mg 01/05/19 22:00 01/06/19 21:58 Remeron - PO Not Given HS [facility] Ondansetron HCl 4 mg 01/06/19 15:00 01/07/19 07:50 Zofran Injection IVPB 4 mg Q6H PRN Administration NAUSEA AND/OR VOMITING Oxycodone HCl 5 mg 01/07/19 09:30 01/07/19 09:33 Roxicodone - PO 5 mg Q4H PRN Administration PAIN 1-6 Polyethylene Glycol 17 gm 01/06/19 10:00 01/06/19 11:59 Miralax (For Daily Use) - PO Not Given DAILY [facility] Senna 2 tab 01/05/19 13:13 Senna - PO DAILY PRN [facility]STIPATION [id number] CT/ABDOMEN & PELVIS CT WITH CONTR HISTORY PROVIDED: Abdominal pain and vomiting. Sequential axial images were obtained from the domes of the diaphragms through the symphysis pubis following the administration of intravenous contrast material. The lung bases are clear. Bilateral breast prostheses are noted. The liver is normal in size and texture with no intrahepatic masses present. There is an enhancing right lobe mass measuring approximately 4.1 cm. The mass most likely represents a hemangioma. Clinical correlation is advised. No additional intrahepatic masses are present. The spleen, pancreas, adrenal glands and kidneys demonstrate no significant abnormalities. The gallbladder is clear. There is no evidence of intra-abdominal or retroperitoneal lymphadenopathy or fluid collections. There is no evidence of pneumoperitoneum, bowel obstruction or intra-abdominal abscess. The appendix is been removed. There is no CT evidence of acute diverticulitis. Examination of the pelvis demonstrates no evidence of pelvic masses, fluid collections or lymphadenopathy. There is a large amount retained fecal material throughout the colon. There is no evidence of acute bony pathology. IMPRESSION: 1. Suspected right hepatic hemangioma. 2. Fecal retention, no acute pathology within the abdomen or pelvis. Please see above discussion. ECHO Interpretation Summary Technically limited study The left ventricle is normal in size. Left ventricular systolic function is normal. No regional wall motion abnormalities noted. Ejection Fraction = 60-65%. The right ventricle is not well visualized. Trace pulmonic valvular regurgitation. Trivial pericardial effusion not hemodynamically significant Naseem Bagley MD 01/06/2019 10:30 AM ASSESSMENT/PLAN: 43 y/o F with PMHx polysubstance abuse (Heroin, EtOh, cocaine last used 5d ago) , Untreated Hep c, Colitis, Asthma, schizoaffective Do, recent lap appendectomy , umbilical hernia repair, and L greenberg abscess debridement on 12/25 (Dr Graf) s/p course of augmentin, presents from [facility] due to abdominal pain, n/v, fever and blood in stools. pt refusing care by nursing staff and multiple meds including abx and constipation treatment. pt however accepting oxycodone and zofran as well as IV benadryl. pt having multiple episodes of vomiting and c/o pain and requesting more pain meds. #Questionable Sepsis w/ abd pain- unclear etiology, possibly 2/2 infected LLE foot wound/cellulitis vs reoccurrence of abcess vs osteo. Appears to be resolving, remains afebrile, lactic acidosis and leukocytosis have resolved s/p IV abx and IVF -unlikely colitis or intrabdominal infx as CT is neg for acute pathology. FOBT neg, no active bleeding, H/H is stable -ID consult, isreal -surgery consult, Lesia -bcx neg, UA neg -CXR no acute pathology -ESR/CRP mildly elevated but not impressive for infx source -u/s soft tissue LLE: pt refused -echo nl, no vegetations, reviewed above -IV LR @ 150 mls/hr, if able to keep IV access -Pain control: oxy 5mg q4h w/ tylenol, pain management/detox consult appreciated -s/p vanc/zosyn, IV abx dcd and c/w PO augmentin, ID recs appreciated. -prior wound cx from 12/25 grew clinda and erythromycin resistant staph A, strep Viridans -RPR, HIV neg on 12/23/18 #Liver Lesion - noted at prior admission, and on CT today, Suspected right hepatic hemangioma. -In the setting of untreated Hep C--Possible HCC? #Transaminitis likely 2/2 Hep C #Polysubstance abuse w/ possible withdrawal/abd pain/vomit - Utox positive for cocaine, opiates, marijuana, benzos, w/ fever, leukocytosis, +lactic. all now resolved. abd pain improving but still vomiting. refusing all meds except pain meds and zofran #Schizoaffective disorder -resume home meds from [facility]: Bupropion 150mg PO Daily, Mirtazapine 45mg PO HS, elavil 50mg PO HS -detox consult, Karen -spoke w/ Dr Jones [phone], no need for any more methadone as pt completed detox and is not withdrawing. avoid IV opioids if possible, can give oxy 5mg q4h w/ tylenol -clonidine prn 0.1mg q6h prn, Robaxin 750mg q6h prn as per #Severe constipation: will place her on constipation regimen, Relistor can be given as per surgeon but since patient has polysubstance hx will have severe withdrawal from the medication , at this time will avoid Relistor, SSE ENEMA , COLACE, MIRALX ORDERED. #FEN -IV LR @ 150 mls/hr, if able to keep IV access, otherwise PO hydrations -replete prn -regular diet #PPx -DVT: lovenox 40mg sq qd Dispo m/s Visit type - Emergency Visit Emergency Visit: Yes ED Registration Date: 01/05/19 Care time: The patient presented to the Emergency Department on the above date and was hospitalized for further evaluation of their emergent condition. - New Patient This patient is new to me today: Yes Date on this admission: 01/07/19 - Critical Care Critical Care patient: No
[2019-01-07] MEDS: GLYCERIN 1 RECTAL SUPPOSITORY, ADULT RC SCH (11:47)
[2019-01-07] MEDS: ENOXAPARIN NA (PORCINE) 40 MG/0.4 ML DISP.SYRIN SQ SCH (12:45)
[2019-01-07] MEDS: POLYETHYLENE GLYCOL 3350 119 GM BTL PO SCH (12:46)
[2019-01-07] MEDS: COLLAGENASE CLOSTRIDIUM HIST. 30 GRAMS TUBE TP SCH (12:49)
--- NOTE | 2019-01-07 15:27 | PN ---
Teaching Attending Note Name of Resident: Julio Trimble ATTENDING PHYSICIAN STATEMENT I saw and evaluated the patient. I reviewed the resident's note and discussed the case with the resident. I agree with the resident's findings and plan as documented. SUBJECTIVE: Patient is more comfortable today. OBJECTIVE: Vital Signs Temperature 98.4 F 01/07/19 07:59 Pulse Rate 75 01/07/19 07:59 Respiratory Rate 18 01/07/19 07:59 Blood Pressure 141/91 01/07/19 07:59 O2 Sat by Pulse Oximetry (%) 99 01/06/19 21:00 GENERAL: The patient is awake, alert, and fully oriented, in no acute distress. HEAD: Normal with no signs of trauma. EYES: PERRL, extraocular movements intact, sclera anicteric, conjunctiva clear. ENT: Ears normal, oropharynx clear without exudates, moist mucous membranes. NECK: Trachea midline, full range of motion, supple. LUNGS: Breath sounds equal, clear to auscultation bilaterally, no wheezes, no crackles, no accessory muscle use. HEART: Regular rate and rhythm, S1, S2 without murmur, rub or gallop. ABDOMEN: Soft, NT, ND, positive BS , no guarding, no rebound, no hepatosplenomegaly, no masses. lap appendectomy incision sites are clean(no discharge). EXTREMITIES: 2+ pulses, warm, well-perfused, no edema. Left greenberg positive for open dried up wound with mild swelling around it, mildly warm to touch. NEUROLOGICAL: Cranial nerves II through XII grossly intact. Normal speech, gait is stable . PSYCH: Normal mood, normal affect. SKIN: Warm, dry, normal turgor, no rashes or lesions noted CBCD WBC 11.0 K/mm3 (4.0-10.0) H 01/07/19 05:20 RBC 4.51 M/mm3 (3.60-5.2) 01/07/19 05:20 Hgb 13.6 GM/dL (10.7-15.3) 01/07/19 05:20 Hct 40.1 % (32.4-45.2) 01/07/19 05:20 MCV 88.9 fl (80-96) 01/07/19 05:20 MCHC 34.0 g/dl (32.0-36.0) 01/07/19 05:20 RDW 13.6 % (11.6-15.6) 01/07/19 05:20 Plt Count 274 K/MM3 (134-434) 01/07/19 05:20 MPV 8.2 fl (7.5-11.1) 01/07/19 05:20 CMP Sodium 135 mmol/L (136-145) L 01/07/19 05:20 Potassium 3.7 mmol/L (3.5-5.1) 01/07/19 05:20 Chloride 100 mmol/L (98-107) 01/07/19 05:20 Carbon Dioxide 27 mmol/L (21-32) 01/07/19 05:20 Anion Gap 8 MMOL/L (8-16) 01/07/19 05:20 BUN 19 mg/dL (7-18) H 01/07/19 05:20 Creatinine 0.9 mg/dL (0.55-1.3) 01/07/19 05:20 Random Glucose 109 mg/dL (74-106) H 01/07/19 05:20 Calcium 8.9 mg/dL (8.5-10.1) 01/07/19 05:20 Total Bilirubin 0.7 mg/dL (0.2-1) 01/07/19 05:20 AST 45 U/L (15-37) H 01/07/19 05:20 ALT 74 U/L (13-61) H 01/07/19 05:20 Alkaline Phosphatase 92 U/L (45-117) 01/07/19 05:20 Total Protein 8.3 g/dl (6.4-8.2) H 01/07/19 05:20 Albumin 4.1 g/dl (3.4-5.0) 01/07/19 05:20 Current Medications Generic Name Dose Route Start Last Admin Trade Name Freq PRN Reason Stop Dose Admin Acetaminophen 325 mg 01/06/19 20:32 Tylenol - PO Q6H PRN PAIN 1-6 Amitriptyline HCl 50 mg 01/05/19 22:00 01/06/19 21:58 Elavil - PO Not Given HS [facility] Amoxicillin/Clavulanate Potassium 1 tab 01/06/19 17:30 01/06/19 18:08 Augmentin - 875mg Tablet PO Not Given BID@0800,1730 [facility] Bupropion HCl 150 mg 01/05/19 22:00 01/07/19 12:48 Wellbutrin Xl - PO 150 mg BID [facility] Administration Clonidine 0.1 mg 01/05/19 18:27 01/07/19 14:21 Catapres - PO 0.1 mg Q6H PRN Administration withdrawel Collagenase 1 applic 01/05/19 17:30 01/07/19 12:49 Santyl - TP 1 applic DAILY [facility] Administration Protocol Docusate Sodium 300 mg 01/05/19 22:00 01/06/19 21:58 Colace - PO Not Given HS [facility] Enoxaparin Sodium 40 mg 01/05/19 12:30 01/07/19 12:45 Lovenox - SQ 40 mg DAILY [facility] Administration Glycerin 2 each 01/05/19 18:00 01/07/19 11:47 Glycerin Suppository Adult - RC Not Given DAILY [facility] Lactated Ringer's 1,000 mls @ 150 mls/hr 01/05/19 15:07 01/06/19 14:49 Lactated Ringers Solution IV 150 mls/hr ASDIR [facility] Administration Methocarbamol 500 mg 01/06/19 15:01 Robaxin - PO Q8H PRN spasm Mirtazapine 45 mg 01/05/19 22:00 01/06/19 21:58 Remeron - PO Not Given HS [facility] Ondansetron HCl 4 mg 01/06/19 15:00 01/07/19 07:50 Zofran Injection IVPB 4 mg Q6H PRN Administration NAUSEA AND/OR VOMITING Oxycodone HCl 5 mg 01/07/19 09:30 01/07/19 13:30 Roxicodone - PO 5 mg Q4H PRN Administration PAIN 1-6 Polyethylene Glycol 17 gm 01/06/19 10:00 01/07/19 12:46 Miralax (For Daily Use) - PO Not Given DAILY [facility] Senna 2 tab 01/05/19 13:13 Senna - PO DAILY PRN CONSTIPATION Home Medications Medication Instructions Recorded Amitriptyline HCl [Elavil -] 50 mg PO HS 12/22/18 Bupropion HCl [Wellbutrin Xl -] 150 mg PO BID 12/22/18 Docusate Sodium 200 mg PO HS PRN 04/28/19 Mirtazapine 45 mg PO HS 12/22/18 Sennosides [Senna -] 2 tab PO DAILY PRN 12/22/18 01/05/2019; CT/ABDOMEN & PELVIS CT WITH CONTR: The lung bases are clear. Bilateral breast prostheses are noted. The liver is normal in size and texture with no intrahepatic masses present. There is an enhancing right lobe mass measuring approximately 4.1 cm. The mass most likely represents a hemangioma. Clinical correlation is advised. No additional intrahepatic masses are present. The spleen, pancreas, adrenal glands and kidneys demonstrate no significant abnormalities.The gallbladder is clear. There is no evidence of intra-abdominal or retroperitoneal lymphadenopathy or fluid collections.There is no evidence of pneumoperitoneum, bowel obstruction or intra-abdominal abscess. The appendix is been removed. There is no CT evidence of acute diverticulitis.Examination of the pelvis demonstrates no evidence of pelvic masses, fluid collections or lymphadenopathy. There is a large amount retained fecal material throughout the colon.There is no evidence of acute bony pathology. IMPRESSION: 1. Suspected right hepatic hemangioma. 2. Fecal retention, no acute pathology within the abdomen or pelvis. ASSESSMENT AND PLAN: Patient is a 43y/o F with PMHx polysubstance abuse (Heroin, EtOh, cocaine last used 5d ago), Untreated Hep c, Colitis, Asthma, schizoaffective Do, recent lap appendectomy (12/25/2018) with umbilical hernia repair, and L greenberg abscess debridement on 12/25 (Dr Graf) s/p course of augmentin, presents from [facility] for having abdominal pain, n/v, fever and blood in stools. #questionable sepsis : presented with sepsis like picture but no fever or chills at this time and patient has been refusing antibiotics IV zosyn, stopped IV zosyn at this time by ID, on Augmentin now po, but patient is only wanting to take pain medication. etiology is unclear. LLE leg open wound but doesn't look infected . Id consult , s/p vancomycin & zosyn . STOPPED NOW. Echo no vegetation, IVF LR at 150cc/hr. Pain control: on oxycodone as per suggestion of detox # Possible substance abuse withdrawal with fever of 100.4, no fever , leukocytosis 12.4-->11.0 improving , lactic acidosis 2.7 improved .No sign of fever, no fever or chills, no shortness of breath. on Robaxin, clonidine but patient is refusing the meds. # LLE open wound: prior wound cx from 12/25 staph A, strep Viridans; sensitivity reviewed. RPR, HIV neg on 12/23/18 # Severe constipation: will place her on constipation regimen, Relistor can be given as per surgeon but since patient has polysubstance hx abuse will have severe withdrawel from the medication , we will avoid Relistor, SSE ENEMA , COLACE, MIRALX ORDERED. # Right hepatic hemangioma with untreated hep. C , will monitor with elevated transaminities will monitor #Polysubstance abuse - Utox positive for cocaine, opiates, marijuana, benzos, detox MD dr merrill, clonidine prn 0.1mg q6h prn, Robaxin 500mg q6h prn and clonidine prn as per #Schizoaffective disorder: resume home meds from [facility]: Bupropion 150mg PO Daily, Mirtazapine 45mg PO HS, elavil 50mg PO HS DVT PPx: lovenox 40mg sq qd Med surge admission possible dc to short term detox in [place]
[2019-01-07] MEDS: AMOX TR/POT CLAV 875MG/125MG TABLETS (FP) PO SCH ×2 (15:29→17:40)
[2019-01-07] MEDS: LACTATED RINGERS SOLUTION 1,000 ML IV SCH (15:30)
[2019-01-07] MEDS: AMITRIPTYLINE HCL 25 MG TABLET (FP) PO SCH ×2 (21:30→22:58)
[2019-01-07] MEDS: MIRTAZAPINE 15 MG TABLET (FP) PO SCH ×2 (21:30→22:50)
[2019-01-07] MEDS: DOCUSATE SODIUM 100 MG CAPSULE (FP) PO SCH (21:30)
[2019-01-08] MEDS: oxyCODONE HCL 5 MG TABLET PO PRN ×3 (01:48→11:11)
[2019-01-08] MEDS: cloNIDine HCL 0.1 MG TABLET PO PRN ×2 (03:42→11:24)
[2019-01-08] MEDS ORDERED: MIRTAZAPINE 15 MG TABLET (FP) PO ONE (05:49)
[2019-01-08] MEDS: AMOX TR/POT CLAV 875MG/125MG TABLETS (FP) PO SCH (08:25)
[2019-01-08 08:50] LABS: POTASSIUM 3.8 mmol/L (3.5-5.1)
[2019-01-08] MEDS: ENOXAPARIN NA (PORCINE) 40 MG/0.4 ML DISP.SYRIN SQ SCH (11:04)
[2019-01-08] MEDS: POLYETHYLENE GLYCOL 3350 119 GM BTL PO SCH (11:04)
[2019-01-08] MEDS: GLYCERIN 1 RECTAL SUPPOSITORY, ADULT RC SCH (11:05)
[2019-01-08] MEDS: COLLAGENASE CLOSTRIDIUM HIST. 30 GRAMS TUBE TP SCH (11:18)
--- NOTE | 2019-01-08 11:27 | DS ---
Physical Exam: SUBJECTIVE: Patient seen and examined at bedside. pt pain improved w/ pain meds. denies blood in vomit or stool, fevers, chills, cp, sob. tolerating some PO OBJECTIVE: Vital Signs Period Temp Pulse Resp BP Sys/Delgado Pulse Ox Last 24 Hr 94.4 F-98 F 67-83 18-20 94-117/45-75 99 PHYSICAL EXAM GENERAL: AOX3 NAD HEAD: NCAT EYES: extraocular movements intact, sclera anicteric, conjunctiva clear. No lid lag. EARS, NOSE, THROAT: nares patent, oropharynx clear without exudates. Moist mucous membranes. NECK: Normal range of motion, supple without lymphadenopathy, JVD, or masses. LUNGS: CTAB HEART: RRR, normal S1 and S2 without murmur, rub or gallop. ABDOMEN: Soft, diffuse mild TTP, ND, normoactive bowel sounds, no guarding, no rebound, no masses. No hepatomegaly or splenomegaly. old surgical bandages, + surgical umbilical scar from lap appy MUSCULOSKELETAL: Normal range of motion at all joints. No bony deformities or tenderness. UPPER EXTREMITIES: 2+ pulses, warm, well-perfused. No cyanosis. No clubbing. No peripheral edema. Track hernandez over the b/l upper extremities LOWER EXTREMITIES: 2+ pulses, warm, well-perfused. No calf tenderness. No peripheral edema. LLE Anterior greenberg wound w/ ulceration s/p old abscess I/D, wound is nontender, mildly warm, w/ some mild fluctuation, not indurated. no surrounding erythema NEUROLOGICAL: Cranial nerves II-XII intact. Normal speech. Normal gait. PSYCHIATRIC: Cooperative. Good eye contact. Appropriate mood and affect. SKIN: Warm, dry, normal turgor, no rashes, normal capillary refill. LABS Laboratory Results - last 24 hr 01/08/19 07:20 Sodium 137 Potassium 3.8 Chloride 102 Carbon Dioxide 29 Anion Gap 7 L BUN 22 H Creatinine 1.0 Est GFR (CKD-EPI)AfAm 79.91 Est GFR (CKD-EPI)NonAf 68.95 Random Glucose 114 H Calcium 9.0 [id number] CT/ABDOMEN & PELVIS CT WITH CONTR HISTORY PROVIDED: Abdominal pain and vomiting. Sequential axial images were obtained from the domes of the diaphragms through the symphysis pubis following the administration of intravenous contrast material. The lung bases are clear. Bilateral breast prostheses are noted. The liver is normal in size and texture with no intrahepatic masses present. There is an enhancing right lobe mass measuring approximately 4.1 cm. The mass most likely represents a hemangioma. Clinical correlation is advised. No additional intrahepatic masses are present. The spleen, pancreas, adrenal glands and kidneys demonstrate no significant abnormalities. The gallbladder is clear. There is no evidence of intra-abdominal or retroperitoneal lymphadenopathy or fluid collections. There is no evidence of pneumoperitoneum, bowel obstruction or intra-abdominal abscess. The appendix is been removed. There is no CT evidence of acute diverticulitis. Examination of the pelvis demonstrates no evidence of pelvic masses, fluid collections or lymphadenopathy. There is a large amount retained fecal material throughout the colon. There is no evidence of acute bony pathology. IMPRESSION: 1. Suspected right hepatic hemangioma. 2. Fecal retention, no acute pathology within the abdomen or pelvis. Please see above discussion. ECHO Interpretation Summary Technically limited study The left ventricle is normal in size. Left ventricular systolic function is normal. No regional wall motion abnormalities noted. Ejection Fraction = 60-65%. The right ventricle is not well visualized. Trace pulmonic valvular regurgitation. Trivial pericardial effusion not hemodynamically significant Naseem Bagley MD 01/06/2019 10:30 AM [id number] US/SOFT TISSUE EXTREMITY US History provided: Left leg wound abscess. Real-time examination of the left calf demonstrates the following: Attention was directed to an area of palpable concern within the lower calf at the site of an open wound. There is a small subcutaneous fluid collection measuring 1.8 x 1.6 x 0.5 cm. This could represent a small abscess or possibly edematous fluid. Clinical correlation and follow-up is recommended. IMPRESSION: Small subcutaneous fluid collection. HOSPITAL COURSE: Date of Admission:01/05/19 Date of Discharge: 01/08/19 43 y/o F with PMHx polysubstance abuse (Heroin, EtOh, cocaine last used 5d ago) , Untreated Hep c, Colitis, Asthma, schizoaffective Do, recent lap appendectomy , umbilical hernia repair, and L greenberg abscess debridement on 12/25 (Dr Graf) s/p course of augmentin, presents from [facility] due to abdominal pain, n/v, fever and blood in stools. #Questionable Sepsis w/ abd pain- unclear etiology, possibly 2/2 infected LLE foot wound/cellulitis vs reoccurrence of abcess vs osteo. Resolving, remains afebrile, lactic acidosis and leukocytosis have resolved s/p IV abx and IVF -unlikely colitis or intrabdominal infx as CT is neg for acute pathology. FOBT neg, no active bleeding, H/H is stable -ID consult, isreal -surgery consult, Lesia -bcx neg, UA neg -CXR no acute pathology -ESR/CRP mildly elevated but not impressive for infx source -u/s soft tissue LLE: reviewed above -echo nl, no vegetations, reviewed above -Pain control: oxy 5mg q4h w/ tylenol, pain management/detox consult appreciated -s/p vanc/zosyn, IV abx dcd and c/w at discharge PO augmentin 875mg bid for 5 days, ID recs appreciated. -prior wound cx from 12/25 grew clinda and erythromycin resistant staph A, strep Viridans -RPR, HIV neg on 12/23/18 #Liver Lesion - noted at prior admission, and on CT today, Suspected right hepatic hemangioma. -In the setting of untreated Hep C--Possible HCC? -pt will f/u w/ PCP/outpt GI #Transaminitis likely 2/2 Hep C #Polysubstance abuse w/ possible withdrawal/abd pain/vomit - Utox positive for cocaine, opiates, marijuana, benzos, w/ fever, leukocytosis, +lactic. all now resolved. abd pain and vomiting improving. #Schizoaffective disorder -resume and cont at dc home meds from [facility]: Bupropion 150mg PO Daily, Mirtazapine 45mg PO HS, elavil 50mg PO HS -detox consult, Karen -spoke w/ Dr Jones [phone], can give oxy 5mg q4h w/ tylenol and pt will be accepted at [facility] rehab -clonidine prn 0.1mg q6h prn as per #Severe constipation: will place her on constipation regimen, Relistor can be given as per surgeon but since patient has polysubstance hx will have severe withdrawal from the medication , at this time will avoid Relistor, SSE ENEMA , COLACE, MIRALX ORDERED. will cont colace senna at me. pt stable and ready for dc to [facility] rehab w/ appropriate f/u Minutes to complete discharge: 38 Discharge Summary Reason For Visit: ABD PAIN, POSTOP FEVER Current Active Problems Nausea and vomiting (Acute) Unspecified open wound, left lower leg, subsequent encounter (Acute) Condition: Stable - Instructions Diet, Activity, Other Instructions: you came in for vomiting and nausea and were found to be constipated. You are being discharged to [facility] rehabilitation facility. Please resume your home meds You are also being sent home with Augmentin 875mg twice daily for 5 days You are being sent home with Clonidine 0.1mg every 6 hours as needed. this is to be tapered as per Dr. Jones Please follow up with your primary care physician within 1 week Please follow up with infectious disease Dr. Carrizales within 1 week Please follow up with Dr. Jones for admission to rehab Referrals: Abbie Carrizales MD [Staff Physician] - Michelle Jones DO [Staff Physician] - Disposition: TRANSFER ACUTE CARE/OTHER HOSP - Home Medications Comprehensive Discharge Medication List: Ambulatory Orders Amitriptyline HCl [Elavil -] 50 mg PO HS 12/22/18 Bupropion HCl [Wellbutrin Xl -] 150 mg PO BID 12/22/18 Docusate Sodium 200 mg PO HS PRN 12/22/18 Mirtazapine 45 mg PO HS 12/22/18 Sennosides [Senna -] 2 tab PO DAILY PRN 12/22/18 Amox-Tr/K Cl [Augmentin 875-125mg Tablet -] 1 tab PO BID@0800,1730 #10 tablet Collagenase Clostridium Hist. [Santyl -] 1 applic TP DAILY tube 01/08/19 Ondansetron HCl [Zofran] 4 mg PO Q8H #30 tablet 01/08/19 cloNIDine HCL [Catapres -] 0.1 mg PO Q6H PRN tablet 01/08/19 This patient is new to me today: Yes Date on this admission: 01/08/19 Emergency Visit: Yes ED Registration Date: 01/05/19 Care time: The patient presented to the Emergency Department on the above date and was hospitalized for further evaluation of their emergent condition. Critical Care patient: No - Discharge Referral Referred to [facility] Med P.C.: No
--- NOTE | 2019-01-08 11:32 | PN ---
Progress Note, Physician History of Present Illness: stable says she is feeling better - Current Medication List Current Medications: Active Medications Acetaminophen (Tylenol -) 325 mg PO Q6H PRN PRN Reason: PAIN 1-6 Amitriptyline HCl (Elavil -) 50 mg PO [facility] Last Admin: 01/07/19 22:58 Dose: Not Given Amoxicillin/Clavulanate Potassium (Augmentin - 875mg Tablet) 1 tab PO BID@0800, 1730 ON LICENSE OF [facility] Last Admin: 01/08/19 08:25 Dose: Not Given Bupropion HCl (Wellbutrin Xl -) 150 mg PO BID ON LICENSE OF [facility] Last Admin: 01/08/19 11:16 Dose: 150 mg Clonidine (Catapres -) 0.1 mg PO Q6H PRN PRN Reason: withdrawel Last Admin: 01/08/19 11:24 Dose: 0.1 mg Collagenase (Santyl -) 1 applic TP DAILY ON LICENSE OF [facility]; Protocol Last Admin: 01/08/19 11:18 Dose: 1 applic Docusate Sodium (Colace -) 300 mg PO [facility] Last Admin: 01/07/19 21:30 Dose: Not Given Enoxaparin Sodium (Lovenox -) 40 mg SQ DAILY ON LICENSE OF [facility] Last Admin: 01/08/19 11:04 Dose: Not Given Glycerin (Glycerin Suppository Adult -) 2 each RC DAILY ON LICENSE OF [facility] Last Admin: 01/08/19 11:05 Dose: Not Given Lactated Ringer's (Lactated Ringers Solution) 1,000 mls @ 150 mls/hr IV ASDIR ON LICENSE OF [facility] Last Admin: 01/07/19 15:30 Dose: Not Given Methocarbamol (Robaxin -) 500 mg PO Q8H PRN PRN Reason: spasm Mirtazapine (Remeron -) 45 mg PO [facility] Last Admin: 01/07/19 22:50 Dose: Not Given Ondansetron HCl (Zofran Injection) 4 mg IVPB Q6H PRN PRN Reason: NAUSEA AND/OR VOMITING Last Admin: 01/07/19 07:50 Dose: 4 mg Oxycodone HCl (Roxicodone -) 5 mg PO Q4H PRN PRN Reason: PAIN 1-6 Last Admin: 01/08/19 11:11 Dose: 5 mg Polyethylene Glycol (Miralax (For Daily Use) -) 17 gm PO DAILY ON LICENSE OF [facility] Last Admin: 01/08/19 11:04 Dose: Not Given Senna (Senna -) 2 tab PO DAILY PRN PRN Reason: CONSTIPATION - Objective Vital Signs: Vital Signs Temperature 94.4 F L 01/08/19 06:00 Pulse Rate 67 01/08/19 06:00 Respiratory Rate 20 01/08/19 06:00 Blood Pressure 94/45 L 01/08/19 06:00 O2 Sat by Pulse Oximetry (%) 99 01/07/19 21:00 Constitutional: Yes: No Distress, Calm Cardiovascular: Yes: Regular Rate and Rhythm Respiratory: Yes: Regular, CTA Bilaterally Gastrointestinal: Yes: Normal Bowel Sounds, Soft Musculoskeletal: Yes: WNL Extremities: Yes: WNL Neurological: Yes: Alert, Oriented Psychiatric: Yes: Alert, Oriented Labs: CBC, BMP 01/07/19 05:20 01/08/19 07:20 INR, PTT INR 1.01 (0.83-1.09) 01/05/19 05:30 Assessment/Plan Problem List - Problems (1) Abdominal pain Code(s): R10.9 - UNSPECIFIED ABDOMINAL PAIN (2) Substance induced mood disorder Code(s): F19.94 - OTH PSYCHOACTIVE SUBSTANCE USE, UNSP W MOOD DISORDER (3) Cocaine dependence Code(s): F14.20 - COCAINE DEPENDENCE, UNCOMPLICATED Qualifiers: Substance use status: uncomplicated Qualified Code(s): F14.20 - Cocaine dependence, uncomplicated (4) IVDU (intravenous drug user) Code(s): F19.90 - OTHER PSYCHOACTIVE SUBSTANCE USE, UNSPECIFIED, UNCOMPLICATED (5) Irritable bowel syndrome Code(s): K58.9 - IRRITABLE BOWEL SYNDROME WITHOUT DIARRHEA Qualifiers: Irritable bowel syndrome type: with constipation Qualified Code(s): K58.1 - Irritable bowel syndrome with constipation (6) Nicotine dependence Code(s): F17.200 - NICOTINE DEPENDENCE, UNSPECIFIED, UNCOMPLICATED Qualifiers: Nicotine product type: cigarettes Substance use status: uncomplicated Qualified Code(s): F17.210 - Nicotine dependence, cigarettes, uncomplicated (7) Opioid dependence with withdrawal Code(s): F11.23 - OPIOID DEPENDENCE WITH WITHDRAWAL (8) Schizoaffective disorder Code(s): F25.9 - SCHIZOAFFECTIVE DISORDER, UNSPECIFIED Qualifiers: Schizoaffective disorder type: unspecified Qualified Code(s): F25.9 - Schizoaffective disorder, unspecified Assessment/Plan 43 y.o. female with PMH of IBS, schizoaffective d.o., hepatitis C, active IVDU/ cocaine (last injected heroin on 12/30/18), lap appendectomy and Lt greenberg abscess I +D on 12/25/18 presents with c/o abdominal pain (similar to contractions), nausea and multiple episodes of vomiting. Mild leukocytosis, temp of 100.4F in ER Fever Leukocytosis Abd pain Active IVDU Polysubstance abuse LLE abscess s/p drainage s/p Lap appendectomy Hep C IBS Constipation Schizoaffective d.o. plan continue current mgmt oral abx for another 5 days pain mgmt rest as per the team
[2019-01-08 11:37] VITALS: BP 98/59; PULSE 65; TEMP 98.5
--- NOTE | 2019-01-08 19:22 | PN ---
Teaching Attending Note Name of Resident: Thanh Madrigal ATTENDING PHYSICIAN STATEMENT I saw and evaluated the patient. I reviewed the resident's note and discussed the case with the resident. I agree with the resident's findings and plan as documented. SUBJECTIVE: No fever or chills . when awakened from sleep she complained of severe abd pain. OBJECTIVE: NAD. comfortable MMM CV: RRR, no MRG Lungs: CTAB Abd: soft, TTP in RLQ, nl BS. Ext : L greenberg with 1.5 cm wound with no surrounding erythema . has slough. ASSESSMENT AND PLAN: 43 y/o lady with Heroin and other substance abuse, colitis, IBS , Hep C ( recently diagnosed, not treated ) , asthma, schizoaffective Do, recent diagnosisof possible liver hemangioma, and L leg abscess and recent appendicitis s/p appendectomy, who presented from [facility] with N/V/Abd pain 1- N/V/Abd pain: 2- Possible sepsis 3- L leg abscess s/p drainage last admisison 4- Polysubstance abuse 5- Untreated Hep C - liquid diet with advancing as tolerated - cont augmentin x 5 more days - f/u as out pt - cont rehab at [facility] to [facility]
== END 2019-01-08 12:51 | disposition other institution (70) | DRG 897 ==
LOC: JER 04:53 → JERBED 10:01 → OBSVTOIN 12:14 → J8W 12:48
PROVIDERS: ADMIT Internal Medicine; ATTEND Internal Medicine
DX: F11.23 Opioid dependence with withdrawal (principal); E87.2 Acidosis; F14.20 Cocaine dependence, uncomplicated; B19.20 Unspecified viral hepatitis C without hepatic coma; F25.9 Schizoaffective disorder, unspecified; R74.0 Nonspecific elevation of levels of transaminase and lactic acid dehydrogenase [LDH]; D18.09 Hemangioma of other sites; K59.03 Drug induced constipation; K58.9 Irritable bowel syndrome, unspecified
CPT/HCPCS: 36415; 71045-TC-FY; 74177-TC; 76882-TC-RT-FY; 80048; 80053; 80307; 81003; 82272; 83605; 83690; 83735; 84100; 84703; 85025; 85610; 85651; 86140; 86850; 86900; 86901; 87040; 93005; 93010; 93306-TC; 99285-25; G0378; J0131; J0735; Q0162

== ENCOUNTER 2019-01-08 12:55 | Inpatient (IN) | payer OTHER ==
[2019-01-08 13:34] VITALS: BMI 27.1
--- NOTE | 2019-01-08 14:58 | HP ---
CIWA Score - Admission Criteria OASAS Guidelines: Admission for Medically Managed Detox: Requires at least one of the followin. CIWA greater than 12 2. Seizures within the past 24 hours 3. Delirium tremens within the past 24 hours 4. Hallucinations within the past 24 hours 5. Acute intervention needed for co occurring medical disorder 6. Acute intervention needed for co occurring psychiatric disorder 7. Severe withdrawal that cannot be handled at a lower level of care (continued vomiting, continued diarrhea, abnormal vital signs) requiring intravenous medication and/or fluids 8. Admission ROS [facility] - HPI Chief Complaint: Pt transferred back to [facility] from [facility] for further management in Rehab Pt was initially here at [facility] in late November for detox- sent to [facility] for abdominal pain- after evaluation pt had an appendectomy. Pt was sent back here for rehab. Pt developed nausea/vomiting and so sent back to [facility] to r/o post- appendectomy complications. Only positive finding was constipation. Pt was given several doses of morphine and oxycodone for pain/withdrawal control. Pt was to have been discharged for f/u with methadone maintenance but instead pt was sent back here. Pt states she has been on methadone in the past- upto 190mg and did not like it. She says methadone causes nausea and vomiting- including the smaller detox doses of methadone. Pt states she would like to start suboxone as treatment for her opioid use disorder. d/w pt that she prefers to go to rehab as she does not like methadone b/c of side effects of n/v. d/w pt that she may not get suboxone for a couple of days until the morphine and oxycodone are eliminated from her body. Pt understands and states she will use clonidine and vistaril for sx treatment. Will also give antiemetics. Antibiotics were started empirically by ID at [facility]- CT scan negative and leg ulcer was not noted to be infected. No clear indication for antibiotics and pt states augmentin causes n/v. Utox: THC, opiates, oxycodone, MTD, BZO. Allergies/Adverse Reactions: Allergies Allergy/AdvReac Type Severity Reaction Status Date / Time sulfur dioxide Allergy Verified 01/08/19 13:15 risperidone AdvReac Severe Verified 01/08/19 13:15 - Ebola screening Have you traveled outside of the country in the last 21 days: No Have you had contact with anyone from an Ebola affected area: No Do you have a fever: No Patient History - Patient Medical History Hx Asthma: Yes (ALBUTEROL INHALER) Hx Chronic Obstructive Pulmonary Disease (COPD): No Hx Cancer: No Hx Cardiac Disorders: No Hx Congestive Heart Failure: No Hx Hypertension: No Hx Hypercholesterolemia: No Hx Pacemaker: No HX Cerebrovascular Accident: No Hx Seizures: No Hx Dementia: No Hx Diabetes: No Hx Gastrointestinal Disorders: Yes (irritable bowel syndrome and colitis) Hx Liver Disease: Yes Hx Genitourinary Disorders: No Hx Sexually Transmitted Disorders: No Hx Renal Disease (ESRD): No Hx Thyroid Disease: No Hx Human Immunodeficiency Virus (HIV): No (last 11/12 negative) Hx Hepatitis C: Yes (no treatment) Hx Depression: Yes Hx Suicide Attempt: No Hx Schizophrenia: Yes (SCHIZOAFFECTIVE) - Patient Surgical History Past Surgical History: No Hx Neurologic Surgery: No Hx Cataract Extraction: No Hx Cardiac Surgery: No Hx Lung Surgery: No Hx Breast Surgery: No Hx Breast Biopsy: No Hx Abdominal Surgery: No (hernia repair 12/26/2018) Hx Appendectomy: Yes (12/26/2018) Hx Cholecystectomy: No Hx Genitourinary Surgery: No Hx Section: No Hx Orthopedic Surgery: No Other Surgical History: leg left abcess I& D 12/26/2018, colitis Anesthesia Reaction: No - PPD History Date: 12/24/18 - Reproductive History Last Menstrual Period: 10/25/14 - Smoking Cessation Smoking history: Current every day smoker Have you smoked in the past 12 months: Yes Aproximately how many cigarettes per day: 3 Hx Chewing Tobacco Use: No Initiated information on smoking cessation: Yes 'Breaking Loose' booklet given: 01/08/19 - Substances abused Heroin Substance route: Injection Frequency: Daily Amount used: 5 BAGS Age of first use: 40 Date of last use: 12/21/18 Cocaine Substance route: Injection Frequency: 1-2 times per week Amount used: 20$ Age of first use: 25 Date of last use: 12/21/18 Marijuana/Hashish Substance route: Smoking Frequency: 1-3 times last 30 days Amount used: 10$ Age of first use: 14 Date of last use: 12/21/18 Admission Physical Exam [facility] - Vital Signs Vital Signs: Vital Signs - 24 hr 01/08/19 13:28 Temperature 98.3 F Pulse Rate 88 Respiratory 20 Rate Blood Pressure 106/80 - Physical General Appearance: Yes: Within Normal Limits, Mild Distress HEENTM: Yes: Within Normal Limits, EOMI, Hearing grossly Normal, Normal ENT Inspection, TANI Respiratory: Yes: Within Normal Limits, Chest Non-Tender, Lungs Clear Neck: Yes: Within Normal Limits, No masses,lesions,Nodules Breast: Yes: Other (breast implants- bilateral) Cardiology: Yes: Within Normal Limits, Regular Rhythm, Regular Rate Abdominal: Yes: Within Normal Limits, Normal Bowel Sounds, Surgical Scar, Other (healed surgical scar) Back: Yes: Within Normal Limits, Normal Inspection Musculoskeletal: Yes: Within Normal Limits Extremities: Yes: Within Normal Limits, Other Neurological: Yes: Within Normal Limits, braiding operator II-XII NML intact, Fully Oriented Integumentary: Yes: Within Normal Limits, Track Dawson, Other (left leg with becki sized ulcer mid greenberg- looks clear, serosanguinoius exudate) Lymphatic: Yes: Within Normal Limits Breathalyzer - Breathalyzer Breathalyzer: 0 POC Urine test - Test device test lot number: [id number] Expiration date: 05/26/20 - Control test control: Yes Urine Drug Screen - Test Device Lot number: [id number] Expiration date: 09/25/20 - Control Is test valid?: Yes - Results Drug screen NEGATIVE: No Urine drug screen results: THC-Marijuana, MET-Methamphetamine, MOP-Opiates, OXY- Oxycodone, MTD-Methadone, BZO-Benzodiazepines Inpatient Rehab Admission - Rehab Decision to Admit Inpatient rehab admission?: Yes - Initial Determination Are CD services needed?: Yes Free of communicable disease: Yes Not in need of hospitalization: Yes - Rehab Admission Criteria Previous failed treatment: Yes Poor recovery environment: Yes Comorbidities: Yes Lacks judgement: Yes Patient is meeting Inpatient Rehab admission criteria:: Yes
[2019-01-08] MEDS ORDERED: LOPERAMIDE HCL 2 MG CAPSULE PO PRN (15:10)
[2019-01-08] MEDS ORDERED: MAGNESIUM HYDROX 2400MG/30ML ORAL SUSPENSION 30 ML CUP PO PRN (15:10)
[2019-01-08] MEDS ORDERED: P-EPHED 60MG/TRIPROLIDI 2.5MG TABLET PO PRN (15:10)
[2019-01-08] MEDS ORDERED: MAGNESIUM CITRATE 300 ML BOTTLE PO PRN (15:10)
[2019-01-08] MEDS ORDERED: hydrOXYzine PAMOATE 50 MG CAPSULE (FP) PO PRN (15:10)
[2019-01-08] MEDS ORDERED: guaiFENesin 200 MG/10 ML 10 ML UNIT-DOSE CUPS PO PRN (15:10)
[2019-01-08] MEDS ORDERED: IBUPROFEN 400 MG TABLET (FP) PO PRN (15:10)
[2019-01-08] MEDS ORDERED: ACETAMINOPHEN 325 MG TABLET (FP) PO PRN (15:10)
[2019-01-08] MEDS ORDERED: MENTHOL/PHENOL 1 EACH UD MM PRN (15:10)
[2019-01-08] MEDS ORDERED: MAG HYDROX/AL HYDROX/SIMETH 30 ML UNIT-DOSE CUP PO PRN (15:10)
[2019-01-08] MEDS ORDERED: TRIMETHOBENZAMIDE HCL 200MG/2ML INJ IM PRN (15:29)
[2019-01-08] MEDS: ONDANSETRON *ODT* 4 MG TABLET SL PRN (19:39)
[2019-01-08] MEDS: cloNIDine HCL 0.1 MG TABLET PO PRN (19:45)
[2019-01-08] MEDS: COLLAGENASE CLOSTRIDIUM HIST. 30 GRAMS TUBE TP SCH (21:39)
[2019-01-08] MEDS: MELATONIN 5 MG TABLETS PO PRN (21:41)
[2019-01-08] MEDS: THIAMINE HCL 100 MG TABLET (FP) PO SCH (21:41)
[2019-01-08] MEDS ORDERED: PT OWN MED DRAWER 7, Y5N ONE (22:57)
[2019-01-09] MEDS: cloNIDine HCL 0.1 MG TABLET PO PRN (02:06)
[2019-01-09] MEDS ORDERED: PT OWN MED DRAWER 7, Y5N ONE (08:52)
[2019-01-09] MEDS: PRENATAL VITAMINS W/ FOLIC ACID TABLET (FP) PO SCH (10:13)
[2019-01-09] MEDS: COLLAGENASE CLOSTRIDIUM HIST. 30 GRAMS TUBE TP SCH (10:14)
--- NOTE | 2019-01-09 13:39 | PN ---
[facility] Progress Note Note: Patient is going through withdrawal. Feeling highly anxious, diaphoretic, c/o nausea, vomiting, general aches and malaise. UTOX was positive for methadone, oxycodone, benzo, marijuana. Her last doses of oxycodone and methadone was 2 days ago.Patient cannot tolerate clonidine because her BP is too low. Vital Signs (72 hours) 01/08/19 01/08/19 01/08/19 13:28 16:03 20:45 Temperature 98.3 F 97.1 F L Pulse Rate 88 76 84 Respiratory 20 18 Rate Blood Pressure 106/80 93/68 101/69 01/09/19 01/09/19 01/09/19 00:30 02:03 07:02 Temperature 97.7 F Pulse Rate 65 74 Respiratory 16 18 Rate Blood Pressure 101/67 93/61 01/09/19 09:04 Temperature 97.4 F L Pulse Rate 62 Respiratory 18 Rate Blood Pressure 96/70 Plan: This scenario writer consulted with the ASAM guidelines, which recommends starting suboxone 12 hours after the last dose of oxycodone and 24 hours after the last dose of methadone. Suboxone 2 mg daily started. Zofran prn ordered. Will continue to monitor.
[2019-01-09] MEDS: ONDANSETRON *ODT* 4 MG TABLET SL PRN (14:00)
[2019-01-09] MEDS: BUPRENORPHINE/NALOXONE 2 MG/0.5 MG FILM PACKET SL SCH (14:18)
[2019-01-09] MEDS: MELATONIN 5 MG TABLETS PO PRN (21:31)
[2019-01-09] MEDS: THIAMINE HCL 100 MG TABLET (FP) PO SCH (21:31)
[2019-01-10] MEDS: cloNIDine HCL 0.1 MG TABLET PO PRN (08:23)
[2019-01-10] MEDS ORDERED: PT OWN MED DRAWER 7, Y5N ONE (08:39)
[2019-01-10] MEDS: BUPRENORPHINE/NALOXONE 2 MG/0.5 MG FILM PACKET SL SCH (09:06)
[2019-01-10] MEDS: PRENATAL VITAMINS W/ FOLIC ACID TABLET (FP) PO SCH (09:07)
[2019-01-10] MEDS: COLLAGENASE CLOSTRIDIUM HIST. 30 GRAMS TUBE TP SCH (09:07)
[2019-01-10 10:41] VITALS: BP 126/65; PULSE 88; TEMP 98.2
--- NOTE | 2019-01-10 12:38 | PN ---
[facility] Progress Note Note: Notified by nursing staff, patient requested to sign out AMA. Patient informed staff she had withdrawal symptoms and wanted to leave. Staff encouraged patient to speak to movie writer and to complete treatment to prevent relapse. Patient refused and called taxi to pick her up. Upon arrival to unit, patient was being excorted off unit by tech. Office Chair Assembler asked patient to speak with her regarding her symptoms. Patient stated " No, my cab is outside. I got to go!". Patient proceeded to leave unit escorted by tech without speaking to movie writer. Vital Signs Temperature 98.2 F 01/10/19 10:15 Pulse Rate 88 01/10/19 10:15 Respiratory Rate 20 01/10/19 10:15 Blood Pressure 126/65 01/10/19 10:15 O2 Sat by Pulse Oximetry (%) Laboratory Tests 01/08/19 14:22 POC Urine HCG, Qual Negative
== END 2019-01-10 11:45 | disposition home or self-care (01) | DRG 895 ==
LOC: YASAS 12:55 → Y3E 15:35
PROVIDERS: ADMIT Neuromusculoskeletal Medicine & OMM; ATTEND Neuromusculoskeletal Medicine & OMM
PROC: HZ42ZZZ Group Counseling for Substance Abuse Treatment, Cognitive-Behavioral (ICD-10-PCS; principal; 2019-01-08)
DX: F11.20 Opioid dependence, uncomplicated (principal); F14.20 Cocaine dependence, uncomplicated
CPT/HCPCS: 36415; 71045-TC-FY; 74177-TC; 76882-TC-RT-FY; 80048; 80053; 80307; 81003; 81025; 82272; 83605; 83690; 83735; 84100; 84703; 85025; 85610; 85651; 86140; 86850; 86900; 86901; 87040; 93005; 93010; 93306-TC; 99285-25; G0378; J0131; J0735; Q0162